=== PATIENT | female | born 1955 | race Caucasian/White ===

== ENCOUNTER → 2017-10-18 07:51 | Outpatient (CLI) | payer OTHER, SELFPAY ==
[2017-10-18 09:56] LABS: Alanine Aminotransferase 31 U/L (12-78); Albumin Level 3.7 gm/dL (3.4-5.0); Albumin/Globulin Ratio 0.9 (1.1-1.8); Alkaline Phosphatase 79 U/L (46-116); Anion Gap 13.5 mEq/L (5-15); Aspartate Amino Transferase 16 U/L (15-37); Bilirubin,Total 0.3 mg/dL (0.2-1.0); Blood Urea Nitrogen 16 mg/dL (7-18); Calcium 9.2 mg/dL (8.5-10.1); Carbon Dioxide 28 mmol/L (21.0-32.0); Chloride 106 mmol/L (98-107); Chol/HDL Ratio 2.2 (1-3.5); Cholesterol 178 mg/dL (140-200); Creatinine,Serum 0.69 mg/dL (0.55-1.02); Estimated Glomerular Filt Rate 86 ml/min (>60); GFR (African American) 104 ML/MIN (>60); Glucose 88 mg/dL (74-106); HDL Cholesterol 80 mg/dL (29-89); LDL Cholesterol 82 mg/dL (0-130); Potassium 4.5 mmoL/L (3.5-5.1); Sodium 143 mmol/L (136-145); Thyroid Stimulating Hormone 0.51 uIU/ml (0.358-3.740); Total Protein,Serum 7.7 gm/dL (6.4-8.2); Triglycerides 80 mg/dL (30-200); VLDL Cholesterol 16 mg/dL (0-40)
== END ==
PROVIDERS: Visit Provider Family Medicine
DX: E03.9 Hypothyroidism, unspecified (principal); E78.00 Pure hypercholesterolemia, unspecified
CPT/HCPCS: 36415; 80053; 80061; 84443

== ENCOUNTER → 2017-12-22 15:40 | Outpatient (CLI) | payer OTHER, SELFPAY ==
--- NOTE | 2017-12-22 15:44 | MM_ITS ---
. MM Dig screening mamm BI w/CAD CAD Screening ORDERING PHYSICIAN : Manuel Morales MD PATIENT AGE: 62 years GENDER: Female COMPARISON: Previous mammograms: October 2016, December 2012, December 2009 , INDICATION: Routine screening mammogram. No hormones no new complaints. Previous stereotactic biopsy both breast TECHNIQUE: Standard CC and MLO images were obtained. R2 CAD reviewed. FINDINGS: Moderate breast density with scattered fibroglandular elements bilaterally . Mildly inhomogeneous Overall stable architecture with no dominant mass nor suspicious calcifications RIGHT BREAST:2 small metallic marker is at the deep right breast-deep central and another at deep breast 12 o'clock position currently noted reflect previous stereotactic biopsy.. Moderately dense glandular elements throughout the deep breast appear similar with no significant change. Follow-up in one year the adequate LEFT BREAST:No new areas of significant concern. Minimal area nodularity medial inferior left breast probably a similar to studies dating back to 2012 and even 2009.. Favor stable feature. It follow-up in one year adequate IMPRESSION: 5... No new areas of significant concern. Bilateral follow-up in one year recommended and should be encouraged and emphasized. In this Moderate breast density . Suggest self breast examination well BI-RADS Category: 2 Benign Finding(s) RECOMMENDED FOLLOW-UP: 1YR - 1 YEAR FOLLOW-UP (A letter has been sent to the patient regarding results of the study.)
== END ==
PROVIDERS: PCP Family Medicine; Visit Provider Family Medicine
DX: Z12.31 Encounter for screening mammogram for malignant neoplasm of breast (principal)
CPT/HCPCS: 77067

== ENCOUNTER → 2018-10-26 08:28 | Outpatient (CLI) | payer OTHER, SELFPAY ==
[2018-10-26 10:36] LABS: Alanine Aminotransferase 38 U/L (12-78); Albumin Level 3.6 gm/dL (3.4-5.0); Alkaline Phosphatase 73 U/L (46-116); Aspartate Amino Transferase 23 U/L (15-37); Bilirubin,Total 0.4 mg/dL (0.2-1.0); Blood Urea Nitrogen 17 mg/dL (7-18); Calcium 9.2 mg/dL (8.5-10.1); Carbon Dioxide 27 mmol/L (21.0-32.0); Chloride 106 mmol/L (98-107); Chol/HDL Ratio 2.4 (1-3.5); Cholesterol 169 mg/dL (140-200); Creatinine,Serum 0.73 mg/dL (0.55-1.02); Estimated Glomerular Filt Rate 80 ml/min (>60); Free T4 (Free Thyroxine) 1.07 ng/dl (0.76-1.46); GFR (African American) 97 ML/MIN (>60); Globulin 3.6 gm/dl (1.3-3.2); Glucose 92 mg/dL (74-106); HDL Cholesterol 69 mg/dL (29-89); LDL Cholesterol 82 mg/dL (0-130); Sodium 143 mmol/L (136-145); Thyroid Stimulating Hormone 0.16 uIU/ml (0.358-3.740); Total Protein,Serum 7.2 gm/dL (6.4-8.2); Triglycerides 89 mg/dL (30-200); VLDL Cholesterol 18 mg/dL (0-40)
== END ==
PROVIDERS: Visit Provider Family Medicine
DX: E03.9 Hypothyroidism, unspecified (principal); E78.00 Pure hypercholesterolemia, unspecified
CPT/HCPCS: 36415; 80053; 80061; 84439; 84443

== ENCOUNTER → 2018-12-21 10:12 | Outpatient (CLI) | payer OTHER, SELFPAY ==
[2018-12-21 12:46] LABS: Free T4 (Free Thyroxine) 1.23 ng/dl (0.76-1.46); Thyroid Stimulating Hormone 0.88 uIU/ml (0.358-3.740)
== END ==
PROVIDERS: Visit Provider Family Medicine
DX: E03.9 Hypothyroidism, unspecified (principal); R79.89 Other specified abnormal findings of blood chemistry
CPT/HCPCS: 36415; 84439; 84443

== ENCOUNTER → 2019-01-17 08:44 | Outpatient (CLI) | payer OTHER, SELFPAY ==
--- NOTE | 2019-01-17 08:47 | MM_ITS ---
MM Dig screening mamm BI w/CAD ORDERING PHYSICIAN : Manuel Morales MD PATIENT AGE: 63 years GENDER: Female COMPARISON: December 2017; October 2016; December 2012 Film screen mammogram October 2009 INDICATION: Routine SCREENING mammogram. No hormones no new complaints. Previous benign stereotactic biopsy and benign excisional biopsy right breast 12:00 noted Noncontributory family history TECHNIQUE: Standard CC and MLO images were obtained. R2 CAD reviewed. FINDINGS: Moderate breast. Moderate fibroglandular elements bilaterally. Mild asymmetry which appears fairly stable overall compared to previous studies. No suspicious new dominant mass no suspicious calcifications. Actually the 2009 study is surprisingly helpful to shows similar fibroglandular pattern bilaterally RIGHT BREAST:No new areas of significant concern. Follow-up in one year. Stable tiny just over 4 mm nodular density at the lateral breast on cc view is a second smaller than 2013 mammogram Previous stereotactic biopsy with 2 metallic MicroMark at right breast. One at the 1 o'clock position and the other deep central breast at 12:00. LEFT BREAST:No new areas of significant concern. Follow-up in one year Area of density at the medial left breast and cc views it remains stable. The scattered patchy areas of density at the left breast appear similar to studies dating back to at least 2012 follow-up in one year adequate IMPRESSION: . No new areas of significant concern either breast. Bilateral follow-up mammogram 1 year recommended. Moderate breast density. BI-RADS Category: 2 Benign Finding(s) RECOMMENDED FOLLOW-UP: 1YR 1 YEAR FOLLOW-UP (A letter has been sent to the patient regarding results of the study.)
== END ==
PROVIDERS: PCP Family Medicine; Visit Provider Family Medicine
DX: Z12.31 Encounter for screening mammogram for malignant neoplasm of breast (principal)
CPT/HCPCS: 77067

== ENCOUNTER → 2019-12-07 08:02 | Outpatient (CLI) | payer MEDICARE, SELFPAY ==
[2019-12-07 09:44] LABS: Chloride 101 mmol/L (98-107); Potassium 4.2 mmoL/L (3.5-5.1); Sodium 137 mmol/L (136-145)
[2019-12-07 09:46] LABS: Alanine Aminotransferase 19 U/L (12-78); Aspartate Amino Transferase 30 U/L (14-36); Blood Urea Nitrogen 14 mg/dl (7-17); Estimated Glomerular Filt Rate 84 ml/min (>60); GFR (African American) 102 ML/MIN (>60)
[2019-12-07 09:47] LABS: Albumin Level 4.3 g/dl (3.5-5.0); Albumin/Globulin Ratio 1.5 (1.1-1.8); Alkaline Phosphatase 60 U/L (38-126); Anion Gap 11.2 mEq/L (5-15); Bilirubin,Total 0.4 mg/dl (0.2-1.3); Calcium 9.8 mg/dl (8.4-10.2); Carbon Dioxide 29 mmol/L (22.0-30.0); Chol/HDL Ratio 2.4 (1-3.5); Cholesterol 151 mg/dl (140-200); Globulin 2.8 g/dL (1.3-3.2); Glucose 85 mg/dl (74-100); HDL Cholesterol 63 mg/dl (40-60); Total Protein,Serum 7.1 g/dl (6.3-8.2); Triglycerides 108 mg/dl (30-150); VLDL Cholesterol 22 mg/dL (0-40)
[2019-12-07 09:58] LABS: Direct LDL Cholesterol 77.01 mg/dL (100-129)
[2019-12-07 10:03] LABS: Free T4 (Free Thyroxine) 1.31 ng/dl (0.78-2.19)
[2019-12-07 10:17] LABS: Thyroid Stimulating Hormone 2.31 uIU/mL (0.465-4.68)
[2019-12-08 04:07] LABS: Creatinine, Urine 47.5 mg/dL (Not Estab.); Microalbumin, Urine <3.0 ug/mL (Not Estab.)
== END ==
PROVIDERS: Visit Provider Family Medicine
DX: E03.9 Hypothyroidism, unspecified (principal); E78.00 Pure hypercholesterolemia, unspecified; I10 Essential (primary) hypertension
CPT/HCPCS: 36415; 80053; 80061; 82043; 82570; 84439; 84443

== ENCOUNTER → 2019-12-12 10:25 | Outpatient (CLI) | payer MEDICARE, SELFPAY ==
--- NOTE | 2019-12-12 10:30 | XR_ITS ---
PROCEDURE: XR LUMBAR SPINE MIN 4V CLINICAL INDICATION: RT HIP PAIN low back pain COMPARISON: No exams were available for comparison FINDINGS: There is lumbar curvature convex left in the upper lumbar spine and convex right in the lower lumbar spine. There is degenerative disc disease at T12-L1 L1-L2 L3-L4 L4-5 and L5-S1. Facet arthritic changes are present at L3-L4 and L5 and S1. There are mild degenerative changes of the SI joints and there is mild diffuse vascular calcification. No acute fracture or dislocation is evident.. There is 5 mm anterolisthesis of L4 on L5 IMPRESSION: Scoliosis with spondylosis of the lumbar spine with degenerative disc disease and facet arthritic change Dictated by: Van Mercado MD 12/12/2019 11:42 Electronically signed by Van Mercado MD in [place] 12/12/2019 11:42
--- NOTE | 2019-12-12 10:30 | XR_ITS ---
PROCEDURE: XR HIP RT 2-3V W/PELVIS CLINICAL INDICATION: RT HIP PAIN COMPARISON: No exams were available for comparison FINDINGS: There are minimal osteoarthritic changes of both hips as seen on the AP view of the pelvis with slight decrease in the joint space and minimal osteophyte formation along the inferior acetabulum. No fracture or dislocation. No lytic or blastic change. Are degenerative changes in the lumbar IMPRESSION: Mild osteoarthritis of the hips Dictated by: Van Mercado MD 12/12/2019 17:46 Electronically signed by Van Mercado MD in [place] 12/12/2019 17:46
== END ==
PROVIDERS: PCP Family Medicine; Visit Provider Family Medicine
DX: M25.551 Pain in right hip (principal); M54.5 Low back pain
CPT/HCPCS: 72110; 73502

== ENCOUNTER → 2020-05-10 08:16 | Outpatient (CLI) | payer MEDICARE, SELFPAY ==
--- NOTE | 2020-05-10 08:19 | MM_ITS ---
PROCEDURE: MM DIG SCREENING MAMM BI W/CAD Digital Breast Tomosynthesis Included CLINICAL INDICATION: SCREENING There is no personal or family history of breast cancer. COMPARISON: MG [facility]MSB DIG MAMM-SCREEN [facility] W/CAD from 11/17/2016 MG [facility] MM Dig screening mamm BI w/CAD from 12/22/2017 MG DIG MAMM-SCREEN [facility] from 01/17/2019 TECHNIQUE: Standard CC and MLO images and 3D Tomosynthesis was obtained. R2 CAD reviewed. FINDINGS: Moderate scattered fibroglandular densities are seen throughout both breasts. There are 2 biopsy clips right breast, there is a mole marker left breast. There is no suspicious lesion in either breast and no suspicious microcalcifications. IMPRESSION: Moderate diffuse breast density with no suspicious lesions seen BI-RAD Category: 2 Benign Finding(s) FOLLOW-UP: 1YR 1 Year Follow-up (A letter has been sent to the patient regarding results of the study.) Dictated by: Dr. Ramiro Tong MD 05/12/2020 15:23 Dr. Ramiro Tong MD in [place] 05/12/2020 15:23
== END ==
PROVIDERS: PCP Family Medicine; Visit Provider Family Medicine
DX: Z12.31 Encounter for screening mammogram for malignant neoplasm of breast (principal)
CPT/HCPCS: 77063; 77067

== ENCOUNTER 2020-11-05 13:28 | Emergency (ER) | payer MEDICARE, SELFPAY ==
[2020-11-05 13:40] VITALS: BP 160/74; PULSE 74; RESP 16; TEMP 36.9; O2SAT 95; BMI 32.8
--- NOTE | 2020-11-05 14:22 | HMH.EDUTC ---
[facility] [place] Clinical Impression: Sinusitis Qualifiers: Sinusitis location: unspecified location Chronicity: unspecified Qualified Code(s): J32.9 - Chronic sinusitis, unspecified Disposition: Home, Self-Care Condition on Discharge: Good Instructions: Sinusitis, Sinus Headache, DI for Sinusitis, Doxycycline, Methylprednisolone Additional Instructions: *Monitor Temp, Over the counter Motrin or Tylenol as directed/as needed Tylenol every 4 hours and Motrin every 6 hours (as long as your family doctor has told you that you can take it) for fever or pain. and straight to ER if unable to lower temp less than 101.0 after medication given *Warm salt water gargles may help to soothe the throat *Throat Lozenges *Warm fluids like tea with honey may help to soothe the throat *Sleep elevated *Humidifier/Vaporizer *Flonase 2 sprays in each nostril daily but be aware that it may take 2-3 days before you notice improvement *Take medication as prescribed Follow up IMMEDIATELY for new or worsening symptoms or no Noticeable improvement over the next 48-72 hours. 911 for difficulty breathing or swallowing You were tested for today for COVID19 your test result should be back in the next 24-48 hours, you may call to the [facility] to see if your test results are back in the next 48 hours [phone] [facility] hours are 9am-9pm You was given a handout with instructions for Self Quarantine and Self isolation for while you wait on test results and what to do if they are positive If you are positive the Health Dept will be contacting you also Prescriptions: Doxycycline Monohydrate [Doxycycline [place] 100mg Tab] 100 mg PO Q12 7 Days #14 tab Transmission Status: Received by [id number] methylPREDNISolone [Medrol 4mg tab] 4 mg PO DIRECTED #21 tab Transmission Status: Received by [id number] Referrals: Manuel Morales MD [Primary Care Provider] - As needed Time of Disposition: 14:40 Medical Decision Making - Cristopher Inquiry Pt receiving controlled substance: No Cristopher was queried for this patient: No Vital Signs: 11/05/20 13:40 11/05/20 14:41 Temperature 98.4 F 98.4 F Temperature Source Oral Pulse Rate 74 Pulse Rate [Right Brachial] 74 Respiratory Rate 16 16 Blood Pressure 160/74 H Blood Pressure [Right Arm] 160/74 H Blood Pressure Mean [Right Arm] 102 Blood Pressure Source [Right Arm] Automatic Cuff Blood Pressure Position [Right Arm] Sitting 02 Sat by Pulse Oximetry 95 Oxygen Delivery Method Room Air Orders (Tests/Meds): ORDERS Category Date Time Status Covid-19 Nasal PCR ([facility]) Routine Lab 11/05/20 14:30 Received Medical Decision Narrative: Patient state that she has taken Medrol dose pack in the past without reactions or complications [facility] [place] - General Stated complaint: headache Time Seen by Provider: 11/05/20 14:22 Mode of Arrival: Ambulatory Source of Information: Patient Limitations: No Limitations Description of Symptoms (Recalled from Triage Doc. by RN): PATIENT C/O CONSISTANT HEADACHE SINCE LAST WEDNESDAY AND LEFT EAR FEELING FULL HEENT Symptoms (Recalled from RN notes): Yes Resp Symptoms (Recalled from RN notes): No Skin Symptoms (Recalled from RN notes): No MS Symptoms (Recalled from RN notes): No Functional Status (Recalled from RN notes): WNL - History of Present Illness Provider Complaint: Patient state that she has been having a sinus headache and fullness feeling in her ears for about a week States that today it was hurting again and she took some Motrin around 1230 and it helped a little but feels like it does when she gets a sinus infection so she came in to get checked - Related Data Previous Rx's Medication Instructions Recorded Benzonatate [Tessalon Perle 100mg 100 mg PO TID #30 cap 09/06/18 Cap] levoFLOXacin [Levaquin 500mg 500 mg PO DAILY #7 tab 09/06/18 tab] predniSONE [Prednisone 20mg 20 mg PO BID #10 tab 09/06/18 Tab] Doxycycline Monohydra
[2020-11-05 14:41] VITALS: BP 160/74; PULSE 74; RESP 16; TEMP 36.9; O2SAT 95
== END 2020-11-05 14:45 | disposition home or self-care (01) ==
PROVIDERS: Emergency Provider Nurse Practitioner; PCP Family Medicine
DX: J32.9 Chronic sinusitis, unspecified (principal); Z20.822 Contact with and (suspected) exposure to COVID-19; Z88.0 Allergy status to penicillin
CPT/HCPCS: 99202; G0463; U0003

== ENCOUNTER → 2020-12-02 08:37 | Outpatient (CLI) | payer MEDICARE, SELFPAY ==
[2020-12-02 09:08] LABS: Creatinine,Urine Random 24 mg/dL (Not Estab.)
[2020-12-02 09:13] LABS: Microalbumin < 6.000 mg/L (0-16.7)
[2020-12-02 09:38] LABS: Alanine Aminotransferase 21 U/L (12-78); Albumin Level 4.4 g/dl (3.5-5.0); Albumin/Globulin Ratio 1.6 (1.1-1.8); Alkaline Phosphatase 70 U/L (38-126); Anion Gap 13.4 mEq/L (5-15); Aspartate Amino Transferase 32 U/L (14-36); Bilirubin,Total 0.4 mg/dl (0.2-1.3); Blood Urea Nitrogen 15 mg/dl (7-17); Calcium 9.8 mg/dl (8.4-10.2); Carbon Dioxide 25 mmol/L (22.0-30.0); Chloride 106 mmol/L (98-107); Chol/HDL Ratio 2.4 (1-3.5); Cholesterol 182 mg/dl (140-200); Estimated Glomerular Filt Rate 84 ml/min (>60); GFR (African American) 101 ML/MIN (>60); Globulin 2.7 g/dL (1.3-3.2); Glucose 94 mg/dl (74-100); HDL Cholesterol 75 mg/dl (40-60); Potassium 4.4 mmoL/L (3.5-5.1); Sodium 140 mmol/L (136-145); Total Protein,Serum 7.1 g/dl (6.3-8.2); Triglycerides 120 mg/dl (30-150); VLDL Cholesterol 24 mg/dL (0-40)
[2020-12-02 09:49] LABS: Direct LDL Cholesterol 69.03 mg/dL (100-129)
[2020-12-02 09:54] LABS: Free T4 (Free Thyroxine) 1.44 ng/dl (0.78-2.19)
[2020-12-02 10:09] LABS: Thyroid Stimulating Hormone 2.29 uIU/mL (0.465-4.68)
== END ==
PROVIDERS: Visit Provider Family Medicine
DX: E03.9 Hypothyroidism, unspecified (principal); E78.00 Pure hypercholesterolemia, unspecified; I10 Essential (primary) hypertension
CPT/HCPCS: 36415; 80053; 80061; 82043; 82570; 84439; 84443

== ENCOUNTER → 2021-03-04 10:31 | Outpatient (POV) | payer MEDICARE, SELFPAY | PROVIDERS: Visit Provider Dermatology | DX: Z00.00 Encounter for general adult medical examination without abnormal findings (principal) ==

== ENCOUNTER → 2021-05-16 09:33 | Outpatient (CLI) | payer MEDICARE, SELFPAY ==
--- NOTE | 2021-05-16 09:36 | MM_ITS ---
PROCEDURE: MM DIG SCREENING MAMM BI W/CAD Digital Breast Tomosynthesis Included CLINICAL INDICATION: SCREENING There is no personal or family history of breast cancer. There has been a previous biopsy right breast for disease. COMPARISON: MG [facility] MM Dig screening mamm BI w/CAD from 12/22/2017 MG DIG MAMM-SCREEN [facility] from 01/17/2019 MG MM DIG SCREENING MAMM BI W/CAD from 05/10/2020 TECHNIQUE: Standard CC and MLO images and 3D Tomosynthesis was obtained. R2 CAD reviewed. FINDINGS: Scattered fibroglandular densities are seen in the central portions of both breast and the findings are bilateral and symmetrical. There is a mole marker left breast. There are 2 biopsy clips right breast. There is no new or suspicious lesion in either breast and no suspicious microcalcifications. CAD markings in each breast were reviewed and they appear to be benign. IMPRESSION: Moderate breast density with no suspicious lesions seen BI-RAD Category: 2 Benign Finding(s) FOLLOW-UP: 1YR 1 Year Follow-up (A letter has been sent to the patient regarding results of the study.) Dictated by: Dr. Ramiro Tong MD 05/29/2021 13:12 Dr. Ramiro Tong MD in [place] 05/29/2021 13:12
== END ==
PROVIDERS: PCP Family Medicine; Visit Provider Family Medicine
DX: Z12.31 Encounter for screening mammogram for malignant neoplasm of breast (principal)
CPT/HCPCS: 77063; 77067

== ENCOUNTER 2021-10-21 09:00 | Outpatient (RCR) | payer MEDICARE, SELFPAY ==
--- NOTE | 2021-10-13 16:05 | HMH.PTOPEV ---
PT Outpatient Evaluation Rehab PT Outpatient Evaluation Start: 10/13/21 14:45 Freq: Status: Active Protocol: Document 10/13/21 14:46 RAQUELKIMBERLY (Rec: 10/13/21 16:04 TATIGRABIEL [id number]) Electronically Signed By Michael Rod, PT 10/13/21 14:46 Outpatient Therapy Subjective History Subjective History This is the initial Physical Therapy vestibular evaluation for Brigitte Ortega. Pt is a 66 y /o female referred to PT for c /o dizziness . Pt states she has had c/o vertigo before but they always passed in a few days. Pt states this bout began 10/06/21 insidiously. Pt states she has intermittant bouts where the world spins and intermittant bouts where she just feels off balance . Pt has noted that when she bends over she has bouts, and the morning feels worse. Chief Complaint Other Symptom Type Other Symptoms Relieved By Rest/Positioning Symptoms Aggravated By Bending/Stooping Prior Functional Limitations None Current Functional Limitations Housework,Sleeping,Recreation Activity,Bending/Stooping Symptom Description Intermittent Balance Eval Chief Complaint vertigo Yes Did you feel dizzy, unsteady or faint? Yes Activity at onset unknown Hx of Falls Hx Falls No Gait/Posture Asssessment General Gait Observation No Deviations/Normal Assistive Devices None / NA Level of Transfer Assist Independent Ankle/Foot Observation in Gait Swing No Deviation Nystagmus Nystagmus Presence None Oculomotor Gaze Oculomotor Gaze Nml: Vergence Smooth Pursuit Saccades VOR Cancellation Cover/Uncover Cross Cover Outpatient Therapy Assessment Impairments Problems/Impairmments Impaired Walking,Impaired Shower/Bathing,Impaired Household Care,Impaired Bending,Impaired Recreational Activities,Impaired Self Care/ Self Management Prognosis Rehab Potential Fair Clinical Impression Consistent with Diagnosis Yes Short
== END 2021-10-21 09:05 | disposition home or self-care (01) ==
LOC: PT 09:00
PROVIDERS: PCP Family Medicine; Visit Provider Family Medicine
DX: R42 Dizziness and giddiness (principal); H83.09 Labyrinthitis, unspecified ear
CPT/HCPCS: 97110; 97140; 97163; 97530; 97535

== ENCOUNTER → 2021-12-01 08:36 | Outpatient (CLI) | payer MEDICARE, SELFPAY ==
[2021-12-01 09:12] LABS: Basophils # 0.1 K/mm3 (0-0.2); Basophils % 1.1 % (0.1-2.0); Eosinophils # 0.1 K/mm3 (0.0-0.4); Eosinophils % 2.2 % (0.1-12.0); Hematocrit 43.4 % (37.0-47.0); Hemoglobin 14.1 g/dL (12.2-16.2); Lymphocytes # 1.8 K/mm3 (0.7-4.5); Lymphocytes % 30.2 % (10-50); Mean Corpuscular HGB Conc 32.5 g/dL (31.8-35.4); Mean Corpuscular Hemoglobin 28.3 pg (27.0-31.2); Mean Platelet Volume 8.7 fl (7.4-10.4); Monocytes # 0.4 K/mm3 (0.1-1.0); Monocytes % 6.2 % (1.7-9.3); Neutrophils # 3.6 K/mm3 (1.8-7.8); Neutrophils % 60.3 % (37.0-80.0); Platelet Count 326 K/mm3 (142-424); Red Blood Count 4.99 M/mm3 (4.20-5.40); Red Cell Distribution Width 13.4 % (11.5-17.5); White Blood Count 6.1 K/mm3 (4.8-10.8)
[2021-12-01 09:24] LABS: Chloride 103 mmol/L (98-107); Potassium 4.1 mmoL/L (3.5-5.1); Sodium 138 mmol/L (136-145)
[2021-12-01 09:26] LABS: Blood Urea Nitrogen 18 mg/dl (7-17); Estimated Glomerular Filt Rate 72 ml/min (>60); GFR (African American) 87 ML/MIN (>60)
[2021-12-01 09:27] LABS: Alanine Aminotransferase 24 U/L (12-78); Albumin Level 4.4 g/dl (3.5-5.0); Albumin/Globulin Ratio 1.5 (1.1-1.8); Alkaline Phosphatase 76 U/L (38-126); Anion Gap 11.1 mEq/L (5-15); Aspartate Amino Transferase 31 U/L (14-36); Bilirubin,Total 0.5 mg/dl (0.2-1.3); Calcium 9.1 mg/dl (8.4-10.2); Carbon Dioxide 28 mmol/L (22.0-30.0); Chol/HDL Ratio 2.7 (1-3.5); Cholesterol 205 mg/dl (140-200); Globulin 2.9 g/dL (1.3-3.2); Glucose 88 mg/dl (74-100); HDL Cholesterol 77 mg/dl (40-60); Total Protein,Serum 7.3 g/dl (6.3-8.2); Triglycerides 132 mg/dl (30-150); VLDL Cholesterol 26 mg/dL (0-40)
[2021-12-01 09:37] LABS: Creatinine,Urine Random 62 mg/dL (Not Estab.); Microalbumin < 6.000 mg/L (0-16.7)
[2021-12-01 09:38] LABS: Direct LDL Cholesterol 92.81 mg/dL (100-129)
[2021-12-01 09:44] LABS: Free T4 (Free Thyroxine) 1.41 ng/dl (0.78-2.19)
[2021-12-01 09:58] LABS: Thyroid Stimulating Hormone 4.66 uIU/mL (0.465-4.68)
== END ==
PROVIDERS: Visit Provider Family Medicine
DX: I10 Essential (primary) hypertension (principal); E78.00 Pure hypercholesterolemia, unspecified; E03.9 Hypothyroidism, unspecified
CPT/HCPCS: 36415; 80053; 80061; 82043; 82570; 84439; 84443; 85025

== ENCOUNTER 2022-01-09 19:41 | Emergency (ER) | payer MEDICARE, SELFPAY ==
[2022-01-09 19:50] VITALS: BP 169/82; PULSE 69; RESP 18; TEMP 36.9; O2SAT 94; BMI 32.8
--- NOTE | 2022-01-09 20:48 | HMH.EDUTC ---
[facility] [place] Clinical Impression: Bug bite with infection Qualifiers: Encounter type: initial encounter Qualified Code(s): W57.XXXA - Bitten or stung by nonvenomous insect and other nonvenomous arthropods, initial encounter Disposition: Home, Self-Care Condition on Discharge: Good Instructions: Mupirocin, DI for Skin Abscess Additional Instructions: *Apply antibiotic cream on area as directed *Monitor closely. Outlined redness so that you can monitor easier. Follow up immediately for new or worsening symptoms including but not limited to redness, swelling, streaking from site fever or chills. *Warm compress 15 minutes 3-4 times day *Never squeeze or pop these on your own. Seek immediate medical attention next time this occurs *Monitor Temp. Tylenol every 4 hours as needed and ibuprofen every 6 hours as needed (as long as your primary care doctor has told you that it is ok to take both. For fever, aches, pain. ER if no less that 101 despite Tylenol and ibuprofen Follow up with your family doctor/primary care physician in the next 48-72 hours if no improvement Prescriptions: Mupirocin Calcium [Mupirocin 2% Cream 15gm] 1 applicatio TP TID 10 Days #15 gm Transmission Status: Pending to [id number] Referrals: Manuel Morales MD [Primary Care Provider] - As needed Time of Disposition: 20:52 Medical Decision Making - Cristopher Inquiry Pt receiving controlled substance: No Cristopher was queried for this patient: No Vital Signs: 01/09/22 19:50 Temperature 98.4 F Temperature Source Oral Pulse Rate [Left Brachial] 69 Respiratory Rate 18 Blood Pressure [Left Arm] 169/82 H Blood Pressure Mean [Left Arm] 111 Blood Pressure Source [Left Arm] Automatic Cuff Blood Pressure Position [Left Arm] Sitting 02 Sat by Pulse Oximetry 94 L Oxygen Delivery Method Room Air [facility] [place] - General Stated complaint: Possible spider bite on L Leg Time Seen by Provider: 01/09/22 20:48 Mode of Arrival: Ambulatory Source of Information: Patient Limitations: No Limitations Description of Symptoms (Recalled from Triage Doc. by RN): PATIENT C/O INSECT BITE TO LEFT THIGH THAT SHE NOTICED WEDNESDAY MORNING HEENT Symptoms (Recalled from RN notes): No Resp Symptoms (Recalled from RN notes): No Skin Symptoms (Recalled from RN notes): Yes MS Symptoms (Recalled from RN notes): No Functional Status (Recalled from RN notes): WNL - History of Present Illness Provider Complaint: Patient states that she noticed a bite on her left upper thigh below buttock area on Wed States that she marked it because it looked different States that she thinks a spider bite her States that she has been watching it and it hasnt moved outside her shearer but hasnt got better either and was looking more red so she came in - Related Data Previous Rx's Medication Instructions Recorded Benzonatate [Tessalon Perle 100mg 100 mg PO TID #30 cap 09/06/18 Cap] levoFLOXacin [Levaquin 500mg 500 mg PO DAILY #7 tab 09/06/18 tab] predniSONE [Prednisone 20mg 20 mg PO BID #10 tab 09/06/18 Tab] Doxycycline Monohydrate 100 mg PO Q12 7 Days #14 tab 11/05/20 [Doxycycline [place] 100mg Tab] methylPREDNISolone [Medrol 4mg 4 mg PO DIRECTED #21 tab 11/05/20 tab] Mupirocin Calcium [Mupirocin 2% 1 applicatio TP TID 10 Days #15 gm 01/09/22 Cream 15gm] Allergies Allergy/AdvReac Type Severity Reaction Status Date / Time Penicillins [PENICILLINS] Allergy Unknown ITCHING Verified 09/06/18 00:08 - Worker's Comp Is this a Worker's Comp case?: No [facility] History - Hepatitis A Screen Attestation statement:: This patient has been screened for Hepatitis A risk factors. I have reviewed the patient's past medical history: Yes Medical History: Denies:: Diabetes Mellitus Type 1, Diabetes Mellitus Type 2 - Social History Alcohol Intake: never Occupational Status: other ROS Obtained: Yes All systems reviewed & no additional complaints, Yes Systems reviewed a
[2022-01-09 21:09] VITALS: BP 169/82; PULSE 69; RESP 18; TEMP 36.9; O2SAT 98
== END 2022-01-09 21:13 | disposition home or self-care (01) ==
PROVIDERS: Emergency Provider Nurse Practitioner; PCP Family Medicine
DX: S70.362A Insect bite (nonvenomous), left thigh, initial encounter (principal); W57.XXXA Bitten or stung by nonvenomous insect and other nonvenomous arthropods, initial encounter; Z88.0 Allergy status to penicillin
CPT/HCPCS: 99212; G0463

== ENCOUNTER → 2022-04-10 11:04 | Outpatient (CLI) | payer MEDICARE, SELFPAY ==
--- NOTE | 2022-04-10 11:07 | XR_ITS ---
FINAL REPORT CLINICAL HISTORY: hip pain COMPARISON: 12/12/2019 FINDINGS: Right hip Three views were obtained. There is no acute fracture or dislocation. There are mild degenerative changes of the right hip. Rightward curvature is identified. There is degenerative change in the lower lumbar spine. No soft tissue abnormality is identified. IMPRESSION: Degenerative change with no acute process. Reviewed, Interpreted and Dictated by Jeremias Metcalf III, MD Transcribed by Bee Arvizu Authenticated and [facility]
== END ==
PROVIDERS: PCP Family Medicine; Visit Provider Orthopaedic Surgery
DX: M25.551 Pain in right hip (principal)
CPT/HCPCS: 73502

== ENCOUNTER 2022-04-21 07:59 | Emergency (ER) | payer MEDICARE, SELFPAY ==
[2022-04-21 08:20] VITALS: BP 162/86; PULSE 70; RESP 20; TEMP 36.7; O2SAT 96; BMI 32.8
--- NOTE | 2022-04-21 08:43 | EXP.UTC ---
Discharge Plan Disposition Patient Disposition: Home, Self-Care Condition: Good Prescriptions Prescriptions: New nitrofurantoin monohyd/m-cryst [Macrobid] 100 mg capsule 100 mg PO BID 7 Days Qty: 14 0RF Rx Instructions: must administer with a meal/food No Action peg 3350-electrolytes [Golytely] 236-22.74-6.74 -5.86 gram recon soln 240 ml PO Q10M Qty: 4000 0RF Rx Instructions: until fecal effluent is clear prednisone 20 MG tablet 20 mg PO BID Qty: 10 0RF benzonatate [Tessalon Perles] 100 MG capsule 100 mg PO TID Qty: 30 0RF levofloxacin 500 MG tablet 500 mg PO DAILY Qty: 7 0RF methylprednisolone 4 MG tablet 4 mg PO DIRECTED Qty: 21 0RF Rx Instructions: Take as directed on package instructions doxycycline monohydrate 100 MG tablet 100 mg PO Q12 7 Days Qty: 14 0RF mupirocin calcium 15 GM cream 1 applicatio TP TID 10 Days Qty: 15 0RF Referrals Follow up/Referrals: Manuel Morales MD [Primary Care Provider] - See instructions Activity Restrictions/Add. Instructions Additional Instructions/Restrictions: *Increase fluids. Water not Soda or Tea *Start antibiotic immediately and be sure to take as ordered for the FULL length of time although you should start to see improvement over the next 48 hours *Pyridium as needed Remember this medication will turn your urine . This is normal but it will stain what ever it gets on *You should not use Pyridium for more than 48 hours. If so , follow up with your primary physician to review urine culture and ensure that antibiotic is adequate for infection *Be SURE to follow up anytime for new or worsening symptoms with your family doctor. AND in 48 hours for urine culture results with your family doctor, if you do not have a doctor then you may call back to the [facility] for urine culture results and further treatment. We do recommend that you choose and establish care with a Primary Care Physician. ?AND follow up with them ?in 10-14 days to repeat UA to ensure infection is resolved and blood no longer present *Be sure to let your PCP know that we sent urine cultures from the [facility] so they can follow up to ensure that you area the on the correct antibiotic Call your doctor office and make appointment for 48 hours (2 days from today) ?to follow up and get the results of your urine culture and further treatment Clinical Impressions Clinical Impression: UTI (urinary tract infection) Instructions Patient Instructions: DI for Urinary Tract Infection (UTI), Nitrofurantoin Discharge ED Provider: Lauren Haddad [facility] [place] General Stated complaint: possible uti Mode of Arrival: Ambulatory Source of Information: Patient Limitations: No Limitations Time Seen by Provider: 04/21/22 08:44 Description of Symptoms (Recalled from Triage Doc. by RN): PATIENT C/O PAIN WITH URINATION AND BLADDER PRESSURE SINCE YESTERDAY HEENT Symptoms (Recalled from RN notes): No Resp Symptoms (Recalled from RN notes): No Skin Symptoms (Recalled from RN notes): No MS Symptoms (Recalled from RN notes): No Functional Status (Recalled from RN notes): WNL History of Present Illness Provider Complaint: Patient states that for the last couple of days she has been having burning with urination and pressure like she gets when she gets a UTI States that today she was still having symptoms so she came in to get checked out Denies fever chills or body aches Related Data Previous Rx's Medication Instructions Recorded benzonatate 100 mg capsule 100 mg PO TID #30 caps 09/06/18 ([facility]) levofloxacin 500 mg tablet 500 mg PO DAILY #7 tabs 09/06/18 prednisone 20 mg tablet 20 mg PO BID #10 tabs 09/06/18 doxycycline monohydrate 100 mg 100 mg PO Q12 7 days #14 tabs 11/05/20 tablet methylprednisolone 4 mg tablet 4 mg PO DIRECTED #21 tabs 11/05/20 mupirocin calcium 2 % topical cream 1 applicatio topical TID 10 days 01/09/22 ##15 peg 3350-electrolytes 236 240 ml PO Q10M
[2022-04-21 08:49] LABS: Apearance,Urine Clear (Clear); Color,Urine Dark Yellow (Yellow); Glucose,Urine (UA) Negative (Negative); Ketones,Urine Negative (Negative); PH,Urine 5.5 (5.0-8.5); Protein,Urine Negative (Negative)
[2022-04-21 08:50] LABS: Bilirubin,Urine Negative (Negative); Blood, Urine 3+ (Negative); UTC Leukocyte Esterase,Urine 3+ (Negative); UTC Nitrate,Urine Negative (Negative); Urobilinogen,Urine 0.2 EU/dl (0.2)
[2022-04-21 08:56] VITALS: BP 162/86; PULSE 70; RESP 20; TEMP 36.7; O2SAT 96
== END 2022-04-21 09:00 | disposition home or self-care (01) ==
PROVIDERS: Emergency Provider Nurse Practitioner; PCP Family Medicine
DX: N39.0 Urinary tract infection, site not specified (principal); Z88.0 Allergy status to penicillin
CPT/HCPCS: 81003; 87086; 87088; 87186; 99212; G0463

== ENCOUNTER → 2022-05-20 11:21 | Outpatient (CLI) | payer MEDICARE, SELFPAY | PROVIDERS: PCP Family Medicine; Visit Provider Surgery | DX: Z01.812 Encounter for preprocedural laboratory examination (principal); Z20.822 Contact with and (suspected) exposure to COVID-19; Z12.11 Encounter for screening for malignant neoplasm of colon | CPT/HCPCS: C9803; U0003; U0005 ==

== ENCOUNTER 2022-05-22 08:24 | Day surgery (SDC) | payer MEDICARE, SELFPAY ==
[2022-05-22] VITALS (8 sets, daily range): BP systolic 118–156; BP diastolic 54–74; PULSE 52–68; RESP 14–17; TEMP 36.1–36.4; O2SAT 96–99; BMI 31.3
--- NOTE | 2022-05-22 10:08 | EXP.ANES.CKL ---
PFSH PFS Medical History (Updated 05/22/22 @ 08:46 by Valery Cerna, RN) Allergies Colonoscopy planned History of cataract History of COVID-19 Hyperlipidemia Hypertension Hyperthyroidism Overactive bladder Palpitations Urinary tract infection Surgical History (Updated 05/22/22 @ 08:46 by Valery Cerna, RN) History of cataract surgery Family History (Updated 05/22/22 @ 08:48 by Valery Cerna, RN) Grandfather Prostate cancer Grandmother Lung cancer Father Family history of myocardial infarction Sister Family history of diabetes mellitus type II Mother Family history of stroke Social History (Updated 05/22/22 @ 08:49 by Valery Cerna, RN) Smoking Status: Former smoker alcohol intake: never substance use type: denies use current occupational status: retired Travel in the last 8 weeks: Inside the [place] caffeine: No [facility] Anesthesia Checklist Patient Identification Patient Identification: Arm Band Structural Data Admitted From: Home Planned Operative Procedure/s: colonoscopy Consent for Planned Operative Procedure(s) Verified: Yes Verified Documents: Surgical Consent and History and Physical NPO Status Verified Time NPO: 00:00 Additional verifications Anesthesia Reactions: No Airway Assessment C-Spine Mobility Assessed: Yes TMJ Mobility Assessed: Yes Dentition: Partials Neurological Assessment Level of Consciousness: Awake and Alert Anesthesia Plan Anesthesia Risk discussed: Yes Anesthesia Plan: Verified ASA Class: II Anesthesia Type: MAC
--- NOTE | 2022-05-22 10:46 | HMH.SCOPE ---
Procedure: Date: 05/22/22 Patient Date of :: 1955 Procedure Performed:: Total colonoscopy to terminal ileum with polypectomy by snare and biopsy Indications:: 67-year-old female. Primary care provider Manuel Morales, she has previously had a colonoscopy about 12 years ago, results unknown. Dr. Segundo Hines had performed colonoscopy on 12/07/2016 and she had an ascending colon tubular adenoma removed. 5-year follow-up colonoscopy was recommended. Performing Provider:: Jeremias Lopez MD Referring Provider:: Manuel Morales MD Sedation:: MAC sedation Procedure:: Patient history was obtained and appropriate physical examination was performed. Informed consent was obtained after explaining the benefits, alternatives, and risks of the procedure including, but not limited to, bleeding, perforation, missed lesions, and adverse reaction to anesthesia medications. Patient was informed of post-sedation precautions. The patient desired to proceed. Patient was transported to endoscopy procedure room. Patient was connected to monitoring devices. Patient was positioned in lateral decubitus position. Digital anorectal exam was performed. Variable stiffness Olympus colonoscope was inserted and advanced under direct visualization to the cecum. Adequacy of the colonic preparation was noted. The colonoscope was advanced a short distance into the terminal ileum. The colonoscope was then slowly withdrawn while carefully examining the color, texture, anatomy, and integrity of the mucosoa circumferentially. Within the rectum retroflexion was performed. Colonoscope was then withdrawn. Findings:: Colonic preparation was good She had some angulation at the rectosigmoid Terminal ileum appeared normal She had polyp in the ascending colon and at the hepatic flexure removed with cold snare There was minor mucosal prominence and possible lymphoid nodule in the ascending colon and this was biopsied In the descending colon there was a hyperplastic appearing polyp removed with biopsy Rectosigmoid region revealed several hyperplastic appearing polyps removed with biopsy forceps In the rectum there were several hyperplastic appearing polyps removed with biopsy forceps Retroflexion revealed internal anal papillae Recommendations:: Follow-up colonoscopy pending pathology. Likely 5 years Complications:: None immediately apparent Estimated blood obtained (mL): 2
== END 2022-05-22 11:50 | disposition home or self-care (01) ==
PROVIDERS: PCP Family Medicine; Visit Provider Surgery
PROC: 0DJD8ZZ Inspection of Lower Intestinal Tract, Via Natural or Artificial Opening Endoscopic (ICD-10-PCS; principal; 2022-05-22 09:30)
DX: Z12.11 Encounter for screening for malignant neoplasm of colon (principal); K63.5 Polyp of colon; Z86.010 Personal history of colon polyps
CPT/HCPCS: 45380; 45385; 88305; J2704

== ENCOUNTER → 2022-05-25 08:16 | Outpatient (CLI) | payer MEDICARE, SELFPAY ==
--- NOTE | 2022-05-25 08:19 | MM_ITS ---
PROCEDURE INFORMATION: Exam: MG Bilateral Screening 3D Mammography Exam date and time: 05/25/2022 8:33 AM Age: 67 years old Clinical indication: Screening examination TECHNIQUE: Imaging protocol: Bilateral Screening tomosynthesis and 2D mammography including computer-aided detection (CAD) when performed. COMPARISON: 1. MG MM DIG SCREENING MAMM BI W/CAD 05/16/2021 9:44 AM 2. MG MM DIG SCREENING MAMM BI W/CAD 05/10/2020 8:39 AM 3. MG DIG MAMM-SCREEN [place] 01/17/2019 9:02 AM 4. MG SCBI MM Dig screening mamm BI w/CAD 12/22/2017 4:00 PM FINDINGS: MAMMOGRAPHY: Breast composition: There are scattered areas of fibroglandular density. Mass: Stable benign-appearing subcentimeter nodules are present in the bilateral breasts. No new or morphologically suspicious nodule has developed to suggest malignancy. Architectural distortion: No new or suspicious architectural distortion. Calcifications: No new or suspicious calcifications are present Asymmetric density: No new or suspicious asymmetric density is present Skin thickening: None. Axillary adenopathy: None. IMPRESSION: No mammographic evidence of malignancy. Recommend annual screening mammography unless otherwise clinically indicated. ASSESSMENT: BI-RADS category 2: Benign
== END ==
PROVIDERS: PCP Family Medicine; Visit Provider Family Medicine
DX: Z12.31 Encounter for screening mammogram for malignant neoplasm of breast (principal)
CPT/HCPCS: 77063; 77067

== ENCOUNTER 2022-05-29 09:00 | Outpatient (RCR) | payer MEDICARE, SELFPAY ==
--- NOTE | 2022-05-20 08:29 | HMH.RHREAS ---
Rehab Reassessment Rehab OP Re-assessment Start: 05/20/22 08:05 Freq: Status: Active Protocol: Document 05/20/22 08:21 NICOHLAS (Rec: 05/20/22 08:28 NICHOLAS [id number]) E-signed By Ruslan Gross, PT Rehab Re-assessment Subjective Subjective Pt reports 0/10 right hip pain on VAS this am, and 'I'm getting my pants on easier now , walking more without issues, stuff like that.' Objective Objective Notes MMT: RIGHT HIP ABD 4-4+/5 W/O PAIN, R HIP ADD 4/5, R HIP EXT 5/5, R HIP FLX 5/5 TTP: RIGHT TFL 0/4, GRT TRO. 0 /4 AROM: R HIP FLX KNEE EXT 0-85, R HIP IR 0-45, R HIP ER 0-50 Assessment Progress Assessment Progressing as Expected Assessment Notes SIGNIFICANT IMPROVEMENTS IN ROM, STRENGTH, AND TTP Patient goals met STG'S 5/5 LTG'S /6 Goals Not Met LTG'S 2/6 Plan Plan Pt to continue w/skilled P.T. to make further improvements in strength AND ROM to allow for optimal function Frequency of Therapy 1-2X/WK Duration of therapy 1-3WKS Time and Billing Re-Eval Time 12 Re-Eval Billing Units 1 PHYSICIAN CERTIFICATION: I certify the specified therapy services for Brigitte Ortega are required, authorized, and reviewed every 30 days.
== END 2022-05-29 09:05 | disposition home or self-care (01) ==
LOC: PT 09:00
PROVIDERS: PCP Family Medicine; Visit Provider Orthopaedic Surgery
DX: M70.61 Trochanteric bursitis, right hip (principal)
CPT/HCPCS: 97010; 97014; 97035; 97110; 97163; 97164; G0283

== ENCOUNTER → 2022-06-02 08:49 | Outpatient (CLI) | payer MEDICARE, SELFPAY ==
[2022-06-02 10:25] LABS: Chol/HDL Ratio 2.7 (1-3.5); Cholesterol 196 mg/dl (140-200); HDL Cholesterol 73 mg/dl (40-60); Triglycerides 119 mg/dl (30-150); VLDL Cholesterol 24 mg/dL (0-40)
[2022-06-02 10:36] LABS: Direct LDL Cholesterol 92.35 mg/dL (100-129)
[2022-06-02 10:57] LABS: Thyroid Stimulating Hormone 3.14 uIU/mL (0.465-4.68)
== END ==
PROVIDERS: PCP Family Medicine; Visit Provider Family Medicine
DX: E78.00 Pure hypercholesterolemia, unspecified (principal); E03.9 Hypothyroidism, unspecified
CPT/HCPCS: 36415; 80061; 84439; 84443

== ENCOUNTER → 2022-08-10 15:09 | Outpatient (CLI) | payer MEDICARE, SELFPAY ==
--- NOTE | 2022-08-10 15:17 | XR_ITS ---
FINAL REPORT CLINICAL HISTORY: PAIN FINDINGS: RIGHT SHOULDER: 3 views of the right shoulder were obtained. There is no acute fracture or dislocation. There is mild AC joint degenerative change. There is no soft tissue abnormality. IMPRESSION: Mild AC joint degenerative change. Reviewed, Interpreted and Dictated by Jeremias Metcalf III, MD Transcribed by Gabriel Arellano Authenticated and [facility]
== END ==
PROVIDERS: PCP Family Medicine; Visit Provider Family Medicine
DX: M25.511 Pain in right shoulder (principal)
CPT/HCPCS: 73030

== ENCOUNTER → 2022-09-08 16:37 | Outpatient (CLI) | payer MEDICARE, SELFPAY ==
--- NOTE | 2022-09-08 16:38 | MR_ITS ---
PROCEDURE INFORMATION: Exam: MR Right Upper Extremity Joint Without Contrast; Shoulder Exam date and time: 09/08/2022 6:13 PM Age: 67 years old Clinical indication: Pain; Shoulder; Right; Additional info: Shoulder pain TECHNIQUE: Imaging protocol: Magnetic resonance imaging of the Right upper extremity without contrast. Exam focused on the shoulder. COMPARISON: CR XR SHOULDER RT MIN 2V 08/10/2022 3:32 PM FINDINGS: Limitations: Motion artifact. Bones and cartilage: The acromion is laterally downsloping, which can contribute to rotator cuff impingement. There is no acute fracture or dislocation. No aggressive bone lesions are present. Benign subchondral cysts involve the humeral head. Mild enthesopathic changes involve the undersurface of the acromion. Joint spaces: A mild effusion involves the glenohumeral joint. Joint fluid extends through the full thickness rotator cuff tear into the subacromial-subdeltoid bursa. There is moderate primary osteoarthritis of the acromioclavicular joint. Hypertrophic bone at the acromioclavicular joint abuts the supraspinatus musculotendinous junction. Glenoid labrum: Intermediate signal between the anterosuperior labrum and the glenoid rim is consistent with a sublabral foramen anatomic variant. Supraspinatus tendon: A focal full-thickness tear involves the supraspinatus tendon at the posterior insertion. The tear measures approximately 1 cm anterior to posterior with 0.6 cm retraction (series 5/images 16-18). Severe tendinosis involves adjacent intact fibers of the supraspinatus tendon. Infraspinatus tendon: Mild tendinosis involves the infraspinatus tendon. Subscapularis tendon: Very low-grade partial-thickness tearing involves the articular surface of the subscapularis tendon. Mild tendinosis involves the remainder of the subscapularis tendon. Teres minor tendon: No tear or significant tendinosis involves the teres minor tendon. Tendon of biceps brachii: Moderate tendinosis involves the intra-articular portion of the long head of the biceps tendon. Glenohumeral ligaments: Unremarkable as visualized. Muscles: The rotator cuff musculature demonstrates no significant edema or atrophy. Soft tissues: No focal fluid collection or suspicious mass. IMPRESSION: 1. Full-thickness supraspinatus tendon tear measuring approximately 1 cm anterior to posterior with 0.6 cm retraction and no significant muscle atrophy. 2. Very low-grade partial-thickness tearing of the subscapularis tendon articular surface, superimposed on mild tendinosis. 3. Moderate tendinosis of the long head of the biceps tendon. 4. Moderate primary osteoarthritis of the acromioclavicular joint with hypertrophic bone abutting the supraspinatus musculotendinous junction, laterally downsloping acromion, and small subacromial enthesophyte that may have contributed to impingement.
== END ==
PROVIDERS: PCP Family Medicine; Visit Provider Orthopaedic Surgery
DX: M75.01 Adhesive capsulitis of right shoulder (principal)
CPT/HCPCS: 73221

== ENCOUNTER → 2022-10-05 09:57 | Outpatient (CLI) | payer MEDICARE, SELFPAY ==
--- NOTE | 2022-10-05 10:24 | ECG_ITS ---
APPROVED REPORT Exam: Resting ECG HR:71 bpm ECG Measurements Heart Rate 71 AXES MS 175 P 67 QRSd 81 QRS 65 QT 370 T 76 QTc 393 Conclusion SINUS RHYTHM LOW QRS VOLTAGE IN PRECORDIAL LEADS [QRS DEFLECTION < 1.0 mV IN CHEST LEADS] BORDERLINE ECG UNCONFIRMED REPORT Electronically signed by : Natanael Keys MD 10/05/2022 19:45:41
--- NOTE | 2022-10-05 11:13 | XR_ITS ---
FINAL REPORT CLINICAL HISTORY: COUGH COMPARISON: 09/06/2018 FINDINGS: PA and lateral views of the chest are obtained. The cardiac and mediastinal silhouettes are within normal limits. The lungs are clear. There is no pleural effusion, pneumothorax, or acute osseous abnormality. IMPRESSION: No radiographic evidence of acute cardiac or pulmonary disease. Reviewed, Interpreted and Dictated by Dede Ortega MD Transcribed by Bee Arvizu Authenticated and [facility]
[2022-10-05 12:04] LABS: Basophils # 0.1 K/mm3 (0-0.2); Eosinophils # 0.2 K/mm3 (0.0-0.4); Eosinophils % 1.7 % (0.1-12.0); Hemoglobin 13.3 g/dL (12.2-16.2); Lymphocytes # 2.4 K/mm3 (0.7-4.5); Lymphocytes % 24.4 % (10-50); Mean Corpuscular HGB Conc 33.2 g/dL (31.8-35.4); Mean Corpuscular Hemoglobin 28.1 pg (27.0-31.2); Mean Corpuscular Volume 84.4 fl (81-99); Mean Platelet Volume 8.6 fl (7.4-10.4); Monocytes # 0.5 K/mm3 (0.1-1.0); Monocytes % 4.8 % (1.7-9.3); Neutrophils # 6.7 K/mm3 (1.8-7.8); Neutrophils % 68.2 % (37.0-80.0); Platelet Count 347 K/mm3 (142-424); Red Blood Count 4.74 M/mm3 (4.20-5.40); Red Cell Distribution Width 13.2 % (11.5-17.5); White Blood Count 9.8 K/mm3 (4.8-10.8)
[2022-10-05 12:35] LABS: Anion Gap 11.4 mEq/L (5-15); Blood Urea Nitrogen 16 mg/dl (7-17); Calcium 9.6 mg/dl (8.4-10.2); Carbon Dioxide 26 mmol/L (22.0-30.0); Chloride 105 mmol/L (98-107); Estimated Glomerular Filt Rate 71 ml/min (>60); GFR (African American) 86 ML/MIN (>60); Glucose 88 mg/dl (74-100); Potassium 4.4 mmoL/L (3.5-5.1); Sodium 138 mmol/L (136-145)
[2022-10-05 12:45] LABS: Hemoglobin A1C 5.5 % (4.0-6.0)
== END ==
PROVIDERS: PCP Family Medicine; Visit Provider Orthopaedic Surgery
DX: Z01.818 Encounter for other preprocedural examination (principal); R06.02 Shortness of breath; R73.09 Other abnormal glucose
CPT/HCPCS: 36415; 71046; 80048; 83036; 85025; 93005

== ENCOUNTER → 2022-12-02 07:34 | Outpatient (CLI) | payer MEDICARE, SELFPAY ==
[2022-12-02 08:14] LABS: Creatinine,Urine Random 58 mg/dL (Not Estab.)
[2022-12-02 08:21] LABS: Chloride 103 mmol/L (98-107); Sodium 139 mmol/L (136-145)
[2022-12-02 08:22] LABS: Microalbumin < 6.000 mg/L (0-16.7); Potassium 4.4 mmoL/L (3.5-5.1)
[2022-12-02 08:24] LABS: Alanine Aminotransferase 22 U/L (12-78); Albumin Level 4.2 g/dl (3.5-5.0); Albumin/Globulin Ratio 1.6 (1.1-1.8); Alkaline Phosphatase 77 U/L (38-126); Anion Gap 11.4 mEq/L (5-15); Aspartate Amino Transferase 28 U/L (14-36); Bilirubin,Total 0.4 mg/dl (0.2-1.3); Blood Urea Nitrogen 13 mg/dl (7-17); Carbon Dioxide 29 mmol/L (22.0-30.0); Cholesterol 192 mg/dl (140-200); Estimated Glomerular Filt Rate 83 ml/min (>60); GFR (African American) 101 ML/MIN (>60); Globulin 2.7 g/dL (1.3-3.2); Total Protein,Serum 6.9 g/dl (6.3-8.2); Triglycerides 156 mg/dl (30-150); VLDL Cholesterol 31 mg/dL (0-40)
[2022-12-02 08:25] LABS: Calcium 9.3 mg/dl (8.4-10.2); Glucose 91 mg/dl (74-100); HDL Cholesterol 64 mg/dl (40-60)
[2022-12-02 08:36] LABS: Direct LDL Cholesterol 88.44 mg/dL (100-129)
== END ==
PROVIDERS: PCP Family Medicine; Visit Provider Family Medicine
DX: E78.00 Pure hypercholesterolemia, unspecified (principal); I10 Essential (primary) hypertension
CPT/HCPCS: 36415; 80053; 80061; 82043; 82570

== ENCOUNTER → 2023-01-22 12:51 | Outpatient (CLI) | payer MEDICARE, SELFPAY ==
--- NOTE | 2023-01-22 13:01 | XR_ITS ---
FINAL REPORT CLINICAL HISTORY: RECURRENT SINUSITIS FINDINGS: SINUSES 3 views of the sinuses were performed. There is complete opacification of the left maxillary sinus probably due to chronic sinusitis. There are no air-fluid levels. There is no acute fracture. IMPRESSION: Chronic left maxillary sinusitis. Reviewed, Interpreted and Dictated by Dallas Cline MD Transcribed by Nasra Cantrell Authenticated and [facility]
== END ==
PROVIDERS: PCP Family Medicine; Visit Provider Family Medicine
DX: J01.01 Acute recurrent maxillary sinusitis (principal)
CPT/HCPCS: 70220

== ENCOUNTER 2023-04-01 10:00 | Outpatient (RCR) | payer MEDICARE, SELFPAY | END 2023-04-01 10:05 | disposition home or self-care (01) | LOC: OT 10:00 | PROVIDERS: PCP Family Medicine; Visit Provider Orthopaedic Surgery | DX: M75.01 Adhesive capsulitis of right shoulder (principal) | CPT/HCPCS: 97010; 97014; 97110; 97140; 97164; 97165; 97530; G0283 ==

== ENCOUNTER → 2023-04-13 13:16 | Outpatient (CLI) | payer MEDICARE, SELFPAY ==
--- NOTE | 2023-04-13 13:20 | US_ITS ---
PROCEDURE: US TRANSVAGINAL CLINICAL INDICATION: PELVIC PAIN COMPARISON: No exams were available for comparison FINDINGS: Transvaginal sonographic images of the pelvis were obtained. UTERUS: 5.7 cm x 2.1 cmx 3.7 cm with a combined endometrial thickness of 3.1mm. Degenerative changes noted at the fundus. LEFT OVARY: 1.8 cmx1.1 cmx1.2cm with a volume of 1.2ml. RIGHT OVARY: Was not visualized. Left ovary is seen and appears normal. Doppler flow to left ovary is seen. There is no fluid in the cul-de-sac. IMPRESSION: 1. Anteverted small, atrophic uterus. There is no fibroid visualized today. Thin endometrium. 2. There are degenerative changes at the fundus of the uterus. 3. The left ovary is small and atrophic. The right ovary is not visualized. 4. No fluid in the cul-de-sac. 5. Tech noted a lot of bowel seen with peristalsis. Dictated by: Boris Pemberton MD 04/13/2023 17:35 Boris Pemberton MD in OV 04/13/2023 17:35
== END ==
PROVIDERS: PCP Family Medicine; Visit Provider Family Medicine
DX: R10.2 Pelvic and perineal pain (principal)
CPT/HCPCS: 76830

== ENCOUNTER → 2023-05-28 09:49 | Outpatient (CLI) | payer MEDICARE, SELFPAY ==
--- NOTE | 2023-05-28 09:53 | MM_ITS ---
PROCEDURE INFORMATION: Exam: MG Bilateral Screening 3D Mammography Exam date and time: 05/28/2023 9:52 AM Age: 68 years old Clinical indication: Screening. No family history of breast cancer. TECHNIQUE: Imaging protocol: Bilateral Screening tomosynthesis and 2D mammography including computer-aided detection (CAD) when performed. COMPARISON: 1. MG MM DIG SCREENING MAMM BI W/CAD 05/25/2022 8:33 AM 2. MG MM DIG SCREENING MAMM BI W/CAD 05/16/2021 9:44 AM 3. MG MM DIG SCREENING MAMM BI W/CAD 05/10/2020 8:39 AM 4. MG DIG MAMM-SCREEN [place] 01/17/2019 9:02 AM FINDINGS: MAMMOGRAPHY: Breast composition: There are scattered areas of fibroglandular density. Mass: None. Architectural distortion: None. Calcifications: No suspicious calcifications. Asymmetric density: None. Skin thickening: None. Axillary adenopathy: None. Other: Right biopsy clips. IMPRESSION: No mammographic evidence of malignancy. Annual screening is recommended unless otherwise clinically indicated. ASSESSMENT: BI-RADS Category 2: Benign
== END ==
PROVIDERS: PCP Family Medicine; Visit Provider Family Medicine
DX: Z12.31 Encounter for screening mammogram for malignant neoplasm of breast (principal)
CPT/HCPCS: 77063; 77067

== ENCOUNTER → 2023-06-01 08:42 | Outpatient (CLI) | payer MEDICARE, SELFPAY ==
--- OUTSIDE RECORDS SUMMARY | 2023-06-01 08:45 | XMS_ITS | Continuity of Care Document ---
Author Name [facility] Address [address] [place] [address] Organization [facility] Address [address] [place] [address] Care Team Providers Care Nurse General Duty Name Role Phone Luanne Skelton Attending Physician PCP, None Primary Care Physician Unavailab le Allergies, Adverse Reactions, Alerts Allergen Type Severity Reaction Last Updated Verified Status No Known Allergies Allergy November 24, 2016 Y Active Medications Active Medications Medication Dose Units Route Sig Qty Days Start Date Discontinued Date Status Instructions Cephalexin Cap 500 MG By Mouth Q12H 14 November 24, 2016 Active Phenazopyridin e Hcl 100 MG By Mouth Three times a Day PRN For Dysuri a / Diffic ulty Urinat ing 20 November 24, 2016 Active Problem List Active Problems Medical Problem Onset Date Status UTI (urinary tract infection) Ac tive Procedures No known history of procedures. Relevant Diagnostic Tests and/or Laboratory Data Laboratory Results Test Date/Time Result Interp. Ref. Range Result Co mment Urine Collection Type November 24, 2016 12:26am [place] Urine Color November 24, 2016 12:26am [place]
--- OUTSIDE RECORDS SUMMARY | 2023-06-01 08:45 | XMS_ITS | Continuity of Care Document ---
Author Name [facility] Address [address] [place] [address] Organization [facility] Address [address] [place] [address] Care Team Providers Care Educational Administrator Name Role Phone Luanne Skelton Attending Physician [phone] PCP, None Primary Care Physician Unavailab le [...]
[2023-06-01 09:56] LABS: Chol/HDL Ratio 2.4 (1-3.5); Cholesterol 213 mg/dl (140-200); HDL Cholesterol 90 mg/dl (40-60); Triglycerides 116 mg/dl (30-150); VLDL Cholesterol 23 mg/dL (0-40)
[2023-06-01 10:08] LABS: Direct LDL Cholesterol 91.16 mg/dL (100-129)
[2023-06-01 10:14] LABS: T4 (Thyroxine) 10.2 ug/dl (5.53-11.0)
[2023-06-01 10:28] LABS: Thyroid Stimulating Hormone 4.63 uIU/mL (0.465-4.68)
== END ==
PROVIDERS: PCP Family Medicine; Visit Provider Family Medicine
DX: E03.9 Hypothyroidism, unspecified (principal); E78.1 Pure hyperglyceridemia
CPT/HCPCS: 36415; 80061; 84436; 84443

== ENCOUNTER 2023-07-01 08:51 | Emergency (ER) | payer MEDICARE, SELFPAY ==
[2023-07-01 09:00] VITALS: BP 185/71; PULSE 68; RESP 18; TEMP 36.5; O2SAT 96; BMI 33.0
--- NOTE | 2023-07-01 09:04 | EXP.UTC ---
Discharge Plan Disposition Patient Disposition: Home, Self-Care Condition: Good Prescriptions Prescriptions: New phenazopyridine [Pyridium] 200 mg tablet 200 mg PO Q8H 2 Days Qty: 6 0RF ciprofloxacin HCl [Cipro] 500 mg tablet 500 mg PO BID 7 Days Qty: 14 0RF ondansetron 4 mg Tablet,Disintegrating 4 mg PO Q8H PRN (Reason: Nausea) Qty: 12 0RF No Action levothyroxine 88 mcg tablet 88 mcg PO DAILY simvastatin 20 mg tablet 20 mg PO HS lisinopril 10 mg tablet 20 mg PO DAILY Referrals Follow up/Referrals: Manuel Morales MD [Primary Care Provider] - See instructions Activity Restrictions/Add. Instructions Additional Instructions/Restrictions: Drink plenty of fluids. Take tylenol or ibuprofen for pain or fever. Take the medications as directed. Follow up with your regular doctor. GO TO THE ER FOR ANY WORSENING SYMPTOMS The pyridium will make your urine turn orange, this is an expected side effect. It will stain your clothes if it comes into contact with them. We will culture the urine. That will tell what bacteria is causing your infection and which antibiotics will treat it best. Sometimes the first antibiotic we prescribe turns out to not work against different bacteria. So, make sure you follow up within 3 days if you are not getting better. Clinical Impressions Clinical Impression: UTI (urinary tract infection) Instructions Patient Instructions: Urinary Tract Infection, Urine Culture, DI for Urinary Tract Infection (UTI), Phenazopyridine Discharge ED Provider: Sudeep Tobias [facility] General Stated complaint: POSSIBLE UTI Time Seen by Provider: 07/01/23 09:04 History of Present Illness Provider Complaint: She states that for the past 2 days she has had urinary frequency and dysuria. Related Data Home Medications Medication Instructions Recorded Confirmed levothyroxine 88 mcg tablet 88 mcg PO DAILY hypothyroidism 05/22/22 07/01/23 lisinopril 10 mg tablet 20 mg PO DAILY High blood pressure 05/22/22 07/01/23 simvastatin 20 mg tablet 20 mg PO HS Cholesterol 05/22/22 07/01/23 Previous Rx's Medication Instructions Recorded ciprofloxacin HCl 500 mg tablet 500 mg PO BID 7 days #14 tabs 07/01/23 (Cipro) ondansetron 4 mg disintegrating 4 mg PO Q8H PRN Nausea #12 tabs 07/01/23 tablet phenazopyridine 200 mg tablet 200 mg PO Q8H 2 days #6 tabs 07/01/23 (Pyridium) Allergies Allergy/AdvReac Type Severity Reaction Status Date / Time Penicillins [PENICILLINS] Allergy Unknown ITCHING Verified 07/01/23 09:12 [facility] Disclaimer: The information contained in this section may have been updated after the patient was seen, as this information can be updated by other users. Medical History Allergies Colonoscopy planned History of cataract History of COVID-19 Hyperlipidemia Hypertension Hyperthyroidism Overactive bladder Palpitations Urinary tract infection Surgical History History of cataract surgery Family History Grandfather Prostate cancer Grandmother Lung cancer Father Family history of myocardial infarction Sister Family history of diabetes mellitus type II Mother Family history of stroke Social History Smoking Status: Former smoker alcohol intake: never substance use type: denies use current occupational status: retired Travel in the last 8 weeks: Inside the [place] caffeine: No ROS Obtained: Yes All systems reviewed & no additional complaints except as documented Constitutional Constitutional: Reports system reviewed and no additional complaints, except as documented, Denies chills and Denies fever(s) Eyes Eyes: Denies eye discharge ENT Ears, Nose, Mouth, and Throat: Denies dysphagia, Denies sor
[2023-07-01 09:09] LABS: Color,Urine Orange (Yellow)
[2023-07-01 09:10] LABS: Apearance,Urine Cloudy (Clear); Bilirubin,Urine 1+ (Negative); Blood, Urine 3+ (Negative); Glucose,Urine (UA) 1+ (Negative); Ketones,Urine TRACE (Negative); Protein,Urine 3+ (Negative); Specific Gravity, Urine 1.005 (1.005-1.030); UTC Leukocyte Esterase,Urine 3+ (Negative); UTC Nitrate,Urine Positive (Negative); Urobilinogen,Urine 2 EU/dl (0.2)
[2023-07-01 09:46] VITALS: BP 152/64; PULSE 68; RESP 18; TEMP 36.5; O2SAT 96
== END 2023-07-01 09:46 | disposition home or self-care (01) ==
PROVIDERS: Emergency Provider Nurse Practitioner Family; PCP Family Medicine
DX: N39.0 Urinary tract infection, site not specified (principal); B96.1 Klebsiella pneumoniae [K. pneumoniae] as the cause of diseases classified elsewhere; I10 Essential (primary) hypertension; E78.5 Hyperlipidemia, unspecified; E03.9 Hypothyroidism, unspecified; Z87.891 Personal history of nicotine dependence
CPT/HCPCS: 81003; 87086; 99212; 99214; G0463

== ENCOUNTER → 2023-08-03 15:11 | Outpatient (CLI) | payer MEDICARE, SELFPAY ==
--- NOTE | 2023-08-03 15:18 | ECG_ITS ---
APPROVED REPORT Exam: Resting ECG HR:73 bpm ECG Measurements Heart Rate 73 AXES OR 159 P 64 QRSd 84 QRS 91 QT 370 T 77 QTc 396 Conclusion SINUS RHYTHM BORDERLINE RIGHT AXIS DEVIATION [QRS AXIS > 90] LOW QRS VOLTAGE IN PRECORDIAL LEADS [QRS DEFLECTION < 1.0 mV IN CHEST LEADS] BORDERLINE ECG UNCONFIRMED REPORT Electronically signed by : Natanael Keys MD 08/03/2023 16:50:06
--- NOTE | 2023-08-03 15:37 | XR_ITS ---
FINAL REPORT TECHNIQUE: Chest PA & Lateral CLINICAL HISTORY: PRE-OP, having shoulder surgery FINDINGS: 2 views of the chest were performed. The heart size is normal. The mediastinum is within normal limits. There is no acute cardiopulmonary process. There are no pleural effusions. There is no pneumothorax. The bony thorax appears intact. IMPRESSION: No acute cardiopulmonary process. Reviewed, Interpreted and Dictated by Dallas Cline MD Transcribed by Gabriel Arellano Authenticated and [facility]
[2023-08-03 16:20] LABS: Basophils % 0.4 % (0.1-2.0); Eosinophils # 0.2 K/mm3 (0.0-0.4); Eosinophils % 2.1 % (0.1-12.0); Hemoglobin 14.1 g/dL (12.2-16.2); Lymphocytes # 2.4 K/mm3 (0.7-4.5); Lymphocytes % 30.8 % (10-50); Mean Corpuscular HGB Conc 34.3 g/dL (31.8-35.4); Mean Corpuscular Hemoglobin 28.8 pg (27.0-31.2); Mean Corpuscular Volume 83.8 fl (81-99); Mean Platelet Volume 8.9 fl (7.4-10.4); Monocytes # 0.5 K/mm3 (0.1-1.0); Monocytes % 6.3 % (1.7-9.3); Neutrophils # 4.8 K/mm3 (1.8-7.8); Neutrophils % 60.4 % (37.0-80.0); Platelet Count 297 K/mm3 (142-424); Red Blood Count 4.89 M/mm3 (4.20-5.40); Red Cell Distribution Width 13.4 % (11.5-17.5); White Blood Count 7.9 K/mm3 (4.8-10.8)
[2023-08-03 16:57] LABS: Blood Urea Nitrogen 14 mg/dl (7-17); Calcium 9.2 mg/dl (8.4-10.2); Carbon Dioxide 26 mmol/L (22.0-30.0); Chloride 103 mmol/L (98-107); Estimated Glomerular Filt Rate 62 ml/min (>60); GFR (African American) 75 ML/MIN (>60); Glucose 99 mg/dl (74-100); Sodium 136 mmol/L (136-145)
[2023-08-03 19:37] LABS: Hemoglobin A1C 5.3 % (4.0-6.0)
== END ==
LOC: LAB 15:12
PROVIDERS: PCP Family Medicine; Visit Provider Orthopaedic Surgery
DX: Z87.898 Personal history of other specified conditions (principal); R73.09 Other abnormal glucose; Z01.818 Encounter for other preprocedural examination
CPT/HCPCS: 36415; 71046; 80048; 83036; 85025; 93005

== ENCOUNTER → 2023-08-06 10:07 | Outpatient (CLI) | payer MEDICARE, SELFPAY ==
--- NOTE | 2023-08-06 | CA_ITS ---
APPROVED REPORT EXAM: Comprehensive 2D, Doppler, and color-flow Echocardiogram Substance Abuse Counselor: Gela Bean, ROSEMARY, RVS Ht: 5 ft 6 in Wt: 210lbs BSA: 2.04 BP: 140/80 mmHg Indications: SOB, HTN, Exsmoker,HLD 2D Dimensions IVSd 0.60 cm F: 0.6-1.0 LVEF (Visual) 37.30 % PWd 0.66 cm F: 0.6 - 1.0 LVDd 5.60 cm F: 3.9 - 5.3 LVDs 5.02 cm F: 2.2 - 3.5 Left Atrium 3.08 cm F: 2.7 - 3.8 M-Mode Dimensions RVDd 1.97 cm (0.9-2.6) LA Diam 3.70 cm (1.9-4.0) LVDd 5.74 cm (3.5-5.7) LVDs 4.48 cm (3.5-5.7) IVSd 1.00 cm (0.6-1.1) PWd 1.11 cm (0.6-1.1) EF (Teich) 46.00% EPSs 0.57 cm FS 23.00% EDV (Teich) 162.60 mL TAPSE 3.24 (<1.7) ESV (Teich) 91.50 mL LV Diastology E Decel Time 240 (160-240 msec) E/A Ratio 0.77 MED A' 13.40 cm/s LAT A' 14.60 cm/s Aortic Valve SIRISHA Index 1.16 cm2/m2 AoV Peak Erik. 129.0 (50-130 cm/s) AO Peak GR. 6.70 mmHg AO Mean GR. 3.30 (<5 mmHg) AO VTI 29.3 (18-25 cm) SIRISHA (VTI) 2.42 (2.5-4.5 cm2) Mitral Valve MV A Velocity 112.0 (40-130 cm/s) E/A Ratio 0.77 Pulmonary Valve TN End VMAX 88.0 cm/s Left Ventricle The left ventricle is normal size. The left ventricular systolic function is normal. The left ventricular ejection fraction is within the normal range. There is increased LV wall thickness. There is normal LV segmental wall motion. Transmitral Doppler flow pattern suggests impaired LV relaxation. LVEF is 55%. Right Ventricle The right ventricle is normal size. The right ventricular systolic function is normal. Atria The left atrium size is normal. The right atrium size is normal. There is no Doppler evidence of interatrial shunt. Aortic Valve The aortic valve is mildly thickened. There is no aortic valvular stenosis. Trace aortic regurgitation. Mitral Valve The mitral valve leaflets are mildly thickened. No evidence of mitral valve stenosis. Trace mitral regurgitation. Tricuspid Valve The tricuspid valve leaflets are thin and pliable. Trace tricuspid regurgitation. There is insufficient TR jet to estimate RVSP. Pulmonic Valve The pulmonary valve is normal in structure. Trace pulmonic regurgitation. Great Vessels The aortic root is normal in size. The ascending aorta is normal in size. IVC is normal in size and collapses >50% with inspiration. Pericardium There is no pericardial effusion. Other Information Study Quality: Fair Conclusion Normal biventricular systolic function. No significant valvular stenosis or regurgitation. Electronically signed by : Jennifer Hawk MD 08/15/2023 20:36:02
== END ==
PROVIDERS: PCP Family Medicine; Visit Provider Family Medicine
DX: R53.83 Other fatigue (principal); R06.02 Shortness of breath; I10 Essential (primary) hypertension; Z87.891 Personal history of nicotine dependence
CPT/HCPCS: 93306

== ENCOUNTER 2023-11-05 10:00 | Outpatient (RCR) | payer MEDICARE, SELFPAY | END 2023-11-05 11:30 | disposition home or self-care (01) | LOC: OT 10:00 | PROVIDERS: PCP Family Medicine; Visit Provider Orthopaedic Surgery | DX: M25.511 Pain in right shoulder (principal); M24.511 Contracture, right shoulder | CPT/HCPCS: 97010; 97014; 97110; 97140; 97164; 97166; G0283 ==

== ENCOUNTER 2024-02-12 16:52 | Emergency (ER) | payer MEDICARE, SELFPAY ==
[2024-02-12 16:54] VITALS: BP 174/97; PULSE 132; RESP 19; TEMP 36.4; O2SAT 94; BMI 32.8
--- NOTE | 2024-02-12 17:13 | XR_ITS ---
PROCEDURE INFORMATION: Exam: XR Chest Exam date and time: 02/12/2024 5:54 PM Age: 68 years old Clinical indication: Other: Palpitations TECHNIQUE: Imaging protocol: Radiologic exam of the chest. Views: 1 view. COMPARISON: CR XR CHEST 2V 08/03/2023 3:39 PM FINDINGS: Lungs: Unremarkable. No consolidation. Pleural spaces: Unremarkable. No pleural effusion. No pneumothorax. Heart/Mediastinum: Cardiomegaly. Bones/joints: Unremarkable. IMPRESSION: No acute findings.
--- NOTE | 2024-02-12 17:13 | ECG_ITS ---
APPROVED REPORT Exam: Resting ECG HR:128 bpm ECG Measurements Heart Rate 128 AXES CA 148 P 103 QRSd 76 QRS 72 QT 334 T 76 QTc 410 Conclusion SINUS TACHYCARDIA INDETERMINATE AXIS POSSIBLE ANTERIOR MYOCARDIAL INFARCTION , PROBABLY OLD [30 ms Q WAVE IN V3/V4, OR R < 0.2 mV IN V4] ABNORMAL RHYTHM ECG UNCONFIRMED REPORT Electronically signed by : EVETTE HEART, 02/13/2024 00:43:16
[2024-02-12 17:19] LABS: Basophils # 0.2 K/mm3 (0-0.2); Basophils % 1.5 % (0.1-2.0); Eosinophils # 0.1 K/mm3 (0.0-0.4); Eosinophils % 1.1 % (0.1-12.0); Hematocrit 48.6 % (37.0-47.0); Lymphocytes # 2.4 K/mm3 (0.7-4.5); Lymphocytes % 21.1 % (10-50); Mean Corpuscular Hemoglobin 27.4 pg (27.0-31.2); Mean Corpuscular Volume 88.4 fl (81-99); Mean Platelet Volume 8.3 fl (7.4-10.4); Monocytes # 0.7 K/mm3 (0.1-1.0); Monocytes % 5.9 % (1.7-9.3); Neutrophils # 7.8 K/mm3 (1.8-7.8); Neutrophils % 70.3 % (37.0-80.0); Platelet Count 338 K/mm3 (142-424); Red Blood Count 5.49 M/mm3 (4.20-5.40); Red Cell Distribution Width 13.9 % (11.5-17.5); White Blood Count 11.2 K/mm3 (4.8-10.8)
[2024-02-12 17:20] LABS: Chloride 103 mmol/L (98-107); Sodium 139 mmol/L (136-145)
[2024-02-12 17:21] LABS: Potassium 4.5 mmoL/L (3.5-5.1)
[2024-02-12 17:23] LABS: Alanine Aminotransferase 25 U/L (12-78); Alkaline Phosphatase 77 U/L (38-126); Aspartate Amino Transferase 39 U/L (14-36); Bilirubin,Total 0.4 mg/dl (0.2-1.3); Blood Urea Nitrogen 21 mg/dl (7-17); Creatinine Clearance Estimated 80 mL/min (50-200); Estimated Glomerular Filt Rate 62 ml/min (>60); GFR (African American) 75 ML/MIN (>60)
[2024-02-12 17:24] LABS: Albumin Level 4.9 g/dl (3.5-5.0); Albumin/Globulin Ratio 1.2 (1.1-1.8); Anion Gap 13.5 mEq/L (5-15); Calcium 10.3 mg/dl (8.4-10.2); Carbon Dioxide 27 mmol/L (22.0-30.0); Globulin 4.1 g/dL (1.3-3.2); Glucose 106 mg/dl (74-100)
[2024-02-12 17:30] VITALS: BP 137/67; RESP 16; O2SAT 100
[2024-02-12 17:36] LABS: Troponin I < 0.01 ng/ml (0.00-0.034)
--- NOTE | 2024-02-12 17:42 | ED_ITS ---
Discharge Plan Disposition Patient Disposition: Home, Self-Care Condition: Good Prescriptions Prescriptions: No Action levothyroxine 88 mcg tablet 88 mcg PO DAILY simvastatin 20 mg tablet 20 mg PO HS lisinopril 10 mg tablet 20 mg PO DAILY phenazopyridine [Pyridium] 200 mg tablet 200 mg PO Q8H 2 Days Qty: 6 0RF ciprofloxacin HCl [Cipro] 500 mg tablet 500 mg PO BID 7 Days Qty: 14 0RF ondansetron 4 mg Tablet,Disintegrating 4 mg PO Q8H PRN (Reason: Nausea) Qty: 12 0RF Referrals Follow up/Referrals: Manuel Morales MD [Primary Care Provider] - See instructions Activity Restrictions/Add. Instructions Additional Instructions/Restrictions: You have been evaluated in the ED for your complaints. You may follow-up with your PCP in the next 3 to 5 days. Please return to ED for any new or worsening symptoms. Clinical Impressions Clinical Impression: Palpitations Discharge ED Provider: Aashish Guzman Adult HPI General Chief complaint: Arrhythmia/Palpitations Stated complaint: Rapid heart rate Time Seen by Provider: 02/12/24 16:59 Mode of Arrival: Ambulatory Source of Information: Patient Limitations: No Limitations Description of Symptoms (Recalled from ER Triage Doc. by RN): pt presents to ED with c/o fast heart beat. pt reports symptoms ongoing for the past 5 hours. pt reports to a history of these episodes but they have never lasted this long History of Present Illness HPI narrative: 68-year-old female with past medical history significant for hypothyroidism, HTN, HLD, presents today for evaluation concerning palpitations onset around 1210 today after cleaning a house for about 3 hours. She states that it was very hot in the house while cleaning. States that she has not been drinking much fluids today but in previous days that she has. Denies having any fevers, chills, chest pain or shortness of breath. Denies any nausea, vomiting or significant fluid losses. She has no further complaints on assessment. Related Data Home Medications Medication Instructions Recorded Confirmed levothyroxine 88 mcg tablet 88 mcg PO DAILY hypothyroidism 05/22/22 07/01/23 lisinopril 10 mg tablet 20 mg PO DAILY High blood pressure 05/22/22 07/01/23 simvastatin 20 mg tablet 20 mg PO HS Cholesterol 05/22/22 07/01/23 Previous Rx's Medication Instructions Recorded ciprofloxacin HCl 500 mg tablet 500 mg PO BID 7 days #14 tabs 07/01/23 (Cipro) ondansetron 4 mg disintegrating 4 mg PO Q8H PRN Nausea #12 tabs 07/01/23 tablet phenazopyridine 200 mg tablet 200 mg PO Q8H 2 days #6 tabs 07/01/23 (Pyridium) Allergies Allergy/AdvReac Type Severity Reaction Status Date / Time Penicillins [PENICILLINS] Allergy Unknown ITCHING Verified 07/01/23 09:12 [facility] Disclaimer: The information contained in this section may have been updated after the patient was seen, as this information can be updated by other users. Medical History Allergies Colonoscopy planned History of cataract History of COVID-19 Hyperlipidemia Hypertension Hyperthyroidism Overactive bladder Palpitations Urinary tract infection Surgical History History of cataract surgery Family History Grandfather Prostate cancer Grandmother Lung cancer Father Family history of myocardial infarction Sister Family history of diabetes mellitus type II Mother Family history of stroke Social History Smoking Status: Never smoker alcohol intake: never substance use type: denies use current occupational status: retired Travel in the last 8 weeks: Inside the [place] caffeine: No ROS Obtained: Yes All systems reviewed & no additional complaints except as documented Physical Exam General General appearance: alert and in no apparent distress Head Head exam: atraumatic and normocephalic Eye Eye exam: Present normal appearance, PERRL and EOMI ENT ENT exam: Present normal oropharynx and mucous membranes moist Neck Neck exam: Present full ROM; Absent meningismus Respiratory Respiratory exam: Absent respiratory distress, wheezes, stridor or accessory muscle use Cardiovascular Cardiovascular exam: Present normal rhythm Abdominal Exam Abdominal exam: Present soft; Absent distention, tenderness, guarding, rebound or rigidity Neurological Exam Neurological exam: Present alert, oriented X3 and CN II-XII intact; Absent motor sensory deficit Psychiatric Psychiatric exam: Present normal affect and normal mood Skin Skin exam: Present warm and dry Medical Decision Making Medical Records Medical records reviewed: Yes I reviewed the patient's medical records. Cristopher Inquiry Pt receiving controlled substance: No Cristopher was queried for this patient: No Vital Signs: 02/12/24 16:54 02/12/24 17:30 02/12/24 18:30 Temperature 97.5 F L Temperature Source Oral Pulse Rate 63 Pulse Rate [Left Radial] 132 H Respiratory Rate 19 16 18 Blood Pressure 137/67 159/64 H Blood Pressure [Right Arm] 174/97 H Blood Pressure Mean [Right Arm] 122 02 Sat by Pulse Oximetry 94 L 100 93 L Oxygen Delivery Method Room Air 02/12/24 19:00 Temperature Temperature Source Pulse Rate 69 Pulse Rate [Left Radial] Respiratory Rate 17 Blood Pressure 156/77 H Blood Pressure [Right Arm] Blood Pressure Mean [Right Arm] 02 Sat by Pulse Oximetry 97 Oxygen Delivery Method Lab Data Lab Results 02/12/24 17:03: WBC 11.2 H, RBC 5.49 H, Hgb 15.0, Hct 48.6 H, MCV 88.4, MCH 27.4, MCHC 31.0 L, RDW 13.9, Plt Count 338, MPV 8.3, Neut % (Auto) 70.3, Lymph % (Auto) 21.1, [place] % (Auto) 5.9, Eos % (Auto) 1.1, Baso % (Auto) 1.5, Neut # (Auto) 7.8, Lymph # (Auto) 2.4, [place] # (Auto) 0.7, Eos # (Auto) 0.1, Baso # (Auto) 0.2, Sodium 139, Potassium 4.5, Chloride 103, Carbon Dioxide 27, Anion Gap 13.5, BUN 21 H, Creatinine 0.90, Estimated Creat Clear 80, Estimated GFR 62, Est GFR ( Amer) 75, Glucose 106 H, Calcium 10.3 H, Total Bilirubin 0.4, A ST 39 H, ALT 25, Alkaline Phosphatase 77, Troponin I < 0.01, Total Protein 9.0 H D, Albumin 4.9, Globulin 4.1 H, Albumin/Globulin Ratio 1.2 02/12/24 19:59: Troponin I < 0.01 02/12/24 17:03 02/12/24 17:03 Orders (Tests/Meds): ED MEDICATIONS Discontinued Medications Generic Name Dose Route Start Last Admin Trade Name Freq PRN Reason Stop Dose Admin Lactated Ringer's 500 mls @ 999 mls/hr 02/12/24 17:13 02/12/24 17:58 Lactated Ringer's 1000 Ml Bag IV 02/12/24 17:43 999 mls/hr .Q31M ONE Administration ORDERS Category Date Time Status CXR --portable [XR chest portable] Stat Exams 02/12/24 17:13 Completed CBC w/Auto Diff [Complete Blood Count Auto Diff] Stat Lab 02/12/24 17:03 Completed CMP [Comprehensive Metabolic Panel] Stat Lab 02/12/24 17:03 Completed Trop I [Troponin I] Stat Lab 02/12/24 17:03 Completed Troponin I Q3H Lab 02/12/24 19:59 Completed Troponin I Q3H Lab 02/12/24 23:15 Ordered HEART Score History (anamnesis): Slightly suspicious ECG: Normal Age: >65 years Risk factors: 1-2 risk factors Troponin: </= normal limit HEART Score: 3 Medical Decision Narrative: 68-year-old female with past medical history significant for hypothyroidism, HTN, HLD, presents today for evaluation concerning palpitations onset around 1210 today after cleaning a house for about 3 hours. She states that it was very hot in the house while cleaning. States that she has not been drinking much fluids today but in previous days that she has. On assessment she was medically stable and in no acute distress. Afebrile. Chest clear to station bilaterally abdomen soft nondistended and nontender to palpation. She was initially tachycardic but converted to the 70s. No peripheral edema noted. Otherwise exam vitals unremarkable differential diagnoses include but limited to ACS, dysrhythmia, atrial fibrillation, electrolyte disturbance, dehydration, among others. EKG was personally interpreted by me and was remarkable for sinus tachycardia with a rate of 128 bpm. No ischemic changes noted. Patient's chest did not show any acute cardiopulmonary disease processes on my informal interpretation. Radiology report confirmed. Labs remarkable WBC 11.2. Initial troponin less than 0.01. Second opponent less than 0.01. Other labs were nonactionable. On reassessment she remains medically stable in no acute distress. Has not had any other episodes of palpitations while in the ED. I discussed ED workup and results as well as current plan to discharge. She will call her medical records technician to schedule an appointment for follow-up. Provided with strict return ED precautions. Subsequent discharged hemodynamic stable in no distress. Critical Care Critical Care Time Critical Care Time: No
[2024-02-12] MEDS: LACTATED RINGERS 1000ML 500 ML 999 ML IV (17:58)
[2024-02-12 18:30] VITALS: BP 159/64; PULSE 63; RESP 18; O2SAT 93
[2024-02-12 19:00] VITALS: BP 156/77; PULSE 69; RESP 17; O2SAT 97
[2024-02-12 20:26] LABS: Troponin I < 0.01 ng/ml (0.00-0.034)
[2024-02-12 20:45] VITALS: BP 166/70; PULSE 61; RESP 16; TEMP 36.6; O2SAT 95
== END 2024-02-12 20:49 | disposition home or self-care (01) ==
PROVIDERS: Emergency Provider Emergency Medicine; PCP Family Medicine
DX: R00.2 Palpitations (principal); R00.0 Tachycardia, unspecified; E03.9 Hypothyroidism, unspecified; I10 Essential (primary) hypertension; E78.5 Hyperlipidemia, unspecified
CPT/HCPCS: 71045; 80053; 84484; 85025; 93005; 99284; J7120

== ENCOUNTER 2024-02-29 10:39 | Outpatient (CLI) | payer MEDICARE, SELFPAY | END 2024-02-29 23:59 | disposition home or self-care (01) | LOC: RT 10:40 | PROVIDERS: PCP Family Medicine; Visit Provider Physician Assistant | DX: R00.2 Palpitations (principal) | CPT/HCPCS: 93270; 93272 ==

== ENCOUNTER 2024-03-02 06:40 | Outpatient (CLI) | payer MEDICARE, SELFPAY ==
--- NOTE | 2024-03-02 06:45 | NM_ITS ---
APPROVED REPORT Exam: Nuclear Stress Test Indication: palpitations..fatigue Patient Location: Outpatient Stress Tech: Tiki HAMMER Tech:Marcella Hastings ELIASarah RT(R)(N) Ht: 5 ft 7 in Wt: 210 lbs Bra Size: 40b HR: 62 bpm BP: 134/62 mmHg BSA: 2.07 m2 TID: 1.09 BMI: 32.8 History: palpitations..fatigue Procedure: Patient received 0.4 mg of intravenous Lexiscan, resting heart rate 62 bpm, resting blood pressure 134/62 mmHg, with Lexiscan maximum heart rate achieved was 96 bpm which is 85 % of the maximum predicted heart rate and blood pressure was 131/57 mmHg. With Lexiscan, patient denied any complaint of chest pain. Cardiac Stress and Resting SPECT Images: Cardiac Stress and Resting SPECT images were obtained using technetium 99m Myoview 32.9 mCi stress and 10.33 mCi at rest. Resting and stress imaging in supine and prone positions demonstrate no evidence of fixed or reversible perfusion defects. Gated imaging demonstrates normal global and regional LV systolic function. LVEF is calculated at 63%. Conclusion: No evidence of fixed or reversible perfusion defects. Gated imaging demonstrates normal global and regional LV systolic function. LVEF is calculated at 63%. Electronically signed by : Jennifer Hawk MD 03/05/2024 12:22:17
[2024-03-02] MEDS: REGADENOSON 0.4MG/5ML SYRINGE 0.4 MG IV (09:26)
[2024-03-02] MEDS: ISOTOPE MYOVIEW (PER STUDY) 1 DOSE IV (09:26)
[2024-03-02] MEDS: SODIUM CHLORIDE 0.9% 10ML SYR (RAD ONLY) 10 ML IV ×2 (09:26)
== END 2024-03-02 23:59 | disposition home or self-care (01) ==
LOC: RAD 06:40
PROVIDERS: PCP Family Medicine; Visit Provider Physician Assistant
DX: R06.00 Dyspnea, unspecified (principal); R00.2 Palpitations; R53.83 Other fatigue; Z87.891 Personal history of nicotine dependence
CPT/HCPCS: 78452; 93017; 93018; A9502; J2785

== ENCOUNTER 2024-04-03 12:09 | Outpatient (CLI) | payer MEDICARE, SELFPAY ==
[2024-04-03 12:28] LABS: Basophils # 0.1 K/mm3 (0-0.2); Basophils % 0.8 % (0.1-2.0); Eosinophils # 0.2 K/mm3 (0.0-0.4); Hematocrit 42.9 % (37.0-47.0); Hemoglobin 13.3 g/dL (12.2-16.2); Lymphocytes # 1.9 K/mm3 (0.7-4.5); Lymphocytes % 23.2 % (10-50); Mean Corpuscular HGB Conc 31.1 g/dL (31.8-35.4); Mean Corpuscular Volume 90.2 fl (81-99); Mean Platelet Volume 8.4 fl (7.4-10.4); Monocytes # 0.5 K/mm3 (0.1-1.0); Monocytes % 5.6 % (1.7-9.3); Neutrophils # 5.6 K/mm3 (1.8-7.8); Neutrophils % 68.4 % (37.0-80.0); Platelet Count 354 K/mm3 (142-424); Red Blood Count 4.75 M/mm3 (4.20-5.40); Red Cell Distribution Width 13.9 % (11.5-17.5); White Blood Count 8.3 K/mm3 (4.8-10.8)
[2024-04-03 13:07] LABS: Albumin Level 4.4 g/dl (3.5-5.0); Chloride 105 mmol/L (98-107); Potassium 4.5 mmoL/L (3.5-5.1); Sodium 137 mmol/L (136-145)
[2024-04-03 13:09] LABS: Bilirubin,Unconjugated 0.2 mg/dL (0.0-1.1); Blood Urea Nitrogen 16 mg/dl (7-17); Estimated Glomerular Filt Rate 71 ml/min (>60); GFR (African American) 86 ML/MIN (>60)
[2024-04-03 13:10] LABS: Alanine Aminotransferase 21 U/L (12-78); Alkaline Phosphatase 73 U/L (38-126); Anion Gap 6.5 mEq/L (5-15); Aspartate Amino Transferase 32 U/L (14-36); Bilirubin,Direct 0.3 mg/dl (0.0-0.4); Bilirubin,Indirect 0.2 mg/dL (0.0-0.9); Bilirubin,Total 0.5 mg/dl (0.2-1.3); Calcium 9.7 mg/dl (8.4-10.2); Carbon Dioxide 30 mmol/L (22.0-30.0); Chol/HDL Ratio 2.7 (1-3.5); Cholesterol 210 mg/dl (140-200); Glucose 90 mg/dl (74-100); HDL Cholesterol 79 mg/dl (40-60); Magnesium 1.9 mg/dl (1.6-2.3); Total Protein,Serum 7.3 g/dl (6.3-8.2); Triglycerides 215 mg/dl (30-150); VLDL Cholesterol 43 mg/dL (0-40)
[2024-04-03 13:27] LABS: Direct LDL Cholesterol 82.93 mg/dL (100-129)
[2024-04-03 13:40] LABS: Thyroid Stimulating Hormone 5.97 uIU/mL (0.465-4.68)
[2024-04-03 17:00] LABS: Free T4 (Free Thyroxine) 1.38 ng/dl (0.78-2.19)
== END 2024-04-03 23:59 | disposition home or self-care (01) ==
LOC: LAB 12:10
PROVIDERS: PCP Family Medicine; Visit Provider Nurse Practitioner Family
DX: R06.09 Other forms of dyspnea (principal); Z87.891 Personal history of nicotine dependence; R53.83 Other fatigue; R00.2 Palpitations; E78.5 Hyperlipidemia, unspecified
CPT/HCPCS: 36415; 80048; 80061; 80076; 83735; 84439; 84443; 85025

== ENCOUNTER 2024-05-16 09:30 | Outpatient (CLI) | payer MEDICARE, SELFPAY ==
[2024-05-16 10:55] LABS: Free T4 (Free Thyroxine) 1.54 ng/dl (0.78-2.19)
[2024-05-16 11:10] LABS: Thyroid Stimulating Hormone 1.04 uIU/mL (0.465-4.68)
== END 2024-05-16 23:59 | disposition home or self-care (01) ==
LOC: LAB 09:31
PROVIDERS: PCP Family Medicine; Visit Provider Nurse Practitioner Family
DX: E03.9 Hypothyroidism, unspecified (principal)
CPT/HCPCS: 36415; 84439; 84443

== ENCOUNTER 2024-05-25 08:41 | Outpatient (CLI) | payer MEDICARE, SELFPAY ==
--- NOTE | 2024-05-25 | MR_ITS ---
FINAL REPORT CLINICAL HISTORY: RT HIP PAIN FINDINGS: Multiplanar MR imaging of the right hip was performed without contrast. There is significant narrowing of the hip joint spaces bilaterally. There is abnormal signal in the lateral right acetabulum measuring 1.4 cm in greatest dimension consistent with a degenerative subchondral cyst. Finding is best seen on image 23 of series 4. The acetabular labrum is flattened but intact. The abductor tendons are intact. There is no significant fluid collection. 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 Reviewed, Interpreted and Dictated by Dallas Cline MD Transcribed by Bee Arvizu Authenticated and [facility]
== END 2024-05-25 23:59 | disposition home or self-care (01) ==
LOC: RAD 08:44
PROVIDERS: PCP Family Medicine; Visit Provider Orthopaedic Surgery
DX: M70.71 Other bursitis of hip, right hip (principal); M25.561 Pain in right knee
CPT/HCPCS: 73721

== ENCOUNTER 2024-06-14 07:50 | Outpatient (CLI) | payer MEDICARE, SELFPAY ==
--- NOTE | 2024-06-14 07:52 | MM_ITS ---
PROCEDURE INFORMATION: Exam: MG Bilateral Screening 3D Mammography Exam date and time: 06/14/2024 7:49 AM Age: 69 years old Clinical indication: Screening examination TECHNIQUE: Imaging protocol: Bilateral Screening tomosynthesis and 2D mammography including computer-aided detection (CAD) when performed. COMPARISON: 1. MG MM DIG SCREENING MAMM BI W/CAD 05/28/2023 9:52 AM 2. MG MM DIG SCREENING MAMM BI W/CAD 05/25/2022 8:33 AM FINDINGS: MAMMOGRAPHY: Breast composition: There are scattered areas of fibroglandular density. Mass: No suspicious masses. Architectural distortion: None. Calcifications: No suspicious calcifications. Asymmetric density: None. Skin thickening: None. Axillary adenopathy: None. IMPRESSION: No mammographic evidence of malignancy. Annual screening is recommended unless otherwise clinically indicated. ASSESSMENT: BI-RADS Category 1: Negative.
== END 2024-06-14 23:59 | disposition home or self-care (01) ==
LOC: RAD 07:51
PROVIDERS: PCP Family Medicine; Visit Provider Family Medicine
DX: Z12.31 Encounter for screening mammogram for malignant neoplasm of breast (principal)
CPT/HCPCS: 77063; 77067

== ENCOUNTER 2024-08-01 10:33 | Emergency (ER) | payer MEDICARE, SELFPAY ==
[2024-08-01 10:40] VITALS: BP 142/62; PULSE 74; RESP 20; TEMP 36.6; O2SAT 98; BMI 33.6
--- NOTE | 2024-08-01 10:54 | ED_ITS ---
Discharge Plan Disposition Patient Disposition: Home, Self-Care Condition: Good Prescriptions Prescriptions: New phenazopyridine [Pyridium] 200 mg tablet 200 mg PO Q8H 2 Days Qty: 6 0RF ciprofloxacin HCl [Cipro] 500 mg tablet 500 mg PO BID 7 Days Qty: 14 0RF No Action azelastine 0.05 % drops 1 drp ophthalmic (eye) BID Patient Comments: INSTILL 1 DROP INTO AFFECTED EYE TWICE DAILY lisinopril 20 mg tablet 20 mg PO DAILY Patient Comments: TAKE 1 TABLET ONCE DAILY levothyroxine 100 mcg tablet 100 mcg PO DAILY Patient Comments: TAKE 1 TABLET ONCE DAILY simvastatin 20 mg tablet 20 mg PO HS Patient Comments: TAKE 1 TABLET ONCE DAILY ATBEDTIME metoprolol succinate 25 mg tablet extended release 24 hr 25 mg PO DAILY Patient Comments: TAKE 1 TABLET BY MOUTH ONCE DAILY Referrals Follow up/Referrals: Manuel Morales MD [Primary Care Provider] - See instructions Activity Restrictions/Add. Instructions Additional Instructions/Restrictions: Drink plenty of fluids. Take tylenol or ibuprofen for pain or fever. Take the medications as directed. Follow up with your regular doctor. GO TO THE ER FOR ANY WORSENING SYMPTOMS The pyridium will make your urine turn orange, this is an expected side effect. It will stain your clothes if it comes into contact with them. We will culture the urine. That will tell what bacteria is causing your infection and which antibiotics will treat it best.This test takes 3 days to complete. Clinical Impressions Clinical Impression: UTI (urinary tract infection) Instructions Patient Instructions: Urinary Tract Infection, Urine Culture, DI for Urinary Tract Infection (UTI), Phenazopyridine, Ciprofloxacin Print Language Print Language: Urdu Discharge ED Provider: Sudeep Tobias [facility] General Stated complaint: possible UTI Mode of Arrival: Ambulatory Source of Information: Patient Limitations: No Limitations Time Seen by Provider: 08/01/24 10:54 Description of Symptoms (Recalled from Triage Doc. by RN): PATIENT C/O PAIN AND URGENCY WITH URINATION AND STRONG ODOR TO URINE THAT STARTED THIS MORNING HEENT Symptoms (Recalled from RN notes): No Resp Symptoms (Recalled from RN notes): No Skin Symptoms (Recalled from RN notes): No MS Symptoms (Recalled from RN notes): No Functional Status (Recalled from RN notes): WNL Related Data Home Medications ?Medication ?Instructions ?Recorded ?Confirmed azelastine 0.05 % eye drops 1 drp ophthalmic (eye) BID 08/01/24 08/01/24 levothyroxine 100 mcg tablet 100 mcg PO DAILY 08/01/24 08/01/24 lisinopril 20 mg tablet 20 mg PO DAILY 08/01/24 08/01/24 metoprolol succinate 25 mg 25 mg PO DAILY 08/01/24 08/01/24 tablet,extended release 24 hr simvastatin 20 mg tablet 20 mg PO HS 08/01/24 08/01/24 Previous Rx's ?Medication ?Instructions ?Recorded ciprofloxacin HCl 500 mg tablet 500 mg PO BID 7 days #14 tabs 08/01/24 (Cipro) phenazopyridine 200 mg tablet 200 mg PO Q8H 2 days #6 tabs 08/01/24 (Pyridium) Allergies Allergy/AdvReac Type Severity Reaction Status Date / Time Penicillins (PENICILLINS) Allergy Unknown ITCHING Verified 06/15/24 13:34 Worker's Comp Is this a Worker's Comp case?: No [facility] Disclaimer: The information contained in this section may have been updated after the patient was seen, as this information can be updated by other users. Medical History SVT (supraventricular tachycardia) PVC (premature ventricular contraction) PAC (premature atrial contraction) Colonoscopy planned Overactive bladder Urinary tract infection History of COVID-19 Hyperthyroidism History of cataract Allergies Palpitations Hypertension Hyperlipidemia Surgical History History of cataract surgery Family History Grandfather Prostate cancer Grandmother Lung cancer Father Family history of myocardial infarction Sister Family history of diabetes mellitus type II Mother Family history of stroke Social History Smoking Status: Never smoker alcohol intake: never substance use type: denies use current occupational status: retired Travel in the last 8 weeks: Inside the [place] caffeine: No ROS Obtained: Yes All systems reviewed & no additional complaints except as documented Constitutional Constitutional: Reports system reviewed and no additional complaints, except as documented, Denies chills and Denies fever(s) Eyes Eyes: Denies eye discharge ENT Ears, Nose, Mouth, and Throat: Denies dysphagia, Denies sore throat and Denies throat swelling Cardiovascular Cardiovascular: Denies chest pain and Denies dyspnea Respiratory Respiratory: Denies chest congestion, Denies cough and Denies dyspnea Gastrointestinal Gastrointestingal: Denies abdominal pain, constipation, diarrhea, dysphagia, nausea or vomiting Genitourinary Female Genitourinary: Reports as per HPI, Reports dysuria, Reports urinary frequency, Denies urinary incontinence, Reports urinary hesitancy and Reports urinary urgency Musculoskeletal Musculoskeletal: Denies arthralgias and Reports back pain Integumentary/Breasts Skin/Breast: Denies rash Neurologic Neurologic: Denies paresthesias Allergic/Immunologic Allergic/Immunologic: Denies throat swelling Physical Exam General General appearance: alert and in no apparent distress Head Head exam: atraumatic and normocephalic Eye Eye exam: Present normal appearance, PERRL and EOMI ENT ENT exam: Present normal exam, mucous membranes moist, TM's normal bilaterally and normal external ear exam Neck Neck exam: Present normal inspection, full ROM and trachea midline; Absent tenderness, meningismus or lymphadenopathy Chest Chest inspection: Present normal inspection and symmetric chest wall rise; Absent tenderness Respiratory Respiratory exam: Present normal lung sounds bilaterally; Absent respiratory distress, wheezes or stridor Cardiovascular Cardiovascular exam: Present regular rate, normal rhythm and normal heart sounds Abdominal Exam Abdominal exam: Present soft and normal bowel sounds; Absent distention, tenderness, guarding, rebound, rigidity, incision, psoas sign, obturator sign, heel tap sign, Newberry's sign, Rovsing's sign or tenderness at McBurney's Point Extremities Exam Extremities exam: Present normal inspection, full ROM and normal capillary refill; Absent tenderness, edema, joint swelling, calf tenderness or cyanosis Back Exam Back exam: Present normal inspection and full ROM; Absent tenderness, CVA tenderness (R) or CVA tenderness (L) Neurological Exam Neurological exam: Present alert, oriented X3 and normal gait Psychiatric Psychiatric exam: Present normal affect and normal mood Skin Skin exam: Present warm, dry, intact and normal color Lymphatic Lymphatic Findings: no adenopathy Medical Decision Making Medical Records Medical records reviewed: No I reviewed the patient's medical records. Screening: Per USPSTF and CDC recommendations, given the prevalence of disease in our reg ion, it is our hospital?s policy to screen for HIV and viral Hepatitis for all patients aged 18 and over and those with ongoing risk factors. Cristopher Inquiry Pt receiving controlled substance: No Vital Signs: 08/01/24 10:40 Temperature 97.9 F Temperature Source Oral Pulse Rate [Left Brachial] 74 Respiratory Rate 20 Blood Pressure [Left Arm] 142/62 H Blood Pressure Mean [Left Arm] 88 Blood Pressure Source [Left Arm] Automatic Cuff Blood Pressure Position [Left Arm] Sitting 02 Sat by Pulse Oximetry 98 Oxygen Delivery Method Room Air Lab Data Lab results reviewed: Yes I reviewed the patient's lab results. Orders (Tests/Meds): ORDERS Category Date Time Status Urine Culture Stat Micro 08/01/24 10:40 Ordered
[2024-08-01 10:59] LABS: Apearance,Urine Clear (Clear); Color,Urine Orange (Yellow)
[2024-08-01 11:00] LABS: Bilirubin,Urine Negative (Negative); Blood, Urine 3+ (Negative); Glucose,Urine (UA) 100 (Negative); Ketones,Urine Negative (Negative); Protein,Urine Negative (Negative); UTC Leukocyte Esterase,Urine 1+ (Negative); UTC Nitrate,Urine Positive (Negative); Urobilinogen,Urine 0.2 EU/dl (0.2)
[2024-08-01 11:40] VITALS: BP 142/62; PULSE 74; RESP 20; TEMP 36.6; O2SAT 98
--- OUTSIDE RECORDS SUMMARY | 2024-08-01 23:04 | XMS_ITS ---
Author Organization [facility] Address [address] [facility] [address] [place] [id number] Care Team Providers Care Patient Flow Coordinator Name Role Phone Manuel Morales Primary Care Provider RESULTS Component Value Reference Range Notes P-Microalbumin/Creatinine, R andom Urine Sample Reviewed date:06/02/2024 02:16:46 PM Interpretation:Satisfactory Performing Lab: Notes/Report: Test performed by [facility] [address] [place] [address] , [address], [place] [address] Mandeep Abbott MD, Supervisor Taping CLIA: [id number] Albumin/Creatinine Ratio, Urine See Comment 0-30 ug/mg Unable to calculate Urine Albumin/Creatinine Ratio when urine creatinine or urine albumin fall outside established reportable range. Microalbumin, Urine, Random <0.3 Creatinine, Urine 41.4 Mammogram Reviewed date:06/19/2024 12:10:03 PM Interpretation:Negative, annual f/u Performing Lab: Notes/Report: Negative, annual f/u result Negative, annual f/u REASON FOR VISIT 6 months MEDICATIONS Medication SIG (Take, Route, Frequency, Duration) Notes Start Date End Date Status Lisinopril 20 MG 1 tab(s) orally once a day for 90 days Active Synthroid 100 MCG 1 tab(s) Orally once a day for 90 days Active ZyrTEC Allergy 10 MG 1/2 tab(s) orally o nce a day prn Active Simvastatin 20 MG 1 tab(s) orally once a day (at bedtime) for 90 days Active Azelastine HCl 0.05 % 1 drop into affect ed eye Ophthalmic Twice a day for 90 days 12/07/2023 Active Vitamin D3 25 MCG (1000 UT) 1 tab(s) ora lly once a day Active Nasonex 24HR 50 MCG/ACT 4 sprays (2 spra ys in each nostril) Nasally Once a day for 30 day(s) Active Metoprolol Succinate ER 25 MG 1 tablet Orally Once a day for 30 day(s) Active Centrum Adults - as directed Orally o nce a day Active IMMUNIZATIONS Vaccine Route Administration Date Status Comme nts Fluzone High Dose (65yr and older) IM Intramuscular 05/31/2024 Administered PNEUMOVAX 23 VACCINE IM Intramuscular 05/31/2024 Administe red VITAL SIGNS Weight 216 lbs 05/31/2024 Blood pressure systolic 130 mm Hg 05/31/20 24 Blood pressure diastolic 70 mm Hg 024 Heart Rate 72 /min 05/31/2024 Height 67 in 05/31/2024 BMI 33.83 kg/m2 05/31/2024 Encounters Encounter Location Date Provider Diagnosis [facility] [address] [facility] [address] [place], [place] [id number] 05/31/2024 Manuel Morales Essential hypertensi on I10 ; Other chronic allergic conjunctivitis H10.45 ; Gastroesophageal reflux disease, esophagitis presence not specified K21.9 ; Pure hypercholesterolemia E78.00 ; Acquired hypothyroidism E03.9 ; Breast cancer screening by mammogram Z12.31 and Encounter for immunization Z23 ASSESSMENTS Encounter Date Diagnosis Assessment Notes Treatment Notes Treatment Clinical Notes 05/31/2024 Essential hypertensi on (ICD-10 - I10) 05/31/2024 Other chronic allerg ic conjunctivitis (ICD-10 - H10.45) 05/31/2024 Gastroesophageal ref lux disease, esophagitis presence not specified (ICD-10 - K21.9) 05/31/2024 Pure hypercholestero lemia (ICD-10 - E78.00) 05/31/2024 Acquired hypothyroid ism (ICD-10 - E03.9) 05/31/2024 Breast cancer screen ing by mammogram (ICD-10 - Z12.31) 05/31/2024 Encounter for immuni zation (ICD-10 - Z23) PLAN OF TREATMENT Medication Medication Name Sig Start Date Stop Date Notes Lisinopril 20 MG 1 tab(s) orally once a day for 90 days Synthroid 100 MCG 1 tab(s) Orally once a day for 90 days Simvastatin 20 MG 1 tab(s) orally once a day (at bedtime) for 90 days Azelastine HCl 0.05 % 1 drop into affect ed eye Ophthalmic Twice a day for 90 days 12/07/2023 Next Appt Details Follow Up: 6 Months, Reason: Provider Name:Manuel bethea, 11/29/2024 09:30:00 AM, [address], [address], [place], [place], [id number], Progress Notes * Examination Category Sub-Category Detail Notes Endocrinology HEENT: bilateral inject ed conjunctiva, right more than left Heart: RSR Lungs: clear to auscultatio n Extremities: trace bilateral leg edema General Appearance: NAD Skin: normal, no rash History and Physical Notes * HPI (History of Present Illness) Category Sub-Category Detail Notes Endocrinology Hypothyroidism Pt here to f/u, Synthroid dose was changed by cardiology at [facility] due to elevated TSH 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
--- OUTSIDE RECORDS SUMMARY | 2024-08-01 23:04 | XMS_ITS | Clinical Summary ---
Author Organization [facility] , [facility] Address [address] [place] [address] Phone Care Team Providers Care Nurse Unit Manager Name Role Phone Александр JAQUEZ, Alvaro Sharp Unavailable [phone] KELECHI WOODSON Primary Care Provider [phone] Reason for Visit and Chief Complaint The Chief Complaint is: R hip pain Problems Includes: Problems addressed during this encounter and other active Problems Current Visit Onset Date Resolved Date Provider Liban avila Status Joint Pain in the Right Hip 06/12/2024 Alexander Tristan PA-C Active Last Documented On 4 8:52AM ; [facility] Plan of Treatment - Patient screened for future fall risk: documentation of any fall with injury in past year - Last Documented On 06/12/2024 9:27AM ; [facility] Instructions to patient Lose weight Last Documented On 4 8:55AM ; [facility], [facility] Assessments Includes: Assessments from this encounter Findings - Overweight - Last Documented On 06/12/2024 9:27AM ; [facility] Greater trochanteric bursitis of the right hip - Last Documented On 06/12/2024 9:27AM ; [facility] Osteoarthritis of the right hip - Last Documented On 06/12/2024 9:27AM ; [facility], [facility] Discussed options with the patient today. It does seem that she is having more symptoms today coming from the greater trochanteric region versus of the femoroacetabular joint. She did elect today to proceed with a repeat injection to her greater trochanteric bursa which tolerated very well and did experience relief of symptoms post injection. Advise to continue with her home exercise program. She will follow up in the office in 6 weeks for re-evaluation. Patient is agreeable with above plan. They are to call the office with any concerns. - Last Documented On 06/12/2024 9:27AM ; [facility], [facility] Instructions Includes: Instructions from this encounter Instructions to patient Lose weight Last Documented On 4 8:55AM ; [facility], [facility] Medical Equipment - Implanted Devices Includes: Current Devices No Medical Equipment Recorded Medications Includes: Medications discussed during this encounter and other current Medications Current Medications (continue as prescribed) Azelastine HCl 0.05% Ophthalmic Solution 06/02/2024 Provider: KELECHI WOODSON Diagnosis: Last Documented On 4 8:53AM By Sari Randall ; [facility], [facility] Lisinopril 20 MG Oral Tablet 05/31/2024 Provider: KELECHI WOODSON Diagnosis: Last Documented On 4 8:53AM By Sari Randall ; [facility], [facility] Simvastatin 20 MG Oral Tablet 05/31/2024 Provider: KELECHI WOODSON Diagnosis: Last Documented On 4 8:53AM By Sari Randall ; [facility] Metoprolol Succinate ER 25 M G Oral Tablet Extended Release 24 Hour 05/16/2024 Provider: Diagnosis: Last Documented On 4 8:53AM By Sari Randall ; [facility], [facility] Levothyroxine Sodium 100 MCG Oral Tablet 04/04/2024 Provider: Diagnosis: Last Documented On 4 8:53AM By Sari Randall ; [facility], [facility] Medications Administered Includes: Administered Medications from this encounter No Administered Medications Recorded Vital Signs Includes: Vital Signs from this encounter Vital Name 06/12/2024 08:55A Height (in) 67 Weight (lb) 216 Body Mass Index 33.8 Body Surface Area 2.1 Note: mgg Last Documented: On 06/12/2024 9:00AM ; [facility], [facility] Results Includes: Results discussed during this encounter No Results Recorded For Specified Dates History of Present Illness Includes: History of Present Illness from this encounter AYDEN Ortega is a 69 year old female. - Symptoms giving way better with sitting, ibuprofen worse with walking. - Allergy list reviewed. - Previous history of new onset pain Injury is not work related or an automotive accident. - Patient pain level from 1-10: 3 - Yes, previous treatment. Franchesca - History of Physical Therapy - History of Injections - - Review of medications documented Patient presents today for evaluation of pain her right hip. This has been ongoing now for many years. She has had sharp pain with in the groin now for quite some time. However today she reports majority of her pain is located in the lateral aspect and posterior aspects of the hip. Minimal radiation of pain distally. Pain is worse with increased weight-bearing activities primarily. Difficulty sleeping at night. She has had an injection to her right hip bursa in January which gave her minimal relief. She has tried physical therapy as well with minimal benefit. Occasional doses of anti-inflammatories. Social History Description Last Updated Caffeine use 06/12/2024 Last Documented On 4 9:27AM ; [facility], [facility] Exercising regularly 06/12/2024 Last Documented On 4 9:27AM ; [facility], [facility] No recent change in diet 06/12/2024 Last Documented On 4 9:27AM ; [facility], [facility] Not a current smoker. 06/12/2024 Last Documented On 4 9:27AM ; [facility], [facility] Not using alcohol 06/12/2024 Last Documented On 4 9:27AM ; [facility], [facility] Not using drugs 06/12/2024 Last Documented On 4 9:27AM ; [facility], [facility] Smoking Status Unknown Procedures and Surgical History Includes: Procedures from this encounter Procedures Code Diagnosis Performing Provider Service Location Service Date DRAIN/INJECT, JOINT/BURSA (RIGHT) Unilateral primary osteoarthritis, right hip, Trochanteric bursitis, right hip Alexander Tristan PA-C [facility] 06/12/2024 Last Documented On 4 4:23PM ; [facility], [facility] Inj, Methylprednisolone acetate, 1 mg [id number] Unilateral primary osteoarthritis, right hip, Trochanteric bursitis, right hip Alexander Tristan PA-C [facility] 06/12/2024 Last Documented On 4 4:23PM ; [facility] PELVIS w/ 2-3 VIEW HIP (RIGHT) 23915 Unilateral primary osteoarthritis, right hip, Trochanteric bursitis, right hip Alexander Tristan PA-C [facility] 06/12/2024 Last Documented On 4 4:23PM ; [facility] an X-ray was performed [id number] Last Documented On 4 8:54AM ; [facility] an MRI was performed [id number] Last Documented On 4 8:54AM ; [facility] Surgical History Last Updated History of shoulder arthroplasty 024 Last Documented On 4 9:27AM ; [facility] Medical History Includes: Medical History addressed during this encounter Description Last Updated History of Heartburn / Acid Reflux 06/12 Last Documented On 4 9:27AM ; [facility] History of Irregular Heartbeat 4 Last Documented On 4 9:27AM ; [facility] History of Thyroid Disease 06/12/2024 Last Documented On 4 9:27AM ; [facility] Family History Includes: Family History addressed during this encounter Description Last Updated Family history of heart disease 06/12/20 24 Last Documented On 4 9:27AM ; [facility] Family history of rheumatoid arthritis 1 Last Documented On 4 9:27AM ; [facility] Family history of systemic hypertension 06/12/2024 Last Documented On 4 9:27AM ; [facility] Review of Systems Includes: Review of Systems from this encounter Systemic: Not feeling tired and no recent weight loss. Recent weight gain. Head: Headache. No sinus pain. Eyes: No vision problems, no Cataracts, no Glasses/Contacts, and no Glaucoma. Otolaryngeal: No hearing loss and no tinnitus. Cardiovascular: No chest pain or discomfort and no palpitations. Hypertension and High Cholesterol. Pulmonary: No daytime asthma symptoms. Chronic cough. No wheezing. Gastrointestinal: No heartburn and no abdominal pain. Indigestion. No Peptic Ulcer, no GI Stomach Bleed, no Ulcers, and no Acid Reflux. Endocrine: No hot flashes, no muscle weakness, and no Diabetes. Hypothyroid. No Hyperthyroid. Hematologic: No easy bleeding, no tendency for easy bruising, and no Anemia. Musculoskeletal: No Arthritis. Lower back pain. No soft tissue swelling and no localized joint pain. Neurological: No dizziness, no convulsions, and no numbness. Psychological: Anxiety. No emotional lability, no depression, and no insomnia. Crying for no reason. Skin: No dry skin. No Ulcers. Scars. No rash. Allergic and Immunologic: Complaint of seasonal allergic reaction. Mental Status Includes: Mental Status from this encounter Description Anxiety Functional Status Includes: Functional Status from this encounter No Functional Status Recorded Physical Exam Includes: Physical Exam from this encounter Allergies Includes: Active Allergies Substance Type Reaction Onset Date Resolved Date Statu s Penicillin G Allergy 06/12/2024 Active Last Documented On 4 9:30AM ; [facility] Encounters Encounter Provider Location Date Check-In Time Check-Out Time Diagnosis Physician Specified Alexander Tristan PA-C [facility] 06/12/20 24 8:44AM 9:24AM Overweight Insurance Includes: Active Insurance Policies Plan Name Member ID Group # Subscriber Relationship Effect alida Dates 1 - Medicare Part B [facility] [id number] Brigitte Ortega Self 2 - [facility] [employer] [id number] Brigitte Ortega Self 3 - [facility] [id number] Brigitte Reid [facility] Clinical Notes Includes: Clinical Notes from this encounter * Progress note Date Encounter Last Documented by 06/12/2024 Physician Specified Last monseumemargarita antoinette on 06/12/2024; 9:27 AM, Alexander Tristan PA-C; [facility] Active Problems & Conditions - Joint Pain in the Right Hip Chief Complaint The Chief Complaint is: R hip pain. Referred Here Referred by. History of Present Illness Brigitte Ortega is a 69 year old female. - Symptoms giving way better with sitting, ibuprofen worse with walking. - Allergy list reviewed. - Previous history of new onset pain Injury is not work related or an automotive accident. - Patient pain level from 1-10: 3 - Yes, previous treatment. Franchesca - History of Physical Therapy - History of Injections - - Review of medications documented Patient presents today for evaluation of pain her right hip. This has been ongoing now for many years. She has had sharp pain with in the groin now for quite some time. However today she reports majority of her pain is located in the lateral aspect and posterior aspects of the hip. Minimal radiation of pain distally. Pain is worse with increased weight-bearing activities primarily. Difficulty sleeping at night. She has had an injection to her right hip bursa in January which gave her minimal relief. She has tried physical therapy as well with minimal benefit. Occasional doses of anti-inflammatories. Current Medication - Azelastine HCl 0.05% Ophthalmic Solution 45 days, 0 refills - Levothyroxine Sodium 100 MCG Oral Tablet 90 days, 0 refills - Lisinopril 20 MG Oral Tablet 90 days, 0 refills - Metoprolol Succinate ER 25 MG Oral Tablet Extended Release 24 Hour 30 days, 0 refills - Simvastatin 20 MG Oral Tablet 90 days, 0 refills Past Medical/Surgical History Diagnoses: Irregular Heartbeat Heartburn / Acid Reflux Thyroid Disease Surgical: - Shoulder arthroplasty Social History Not a current smoker. Current diet: No recent change in diet. Caffeine use: Caffeine use. Alcohol: Not using alcohol. Drug Use: Not using drugs. Habits: Exercising regularly. Allergies - Penicillin G Family History Heart disease Systemic hypertension Rheumatoid arthritis Review Of Systems Systemic: Not feeling tired and no recent weight loss. Recent weight gain. Head: Headache. No sinus pain. Eyes: No vision problems, no Cataracts, no Glasses/Contacts, and no Glaucoma. Otolaryngeal: No hearing loss and no tinnitus. Cardiovascular: No chest pain or discomfort and no palpitations. Hypertension and High Cholesterol. Pulmonary: No daytime asthma symptoms. Chronic cough. No wheezing. Gastrointestinal: No heartburn and no abdominal pain. Indigestion. No Peptic Ulcer, no GI Stomach Bleed, no Ulcers, and no Acid Reflux. Endocrine: No hot flashes, no muscle weakness, and no Diabetes. Hypothyroid. No Hyperthyroid. Hematologic: No easy bleeding, no tendency for easy bruising, and no Anemia. Musculoskeletal: No Arthritis. Lower back pain. No soft tissue swelling and no localized joint pain. Neurological: No dizziness, no convulsions, and no numbness. Psychological: Anxiety. No emotional lability, no depression, and no insomnia. Crying for no reason. Skin: No dry skin. No Ulcers. Scars. No rash. Allergic and Immunologic: Complaint of seasonal allergic reaction. Physical Findings - Vitals taken 06/12/2024 08:55 am mgg Height 67 in Weight 216 lbs Body Mass Index 33.8 kg/m2 Body Surface Area 2.1 m2 Right hip exam Patient walks with a slight antalgic gait Hip range of motion is flexion 120- internal rotation to 20 external rotation to 50 Tenderness to palpation of greater trochanter, none over the ASIS Pain with resisted hip abduction patient has negative Juan test negative Stinchfield and negative internal rotation flexion test No Tenderness to palpation about abdomen or pubic symphysis and no signs of hernia Anterior skin over hip is intact Negative straight leg raise Patient has 5 out of 5 motor strength in tib ant and gastroc sensory is intact to SPN TPN and tibial nerves there is a 2+ dorsalis pedis pulse Tests Reviewed x-rays with the patient's right hip with her today. AP and lateral views show mild degenerative changes in the hip. Appears to be some cystic changes of the knee lateral aspect of the acetabulum. No acute bony abnormalities or pathologic process. Reviewed outside MRI with the patient today as well. MRI does show some evidence of greater trochanteric bursitis with some partial-thickness tearing of the glute medius tendon. She does have osteochondral defect of the right acetabulum with some pronounced subcortical marrow edema in the acetabulum. Assessment - Overweight Previous Tests Imaging: X-Ray: An X-ray was performed. MRI Scan: An MRI was performed. Counseling/Education - Tobacco non-user - Use of tobacco assessment performed - Lose weight Plan - Patient screened for future fall risk: documentation of any fall with injury in past year User Defined 1 Right hip bursa injection: The risks of the procedure was explained to the patient and verbal consent was obtained. The patient was allowed to stand holding onto the exam table. The skin over the hip bursa region was prepped with Betadine solution. Using a 22-gauge spinal needle directing it at 90- toward the hip bursa, the hip bursa was injected with 40 mg Depo-Medrol and 4 cc's of 0.25% bupivacaine. Needle was withdrawn and Band- Aid was applied. The patient tolerated the procedure well User Defined 5 Fall Risk Assessment: This patient has been identified as a fall risk. Balance/gait along with postural blood pressure, vision and home fall hazards have been assessed. Medications have been reviewed, and recommendations made with regard to contributing factors for future falls. Plan of care: Consideration of vitamin D supplementation along with balance and strength training with consideration for formal physical therapy has been discussed with the patient. Greater trochanteric bursitis of the right hip Osteoarthritis of the right hip Discussed options with the patient today. It does seem that she is having more symptoms today coming from the greater trochanteric region versus of the femoroacetabular joint. She did elect today to proceed with a repeat injection to her greater trochanteric bursa which tolerated very well and did experience relief of symptoms post injection. Advise to continue with her home exercise program. She will follow up in the office in 6 weeks for re-evaluation. Patient is agreeable with above plan. They are to call the office with any concerns. Notes This dictation was done with voice recognition software and may contain errors and omissions. Care Team - KELECHI WOODSON - PATENT COUNSEL
--- OUTSIDE RECORDS SUMMARY | 2024-08-01 23:05 | XMS_ITS | Encounter Summary ---
[facility] Address [address] [place] [address] Care Team Providers Care Web Analyst Name Role Phone Manuel Morales MD Primary Care Provider + [phone] Reason for Visit * Auth/Cert Specialty Diagnoses / Procedures Referred By Yanick rider Referred To Contact Diagnoses Bilateral posterior capsular opacification Procedures MI DISCISSION,2ND CATARACT,LASER EYE CAPSULOTOMY WITH LASER LEFT Referral ID Status Reason Start Date Expiration Date Visits Re quested Visits Authorized [id number] 1 1 Encounter Details Date Type Department Care Team (Late st Contact Info) Description 04/15/2020 11:17 AM EDT - 04/15/2020 11:34 AM EDT Surgery [facility] OR [address] [place] [id number] Yulissa Guerra MD [address] [facility] [place] [address] EYE CAPSULOTOMY WITH LASER LEFT Social History Tobacco Use Types Packs/Day Years Used Date Smoking Tobacco: Former Cigarettes 1 30 1 974 - 2004 Smokeless Tobacco: Never Alcohol Use Standard Drinks/Week Comments Yes 1 (1 standard drink = 0.6 oz pure alcohol) Patient denied any Hx of ETOH abuse Comments No Sex and Gender Information Value Date Recorded Sex Assigned at Not on file Legal Sex Female 5:36 PM EDT Gender Identity Not on file Sexual Orientation Not on file documented as of this encounter Last Filed Vital Signs Vital Sign Reading Time Taken Comments Blood Pressure 127/53 04/15/2020 10:40 AM EDT Pulse 63 04/15/2020 10:40 AM EDT Temperature 36.7 ??C (98 ??F) 04/15/2020 9:28 AM EDT Respiratory Rate 18 04/15/2020 10:40 AM EDT Oxygen Saturation 96% 04/15/2020 10:40 AM EDT Inhaled Oxygen Concentration - - Weight 93 kg (205 lb) 04/11/2020 9:50 AM EDT Height 170.2 cm (5' 7 ) 04/11/2020 9:50 AM EDT Body Mass Index 32.11 04/11/2020 9:50 AM EDT documented in this encounter Discharge Instructions * Discharge Instructions* Yulissa Guerra MD - 04/15/2020 10:33 AM EDT Post Capsulotomy POST YAG LASER CAPSULOTOMY 1. ACTIVITY: No physical restrictions. 2. DIET: No dietary restrictions. 3. MEDICATIONS: A. Resume all the previous medications. B. One drop of Pred Forte 1% to operative eye 4 times a day for 5 days. Then twice a day for 5 days then stop. Start day of procedure as soon as you get home. 4. Special Instructions: A. Call the doctor if there is any sudden change in vision. It is normal to see new floaters or spot floating in your vision after the laser however, if there is any sudden changes in vision, please call the office during normal work day [phone] B. If unable to reach the doctor, come to the Emergency Room at the [facility]. If you have any concerning problems, call your doctor or the [facility] Emergency Dept at [phone]. documented in this encounter Medications at Time of Discharge cetirizine (zyrTEC) 10 MG tablet Take 10 mg by mouth Daily As Needed for Allergies or Rhinitis. cholecalciferol (VITAMIN D3) 1000 units tablet Take 1,000 Units by mouth Daily. guaiFENesin (MUCINEX) 600 MG 12 hr tablet Take 1,200 mg by mouth Daily As Needed for Cough or Congestion. levothyroxine (SYNTHROID, LEVOTHROID) 88 MCG tablet Take 88 mcg by mouth Daily. lisinopril (PRINIVIL,ZESTRI L) 10 MG tablet Take 10 mg by mouth Daily. simvastatin (ZOCOR) 20 MG tablet Take 20 mg by mouth Every Night. Multiple Vitamins-Mineral s (CENTRUM SILVER 50+WOMEN PO) Take 1 capsule by mouth Daily. 1 documented as of this encounter OR Notes * Op Note - Yulissa Guerra MD - 04/15/2020 10:26 AM EDT Pre-op Diagnosis: Posterior Capsular Opacification, Left eye Procedure: Nd: YAG Laser Capsulotomy, Left eye Post-op Diagnosis: Posterior Capsular Opacification, Left eye Indications: Brigitte Ortega is a 65 y.o. female with Posterior Capsular Opacification. It was recommended that the next step in her management be a Nd:YAG laser capsulotomy in the left eye. Procedure: The left eye was dilated prior to arrival in the laser suite. A drop of topical Tetracaine was instilled in the left conjunctival cul-de-sac and the patient was then positioned in front ofthe Nd:YAG laser. The correct eye was again confirmed verbally by both the patient and the surgeon.The laser contact lens was positioned on the left eye and the circular capsulotomy was carried out without difficulty using the following parameters: Laser: Nd:YAG Spot Size: Fixed Burst Mode: I Power Settin.7mJ/burst Number of shots: 40 Total energy delivered: 76 mJ Immediately following the procedure, the left eye was rinsed with BSS solution and a drop of prednisolone acetate 1% was applied. The patient tolerated the procedure without difficulty. No complications were encountered. The patient was discharged home with the appropriate instructions. Yulissa Guerra MD 04/15/2020 10:26 documented in this encounter Plan of Treatment Not on file documented as of this encounter Procedures Procedure Name Priority Date/Time Associated Diagnosis Comments EYE CAPSULOTOMY WITH LASER 04/15/2020 10:25 AM EDT Bilateral posterior capsular opacification Special Needs TOPICAL documented in this encounter Visit Diagnoses Diagnosis Bilateral posterior capsular opacification Unspecified after-cataract documented in this encounter Administered Medications Inactive Administered Medications - up to 3 most recent administrations Medication Order MAR Action Action Date Dose Rate Site balanced salt (BSS) IO solution As Needed, Starting on Wed04/15/20 at 1031 Given 04/15/2020 10:31 AM EDT 15 mL prednisoLONE acetate (PRED FORTE) 1 % ophthalmic suspension 1 drop 1 drop, Left Eye, See Admin Instructions, Starting on Wed04/15/20 at 0926, Shake well before use. Do not give preop. Send to OR with patient and send remainder home with patient along with post-op instructions. Caution: Look alike/sound alike drug alert., Indications: Post op InflammationIndications:Post op Inflammation prednisoLONE acetate (PRED FORTE) 1 % ophthalmic suspension As Needed, Starting on Wed04/15/20 at 1031 Given 04/15/2020 10:31 AM EDT 1 drop tetracaine (ALTACAINE) 0.5 % ophthalmic solution As Needed, Starting on Wed04/15/20 at 1026 Given 04/15/2020 10:26 AM EDT 2 drops documented in this encounter Active and Recently Administered Medications Times are shown in EDT. Scheduled Medication Order 04/13/2020 04/14/2020 04/15/2020 prednisoLONE acetate (PRED FORTE) 1 % ophthalmic suspension 1 drop 1 drop, Left Eye, See Admin Instructions, Starting on Wed04/15/20 at 0926, Shake well before use. Do not give preop. Send to OR with patient and send remainder home with patient along with post-op instructions. Caution: Look alike/sound alike drug alert., Indications: Post op Inflammation tetracaine (ALTACAINE) 0.5 % ophthalmic solution 1 drop 1 drop, Left Eye, Once, On Wed04/15/20 at 1015, For 1 dose, To operative eye(s). 1015 (Due) PRN Medication Order 04/13/2020 04/14/2020 04/15/2020 balanced salt (BSS) IO solution (CANCELED) As Needed, Starting on Wed04/15/20 at 1031 1031 (Given - Provid er: Yvonne Jerry RN) prednisoLONE acetate (PRED FORTE) 1 % ophthalmic suspension (CANCELED) As Needed, Starting on Wed04/15/20 at 1031 1031 (Given - Provid er: Yvonne Jerry RN) tetracaine (ALTACAINE) 0.5 % ophthalmic solution (CANCELED) As Needed, Starting on Wed04/15/20 at 1026 1026 (Given - Provid er: Yvonne Jerry RN) documented in this encounter Care Teams Web Analyst Relationship Specialty Start Date End Date Manuel Morales MD [address] [facility] [address] [facility] [address] [place] [address] PCP - General Family Medicine 05/01/19 documented as of this encounter
--- OUTSIDE RECORDS SUMMARY | 2024-08-01 23:05 | XMS_ITS | Encounter Summary ---
Author Organization [facility] Address [address] [place] [address] Care Team Providers Care Test Data Developer Name Role Phone Manuel Morales MD Primary Care Provider [phone] Encounter Details Date Type Department Care Team (Latest Contact Info) Description 05/14/2021 10:05 AM EDT Office Visit [facility] [address] [facility] [place] [address] Yulissa Guerra MD [address] [place] [address] PCO (posterior capsular opacification), bilateral (Primary Dx); H/O laser assisted in situ keratomileusis Social History Tobacco Use Types Packs/Day Years Used Date Smoking Tobacco: Never Comments Unknown Sex and Gender Information Value Date Recorded Sex Assigned at Female 03/04/2022 2:08 PM EDT Legal Sex Female 8:32 PM EDT Gender Identity Female 03/04/2022 2:08 PM EDT Sexual Orientation Straight 03/04/2022 2: 08 PM EDT COVID-19 Exposure Response Date Recorded In the last month, have you been in contact with someone who was confirmed or suspected to have Coronavirus / COVID-19? No / Unsure 05/14/2021 10:03 AM EDT documented as of this encounter Miscellaneous Notes * Progress Notes - Yulissa Guerra MD - 05/14/2021 10:05 AM EDT Subjective HPI 66 yo WF Here for CEE with dilation to check PCO. Pt c/o vision gotten a lot worse, thinks she's ready for YAG Laser right eye (OD). Last edited by Sofi Cardona on 05/14/2021 11:03 AM. (History) ROS Negative for: Constitutional, Gastrointestinal, Neurological, Skin, Genitourinary, Musculoskeletal,HENT, Endocrine, Cardiovascular, Eyes, Respiratory, Psychiatric, Allergic/Imm, Heme/Lymph Last edited by Sofi Cardona on 05/14/2021 11:03 AM. (History) Objective Base Eye Exam Visual Acuity (Snellen-Linear) Right Left Dist sc 20/200 20/60+2 Dist ph sc 20/60 20/30 Near cc J1+ J1+ Tonometry (Tonopen, 11:05 AM) Right Left Pressure 12 13 Pachymetry Right Left Thickness 500 485 Pupils Pupils Right PERRL Left PERRL Visual Awad Right Left Full Full Extraocular Movement Right Left Full, Ortho Full, Ortho Neuro/Psych Oriented x3: Yes Mood/Affect: Normal Dilation Both eyes: 1% Tropicamide, 2.5% Phenylephrine @ 11:05 AM Additional Tests Glare Testing Medium Right off chart Left 20/100 Slit Lamp and Fundus Exam External Exam Right Left External Normal Normal Slit Lamp Exam Right Left Lids/Lashes Normal for age Normal for age Conjunctiva/Sclera White White Cornea lasik flap scar with PEE lasik flap scar, tr PEE Anterior Chamber Deep and quiet Deep and quiet Iris Normal Normal Lens PC IOL, 2+ pco diffuse PC IOL stable along 115 axis, open PC Fundus Exam Right Left Posterior Vitreous posterior vitreous detachment posterior vitreous detachment Disc no edema, no vascularization, good color no edema, no vascularization, good color C/D Ratio .1 .1 Macula FLR - FLR - Vessels Normal Normal Periphery Normal Normal Refraction Wearing Rx Sphere Right +2.00 Left +2.00 Age: 1yr Type: OTCR Manifest Refraction Sphere Cylinder [place] Dist VA Right -2.00 Sphere 20/40 Left -1.25 +0.75 050 20/30 Assessment/Plan Diagnoses and all orders for this visit: PCO (posterior capsular opacification), bilateral H/O laser assisted in situ keratomileusis PCO (posterior capsular opacification), bilateral H26.493 improved VA s/p left yag and right PCO now ffecting ADL so pt would like to proceed with right YAG capsulotomy Visually significant posterior capsule opacity in the right eye affecting activities of daily living. Discussed with patient that after modern cataract with lens implant surgery, the membrane behind the cataract is left in place to support the lens implant. This membrane may become cloudy over time and cause blurred vision, and sometimes patients will see streaks or haloes around lights. These problems often worsen with time. Using YAG LASER to create an opening in this cloudy capsule can often improve the vision. Discussed Laser surgery is still surgery. Complications can occur. Some new floaters or spots may be seen. Retinal swelling or detachment can follow this type of surgery as well. The eye pressure may rise temporarily after the YAG laser treatment. Patient understands the risks including loss of vision, increase in floaters, retinal tears or detachments, elevated pressure and possible need for more surgery. After a discussion of the risks, benefits, and alternatives, the patient wishes to proceed with YAGcapsulotomy right eye on ? 06/16/21 F/U after surgery ?? H/O laser assisted in situ keratomileusis Z98.890 OU for myopia ?? f/u 1 year or sooner PRN documented in this encounter Plan of Treatment Upcoming Encounters Date Type Department Care Team (Late st Contact Info) Description 11/01/2024 9:00 AM EDT Office Visit [facility] - [address], [place] [address] Yulissa Guerra MD [address] [address] documented as of this encounter Visit Diagnoses Diagnosis PCO (posterior capsular opacification), bilateral- Primary Unspecified after-cataract H/O laser assisted in situ keratomileusis documented in this encounter Care Teams Test Data Developer Relationship Specialty Start Date End Date Manuel Morales MD [address] [facility] [address] [address] PCP - General 01/03/21 documented as of this encounter
--- OUTSIDE RECORDS SUMMARY | 2024-08-01 23:05 | XMS_ITS | Encounter Summary ---
[facility] Organization [facility] Address [address] [place] [address] Care Team Providers Care Generator Switchboard Operator Name Role Phone Manuel Morales MD Primary Care Provider + [phone] Reason for Visit * Auth/Cert Specialty Diagnoses / Procedures Referred By Yanick rider Referred To Contact Diagnoses Combined forms of age-related cataract of right eye Procedures CATARACT PHACO EXTRACTION WITH INTRAOCULAR LENS IMPLANT RIGHT Referral ID Status Reason Start Date Expiration Date Visits Re quested Visits Authorized [id number] 1 1 Encounter Details Date Type Department Care Team (Latest Contact Info) Description 06/19/2019 11:03 AM EDT - 06/19/2019 12:49 PM EDT Hospital Encounter [facility] OR [address] [place] [id number] Yulissa Guerra MD [address] [facility] [place] [address] Discharge Disposition: Home or Self Care Social History Tobacco Use Types Packs/Day Years Used Date Smoking Tobacco: Former Cigarettes Q uit: 1974 Smokeless Tobacco: Never Alcohol Use Standard Drinks/Week Comments Yes 1 (1 standard drink = 0.6 oz pur e alcohol) Comments No Sex and Gender Information Value Date Recorded Sex Assigned at Not on file Legal Sex Female 5:36 PM EDT Gender Identity Not on file Sexual Orientation Not on file documented as of this encounter Last Filed Vital Signs Vital Sign Reading Time Taken Comments Blood Pressure 139/66 06/19/2019 12:40 PM EDT Pulse 73 06/19/2019 12:40 PM EDT Temperature 36.7 ??C (98 ??F) 06/19/2019 12:19 PM EDT Respiratory Rate 16 06/19/2019 12:40 PM EDT Oxygen Saturation 98% 06/19/2019 12:40 PM EDT Inhaled Oxygen Concentration - - Weight 90.7 kg (200 lb) 06/16/2019 9:33 AM EDT Height 170.2 cm (5' 7 ) 06/16/2019 9:33 AM EDT Body Mass Index 31.32 06/16/2019 9:33 AM EDT documented in this encounter Discharge Instructions * Discharge Instructions* Violetta Lau, PADMA - 06/19/2019 12:30 PM EDT Please follow all post op instructions and follow up appointment time from your physician's office included in your discharge packet. . To assist you in voiding: Drink plenty of fluids Listen to running water while attempting to void. If you are unable to urinate and you have an uncomfortable urge to void or it has been 6 hours since you were discharged, return to the Emergency RoomNo pushing, pulling, tugging, heavy lifting, or strenuous activity. No major decision making, driving, or drinking alcoholic beverages for 24 hours. ( due to the medications you have received) Always use good hand hygiene/washing techniques. NO driving while taking pain medications. * if you have an incision: Check your incision area every day for signs of infection. Check for: * more redness, swelling, or pain *more fluid or blood *warmth *[place] [address] PH: FAX: Post - Operative Instructions for Dr. Guerra's Cataract Patients 1. Use your drops as prescribed, wait 5 minutes between each drop. 2. Securely tape the protective shield over the operated eye at bedtime for the FIRST week only. 3. Take your regular non-eye medications and continue any eye medications for the non-operative eye. 4. For the first week, avoid bending or stooping and lifting anything heavier than 5 pounds. Also, avoid any blow to the head or eye. Avoid getting dirty water in the eye. Avoid sleeping on the side of the operated eye or face. 5. No driving until you are told to by your physician. 6. If significant eye pain is not relieved by medication, or you have increased redness, swelling, pain or loss of vision or any symptoms you are unsure of call Dr. Guerra's office at [phone]. You should expect: Slight Discomfort Burning When Using Eye Drops Blurred Vision and Dilated Pupil Mild Redness You Will Not Be Able To Read Your Glasses May Not Work Start the following eyedrops today as soon as you are home: Pred Forte 1% instill one drop every 4 hours Polytrim instill one drop every 4 hours Wait 5 mins between drops. You may only remove the eye shield to administer eye medications (place shield back over eye after each medication administration); otherwise keep shield on at all times until office visit tomorrow. documented in this encounter Medications at Time [...] tablet Take 88 mcg by mouth Daily. simvastatin (ZOCOR) 20 MG tablet Take 20 mg by mouth Every Night. Multiple Vitamins-Mineral s (CENTRUM SILVER 50+WOMEN PO) Take 1 capsule by mouth Daily. 1 pseudoephedrine (SUDAFED) 30 MG tablet Take 60 mg by mouth Every 6 (Six) Hours As Needed. 0 documented as of this encounter H&P Notes * Yulissa Guerra MD - 06/19/2019 11:06 AM EDT H&P reviewed. The patient was examined and there are no changes to the H&P. Source Note - New Onbase, Okay - 06/15/2019 12:00 AM EDT documented in this encounter OR Notes * Op Note - Yulissa Guerra MD - 06/19/2019 11:54 AM EDT PROCEDURE NOTE Date of Procedure: 06/19/2019 Patient Name: Brigitte Ortega Date of : 1955 PREOPERATIVE DIAGNOSIS: Visually significant combined form of senile cataract of the Right eye interfering with activities of daily living. INDICATIONS FOR THE PROCEDURE: Visually significant combined form of senile cataract of the Right eye interfering with activities of daily living. POSTOPERATIVE DIAGNOSIS: Visually significant combined form of senile cataract of the Right eye interfering with activities of daily living. SURGEON: Yulissa Guerra M.D. NAME OF PROCEDURE: Right cataract extraction with posterior chamber intraocular lens implant. Lens used: +23.0D SN60WF CDE: 3.24 ANESTHESIA: Topical with MAC. COMPLICATIONS: None. DETAILS OF THE PROCEDURE: After receiving appropriate informed consent and confirming and marking the eye to be operated upon, the patient was wheeled into the operating room. After confirming adequate anesthesia, the patient was prepped and draped in a standard sterile ophthalmic fashion. A lid speculum was then placed in the eye. A 0.8 mm metal blade was then used to make two limbal paracenteses and the anterior chamber was reformed with Viscoat. A 2.4 mm metal keratome was then used to make a superonasal clear cornea tunneled incision. A cystotome was used to puncture the anterior capsule and initiate a capsular flap. Utrata forceps were used to complete a continuous curvilinear capsulorr hexis. BSS on a Vang hydrodissection cannula was then used to hydrodissect and hydrodelineate the nucleus. The nucleus was then phacoemulsified using a stop and chop technique. CDE was 3.24%. Remaining cortex was removed with bimanual I/A. Posterior capsular guinean was performed. The capsular bag was then reformed with Provisc and a +23.0 D SN60WF lens implant, was then placed in the bag withoutevent. The Provisc was then removed with bimanual irrigation and aspiration and the anterior chamber reformed with BSS. The wounds were hydrated as necessary to maintain a water tight anterior chamber. Intracameral Moxifloxacin 1mg/0.1ml was administered and 5% povidone iodine solution was placed on the ocular surface. At the conclusion of the procedure, the lid speculum was removed and the patient undraped. A drop of Polytrim and Pred Forte 1% and shield were placed over the eye. The patient left the room in good condition having tolerated the procedure well. Yulissa Guerra MD documented in this encounter Plan of Treatment Not on file documented as of this encounter Procedures Procedure Name Priority Date/Time Associated Diagnosis Comments CATARACT PHACO EXTRACTION WITH INTRAOCULAR LENS IMPLANT 06/19/2019 11:36 AM EDT Combined forms of age-related cataract of right eye Special Needs TOPMAC ([id number] documented in this encounter Visit Diagnoses Not on filedocumented in this encounter Administered Medications Inactive Administered Medications - up to 3 most recent administrations Medication Order MAR Action Action Date Dose Rate Site cyclopentolate (CYCLOGYL) 2 % ophthalmic solution 1 drop 1 drop, Right Eye, Every 5 Minutes, First dose on Wed06/19/19 at 1200, For 3 doses, Start one hour prior to surgery. Given 06/19/2019 11:24 AM EDT 1 drop Given 06/19/2019 11:19 AM EDT 1 drop Given 06/19/2019 11:14 AM EDT 1 drop lactated ringers infusion 1,000 mL 1,000 mL, Intravenous, at 25 mL/hr, Continuous, Starting on Wed06/19/19 at 1200 Currently Infusing 06/19/2019 11:46 AM EDT New Bag 06/19/2019 11:19 AM EDT 1,000 mL 25 mL/hr phenylephrine (KELLEN-SYNEPHRINE) 10 % ophthalmic solution 1 drop 1 drop, Right Eye, Every 5 Minutes, First dose on Wed06/19/19 at 1200, For 3 doses, Start one hour prior to surgery. Maximum dose of 3 drops per eye. Given 06/19/2019 11:24 AM EDT 1 drop Given 06/19/2019 11:19 AM EDT 1 drop Given 06/19/2019 11:14 AM EDT 1 drop prednisoLONE acetate (PRED FORTE) 1 % ophthalmic suspension 1 drop 1 drop, Right Eye, See Admin Instructions, Starting on Wed06/19/19 at 1105, Shake well before use. Do not give preop. Send to OR with patient and send remainder home with patient along with post-op instructions., Indications: post op inflammationIndications:post op inflammation sodium chloride 0.9 % flush 10 mL 10 mL, Intravenous, As Needed, Line Care, Starting on Wed06/19/19 at 1105 tetracaine (ALTACAINE) 0.5 % ophthalmic solution 1 drop 1 drop, Right Eye, See Admin Instructions, Starting on Wed06/19/19 at 1105, For 3 doses, To operative eye(s) every 1 minute up to 3 doses. Given 06/19/2019 11:13 AM EDT 1 drop Given 06/19/2019 11:12 AM EDT 1 drop Given 06/19/2019 11:11 AM EDT 1 drop documented in this encounter Active and Recently Administered Medications Times are shown in EDT. Scheduled Medication Order 06/17/2019 06/18/2019 06/19/2019 cyclopentolate (CYCLOGYL) 2 % ophthalmic solution 1 drop (COMPLETED) 1 drop, Right Eye, Every 5 Minutes, First dose on Wed06/19/19 at 1200, For 3 doses, Start one hour prior to surgery. 1114 (Given - Provid er: Nicci Hope RN)1119 (Given - Provider: Nicci Hope RN)1124 (Given - Provider: Nicci Hope RN) phenylephrine (KELLEN-SYNEPHRINE) 10 % ophthalmic solution 1 drop (COMPLETED) 1 drop, Right Eye, Every 5 Minutes, First dose on Wed06/19/19 at 1200, For 3 doses, Start one hour prior to surgery. Maximum dose of 3 drops per eye. 1114 (Given - Provid er: Nicci Hope RN)1119 (Given - Provider: Nicci Hope RN)1124 (Given - Provider: Nicci Hope RN) prednisoLONE acetate (PRED FORTE) 1 % ophthalmic suspension 1 drop 1 drop, Right Eye, See Admin Instructions, Starting on Wed06/19/19 at 1105, Shake well before use. Do not give preop. Send to OR with patient and send remainder home with patient along with post-op instructions., Indications: post op inflammation tetracaine (ALTACAINE) 0.5 % ophthalmic solution 1 drop (COMPLETED) 1 drop, Right Eye, See Admin Instructions, Starting on Wed06/19/19 at 1105, For 3 doses, To operative eye(s) every 1 minute up to 3 doses. 1111 (Given - Provid er: Nicci Hope RN)1112 (Given - Provider: Nicci Hope RN)1113 (Given - Provider: Nicci Hope RN) Continuous Medication Order 06/17/2019 06/18/2019 06/19/2019 lactated ringers infusion 1,000 mL 1,000 mL, Intravenous, at 25 mL/hr, Continuous, Starting on Wed06/19/19 at 1200 1119 (New Bag - Prov ider: Nicci Hope RN)1146 (Currently Infusing - Provider: Darrick Mireles CRNA)1228 (Stopped - Provider: Violetta Lau RN) PRN Medication Order 06/17/2019 06/18/2019 06/19/2019 balanced salt (BSS Plus) 500 mL with EPINEPHrine PF 0.5 mL mixture (CANCELED) As Needed, Starting on Wed06/19/19 at 1212 1212 (Given - Provid er: Yulissa Guerra MD) balanced salt (BSS Plus) ophthalmic solution (CANCELED) As Needed, Starting on Wed06/19/19 at 1212 1212 (Given - Provid er: Yulissa Guerra MD) moxifloxacin (VIGAMOX) 0.5 % ophthalmic solution (CANCELED) As Needed, Starting on Wed06/19/19 at 1212 1212 (Given - Provid er: Yulissa Guerra MD) povidone-iodine 5 % ophthalmic solution (CANCELED) As Needed, Starting on Wed06/19/19 at 1213 1213 (Given - Provid er: Miranda Velazco RN) prednisoLONE acetate (PRED FORTE) 1 % ophthalmic suspension (CANCELED) As Needed, Starting on Wed06/19/19 at 1213 1213 (Given - Provid er: Yulissa Guerra MD) sod hyaluronate-sod chondroitin-sod hyaluronate (DUOVISC) 0.55-0.5 ML intra-ocular kit (CANCELED) As Needed, Starting on Wed06/19/19 at 1213 1213 (Given - Provid er: Yulissa Guerra MD) sodium chloride 0.9 % flush 10 mL 10 mL, Intravenous, As Needed, Line Care, Starting on Wed06/19/19 at 1105 tetracaine (ALTACAINE) 0.5 % ophthalmic solution (CANCELED) As Needed, Starting on 06/19/19 at 1213 1213 (Given - Provid er: iMranda Velazco RN) trimethoprim-polymyxin b (POLYTRIM) 25075-4.1 UNIT/ML-% ophthalmic solution (CANCELED) As Needed, Starting on 06/19/19 at 1213 1213 (Given - Provid er: Miranda Velazco RN) documented in this encounter Care Teams Generator Switchboard Operator Relationship Specialty Start Date End Date Manuel Morales MD [address] [facility] [address] [facility] [address] [place] [address] PCP - General Family Medicine 05/01/19 documented as of this encounter
--- OUTSIDE RECORDS SUMMARY | 2024-08-01 23:05 | XMS_ITS | Encounter Summary ---
Author Organization Healthcare Address [address] [place] [address] Care Team Providers Care Materials Assistant Name Role Phone Manuel Morales MD Primary Care Provider + [phone] Encounter Details Date Type Department Care Team (Late st Contact Info) Description 05/12/2022 Abstract [facility] - [address], [place] [address] Yulissa Guerra MD [address] [place] [address] Social History Tobacco Use Types Packs/Day Years Used Date Smoking Tobacco: Never Smokeless Tobacco: Never Comments Unknown Sex and Gender Information Value Date Recorded Sex Assigned at Female 03/04/2022 2:08 PM EDT Legal Sex Female 8:32 PM EDT Gender Identity Female 03/04/2022 2:08 PM EDT Sexual Orientation Straight 03/04/2022 2: 08 PM EDT documented as of this encounter Plan of Treatment Upcoming Encounters Date Type Department Care Team (Late st Contact Info) Description 11/01/2024 9:00 AM EDT Office Visit [facility] [place] [id number] [facility], [place] [address] Yulissa Guerra MD [address] [place] [address] documented as of this encounter Visit Diagnoses Not on filedocumented in this encounter Additional Health Concerns Assessment Noted Time A fall risk assessment has been complete d for the patient 07/16/2021 1:17 PM EST documented as of this encounter Care Teams Materials Assistant Relationship Specialty Start Date End Date Manuel Morales MD [address] [place] [address] PCP - General 01/03/21 documented as of this encounter
--- OUTSIDE RECORDS SUMMARY | 2024-08-01 23:05 | XMS_ITS | Encounter Summary ---
Author Organization [facility] Address [address] [place] [address] Care Team Providers Care Fixture Builder Name Role Phone Manuel Morales MD Primary Care Provider + [phone] Reason for Visit * Auth/Cert Specialty Diagnoses / Procedures Referred By Yanick rider Referred To Contact Diagnoses Combined forms of age-related cataract of right eye Procedures CATARACT PHACO EXTRACTION WITH INTRAOCULAR LENS IMPLANT RIGHT Referral ID Status Reason Start Date Expiration Date Visits Re quested Visits Authorized [id number] 1 1 Encounter Details Date Type Department Care Team (Late st Contact Info) Description 06/19/2019 11:52 AM EDT Anesthesia Event [facility] OR [address] [place] [address] Darrick Mireles CRNA [address] [facility], [address] [address] Mick Mcmullen CRNA [address] [facility], [address] [address] Anesthesia Record Procedure Summary Procedure Name Responsible Anesthesiologist Anesthesia Start Time Anesthesia Stop Time CATARACT PHACO EXTRACTION WITH INTRAOCULAR LENS IMPLANT RIGHT (Right: Eye) Darrick Mireles CRNA 06/19/19 1152 06/19/19 1220 Events Date Time Event Comment 06/19/2019 1116 1132 AN Equip Check 1152 An Start 1152 An Start Data 1152 An Induction The patient was reevaluated immediately before moderate or deep sedation use and before anesthesia induction. 1152 Anesthesia Ready 1213 an stop data 1220 Handoff to RN The following has been completed: 1. Identification of Patient, baptiste family member(s) or patient surrogate 2. Identification of the responsible Practitioner (primary service) 3. Discussion of the pertinent/attainable medical history 4. Discussion of the surgical/procedure course (procedure, reason for surgery, procedure performed) 5. Intraoperative anesthetic management and issue/concerns to include things such as airway, hemodynamics, narcotic, sedation level and paralytic management and intravenous fluids/blood products and urine output during the procedure 6. Expectations/Plans for the early post-procedure period to include things such as anticipated course (anticipatory guidance), complications, need for laboratory or ECG and medication administration 7. Opportunity for questions and acknowledgment of understanding of report from the receiving PACU/ICU team 1220 An Stop Meds Name Total propofol (DIPRIVAN) 10 mg/ml 100 mg midazolam (VERSED) injection 2 mg/2 mL 2 mg ketamine injection 50 mg/mL 10 mg lactated ringers infusion 1,000 mL 0 mL * Agents Name O2 * Blood No blood administrations on file. Lines, Drains, and Airways Type Details Placement Removal Wound 06/19/19; 1210; Righ t; eye; Incision 06/19/19 1210 by Miranda Velazco, PADMA Peripheral IV Placement Date: 05/24 04/10; Placement Time: 1117; Change Due: 06/22/19; Catheter Size: 20 G; Orientation: Left; Location: Hand; Site Prep: Chlorhexidine; Local Anes: None; Inserted by: mm; Insertion Attempts: 1; Patient Tolerance: Tolerated well; Removal Date: 06/19/19; Removal Time: 1228 06/19/19 1117 by Nicci Hope, RN 06/19/19 1228 by Violetta Lau, PADMA documented in this encounter Social History Tobacco Use Types Packs/Day Years [...] on file documented as of this encounter OR Notes * Anesthesia Postprocedure Evaluation - Darrick Mireles CRNA - 06/19/2019 12:20 PM EDT Patient: Brigitte Ortega Procedure Summary Date: 06/19/19 Room / Location: [facility] 2 / [facility] OR Anesthesia Start: 1152 Anesthesia Stop: 1220 Procedure: CATARACT PHACO EXTRACTION WITH INTRAOCULAR LENS IMPLANT RIGHT (Right Eye) Diagnosis: Combined forms of age-related cataract of right eye (Combined forms of age-related cataract of right eye [H25.811]) Surgeon: Yulissa Guerra MD Provider: Darrick Mireles CRNA Anesthesia Type: MAC ASA Status: 2 Anesthesia Type: MAC Last vitals BP 105/60 (06/19/19 1219) Temp 98 ??F (36.7 ??C) (06/19/19 1219) Pulse 66 (06/19/19 1219) Resp 18 (06/19/19 1219) SpO2 98 % (06/19/19 1219) Anesthesia Post Evaluation * Anesthesia Preprocedure Evaluation - Mick Mcmullen CRNA - 06/19/2019 11:07 AM EDT Anesthesia Evaluation Patient summary reviewed and Nursing notes reviewed no history of anesthetic complications: NPO Solid Status: > 8 hours NPO Liquid Status: > 8 hours Airway Mallampati: II TM distance: >3 FB Neck ROM: full No difficulty expected Dental - normal exam Pulmonary - normal exam (+) a smoker Former, Cardiovascular - normal exam Exercise tolerance: good (4-7 METS) (+) hyperlipidemia, Neuro/Psych GI/Hepatic/Renal/Endo (+) GERD well controlled, hypothyroidism, Musculoskeletal Abdominal Substance History (+) 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 All patient questions answered. Will continue with POC.) intravenous induction Anesthetic plan, all risks, benefits, and alternatives have been provided, discussed and informed consent has been obtained with: patient. Plan discussed with SUPERVISOR FACEPIECE LINE. documented in this encounter Plan of Treatment Not on file documented as of this encounter Visit Diagnoses Not on filedocumented in this encounter Administered Medications Inactive Administered Medications - up to 3 most recent administrations Medication Order MAR Action Action Date Dose Rate Site ketamine (KETALAR) injection Intravenous, As Needed, Starting on Wed06/19/19 at 1140 Given 06/19/2019 11:40 AM EDT 10 mg lactated ringers infusion 1,000 mL 1,000 mL, Intravenous, at 25 mL/hr, Continuous, Starting on Wed06/19/19 at 1200 Currently Infusing 06/19/2019 11:46 AM EDT New Bag 06/19/2019 11:19 AM EDT 1,000 mL 25 mL/hr midazolam (VERSED) injection Intravenous, As Needed, Starting on Wed06/19/19 at 1140 Given 06/19/2019 11:40 AM EDT 2 mg Propofol (DIPRIVAN) injection Intravenous, As Needed, Starting on Wed06/19/19 at 1140 Given 06/19/2019 12:00 PM EDT 50 mg Given 06/19/2019 11:40 AM EDT 50 mg documented in this encounter Care Teams Fixture Builder Relationship Specialty Start Date End Date Manuel Moraels MD [address] [place] [address] [address] [facility] [address] [place] [address] PCP - General Family Medicine 05/01/19 documented as of this encounter
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
--- OUTSIDE RECORDS SUMMARY | 2024-08-01 23:05 | XMS_ITS | Encounter Summary ---
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 [H26.493] Procedures EYE CAPSULOTOMY WITH LASER Referral ID Status Reason Start Date Expiration Date Visits Re quested Visits Authorized [id number] 1 1 Encounter Details Date Type Department Care Team (Latest Contact Info) Description 06/16/2021 10:40 AM EDT - 06/16/2021 12:06 PM EDT Hospital Encounter [facility] OR [address] [place] [phone] Yulissa Guerra MD [address] [place] [address] Discharge Disposition: Home or Self [...] Sign Reading Time Taken Comments Blood Pressure 161/63 06/16/2021 12:01 PM EDT Pulse 64 06/16/2021 12:01 PM EDT Temperature 36.1 ??C (97 ??F) 06/16/2021 10:53 AM EDT Respiratory Rate 18 06/16/2021 12:01 PM EDT Oxygen Saturation 96% 06/16/2021 12:01 PM EDT Inhaled Oxygen Concentration - - Weight 95.3 kg (210 lb) 06/13/2021 1:40 PM EDT Height 170.2 cm (5' 7 ) 06/13/2021 1:40 PM EDT Body Mass Index 32.89 06/13/2021 1:40 PM EDT documented in this encounter Discharge Instructions * Discharge Instructions* Yulissa Guerra MD - 06/16/2021 11:50 AM EDT Post Capsulotomy POST YAG LASER [...] call the office during normal work day [phone] B. If unable to reach the doctor, come to the Emergency Room at the [facility]. If you have any concerning problems, call your doctor or the [facility] Emergency Dept at [phone]. documented in this encounter Medications at Time [...] tablet Take 10 mg by mouth Daily. Magnesium 100 MG tablet Take 1 tablet by mouth Daily. mometasone (NASONEX) 50 MCG/ACT nasal spray 2 sprays into the nostril(s) as directed by provider Daily As Needed. simvastatin (ZOCOR) 20 MG tablet Take 20 mg by mouth Every Night. documented as of this encounter OR Notes * Op Note - Yulissa Guerra MD - 06/16/2021 11:50 AM EDT Pre-op Diagnosis: Posterior Capsular Opacification, Right eye Procedure: Nd: YAG Laser Capsulotomy, Right eye Post-op Diagnosis: Posterior Capsular Opacification, Right eye Indications: Brigitte Ortega is a 66 y.o. female with Posterior Capsular Opacification. It was recommended that the next step in her management be a Nd:YAG laser capsulotomy in the right eye. Procedure: The right eye was dilated prior to arrival in the laser suite. A drop of topical Tetracaine was instilled in the right conjunctival cul-de-sac and the patient was then positioned in front of the Nd:YAG laser. The correct eye was again confirmed verbally by both the patient and the surgeon. The laser contact lens was positioned on the right eye and the circular capsulotomy was carried out without difficulty using the following parameters: Laser: Nd:YAG Spot Size: Fixed Burst Mode: I Power Settin.7 mJ/burst Number of shots: 79 Total energy delivered: 149 mJ Immediately following the procedure, the right eye was rinsed with BSS solution and a drop of prednisolone acetate 1% was applied. The patient tolerated the procedure without difficulty. No complications were encountered. The patient was discharged home with the appropriate instructions. Yulissa Guerra MD 06/16/2021 11:50 EDT * Pre-Procedure Instructions - Yvonne Glass RN - 06/13/2021 1:52 PM EDT PAT phone history completed for upcoming procedure with Dr. uGerra (capsulotomy) on 06/16/21. Instructions given: PLEASE BRING A PICTURE ID AND INSURANCE CARD THE DAY OF PROCEDURE. AVOID WEARING EYE MAKE-UP, AND COME IN YOUR NATURAL STATE. FOLLOW ANY PRE-OP INSTRUCTIONS GIVEN BY YOUR DOCTOR. documented in this encounter Plan of Treatment Not on file documented as of this encounter Procedures Procedure Name Priority Date/Time Associated Diagnosis Comments EYE CAPSULOTOMY WITH LASER 06/16/2021 11:52 AM EDT Bilateral posterior capsular opacification documented in this encounter Visit Diagnoses Diagnosis Bilateral posterior capsular opacification- Primary Unspecified after-cataract documented in this encounter Admitting Diagnoses Diagnosis Bilateral posterior capsular opacification Unspecified after-cataract documented in this encounter Administered Medications Inactive Administered Medications - up to 3 most recent administrations Medication Order MAR Action Action Date Dose Rate Site prednisoLONE acetate (PRED FORTE) 1 % ophthalmic suspension 1 drop 1 drop, Right Eye, See Admin Instructions, Starting on Wed06/16/21 at 1055, Shake well before use. Do not give preop. Send to OR with patient and send remainder home with patient along with post-op instructions. Caution: Look alike/sound alike drug alert., Indications: Post op InflammationIndications:Post op Inflammation documented in this encounter Active and Recently Administered Medications Times are shown in EDT. Scheduled Medication Order 06/14/2021 06/15/2021 06/16/2021 prednisoLONE acetate (PRED FORTE) 1 % ophthalmic suspension 1 drop 1 drop, Right Eye, See Admin Instructions, Starting on Wed06/16/21 at 1055, Shake well before use. Do not give preop. Send to OR with patient and send remainder home with patient along with post-op instructions. Caution: Look alike/sound alike drug alert., Indications: Post op Inflammation tetracaine (ALTACAINE) 0.5 % ophthalmic solution 1 drop 1 drop, Right Eye, Once, On Wed06/16/21 at 1145, For 1 dose, To operative eye(s). 1145 (Due) PRN Medication Order 06/14/2021 06/15/2021 06/16/2021 balanced salt (BSS) IO solution As Needed, Starting on Wed06/16/21 at 1155 1155 (Given - Provid er: Aleisha Cerna RN) prednisoLONE acetate (PRED FORTE) 1 % ophthalmic suspension As Needed, Starting on Wed06/16/21 at 1155 1155 (Given - Provid er: Aleisha Cerna RN) tetracaine (ALTACAINE) 0.5 % ophthalmic solution As Needed, Starting on Wed06/16/21 at 1155 1155 (Given - Provid er: Aleisha Cerna RN) documented in this encounter Care Teams Senior Structural Engineer Relationship Specialty Start Date End Date Manuel Morales MD [facility] [address] [facility] [address] [place] [address] PCP - General Family Medicine 05/01/19 documented as of this encounter
--- OUTSIDE RECORDS SUMMARY | 2024-08-01 23:05 | XMS_ITS | Encounter Summary ---
Author Organization Healthcare Address [address] [place] [address] Care Team Providers Care Supervisor Lending Activities Name Role Phone Manuel Morales MD Primary Care Provider + [phone] Encounter Details Date Type Department Care Team (Late st Contact Info) Description 06/27/2021 Abstract [facility] [address], [place] [address] Yulissa Guerra MD [address] [place] [address] Social History Tobacco Use Types [...] Description 11/01/2024 9:00 AM EDT Office Visit [facility] [place] [address] [facility], [place] [address] Yulissa Guerra MD [address] [place] [address] documented as of this encounter Visit Diagnoses Not on filedocumented in this encounter Care Teams Supervisor Lending Activities Relationship Specialty Start Date End Date Manuel Morales MD [address] [place] [address] PCP - General 01/03/21 documented as of this encounter
--- OUTSIDE RECORDS SUMMARY | 2024-08-01 23:05 | XMS_ITS | Encounter Summary ---
Author Organization [facility] Address [address] [place] [address] Care Team Providers Care Human Services Professional Name Role Phone Manuel Morales MD Primary Care Provider + [phone] Reason for Referral * Surgical (Routine) - Closed Specialty Diagnoses / Procedures Referred By Yanick rider Referred To Contact Diagnoses Bilateral posterior capsular opacification Procedures Case Request Yulissa Guerra MD [address] [place] [address] Phone: tel: fax: Referral ID Status Reason Start Date Expiration Date Visits Re quested Visits Authorized [id number] Closed 06/09/2021 06/09/2022 1 1 Encounter Details Date Type Department Care Team (Latest Contact Info) Description 06/09/2021 Prep for Surgery [facility] ORDERS ONLY [address] [place] [address] Yulissa Guerra MD [address] [place] [address] Bilateral posterior capsular opacification (Primary Dx) Social History Tobacco Use Types Packs/Day Years Used Date Smoking Tobacco: Former Cigarettes 1 30 1 974 - 2003 Smokeless Tobacco: Never Alcohol Use Standard Drinks/Week Comments Yes 1 (1 standard drink = 0.6 oz pure alcohol) Patient denied any Hx of ETOH abuse Comments No Sex and Gender Information Value Date Recorded Sex Assigned at Not on file Legal Sex Female 5:36 PM EDT Gender Identity Not on file Sexual Orientation Not on file documented as of this encounter Plan of Treatment Not on file documented as of this encounter Visit Diagnoses Diagnosis Bilateral posterior capsular opacification- Primary Unspecified after-cataract documented in this encounter Care Teams Human Services Professional Relationship Specialty Start Date End Date Manuel Morales MD [address] [facility] [address] [place] [address] PCP - General Family Medicine 05/01/19 documented as of this encounter
--- OUTSIDE RECORDS SUMMARY | 2024-08-01 23:05 | XMS_ITS | Encounter Summary ---
Author Organization Healthcare Address [address] [place] [address] Care Team Providers Care Waiter/Waitress Second Class Name Role Phone Manuel Morales MD Primary Care Provider + [phone] Encounter Details Date Type Department Care Team (Latest Contact Info) Description 07/16/2021 Travel Social History Tobacco Use Types Packs/Day Years [...] have Coronavirus / COVID-19? No / Unsure 07/16/2021 1:05 PM EST documented as of this encounter Plan of Treatment Upcoming Encounters Date Type Department Care Team (Late st Contact Info) Description 11/01/2024 9:00 AM EDT [facility] Visit [facility] [address] , [place] [address] Yulissa Guerra MD [address] [place] [address] documented as of this encounter Visit Diagnoses Not on filedocumented in this encounter Additional Health Concerns Assessment Noted Time A fall risk assessment has been complete d for the patient 07/16/2021 1:17 PM EST documented as of this encounter Care Teams Waiter/Waitress Second Class Relationship Specialty Start Date End Date Manuel Morales MD [address] [place] [address] PCP - General 01/03/21 documented as of this encounter
--- OUTSIDE RECORDS SUMMARY | 2024-08-01 23:05 | XMS_ITS | Encounter Summary ---
Author Organization Healthcare Address [address] [place] [address] Care Team Providers Care Field Traffic Investigator Name Role Phone Manuel Morales MD Primary Care Provider + [phone] Encounter Details Date Type Department Care Team (Latest Contact Info) Description 08/05/2022 Travel Social History Tobacco Use Types Packs/Day Years Used Date Smoking Tobacco: Never Smokeless Tobacco: Never Comments Unknown Sex and Gender Information Value Date Recorded Sex Assigned at Female 03/04/2022 2:08 PM EDT Legal Sex Female 8:32 PM EDT Gender Identity Female 03/04/2022 2:08 PM EDT Sexual Orientation Straight 03/04/2022 2: 08 PM EDT COVID-19 Exposure Response Date Recorded In the last 10 days, have yo u been in contact with someone who was confirmed or suspected to have Coronavirus/COVID-19? No / Unsure 08/05/2022 9:56 AM EST documented as of this encounter Plan of Treatment Upcoming Encounters Date Type Department Care Team (Late st Contact Info) Description 11/01/2024 9:00 AM EDT Office Visit [facility] [address] , [place] [address] Yulissa Guerra MD [address] [place] [address] documented as of this encounter Visit Diagnoses Not on filedocumented in this encounter Additional Health Concerns Assessment Noted Time A fall risk assessment has been complete d for the patient 07/16/2021 1:17 PM EST documented as of this encounter Care Teams Field Traffic Investigator Relationship Specialty Start Date End Date Manuel Morales MD [address] [place] [address] PCP - General 01/03/21 documented as of this encounter
--- OUTSIDE RECORDS SUMMARY | 2024-08-01 23:05 | XMS_ITS | Encounter Summary ---
Author Organization [facility] Address [address] [place] [address] Care Team Providers Care Shoe Treer Name Role Phone Manuel Morales MD Primary Care Provider [phone] Encounter Details Date Type Department Care Team (Latest Contact Info) Description 08/05/2022 10:00 AM EST Office Visit [facility] [place] [address] [facility], [place] [address] Yulissa Guerra MD [address] [place] [address] PCO (posterior capsular opacification), bilateral [...] AM EST documented as of this encounter Miscellaneous Notes * Progress Notes - Yulissa Guerra MD - 08/05/2022 10:00 AM EST Subjective HPI 67 yr old F presents to clinic for a yearly exam. Pt reports her vision is stable. She denies any floaters and has occasional dry eyes. Pt reports she is only wearing glasses when she drives. Last edited by Bianca Ho on 08/05/2022 10:23 AM. ROS Positive for: Eyes Negative for: Constitutional, Gastrointestinal, Neurological, Skin, Genitourinary, Musculoskeletal,HENT, Endocrine, Cardiovascular, Respiratory, Psychiatric, Allergic/Imm, Heme/Lymph Last edited by Bianca Ho on 08/05/2022 10:23 AM. Objective Base Eye Exam Visual Acuity (Snellen - Linear) Right Left Dist sc 20/50-1 20/40-1 Dist ph sc 20/30-1 20/25-1 Near sc J2 J1 Tonometry (Tonopen, 10:45 AM) Right Left Pressure 10 11 Pachymetry Right Left Thickness 500 485 Pupils Pupils Right PERRL Left PERRL Visual Awad Right Left Full Full Neuro/Psych Oriented x3: Yes Mood/Affect: Normal Dilation Both eyes: 1% Tropicamide, 2.5% Phenylephrine @ 10:45 AM Slit Lamp and Fundus Exam External Exam Right Left External Normal Normal Slit Lamp Exam Right Left Lids/Lashes Normal for age Normal for age Conjunctiva/Sclera White White Cornea lasik flap scar with PEE lasik flap scar, tr PEE Anterior Chamber Deep and quiet Deep and quiet Iris Normal Normal Lens PC IOL, open PC PC IOL stable along 115 axis, open PC Fundus Exam Right Left Vitreous posterior vitreous detachment posterior vitreous detachment Disc no edema, no vascularization, good color no edema, no vascularization, good color C/D Ratio .1 .1 Macula FLR - FLR - Vessels Normal Normal Periphery Normal, capsular fragments inf vitreous Normal Refraction Wearing Rx Add Right +1.50 Left +1.50 Type: otc readers Did not bring Manifest Refraction (Auto) Sphere Cylinder [place] Dist VA Add Near VA Right -0.75 +1.25 036 20/50-1 Left -1.50 +1.00 003 20/50 Manifest Refraction #2 Sphere Cylinder [place] Dist VA Add Near VA Right -1.50 +0.75 055 20/40 +2.50 J1+ Left -1.50 +1.00 010 20/25-2 +2.50 J1+ Final Rx Sphere Cylinder [place] Dist VA Add Near VA Right -1.50 +0.75 055 20/40 +2.50 J1+ Left -1.50 +1.00 010 20/25-2 +2.50 J1+ Type: PAL Expiration Date: 08/05/2023 Comments: Pseudophakic OU Assessment/Plan Diagnoses and all orders for this visit: PCO (posterior capsular opacification), bilateral H/O laser assisted in situ keratomileusis PCO (posterior capsular opacification), bilateral H26.493 Improved visual acuity (VA) status post (s/p) capsulotomy both eyes (OU) Given Mrx per pt request as never filled before H/O laser assisted in situ keratomileusis Z98.890 OU for myopia f/u 1 year or sooner PRN Tobacco Use: Low Risk Smoking Tobacco Use: Never Smokeless Tobacco Use: Never Passive Exposure: Not on file The patient has been counseled on tobacco cessation: Not Applicable documented in this encounter Plan of Treatment Upcoming Encounters Date Type Department Care Team (Late st Contact Info) Description 11/01/2024 9:00 AM EDT Office Visit [facility] [address], [place] [address] Yulissa Guerra MD [address] [address] documented as of this encounter Visit Diagnoses Diagnosis PCO (posterior capsular opacification), bilateral- Primary Unspecified after-cataract H/O laser assisted in situ keratomileusis documented in this encounter Additional Health Concerns Assessment Noted Time A fall risk assessment has been complete d for the patient 07/16/2021 1:17 PM EST documented as of this encounter Care Teams Shoe Treer Relationship Specialty Start Date End Date Manuel Morales MD [facility] [address] [address] PCP - General 01/03/21 documented as of this encounter
--- OUTSIDE RECORDS SUMMARY | 2024-08-01 23:05 | XMS_ITS | Encounter Summary ---
Author Organization [facility] Address [address] [place] [address] Care Team Providers Care Building Services Engineer Name Role Phone Manuel Morales MD Primary Care Provider [phone] Encounter Details Date Type Department Care Team (Latest Contact Info) Description 10/19/2023 Travel Social History Tobacco Use Types Packs/Day Years Used Date Smoking Tobacco: Never Passive Smoke Exposure: Never Smokeless Tobacco: Never Comments Unknown Sex [...] 9:00 AM EDT Office Visit [facility] - [address] [facility], [place] [address] Yulissa Guerra MD [address] [facility] [address] [place] [address] documented as of this encounter Visit Diagnoses Not on filedocumented in this encounter Additional Health Concerns Assessment Noted Time A fall risk assessment has been complete d for the patient 10/19/2023 9:43 AM EST A Body Mass Index follow-up plan has been documented for the patient 10/19/2023 10:14 AM EST documented as of this encounter Care Teams Building Services Engineer Relationship Specialty Start Date End Date Manuel Morales MD [address] [place] [address] PCP - General 01/03/21 documented as of this encounter
--- OUTSIDE RECORDS SUMMARY | 2024-08-01 23:05 | XMS_ITS | Encounter Summary ---
Author Organization [facility] Address [address] [place] [address] Care Team Providers Care Director Global Medical Affairs Name Role Phone Manuel Morales MD Primary Care Provider + [phone] Reason for Visit * Auth/Cert Specialty Diagnoses / Procedures Referred By Yanick rider Referred To Contact Diagnoses Bilateral posterior capsular opacification Procedures MD DISCISSION,2ND CATARACT,LASER EYE CAPSULOTOMY WITH LASER LEFT Referral ID Status Reason Start Date Expiration Date Visits Re quested Visits Authorized [id number] 1 1 Encounter Details Date Type Department Care Team (Latest Contact Info) Description 04/15/2020 9:13 AM EDT - 04/15/2020 10:45 AM EDT Hospital Encounter [facility] OR [address] [place] [address] Yulissa Guerra MD [address] [facility] [place] [address] Discharge Disposition: Home or Self [...] call the office during normal work day [phone] B. If unable to reach the doctor, come to the Emergency Room at the [facility]. If you have any concerning problems, call your doctor or the [facility] at [phone]. documented in this encounter Medications at Time [...] TOPICAL documented in this encounter Visit Diagnoses Not [...] RN) documented in this encounter Care Teams Director Global Medical Affairs Relationship Specialty Start Date End Date Manuel Morales MD [address] [facility] [address] [facility] [address] [place] [address] PCP - General Family Medicine 05/01/19 documented as of this encounter
--- OUTSIDE RECORDS SUMMARY | 2024-08-01 23:05 | XMS_ITS | Encounter Summary ---
Author Organization [facility] Address [address] [place] [address] Care Team Providers Care Chief Ophthalmic Technician Name Role Phone Manuel Morales MD Primary Care Provider + [phone] Reason for Visit * Auth/Cert Specialty Diagnoses / Procedures Referred By Yanick rider Referred To Contact Diagnoses Combined forms of age-related cataract of both eyes Procedures CATARACT PHACO EXTRACTION WITH INTRAOCULAR LENS IMPLANT LEFT Referral ID Status Reason Start Date Expiration Date Visits Re quested Visits Authorized [id number] 1 1 Encounter Details Date Type Department Care Team (Late st Contact Info) Description 05/01/2019 10:32 AM EDT Anesthesia Event [facility] OR [address] [place] [address] Kori Zapata CRNA [address] [address] Anesthesia Record Procedure Summary Procedure Name Responsible Anesthesiologist Anesthesia Start Time Anesthesia Stop Time CATARACT PHACO EXTRACTION WITH INTRAOCULAR LENS IMPLANT LEFT (Left: Eye) Kori Zapata CRNA 05/01/19 1032 05/01/19 1103 Events Date Time Event Comment 05/01/2019 0938 1023 AN Equip Check 1032 An Start 1034 An Start Data 1035 An Induction The patient was reevaluated immediately before moderate or deep sedation use and before anesthesia induction. 1035 Anesthesia Ready 1102 an stop data 1102 Handoff to RN The following has been [...] of report from the receiving PACU/ICU team 1103 An Stop Meds Name Total MIDAZOLAM HCL 1MG/ML 2MG VIAL 2 mg ketamine hcl 10 mg/mL 5 mL syringe 6 mg lactated ringers infusion 1,000 mL 300 m L * Agents Name O2 * Blood No blood administrations on file. Lines, Drains, and Airways Type Details Placement Removal Peripheral IV Placement Date: 05/01/19; Placement Time: 0949; Change Due: 05/04/19; Catheter Size: 22 G; Orientation: Right; Location: Hand; Site Prep: Chlorhexidine; Inserted by: Fe Marcano RN; Insertion Attempts: 1; Patient Tolerance: Tolerated well; Removal Date: 05/01/19; Removal Time: 1126 05/01/19 0949 by Nick Conde, PADMA 05/01/19 1126 by Apurva Brownlee APRN Wound 05/01/19; 1038; Left ; eye; Incision; 06/19/19; 1114 05/01/19 1038 by Miranda Velazco, PADMA 06/19/19 1114 by Nicci Hope RN documented in this encounter Social History Tobacco [...] OR Notes * Anesthesia Postprocedure Evaluation - Kori Zapata CRNA - 05/01/2019 11:06 AM EDT Patient: Brigitte Ortega Procedure Summary Date: 05/01/19 Room / Location: [facility] OR Anesthesia Start: 1032 Anesthesia Stop: 1103 Procedure: CATARACT PHACO EXTRACTION WITH INTRAOCULAR LENS IMPLANT LEFT (Left Eye) Diagnosis: Combined forms of age-related cataract of both eyes (Combined forms of age-related cataract of both eyes [H25.813]) Surgeon: Yulissa Guerra MD Provider: Kori Zapata CRNA Anesthesia Type: MAC ASA Status: 2 Anesthesia Type: MAC Last vitals BP 130/61 (05/01/191105) Temp 97.4 ??F (36.3 ??C) (05/01/19 110) Pulse 63 (05/01/191105) Resp 16 (05/01/191105) SpO2 97 % (05/01/191105) Post Anesthesia Care and Evaluation Patient location during evaluation: PHASE II Patient participation: complete - patient participated Level of consciousness: awake and alert Pain score: 0 Pain management: satisfactory to patient Airway patency: patent Anesthetic complications: No anesthetic complications PONV Status: none Cardiovascular status: acceptable and stable Respiratory status: acceptable Hydration status: acceptable * Anesthesia Preprocedure Evaluation - Kori Zapata CRNA - 05/01/2019 9:37 AM EDT Anesthesia Evaluation Patient summary reviewed [...] Musculoskeletal Abdominal Substance History (+) 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 All patient questions answered. Will continue with POC.) intravenous induction Anesthetic plan, all risks, benefits, and alternatives have been provided, discussed and informed consent has been obtained with: patient. Plan discussed with JACQUARD PLATE MAKER. documented in this encounter Plan of Treatment Not on file documented as of this encounter Visit Diagnoses Not on filedocumented in this encounter Administered Medications Inactive Administered Medications - up to 3 most recent administrations Medication Order MAR Action Action Date Dose Rate Site ketamine hcl syringe solution prefilled syringe As Needed, Starting on Wed05/01/19 at 1035 Given 05/01/2019 10:35 AM EDT 6 mg midazolam (VERSED) injection Intravenous, As Needed, Starting on Wed05/01/19 at 1035 Given 05/01/2019 10:35 AM EDT 2 mg documented in this encounter Care Teams Chief Ophthalmic Technician Relationship Specialty Start Date End Date Manuel Morales MD [address] [facility] [address] [place] [address] PCP - General Family Medicine 05/01/19 documented as of this encounter
--- OUTSIDE RECORDS SUMMARY | 2024-08-01 23:05 | XMS_ITS | Clinical Summary ---
Author Organization [facility] Address [address] [place] [address] Care Team Providers Care Tile Layer Helper Name Role Phone Manuel Morales MD Primary Care Provider + [phone] Allergies Active Allergy Reactions Criticality Noted Date Comments Penicillins Itching Low 04/27/2019 Medications simvastatin (ZOCOR) 20 MG tablet Take 20 mg by mouth Every Night. Active levothyroxine (SYNTHROID, LEVOTHROID) 88 MCG tablet Take 88 mcg by mouth Daily. Active guaiFENesin (MUCINEX) 600 MG 12 hr tablet Take 1,200 mg by mouth Daily As Needed for Cough or Congestion. Active cholecalciferol (VITAMIN D3) 1000 units tablet Take 1,000 Units by mouth Daily. Active cetirizine (zyrTEC) 10 MG tablet Take 10 mg by mouth Daily As Needed for Allergies or Rhinitis. Active lisinopril (PRINIVIL,ZESTR IL) 10 MG tablet Take 10 mg by mouth Daily. Active Magnesium 100 MG tablet Take 1 tablet by mouth Daily. Active mometasone (NASONEX) 50 MCG/ACT nasal spray 2 sprays into the nostril(s) as directed by provider Daily As Needed. Active docusate sodium (Colace) 100 MG capsule Take 1 capsule by mouth 2 (Two) Times a Day. 20 capsule 10/15/2022 8:30 AM EST 3 Active ondansetron (Zofran) 4 MG tablet Take 1 tablet by mouth Every 8 (Eight) Hours As Needed for Nausea or Vomiting. 12 tablet 10/15/2022 8:30 AM EST 3 Active oxyCODONE (ROXICODONE) 5 MG immediate release tabletIndicatio ns:Nontraumatic complete tear of right rotator cuff Take 1 tablet by mouth Every 4 (Four) Hours As Needed for Moderate Pain. 24 tablet 10/15/2022 8:30 AM EST 3 Active docusate sodium (Colace) 100 MG capsule Take 1 capsule by mouth 2 (Two) Times a Day. 20 capsule 3 Active HYDROcodone-lorri taminophen (NORCO) 7.5-325 MG per tabletIndicatio ns:Adhesive capsulitis of right shoulder Take 1 tablet by mouth Every 4 (Four) Hours As Needed for Mild or Moderate Pain. 24 tablet 3 Active ondansetron (Zofran) 4 MG tablet Take 1 tablet by mouth Every 8 (Eight) Hours As Needed for Nausea or Vomiting. 12 tablet 3 Active Active Problems Problem Noted Date Diagnosed Date Bilateral posterior capsular opacification 06/10 Overview (06/10/2021): Added automatically from request for surgery [id number] Social History Tobacco Use Types Packs/Day Years Used Date Smoking Tobacco: Former Cigarettes 974 - 2003 Smokeless Tobacco: Never Alcohol Use Standard Drinks/Week Comments Yes 1 (1 standard drink = 0.6 oz pure alcohol) Patient denied any Hx of ETOH abuse Abuse Screen Answer Date Recorded Unsafe at Home or Work/School Not on file Feels Threatened by Someone? Not on file 07/2023 Does Anyone Keep You from Co ntacting Others or Doint Things Outside the Home? Not on file 06/03/2023 Physical Sign of Abuse Present Not on file 1 Housing Stability Answer Date Recorded Current Living Arrangements Not on file 05/23 Potentially Unsafe Housing Conditions Not on karthik e 06/03/2023 Family and Community Support Answer Jeremias e Recorded Help with Day-to-Day Activities Not on file 06/03/2023 Lonely or Isolated Not on file 06/03/2023 Employment Answer Date Recorded Do you want help finding or keeping work or a waldo b? Not on file 06/03/2023 Disabilities Answer Date Recorded Concentrating, Remembering, or Making Decisions Difficulty Not on file 06/03/2023 Doing Errands Independently Difficulty Not on fi le 06/03/2023 Education Answer Date Recorded Help with school or training? Not on file Preferred Language Not on file 06/03/2023 Comments No Sex and Gender Information Value Date Recorded Sex Assigned at Not on file Legal Sex Female 5:36 PM EDT Gender Identity Not on file Sexual Orientation Not on file Last Filed Vital Signs Vital Sign Reading [...] Mass Index 32.89 06/13/2021 1:40 PM EDT Plan of Treatment Health Maintenance Due Date Last Done Comments ANNUAL WELLNESS VISIT 1954 COLOGUARD 1954 COLON CANCER SCREENING 5 YEA R SIGMOIDOSCOPY 1954 COLONOSCOPY 1954 [address] CANCER SCREENING 1954 CT COLONOGRAPHY 1954 DXA SCAN 1954 FECAL OCCULT BLOOD TEST 1954 FIT Testing (1 year) 1954 HEPATITIS C SCREENING 1954 MAMMOGRAM 1994 ZOSTER VACCINE (2 of 3) 06/02/2016 04/07/2016 Pneumococcal Vaccine 65+ (1 of 1 - PCV) 2019 INFLUENZA VACCINE 02/21/2024 05/23/2021 COVID-19 Vaccine (3 - 2023- season) 04/23/202410/2020, 08/28/2020 TDAP/TD VACCINES (2 - Td or Tdap) 07/21/2026 016 Medical Devices Implanted Type Area Systems Navigator Device Identifier Shelf Expiration Date Model / Serial / Lot Lens Acrysof Iq Toric Sn6at4 23.0 - [id number] - [id number] Implanted:Qty : 1 on 05/01/2019 by Yulissa Guerra MD at [facility] Implant Left: Posterior Chamber LUIS 12/21/2023 [id number] / [id number] / Lens Acrysof Iq 6x13mm Sn60wf 23.0 - [id number] - [id number] Implanted:Qty : 1 on 06/19/2019 by Yulissa Guerra MD at [facility] Implant Right: Posterior Chamber LUIS 02/19/2023 [id number] / [id number] / Insurance MEDICARE A & B Member Subscriber Plan / Payer (Ef fective 2019-Present) Name:Brigitte Ortega Member ID:[id number] Relation to Subscriber:Self Name:Brigitte Ortega Subscriber ID:[id number] Payer ID:[id number] Group ID:Not on file Type:Not on file Address: [address] [place] [id number] [facility] Advance Directives Documents on File Type Date Recorded Patient Forestry Extension Specialist Expl anation LIVING WILL - SCAN 05/01/2019 9:36 AM 2011 Care Teams Tile Layer Helper Relationship Specialty Start Date End Date Manuel Morales MD [address] [facility] [address] [place] [address] PCP - General Family Medicine 05/01/19
--- OUTSIDE RECORDS SUMMARY | 2024-08-01 23:05 | XMS_ITS | Encounter Summary ---
Author Organization Healthcare Address [address] [place] [address] Care Team Providers Care Binding Machine Operator Name Role Phone Manuel Morales MD Primary Care Provider [phone] Reason for Visit * Reason Comments Eye Exam Encounter Details Date Type Department Care Team (Latest Contact Info) Description 10/19/2023 9:45 AM EST Office Visit [facility] [address] [facility], [place] [address] Yulissa Guerra MD [address] [place] [address] After cataract not obscuring vision, bilateral (Primary Dx); H/O laser assisted in situ keratomileusis Social History Tobacco Use Types Packs/Day Years Used Date Smoking Tobacco: Never Passive Smoke Exposure: Never Smokeless Tobacco: Never Tobacco Cessation:Counseling Given: Not Answered Comments Unknown Sex and Gender Information Value Date Recorded Sex Assigned at Female 03/04/2022 2:08 PM EDT Legal Sex Female 8:32 PM EDT Gender Identity Female 03/04/2022 2:08 PM EDT Sexual Orientation Straight 03/04/2022 2: 08 PM EDT documented as of this encounter Miscellaneous Notes * Progress Notes - Yulissa Guerra MD - 10/19/2023 9:45 AM EST Subjective HPI Eye Exam In both eyes. Comments 68 year old female presents for yearly eye exam for PCO OU and history of LASIK. She states using over the counter eye drops for allergies and dry eyes. No new visual complaints at this time. Last edited by Alicia Ortiz on 10/19/2023 9:41 AM. ROS Negative for: Constitutional, Gastrointestinal, Neurological, Skin, Genitourinary, Musculoskeletal,HENT, Endocrine, Cardiovascular, Eyes, Respiratory, Psychiatric, Allergic/Imm, Heme/Lymph Last edited by Alicia Ortiz on 10/19/2023 9:41 AM. Objective Base Eye Exam Visual Acuity Right Left Dist cc 20/40 +1 20/25 +1 Dist ph cc 20/30 +2 Correction: Glasses Tonometry (Tonopen, 9:59 AM) Right Left Pressure 10 10 Pachymetry Right Left Thickness 500 485 Pupils Pupils APD Right PERRL None Left PERRL None Visual Awad (Counting fingers) Right Left Full Full Extraocular Movement Right Left Full, Ortho Full, Ortho Neuro/Psych Oriented x3: Yes Mood/Affect: Normal Dilation Both eyes: 1% Tropicamide @ 9:59 AM Slit Lamp and Fundus Exam External Exam Right Left External Normal Normal Slit Lamp Exam Right Left Lids/Lashes Normal for age Normal for age Conjunctiva/Sclera White White Cornea lasik flap scar with PEE lasik flap scar, tr PEE Anterior Chamber Deep and quiet Deep and quiet Iris Normal Normal Lens PC IOL, open PC, glistenings PC IOL stable along 115 axis, open PC, glistenings Fundus Exam Right Left Vitreous posterior vitreous detachment posterior vitreous detachment Disc no edema, no vascularization, good color no edema, no vascularization, good color C/D Ratio .1 .1 Macula FLR - FLR - Vessels Normal Normal Periphery Normal, capsular fragments inf vitreous Normal Refraction Wearing Rx Sphere Cylinder [place] Right -1.50 +0.75 055 Left -1.50 +1.00 010 Age: 1+ yrs Type: SVL Manifest Refraction Sphere Cylinder [place] Dist VA Near VA Right -1.00 +0.75 060 20/30-1 Left -1.50 +1.00 015 20/25+1 Manifest Refraction #2 (Auto) Sphere Cylinder [place] Dist VA Near VA Right -1.00 +1.00 055 J1+ Left -1.00 +1.00 010 J1+ Final Rx Sphere Cylinder [place] Dist VA Right -1.00 +0.75 060 20/30-1 Left -1.50 +1.00 015 20/25+1 Type: Expiration Date: 10/19/2024 Assessment/Plan Diagnoses and all orders for this visit: After cataract not obscuring vision, bilateral H/O laser assisted in situ keratomileusis Open PC OUbilateral H26.493 Improved visual acuity (VA) status post (s/p) capsulotomy both eyes (OU) Given Mrx per pt request as not happy with current gls H/O laser assisted in situ keratomileusis Z98.890 OU for myopia f/u 1 year or sooner PRN Tobacco Use: Low Risk (10/19/2023) Patient History Smoking Tobacco Use: Never Smokeless Tobacco Use: Never Passive Exposure: Never The patient has been counseled on tobacco cessation: Not Applicable documented in this encounter Plan of Treatment Upcoming Encounters Date Type Department Care Team (Late st Contact Info) Description 11/01/2024 9:00 AM EDT [facility] Visit [facility] - [address], [place] [address] Yulissa Guerra MD [address] [address] documented as of this encounter Visit Diagnoses Diagnosis After cataract not obscuring vision, bilateral- Primary H/O laser assisted in situ keratomileusis documented in this encounter Additional Health Concerns Assessment Noted Time A fall risk assessment has been complete d for the patient 10/19/2023 9:43 AM EST A Body Mass Index follow-up plan has been documented for the patient 10/19/2023 10:14 AM EST documented as of this encounter Care Teams Binding Machine Operator Relationship Specialty Start Date End Date Manuel Morales MD [facility] [address] PCP - General 01/03/21 documented as of this encounter
--- OUTSIDE RECORDS SUMMARY | 2024-08-01 23:05 | XMS_ITS | Clinical Summary ---
Author Organization Healthcare Address [address] [place] [address] Care Team Providers Care Space Systems Operations Manager Name Role Phone Manuel Morales MD Primary Care Provider + [phone] Allergies Active Allergy Reactions Criticality Noted Date Comments Penicillins Itching,Unknown - Pa consuelo states they do not know rxn details Medium 02/18/2016 Medications MULTIPLE VITAMINS-MINERA LS ER PO Take 1 capsule by mouth 1 (one) time each day. Active cetirizine (ZyrTEC) 10 MG tablet Take 10 mg by mouth. Active cholecalciferol (Vitamin D-3) 25 MCG (1000 UT) tablet Take 1,000 Units by mouth 1 (one) time each day. Active levothyroxine (Synthroid, Levoxyl) 88 MCG tablet Take 88 mcg by mouth 1 (one) time each day. Active guaiFENesin (Mucinex) 600 MG 12 hr tablet Take 1,200 mg by mouth. Active lisinopril 20 MG tablet 20 mg. 0 Active simvastatin (Zocor) 20 MG tablet 6 Active hydrocortisone 2.5 % ointment APPLY A SMALL AMOUNT TO SKIN TWICE A DAY 1 Active mometasone (Nasonex) 50 MCG/ACT nasal spray Administer 2 sprays into affected nostril(s). Active Active Problems Problem Noted Date Diagnosed Date PCO (posterior capsular opacification), bilatera l 05/14/2021 H/O laser assisted in situ keratomileusis 2020 Status post extracapsular cataract extraction of left eye 05/02/2019 Hypothyroidism 02/18/2016 Rheumatoid arthritis 02/18/2016 Family History Medical History Relation Name Comments Cardiac disorder Father Cardiac disorder Mother Diabetes Sister Relation Name Status Comments Father Mother Sister Social History Tobacco Use Types Packs/Day Years Used Date Smoking Tobacco: Never Passive Smoke Exposure: Never Smokeless Tobacco: Never Tobacco Cessation:Counseling Given: Not Answered Comments Unknown Sex and Gender Information Value Date Recorded Sex Assigned at Female 03/04/2022 2:08 PM EDT Legal Sex Female 8:32 PM EDT Gender Identity Female 03/04/2022 2:08 PM EDT Sexual Orientation Straight 03/04/2022 2: 08 PM EDT Plan of Treatment Upcoming Encounters Date Type Department Care Team (Late st Contact Info) Description 11/01/2024 9:00 AM EDT Office Visit [facility] - [address], [place] [address] Yulissa Guerra MD [address] [address] Health Maintenance Due Date Last Done Comments [facility]-Bone Density Scan 1955 [facility]-Depression Screening 1955 [facility]-Hepatitis C Screening 1955 [facility]Medic[facility] Annual Wellness (AWV) 1955 [facility]-/Child/Adol SDOH Screenings 1955 [facility]- SDOH Screenings 02/15/1972 [facility]-Adult SDOH Screenings 02/15/1972 CT Colonography 1999 Colonoscopy 1999 FIT-DNA 1999 FIT 1999 FOBT 1999 Sigmoidoscopy 1999 [facility]-Colorectal Cancer Screening 1999 [facility]-Breast Cancer Screening 02/15/2004 [facility]-Zoster Vaccines (2 of 3) 06/02/2016 04/07/2016 [id number] Vaccine ( season) 2024 06/15/2023, 09/09/2022, 04/20/2022, Additional history exists [facility]-Influenza Vaccine (#1) 04/23/202405/28, 05/23/2021, 05/18/2018, Additional history exists [facility]-DTaP,Tdap,and Td Vaccines (2 - Td or Tdap) 07/21/2026 07/21/2016 [facility]-RSV Vaccine: 60+ Years or (1 - 1-dose 75+ series) 2029 [facility]-Pneumococcal Vaccine: 65+ Years Completed 06/09/2021, 06/11/2020 [facility]-HIB Vaccines Aged Out No longer e ligible based on patient's age to complete this topic [facility]-HPV Vaccines Aged Out No longer e ligible based on patient's age to complete this topic [facility]-Hepatitis A Vaccines Aged Out No longer eligible based on patient's age to complete this topic [facility]-IPV Vaccines Aged Out No longer e ligible based on patient's age to complete this topic [facility]-Rotavirus Vaccines Aged Out No lo nger eligible based on patient's age to complete this [place] [address] [facility] Care Teams Space Systems Operations Manager Relationship Specialty Start Date End Date Manuel Morales MD [address] [place] [address] PCP - General 01/03/21
--- OUTSIDE RECORDS SUMMARY | 2024-08-01 23:05 | XMS_ITS | Encounter Summary ---
Author Organization Healthcare Address [address] [place] [address] Care Team Providers Care Manager Consumer Name Role Phone Manuel Morales MD Primary Care Provider + [phone] Encounter Details Date Type Department Care Team (Latest Contact Info) Description 07/30/2022 Travel Social History Tobacco Use Types Packs/Day [...] suspected to have Coronavirus/COVID-19? No / Unsure 07/30/2022 8:17 PM EST documented as of this encounter Plan of Treatment Upcoming Encounters Date Type Department Care Team (Late st Contact Info) Description 11/01/2024 9:00 AM EDT Office Visit [facility] [address] , [place] [address] Yulissa Guerra MD [address] [place] [address] documented as of this encounter Visit Diagnoses Not on filedocumented in this encounter Additional Health Concerns Assessment Noted Time A fall risk assessment has been complete d for the patient 07/16/2021 1:17 PM EST documented as of this encounter Care Teams Manager Consumer Relationship Specialty Start Date End Date Manuel Morales MD [address] [place] [address] PCP - General 01/03/21 documented as of this encounter
--- OUTSIDE RECORDS SUMMARY | 2024-08-01 23:05 | XMS_ITS | Encounter Summary ---
Author Organization Healthcare Address [address] [place] [address] Care Team Providers Care President And Chief Executive Officer Name Role Phone Manuel Morales MD Primary Care Provider [phone] Encounter Details Date Type Department Care Team (Latest Contact Info) Description 05/14/2021 Travel Social History Tobacco Use Types Packs/Day [...] AM EDT documented as of this encounter Plan of Treatment Upcoming Encounters Date Type Department Care Team (Late st Contact Info) Description 11/01/2024 9:00 AM EDT [facility] Visit [facility] [address] , [place] [address] Yulissa Guerra MD [address] [place] [address] documented as of this encounter Visit Diagnoses Not on filedocumented in this encounter Care Teams President And Chief Executive Officer Relationship Specialty Start Date End Date Manuel Morales MD [address] [place] [facility] [place] PCP - General 01/03/21 documented as of this encounter
--- OUTSIDE RECORDS SUMMARY | 2024-08-01 23:05 | XMS_ITS | Encounter Summary ---
[facility] [address] [place] [address] Care Team Providers Care Door Installer Name Role Phone Manuel Morales MD Primary Care Provider + [phone] Reason for Visit * Auth/Cert Specialty Diagnoses / Procedures Referred By Yanick rider Referred To Contact Diagnoses Combined forms of age-related cataract of both eyes Procedures CATARACT PHACO EXTRACTION WITH INTRAOCULAR LENS IMPLANT LEFT Referral ID Status Reason Start Date Expiration Date Visits Re quested Visits Authorized [id number] 1 1 Encounter Details Date Type Department Care Team (Latest Contact Info) Description 05/01/2019 9:20 AM EDT - 05/01/2019 11:38 AM EDT Hospital Encounter [facility] OR [address] [place] [address] Yulissa Guerra MD [address] [facility] [place] [address] Combined form of age-related cataract, left eye (Primary Dx) Discharge Disposition: Home or Self [...] Sign Reading Time Taken Comments Blood Pressure 132/63 05/01/2019 11:26 AM EDT Pulse 72 05/01/2019 11:26 AM EDT Temperature 36.3 ??C (97.4 ??F) 05/01/2019 11:06 AM E DT Respiratory Rate 16 05/01/2019 11:26 AM EDT Oxygen Saturation 98% 05/01/2019 11:26 AM EDT Inhaled Oxygen Concentration - - Weight 90.7 kg (200 lb) 04/27/2019 4:30 PM EDT Height 170.2 cm (5' 7 ) 04/27/2019 4:30 PM EDT Body Mass Index 31.32 04/27/2019 4:30 PM EDT documented in this encounter Discharge Instructions * Discharge Instructions* Yulissa Guerra MD - 05/01/2019 11:12 [place] [address] PH: FAX: Post - Operative Instructions for [...] unsure of call Dr. Guerra's office at [phone]. You should expect: Slight Discomfort Burning When [...] at all times until office visit tomorrow. * Attachments The following attachments cannot be sent through Care Everywhere. * Cataract Surgery Care After (Serbian) documented in this encounter Medications at Time [...] Take 20 mg by mouth Every Night. Ketotifen Fumarate (ALLERGY EYE DROPS OP) 1 drop Daily. 9 Multiple Vitamins-Mineral s (CENTRUM SILVER 50+WOMEN PO) Take 1 capsule by mouth Daily. 1 pseudoephedrine (SUDAFED) 30 MG tablet Take 60 mg by mouth Every 6 (Six) Hours As Needed. 0 documented as of this encounter H&P Notes * Yulissa Guerra MD - 05/01/2019 9:47 AM EDT H&P reviewed. The patient was examined and there are no changes to the H&P. Source Note - [employer], [place] - 04/27/2019 12:00 AM EDT documented in this encounter OR Notes * Op Note - Yulissa Guerra MD - 05/01/2019 10:39 AM EDT PROCEDURE NOTE Date of Procedure: 05/01/2019 Patient Name: Brigitte Ortega Date of : 1955 PREOPERATIVE DIAGNOSIS: Visually significant combined form of senile cataract of the Left eye interfering with activities of daily living. POSTOPERATIVE DIAGNOSIS: Visually significant combined form of senile cataract of the Left eye interfering with activities of daily living. INDICATIONS FOR THE PROCEDURE: Visually significant combined form of senile cataract of the Left eye interfering with activities of daily living. SURGEON: Yulissa Guerra M.D. NAME OF PROCEDURE: Left cataract extraction with posterior chamber intraocular lens implant. (TORIC) +23.0D SN6AT4 CDE: 4.91 ANESTHESIA: Topical with MAC. COMPLICATIONS: None. DETAILS OF THE PROCEDURE: After receiving appropriate informed consent and confirming adequate anaesthesia and marking the eye to be operated upon, the patient was sat in the upright position and gyk542 degree axis was marked at the corneal limbus with the patient looking straight ahead. The patient was then wheeled into the operating room. After confirming adequate anesthesia, the patient was prepped and draped in a standard sterile ophthalmic fashion. A lid speculum was then placed in the Left eye. A Portillo ring was used to mercedes the desired axis at the limbus. A 0.8 mm metal blade was thenused to make two limbal paracenteses and the anterior chamber was reformed with Viscoat. A 2.4mm metal keratome was then used to make a clear cornea tunneled incision along the steep corneal axis. A cystotome was used to puncture the anterior capsule and initiate a capsular flap. Utrata forceps were used to complete a continuous curvilinear capsulorrhexis. BSS on a Vang hydrodissection cannula was then used to hydrodissect and hydrodelineate the nucleus. The nucleus was then phacoemulsified using a stop and chop technique. CDE was 4.91%. Remaining cortex was removed with bimanual I/A. Posterior capsular irish was performed. The capsular bag was then reformed with Healon-GV. A +23.0D SN6AT4 lens implant was then aligned with the steep axis shearer in the bag without event. The Healon-GV was then removed with bimanual irrigation and aspiration and the anterior chamber reformed with BSS. The wounds were hydrated as necessary to maintain a water tight anterior chamber. Intracameral Moxifloxacin 1mg/0.1ml was administered and 5% povidone iodine solution was placed on the ocular surface. A t the conclusion of the procedure, the lid speculum was removed and the patient undraped. A drop ofPolytrim, Pred Forte 1% and shield were placed over the Left eye. [facility]. Yulissa Guerra MD documented in this encounter Plan of Treatment Not on file documented as of this encounter Procedures Procedure Name Priority Date/Time Associated Diagnosis Comments CATARACT PHACO EXTRACTION WITH INTRAOCULAR LENS IMPLANT 05/01/2019 10:21 AM EDT Combined forms of age-related cataract of both eyes Special Needs TOPMAC (SX9BV4-67.0D) documented in this encounter Visit Diagnoses Diagnosis Combined form of age-related cataract, left eye- Primary documented in this encounter Administered Medications Inactive Administered Medications - up to 3 most recent administrations Medication Order MAR Action Action Date Dose Rate Site cyclopentolate (CYCLOGYL) 2 % ophthalmic solution 1 drop 1 drop, Left Eye, Every 5 Minutes, First dose on Wed05/01/19 at 1030, For 3 doses, Start one hour prior to surgery. Given 05/01/2019 9:55 AM EDT 1 drop Given 05/01/2019 9:50 AM EDT 1 drop Given 05/01/2019 9:45 AM EDT 1 drop lactated ringers infusion 1,000 mL 1,000 mL, Intravenous, at 25 mL/hr, Continuous, Starting on Wed05/01/19 at 1030 New Bag 05/01/2019 9:51 AM EDT 1,000 mL 25 mL/hr phenylephrine (KELLEN-SYNEPHRINE) 10 % ophthalmic solution 1 drop 1 drop, Left Eye, Every 5 Minutes, First dose on Wed05/01/19 at 1030, For 3 doses, Start one hour prior to surgery. Maximum dose of 3 drops per eye. Given 05/01/2019 9:55 AM EDT 1 drop Given 05/01/2019 9:50 AM EDT 1 drop Given 05/01/2019 9:45 AM EDT 1 drop prednisoLONE acetate (PRED FORTE) 1 % ophthalmic suspension 1 drop 1 drop, Left Eye, See Admin Instructions, Starting on Wed05/01/19 at 0933, Shake well before use. Do not give preop. Send to OR with patient and send remainder home with patient along with post-op instructions., Indications: post op inflammationIndications:post op inflammation sodium chloride 0.9 % flush 10 mL 10 mL, Intravenous, As Needed, Line Care, Starting on Wed05/01/19 at 0933 tetracaine (ALTACAINE) 0.5 % ophthalmic solution 1 drop 1 drop, Left Eye, See Admin Instructions, Starting on Wed05/01/19 at 0933, For 3 doses, To operative eye(s) every 1 minute up to 3 doses. Given 05/01/2019 9:44 AM EDT 1 drop Given 05/01/2019 9:43 AM EDT 1 drop Given 05/01/2019 9:42 AM EDT 1 drop trimethoprim-polymyxin b (POLYTRIM) 74898-3.1 UNIT/ML-% ophthalmic solution 1 drop 1 drop, Left Eye, See Admin Instructions, Starting on Wed05/01/19 at 0933, For 7 days, Do not give preop. Send to OR with patient and send remainder home with patient along with post-op instructions., Indications: prevent bacterial infectionIndications:prevent bacterial infection documented in this encounter Active and Recently Administered Medications Times are shown in EDT. Scheduled Medication Order 04/29/2019 04/30/2019 05/01/2019 cyclopentolate (CYCLOGYL) 2 % ophthalmic solution 1 drop (COMPLETED) 1 drop, Left Eye, Every 5 Minutes, First dose on Wed05/01/19 at 1030, For 3 doses, Start one hour prior to surgery. 0945 (Given - Provid er: Nick Conde RN)0950 (Given - Provider: Nick Conde RN)0955 (Given - Provider: Nick Conde RN) phenylephrine (KELLEN-SYNEPHRINE) 10 % ophthalmic solution 1 drop (COMPLETED) 1 drop, Left Eye, Every 5 Minutes, First dose on Wed05/01/19 at 1030, For 3 doses, Start one hour prior to surgery. Maximum dose of 3 drops per eye. 0945 (Given - Provid er: Nick Conde RN)0950 (Given - Provider: Nick Conde RN)0955 (Given - Provider: Nick Conde RN) prednisoLONE acetate (PRED FORTE) 1 % ophthalmic suspension 1 drop 1 drop, Left Eye, See Admin Instructions, Starting on Wed05/01/19 at 0933, Shake well before use. Do not give preop. Send to OR with patient and send remainder home with patient along with post-op instructions., Indications: post op inflammation tetracaine (ALTACAINE) 0.5 % ophthalmic solution 1 drop (COMPLETED) 1 drop, Left Eye, See Admin Instructions, Starting on Wed05/01/19 at 0933, For 3 doses, To operative eye(s) every 1 minute up to 3 doses. 0942 (Given - Provid er: Nick Conde RN)0943 (Given - Provider: Nick Conde RN)0944 (Given - Provider: Nick Conde RN) trimethoprim-polymyxin b (POLYTRIM) 47463-2.1 UNIT/ML-% ophthalmic solution 1 drop 1 drop, Left Eye, See Admin Instructions, Starting on Wed05/01/19 at 0933, For 7 days, Do not give preop. Send to OR with patient and send remainder home with patient along with post-op instructions., Indications: prevent bacterial infection Continuous Medication Order 04/29/2019 04/30/2019 05/01/2019 lactated ringers infusion 1,000 mL 1,000 mL, Intravenous, at 25 mL/hr, Continuous, Starting on Wed05/01/19 at 1030 0951 (New Bag - Prov ider: Nick Conde RN)1058 (Anesthesia Volume Adjustment - Provider: Kori Zapata CRNA)1114 (Stopped - Provider: Apurva Macias RN) PRN Medication Order 04/29/2019 04/30/2019 05/01/2019 balanced salt (BSS Plus) (BSS Plus) 500 mL with EPINEPHrine PF (ADRENALIN) 0.5 mL irrigation (CANCELED) As Needed, Starting on Wed05/01/19 at 1045 1045 (Given - Provid er: Yulissa Guerra MD) balanced salt (BSS Plus) ophthalmic solution (CANCELED) As Needed, Starting on Wed05/01/19 at 1044 1044 (Given - Provid er: Yulissa Guerra MD) chondroitin-sodium hyaluronate (VISCOAT) intra-ocular injection (CANCELED) As Needed, Starting on Wed05/01/19 at 1045 1045 (Given - Provid er: Yulissa Guerra MD) moxifloxacin (VIGAMOX) 0.5 % ophthalmic solution (CANCELED) As Needed, Starting on Wed05/01/19 at 1045 1045 (Given - Provid er: Yulissa Guerra MD) prednisoLONE acetate (PRED FORTE) 1 % ophthalmic suspension (CANCELED) As Needed, Starting on Wed05/01/19 at 1045 1045 (Given - Provid er: Yulissa Guerra MD) sodium chloride 0.9 % flush 10 mL 10 mL, Intravenous, As Needed, Line Care, Starting on Wed05/01/19 at 0933 sodium hyaluronate (HEALON GV) intraocular injection (CANCELED) As Needed, Starting on Wed05/01/19 at 1045 1045 (Given - Provid er: Yulissa Guerra MD) tetracaine (ALTACAINE) 0.5 % ophthalmic solution (CANCELED) As Needed, Starting on Wed05/01/19 at 1045 1045 (Given - Provid er: Yulissa Guerra MD) trimethoprim-polymyxin b (POLYTRIM) 66160-3.1 UNIT/ML-% ophthalmic solution (CANCELED) As Needed, Starting on Wed05/01/19 at 1046 1046 (Given - Provid er: Yulissa Guerra MD) documented in this encounter Care Teams Door Installer Relationship Specialty Start Date End Date Manuel Morales MD [address] [facility] [address] [facility] [address] [place] [address] PCP - General Family Medicine 05/01/19 documented as of this encounter
--- OUTSIDE RECORDS SUMMARY | 2024-08-01 23:05 | XMS_ITS | Encounter Summary ---
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 If unable to reach the doctor, come to the Emergency Room at the [facility]. If you have any concerning problems, call your doctor or the [facility] Emergency Dept at [phone]. documented in this encounter Medications at Time [...] history completed for upcoming procedure with Dr. Guerra (capsulotomy) on 06/16/21. Instructions given: PLEASE BRING [...] Bilateral posterior capsular opacification- Primary Unspecified after-cataract Bilateral posterior capsular opacification Unspecified after-cataract documented in this encounter Admitting Diagnoses Diagnosis Bilateral posterior capsular opacification Unspecified after-cataract documented in this encounter Administered Medications Inactive Administered Medications - up to 3 most recent administrations Medication Order MAR Action Action Date Dose Rate Site balanced salt (BSS) IO solution As Needed, Starting on 06/16/21 at 1155 Given 06/16/2021 11:55 AM EDT 15 mL prednisoLONE acetate (PRED [...] % ophthalmic suspension As Needed, Starting on 06/16/21 at 1155 Given 06/16/2021 11:55 AM EDT 1 drop tetracaine (ALTACAINE) 0.5 % ophthalmic solution As Needed, Starting on 06/16/21 at 1155 Given 06/16/2021 11:55 AM EDT 1 drop documented in this [...] RN) documented in this encounter Care Teams Blueberry Grower Relationship Specialty Start Date End Date Manuel Morales MD Formerly [facility], [facility] [address] [place] [address] PCP - General Family Medicine 05/01/19 documented as of this encounter
--- OUTSIDE RECORDS SUMMARY | 2024-08-01 23:05 | XMS_ITS | Encounter Summary ---
Author Organization [facility] Address [address] [place] [address] Care Team Providers Care Judicial Assistant Name Role Phone Manuel Morales MD Primary Care Provider + [phone] Reason for Visit * Auth/Cert Specialty Diagnoses / Procedures Referred By Yanick rider Referred To Contact Diagnoses Combined forms of age-related cataract of both eyes Procedures CATARACT PHACO EXTRACTION WITH INTRAOCULAR LENS IMPLANT LEFT Referral ID Status Reason Start Date Expiration Date Visits Re quested Visits Authorized [id number] 1 1 Encounter Details Date Type Department Care Team (Late st Contact Info) Description 05/01/2019 10:25 AM EDT - 05/01/2019 11:10 AM EDT Surgery [facility] OR [address] [place] [phone] Yulissa Guerra MD [address] [facility] [place] [address] CATARACT PHACO EXTRACTION WITH INTRAOCULAR LENS IMPLANT LEFT Social History Tobacco Use Types Packs/Day [...] Sign Reading Time Taken Comments Blood Pressure 130/61 05/01/2019 11:06 AM EDT Pulse 63 05/01/2019 11:06 AM EDT Temperature 36.3 ??C (97.4 ??F) 05/01/2019 11:06 AM E DT Respiratory Rate 16 05/01/2019 11:06 AM EDT Oxygen Saturation 97% 05/01/2019 11:06 AM EDT Inhaled Oxygen Concentration - - Weight 90.7 kg (200 lb) 04/27/2019 4:30 PM EDT Height 170.2 cm (5' 7 ) 04/27/2019 4:30 PM EDT Body Mass Index 31.32 04/27/2019 4:30 PM EDT documented in this encounter Discharge Instructions * Discharge Instructions* Yulissa Guerra MD - 05/01/2019 11:12 [place] [address] PH: FAX: Post - Operative Instructions for [...] unsure of call Dr. Guerra's office at [phone]. You should expect: Slight Discomfort Burning When [...] Care Everywhere. * Cataract Surgery Care After ([place]) documented in this encounter Medications at Time [...] the H&P. Source Note - New Onbase, [place] - 04/27/2019 12:00 AM EDT documented in [...] was sat in the upright position and [id number] degree axis was marked at the corneal [...] was removed with bimanual I/A. Posterior capsular english was performed. The capsular bag was then [...] eye. The patient left the room in goodcondition having tolerated the procedure well. Yulissa Guerra MD documented in this encounter Plan of Treatment Not on file documented as of this encounter Procedures Procedure Name Priority Date/Time Associated Diagnosis Comments CATARACT PHACO EXTRACTION WITH INTRAOCULAR LENS IMPLANT 05/01/2019 10:21 AM EDT Combined forms of age-related cataract of both eyes Special Needs TOPMAC ([id number]) documented in this encounter Visit Diagnoses Diagnosis Combined form of age-related cataract, left eye- Primary Combined forms of age-related cataract of both eyes documented in this encounter Administered Medications Inactive Administered Medications - up to 3 most recent administrations Medication Order MAR Action Action Date Dose Rate Site balanced salt (BSS Plus) (BSS Plus) 500 mL with EPINEPHrine PF (ADRENALIN) 0.5 mL irrigation As Needed, Starting on Wed05/01/19 at 1045 Given 05/01/2019 10:45 AM EDT 500 mL Ey e Left balanced salt (BSS Plus) ophthalmic solution As Needed, Starting on Wed05/01/19 at 1044 Given 05/01/2019 10:44 AM EDT 15 mL Ey e Left chondroitin-sodium hyaluronate (VISCOAT) intra-ocular injection As Needed, Starting on Wed05/01/19 at 1045 Given 05/01/2019 10:45 AM EDT 0.5 mL Ey e Left cyclopentolate (CYCLOGYL) 2 % ophthalmic solution 1 [...] 9:51 AM EDT 1,000 mL 25 mL/hr moxifloxacin (VIGAMOX) 0.5 % ophthalmic solution As Needed, Starting on Wed05/01/19 at 1045 Given 05/01/2019 10:45 AM EDT 1 drop phenylephrine (KELLEN-SYNEPHRINE) 10 % ophthalmic solution 1 [...] instructions., Indications: post op inflammationIndications:post op inflammation prednisoLONE acetate (PRED FORTE) 1 % ophthalmic suspension As Needed, Starting on Wed05/01/19 at 1045 Given 05/01/2019 10:45 AM EDT 1 drop sodium chloride 0.9 % flush 10 mL 10 mL, Intravenous, As Needed, Line Care, Starting on Wed05/01/19 at 0933 sodium hyaluronate (HEALON GV) intraocular injection As Needed, Starting on Wed05/01/19 at 1045 Given 05/01/2019 10:45 AM EDT 0.85 mL Eye Left tetracaine (ALTACAINE) 0.5 % ophthalmic solution 1 drop 1 drop, Left Eye, See Admin Instructions, Starting on Wed05/01/19 at 0933, For 3 doses, To operative eye(s) every 1 minute up to 3 doses. Given 05/01/2019 9:44 AM EDT 1 drop Given 05/01/2019 9:43 AM EDT 1 drop Given 05/01/2019 9:42 AM EDT 1 drop tetracaine (ALTACAINE) 0.5 % ophthalmic solution As Needed, Starting on Wed05/01/19 at 1045 Given 05/01/2019 10:45 AM ED T 2 drops trimethoprim-polymyxin b (POLYTRIM) 06984-2.1 UNIT/ML-% ophthalmic solution 1 drop 1 drop, Left Eye, See Admin Instructions, Starting on Wed05/01/19 at 0933, For 7 days, Do not give preop. Send to OR with patient and send remainder home with patient along with post-op instructions., Indications: prevent bacterial infectionIndications:prevent bacterial infection trimethoprim-polymyxin b (POLYTRIM) 69675-7.1 UNIT/ML-% ophthalmic solution As Needed, Starting on Wed05/01/19 at 1046 Given 05/01/2019 10:46 AM EDT 1 drop documented in this [...] Provider: Nick Conde RN) trimethoprim-polymyxin b (POLYTRIM) 25897-4.1 UNIT/ML-% ophthalmic solution 1 drop 1 drop, [...] er: Yulissa Guerra MD) trimethoprim-polymyxin b (POLYTRIM) 86878-3.1 UNIT/ML-% ophthalmic solution (CANCELED) As Needed, Starting on Wed05/01/19 at 1046 1046 (Given - Provid er: Yulissa Guerra MD) documented in this encounter Care Teams Judicial Assistant Relationship Specialty Start Date End Date Manuel Morales MD [facility]0 [address] [address] PCP - General Family Medicine 05/01/19 documented as of this encounter
--- OUTSIDE RECORDS SUMMARY | 2024-08-01 23:05 | XMS_ITS ---
Author Organization [facility] Address [address] [facility] [address] [place] [id number] Care Team Providers Care Press Pipe Inspector Name Role Phone Carmen Manuel Primary Care Provider REASON FOR VISIT F/U [facility] ER MEDICATIONS Medication SIG (Take, Route, Frequency, Duration) [...] 88 MCG 1 tab(s) orally once a day for 90 days Active Simvastatin 20 MG 1 tab(s) orally once a day (at bedtime) for 90 days Active Nasonex 24HR 50 MCG/ACT 4 sprays (2 spra ys in each nostril) Nasally Once a day for 30 day(s) Active Azelastine HCl 0.05 % 1 drop into affect ed eye Ophthalmic Twice a day 12/07/2023 Active VITAL SIGNS Weight 210.4 lbs 02/19/2024 Blood pressure systolic 130 mm Hg 02/19/20 24 Blood pressure diastolic 70 mm Hg 024 Heart Rate 80 /min 02/19/2024 Height 67 in 02/19/2024 BMI 32.95 kg/m2 02/19/2024 Encounters Encounter Location Date Provider Diagnosis [place] [address] [facility] [address] [place] [phone] 02/19/2024 Manuel Morales Palpitations R00.2 a nd Other chronic allergic conjunctivitis H10.45 ASSESSMENTS Encounter Date Diagnosis Assessment Notes Treatment Notes Treatment Clinical Notes 02/19/2024 Palpitations (ICD-10 - R00.2) Patient already has appointment with cardiology at [facility] in 10 days 02/19/2024 Other chronic allergic conjunctivitis (ICD-10 - H10.45) PLAN OF TREATMENT Medication Medication Name Sig Start Date Stop Date Notes Azelastine HCl 0.05 % 1 drop into affect ed eye Ophthalmic Twice a day 12/07/2023 Treatment Notes Assessment Notes Palpitations Patient already has appointment with cardiology at [facility] in 10 days Next Appt Details Follow Up: via phone to repo rt progress, Reason: Provider Name:Manuel Pena ry, 11/29/2024 09:30:00 AM, [address] [facility] 36 [facility], [address], [place], [phone], Progress Notes * Examination Category Sub-Category Detail Notes General Examination Heart: RSR Lungs: clear to auscultatio n General Appearance: NAD History and Physical Notes * HPI (History of Present Illness) Category Sub-Category Detail Notes HPI Here for follow up on: 4 [facility] ER visit, see printed and pt docs. Pt went to er for fast heart rate after cleaning house. Pt states she is feeling better and has not had any tachycardia since d/c. Pt states she has had palpitations off and on for about 4 years and was advised to see Cardiology
--- OUTSIDE RECORDS SUMMARY | 2024-08-01 23:05 | XMS_ITS | Encounter Summary ---
Author Organization [facility] Address [address] [place] [address] Care Team Providers Care Certified Orthotist/Pedorthist Name Role Phone Manuel Morales MD Primary Care Provider + [phone] Reason for Visit * Auth/Cert Specialty Diagnoses / Procedures Referred By Yanick rider Referred To Contact Diagnoses Combined forms of age-related cataract of right eye Procedures CATARACT PHACO EXTRACTION WITH INTRAOCULAR LENS IMPLANT RIGHT Referral ID Status Reason Start Date Expiration Date Visits Re quested Visits Authorized [id number] 1 1 Encounter Details Date Type Department Care Team (Late st Contact Info) Description 06/19/2019 11:37 AM EDT - 06/19/2019 12:19 PM EDT Surgery [facility] OR [address] [place] [phone] Yulissa Guerra MD [address] [facility] [place] [address] CATARACT PHACO EXTRACTION WITH INTRAOCULAR LENS IMPLANT RIGHT Social History Tobacco Use Types Packs/Day Years [...] Sign Reading Time Taken Comments Blood Pressure 105/60 06/19/2019 12:19 PM EDT Pulse 66 06/19/2019 12:19 PM EDT Temperature 36.7 ??C (98 ??F) 06/19/2019 12:19 PM EDT Respiratory Rate 18 06/19/2019 12:19 PM EDT Oxygen Saturation 98% 06/19/2019 12:19 PM EDT Inhaled Oxygen Concentration - - [...] or blood *warmth *[place] [address] PH: FAX: Post - Operative Instructions for Dr. uGerra's Cataract Patients 1. Use your drops as [...] unsure of call Dr. Guerra's office at [phone]. You should expect: Slight Discomfort Burning When [...] the H&P. Source Note - New Onbase, [place] - 06/15/2019 12:00 AM EDT documented in [...] was removed with bimanual I/A. Posterior capsular syrian was performed. The capsular bag was then [...] cataract of right eye Special Needs TOPMAC (TR08VT-26.0D documented in this encounter Visit Diagnoses Diagnosis Combined forms of age-related cataract of right eye documented in this encounter Administered Medications Inactive Administered Medications - up to 3 most recent administrations Medication Order MAR Action Action Date Dose Rate Site balanced salt (BSS Plus) 500 mL with EPINEPHrine PF 0.5 mL mixture As Needed, Starting on Wed06/19/19 at 1212 Given 06/19/2019 12:12 PM EDT Eye Right balanced salt (BSS Plus) ophthalmic solution As Needed, Starting on Wed06/19/19 at 1212 Given 06/19/2019 12:12 PM EDT 15 mL Eye Right cyclopentolate (CYCLOGYL) 2 % ophthalmic solution 1 [...] 11:19 AM EDT 1,000 mL 25 mL/hr moxifloxacin (VIGAMOX) 0.5 % ophthalmic solution As Needed, Starting on Wed06/19/19 at 1212 Given 06/19/2019 12:12 PM EDT 1 drop phenylephrine (KELLEN-SYNEPHRINE) 10 % ophthalmic solution 1 drop 1 drop, Right Eye, Every 5 Minutes, First dose on Wed06/19/19 at 1200, For 3 doses, Start one hour prior to surgery. Maximum dose of 3 drops per eye. Given 06/19/2019 11:24 AM EDT 1 drop Given 06/19/2019 11:19 AM EDT 1 drop Given 06/19/2019 11:14 AM EDT 1 drop povidone-iodine 5 % ophthalmic solution As Needed, Starting on Wed06/19/19 at 1213 Given 06/19/2019 12:13 PM EDT 1 drop prednisoLONE acetate (PRED FORTE) [...] % ophthalmic suspension As Needed, Starting on Wed06/19/19 at 1213 Given 06/19/2019 12:13 PM EDT 1 drop sod hyaluronate-sod chondroitin-sod hyaluronate (DUOVISC) 0.55-0.5 ML intra-ocular kit As Needed, Starting on Wed06/19/19 at 1213 Given 06/19/2019 12:13 PM EDT 0.5 mL Eye Right sodium chloride 0.9 % flush 10 mL [...] Given 06/19/2019 11:11 AM EDT 1 drop tetracaine (ALTACAINE) 0.5 % ophthalmic solution As Needed, Starting on Wed06/19/19 at 1213 Given 06/19/2019 12:13 PM EDT 2 drops trimethoprim-polymyxin b (POLYTRIM) 02486-3.1 UNIT/ML-% ophthalmic solution As Needed, Starting on Wed06/19/19 at 1213 Given 06/19/2019 12:13 PM EDT 1 drop documented in this encounter [...] Darrick Mireles CRNA)[id number] (Stopped - Provider: Violetta Lau, PADMA) PRN Medication Order 06/17/2019 06/18/2019 06/19/2019 balanced [...] (Given - Provid er: Miranda Velazco RN) trimethoprim-polymyxin b (POLYTRIM) 46908-8.1 UNIT/ML-% ophthalmic solution (CANCELED) As Needed, Starting on Wed06/19/19 at 1213 1213 (Given - Provid er: Miranda Velazco RN) documented in this encounter Care Teams Certified Orthotist/Pedorthist Relationship Specialty Start Date End Date Manuel Morales MD [address] [place] [address] [facility] [address] [place] [address] PCP - General Family Medicine 05/01/19 documented as of this encounter
--- OUTSIDE RECORDS SUMMARY | 2024-08-01 23:05 | XMS_ITS ---
Author Organization [facility] Address [address] [facility] [address] [place] [phone] Care Team Providers Care Fish Inspector Name Role Phone Rosaura Moralesian Primary Care Provider [phone] REASON FOR VISIT 6 mo ck MEDICATIONS Medication SIG (Take, Route, Frequency, Duration) Notes Start Date End Date Status Simvastatin 20 MG 1 tab(s) orally once a day (at bedtime) for 90 days Active Azelastine HCl 0.05 % 1 drop into affect ed eye Ophthalmic Twice a day 12/07/2023 Active Synthroid 88 MCG 1 tab(s) orally once a day for 90 days Active Meclizine HCl 25 MG 1 or 2 tab(s) orally 3 times a day as needed 10/07/2021 Not-Taking Nasonex 24HR 50 MCG/ACT 4 sprays (2 spra ys in each nostril) Nasally Once a day for 30 day(s) Active Centrum Adults - as directed Orally o nce a day Active Lisinopril 20 MG 1 tab(s) orally once a day for 90 days Active Vitamin D3 25 MCG (1000 UT) 1 tab(s) orally once a day Active ZyrTEC Allergy 10 MG 1/2 tab(s) orally o nce a day prn Active VITAL SIGNS Weight 214 lbs 12/07/2023 Blood pressure systolic 150 mm Hg 12/07/19 24 Blood pressure diastolic 84 mm Hg 024 Heart Rate 88 /min 12/07/2023 Height 67 in 12/07/2023 BMI 33.51 kg/m2 12/07/2023 Encounters Encounter Location Date Provider Diagnosis [facility] [address] [facility] [address] [facility] [address] [place] [id number] 12/07/2023 Manuelvernon HernandezRuthven Essential hypertensi on I10 ; Pure hypercholesterolemia E78.00 ; Acquired hypothyroidism E03.9 and Allergic conjunctivitis, bilateral H10.13 ASSESSMENTS Encounter Date Diagnosis Assessment Notes Treatment Notes Treatment Clinical Notes 12/07/2023 Essential hypertensi on (ICD-10 - I10) 12/07/2023 Pure hypercholestero lemia (ICD-10 - E78.00) 12/07/2023 Acquired hypothyroid ism (ICD-10 - E03.9) 12/07/2023 Allergic conjunctivi tis, bilateral (ICD-10 - H10.13) PLAN OF TREATMENT Medication Medication Name Sig Start Date Stop Date Notes Simvastatin 20 MG 1 tab(s) orally once a day (at bedtime) for 90 days Azelastine HCl 0.05 % 1 drop into affect ed eye Ophthalmic Twice a day 12/07/2023 Synthroid 88 MCG 1 tab(s) orally once a day for 90 days Lisinopril 20 MG 1 tab(s) orally once a day for 90 days Next Appt Details Follow Up: 6 Months, Reason: Provider Name:Manuel bethea, 11/29/2024 09:30:00 AM, [address] [facility] 36 [facility], [address], [place], [phone], Progress Notes * Examination Category Sub-Category Detail Notes Endocrinology HEENT: bilateral inject ed conjunctiva Heart: RSR Lungs: clear to auscultatio n Extremities: trace bilateral leg edema General Appearance: NAD Skin: normal, no rash History and Physical Notes * HPI (History of Present Illness) Category Sub-Category Detail Notes Endocrinology Hypothyroidism Cardiology Blood Pressure Elevated Pt here for 6 mo f/u on hypertension, states she is doing well and does not have any concerns Hyperlipidemia pt is not fasting to day
--- OUTSIDE RECORDS SUMMARY | 2024-08-01 23:05 | XMS_ITS | Encounter Summary ---
Author Organization [facility] Address [address] [place] [address] Care Team Providers Care Board Design Engineer Name Role Phone Manuel Morales MD Primary Care Provider + [phone] Encounter Details Date Type Department Care Team (Latest Contact Info) Description 08/04/2022 Travel Social History Tobacco Use Types Packs/Day [...] EDT Office Visit [facility] [address] , [place] [address] Yulissa Guerra MD [address] [place] [address] documented as of this encounter Visit Diagnoses Not on filedocumented in this encounter Additional Health Concerns Assessment Noted Time A fall risk assessment has been complete d for the patient 07/16/2021 1:17 PM EST documented as of this encounter Care Teams Board Design Engineer Relationship Specialty Start Date End Date Manuel Morales MD [address] [place] [address] PCP - General 01/03/21 documented as of this encounter
--- OUTSIDE RECORDS SUMMARY | 2024-08-01 23:05 | XMS_ITS | Encounter Summary ---
Author Organization [facility] Address [address] [place] [address] Care Team Providers Care Construction Inspector Name Role Phone Manuel Morales MD Primary Care Provider [phone] Reason for Visit * Reason Comments Post-op Encounter Details Date Type Department Care Team (Latest Contact Info) Description 07/16/2021 1:05 PM EST Office Visit [facility] [address] [facility], [place] [address] Yulissa Guerra MD [address] [place] [address] PCO (posterior capsular opacification), bilateral [...] PM EST documented as of this encounter Miscellaneous Notes * Progress Notes - Yulissa Guerra MD - 07/16/2021 1:05 PM EST Subjective HPI Post-op Post-Op Follow-Up 1 month. In right eye. Comments 66 year old female presents for 1 month post op status post YAG right eye 06/16/21. Patient states that vision is better in right eye since laser, but she is noticing a lot more floaters right eye. More than she had noticed with left eye. Patient denies any flashes, shadows, curtains or veils. Last edited by Bianca Wooten on 07/16/2021 1:22 PM. (History) ROS Positive for: Eyes Negative for: Constitutional, Gastrointestinal, Neurological, Skin, Genitourinary, Musculoskeletal,HENT, Endocrine, Cardiovascular, Respiratory, Psychiatric, Allergic/Imm, Heme/Lymph Last edited by Bianca Wooten on 07/16/2021 1:22 PM. (History) Objective Base Eye Exam Visual Acuity (Snellen-Linear) Right Left Dist sc 20/50 20/40 -1 Dist ph sc 20/40 -1 20/30 Tonometry (Tonopen, 1:35 PM) Right Left Pressure 15 17 Pachymetry Right Left Thickness 500 485 Pupils Pupils APD Right PERRL None Left PERRL None Extraocular Movement Right Left Full Full Neuro/Psych Oriented x3: Yes Mood/Affect: Normal Dilation Right eye: 1% Tropicamide, 2.5% Phenylephrine @ 1:35 PM Slit Lamp and Fundus Exam External Exam [...] fragments inf vitreous Normal Refraction Wearing Rx None Manifest Refraction (Auto) Sphere Cylinder [place] Dist [place] Add Right -1.00 +0.25 025 20/40-1 Left -1.25 +0.75 042 20/40+2 Manifest Refraction #2 Sphere Cylinder [place] Dist VA Add Right -0.75 +1.00 055 20/40 +2.50 Left -1.50 +1.00 010 20/30-1 +2.50 Manifest Refraction Comments Refracted both eyes as she felt glasses may be beneficial. Final Rx Sphere Cylinder [place] Dist VA Add Right -0.75 +1.00 055 20/40 +2.50 Left -1.50 +1.00 010 20/30-1 +2.50 Expiration Date: 07/17/2022 Assessment/Plan Diagnoses and all orders for this visit: PCO (posterior capsular opacification), bilateral H/O laser assisted in situ keratomileusis PCO (posterior capsular opacification), bilateral H26.493 Improved visual acuity (VA) status post (s/p) capsulotomy both eyes (OU) Given MRx H/O laser assisted in situ keratomileusis Z98.890 OU for myopia ?? f/u 1 year or sooner PRN documented in this encounter Plan of Treatment Upcoming Encounters Date Type Department Care Team (Late st Contact Info) Description 11/01/2024 9:00 AM EDT Office Visit [facility] - [address], [place] [address] Yulissa Guerra MD [address] [address] documented as of this encounter Visit Diagnoses Diagnosis PCO (posterior capsular opacification), bilateral- Primary Unspecified after-cataract H/O laser assisted in situ keratomileusis documented in this encounter Additional Health Concerns Assessment Noted Time A fall risk assessment has been complete d for the patient 07/16/2021 1:17 PM EST documented as of this encounter Care Teams Construction Inspector Relationship Specialty Start Date End Date Manuel Morales MD [address] [id number] PCP - General 01/03/21 documented as of this encounter
--- OUTSIDE RECORDS SUMMARY | 2024-08-01 23:06 | XMS_ITS | Encounter Summary ---
Author Organization Healthcare Address [address] [place] [address] Care Team Providers Care Septic Pump Truck Driver Name Role Phone Manuel Morales MD Primary Care Provider + [phone] Encounter Details Date Type Department Care Team (Latest Contact Info) Description 03/25/2021 Travel Social History Tobacco Use Types Packs/Day [...] have Coronavirus / COVID-19? No / Unsure 03/25/2021 3:58 PM EDT documented as of this encounter Plan of Treatment Upcoming Encounters Date Type Department Care Team (Late st Contact Info) Description 11/01/2024 9:00 AM EDT Office Visit [facility] [address] , [place] [address] Yulissa Guerra MD [address] [place] [address] documented as of this encounter Visit Diagnoses Not on filedocumented in this encounter Care Teams Septic Pump Truck Driver Relationship Specialty Start Date End Date Manuel Morales MD [address] [place] [facility] PCP - General 01/03/21 documented as of this encounter
--- OUTSIDE RECORDS SUMMARY | 2024-08-01 23:06 | XMS_ITS | Encounter Summary ---
Author Organization Healthcare Address [address] [place] [address] Care Team Providers Care Pricing Lead Name Role Phone Manuel Morales MD Primary Care Provider [phone] Encounter Details Date Type Department Care Team (Late st Contact Info) Description 04/21/2021 Abstract [facility] [address] [place] [address] Yulissa Guerra MD [address] [address] Social History Tobacco Use Types Packs/Day [...] encounter Miscellaneous Notes * Progress Notes - Clementina Salvador - 04/21/2021 9:13 AM EDT Subjective Objective Not recorded Assessment/Plan documented in this encounter Plan of Treatment Upcoming Encounters Date Type Department Care Team (Late st Contact Info) Description 11/01/2024 9:00 AM EDT Office [facility] [address], [place] [address] Yulissa Guerra MD 110 [facility] [address] [place] [address] documented as of this encounter Visit Diagnoses Not on filedocumented in this encounter Care Teams Pricing Lead Relationship Specialty Start Date End Date Manuel Morales MD [address] [facility] [address] [place] [address] PCP - General 01/03/21 documented as of this encounter
--- OUTSIDE RECORDS SUMMARY | 2024-08-01 23:06 | XMS_ITS | Encounter Summary ---
Author Organization Healthcare Address [address] [place] [address] Care Team Providers Care Grappler Name Role Phone Unavailable Primary Care Provider Unavailabl e Encounter Details Date Type Department Care Team (Late st Contact Info) Description 03/16/2018 [facility] Encounter HISTORICAL OPHTHALMOLOGY [address] [place] [address] Yulissa Guerra MD [address] [place] [address] Social History Tobacco Use Types Packs/Day Years Used Date Smoking Tobacco: Never Assessed Comments Unknown Sex and Gender Information Value [...] 9:00 AM EDT Office Visit [facility] [place] [address] [address] [facility], [place] [address] Yulissa Guerra MD [address] [place] [address] documented as of this encounter Visit Diagnoses Not on filedocumented in this encounter
--- OUTSIDE RECORDS SUMMARY | 2024-08-01 23:06 | XMS_ITS | Encounter Summary ---
Author Organization Healthcare Address [address] [place] [address] Care Team Providers Care Media Buyer Name Role Phone Unavailable Primary Care Provider Unavailabl e Encounter Details Date Type Department Care Team (Late st Contact Info) Description 06/28/2019 [facility] Encounter HISTORICAL OPHTHALMOLOGY [address] [place] [address] Yulissa Guerra MD [address] [place] [address] Social History Tobacco Use Types [...] 9:00 AM EDT Office Visit [facility] [place] [address] [address] [facility], [place] [address] Yulissa Guerra MD [address] [place] [address] documented as of this encounter Visit Diagnoses Not on filedocumented in this encounter
--- OUTSIDE RECORDS SUMMARY | 2024-08-01 23:06 | XMS_ITS | Encounter Summary ---
Author Organization Healthcare Address [address] [place] [address] Care Team Providers Care Halfway House Counselor Name Role Phone Unavailable Primary Care Provider Unavailabl e Encounter Details Date Type Department Care Team (Late st Contact Info) Description 04/24/2020 [facility] Encounter HISTORICAL OPHTHALMOLOGY [address] [place] [address] Yulissa Guerra MD [address] [place] [address] Social History Tobacco Use Types [...] [facility] [place] [address] [address] [facility] [place] [address] Yulissa Guerra MD [address] [place] [address] documented as of this encounter Visit Diagnoses Not on filedocumented in this encounter
--- OUTSIDE RECORDS SUMMARY | 2024-08-01 23:06 | XMS_ITS | Encounter Summary ---
Author Organization Healthcare Address [address] [place] [address] Care Team Providers Care Upholsterer Apprentice Name Role Phone Unavailable Primary Care Provider Unavailabl e Encounter Details Date Type Department Care Team (Late st Contact Info) Description 04/26/2019 [facility] Encounter HISTORICAL OPHTHALMOLOGY [address] [place] [address] Yulissa Guerra MD [address] [place] [address] Social History Tobacco Use Types [...] [facility] [place] [address] [address] [facility] [place] [address] Yulissa Guerra MD [address] [place] [address] documented as of this encounter Visit Diagnoses Not on filedocumented in this encounter
--- OUTSIDE RECORDS SUMMARY | 2024-08-01 23:06 | XMS_ITS | Encounter Summary ---
Author Organization Healthcare Address [address] [place] [address] Care Team Providers Care Art Sales Consultant Name Role Phone Unavailable Primary Care Provider Unavailabl e Encounter Details Date Type Department Care Team (Late st Contact Info) Description 04/02/2020 [facility] Encounter HISTORICAL OPHTHALMOLOGY [address] [place] [address] Yulissa Guerra MD [address] [place] [address] Social History Tobacco Use Types [...] 9:00 AM EDT Office Visit [facility] [place] [address] [address] [facility], [place] [address] Yulissa Guerra MD [address] [place] [address] documented as of this encounter Visit Diagnoses Not on filedocumented in this encounter
--- OUTSIDE RECORDS SUMMARY | 2024-08-01 23:06 | XMS_ITS | Encounter Summary ---
Author Organization Healthcare Address [address] [place] [address] Care Team Providers Care Fuselage Framer Name Role Phone Unavailable Primary Care Provider Unavailabl e Encounter Details Date Type Department Care Team (Late st Contact Info) Description 04/14/2019 [facility] Encounter HISTORICAL OPHTHALMOLOGY [address] [place] [address] Yulissa Guerra MD [address] [place] [address] Social History Tobacco Use Types [...] EDT Office Visit [facility] [place] [address] [address] [facility] [place] [address] Yulissa Guerra MD [address] [place] [address] documented as of this encounter Visit Diagnoses Not on filedocumented in this encounter
--- OUTSIDE RECORDS SUMMARY | 2024-08-01 23:06 | XMS_ITS | Encounter Summary ---
Author Organization Healthcare Address [address] [place] [address] Care Team Providers Care Autocutter Name Role Phone Unavailable Primary Care Provider Unavailabl e Encounter Details Date Type Department Care Team (Late st Contact Info) Description 08/01/2019 [facility] Encounter HISTORICAL OPHTHALMOLOGY [address] [place] [address] Yulissa Guerra MD [address] [place] [address] Social History Tobacco Use Types [...] 9:00 AM EDT Office Visit [facility] [place] [address] [address] [facility], [place] [address] Yulissa Guerra MD [address] [place] [address] documented as of this encounter Visit Diagnoses Not on filedocumented in this encounter
--- OUTSIDE RECORDS SUMMARY | 2024-08-01 23:06 | XMS_ITS | Encounter Summary ---
Author Organization Healthcare Address [address] [place] [address] Care Team Providers Care [place]andra Architect Name Role Phone Unavailable Primary Care Provider Unavailabl e Encounter Details Date Type Department Care Team (Late st Contact Info) Description 06/20/2019 [facility] Encounter HISTORICAL OPHTHALMOLOGY [address] [place] [address] Yulissa Guerra MD [address] [place] [address] Social History Tobacco Use Types [...] 9:00 AM EDT Office Visit [facility] [place] [address] [address] [facility], [place] [address] Yulissa Guerra MD [address] [place] [address] documented as of this encounter Visit Diagnoses Not on filedocumented in this encounter
--- OUTSIDE RECORDS SUMMARY | 2024-08-01 23:06 | XMS_ITS | Encounter Summary ---
Author Organization Healthcare Address [address] [place] [address] Care Team Providers Care Lumber Puller Name Role Phone Unavailable Primary Care Provider Unavailabl e Encounter Details Date Type Department Care Team (Late st Contact Info) Description 06/14/2019 [facility] Encounter HISTORICAL OPHTHALMOLOGY [address] [place] [address] Yulissa Guerra MD [address] [place] [address] Social History Tobacco Use Types [...] AM EDT Office Visit [facility] [place] [address] [address] [facility] [place] [address] Yulissa Guerra MD [address] [place] [address] documented as of this encounter Visit Diagnoses Not on filedocumented in this encounter
--- OUTSIDE RECORDS SUMMARY | 2024-08-01 23:06 | XMS_ITS | Encounter Summary ---
Author Organization Healthcare Address [address] [place] [address] Care Team Providers Care Custom Decorating Consultant Name Role Phone Unavailable Primary Care Provider Unavailabl e Encounter Details Date Type Department Care Team (Late st Contact Info) Description 01/31/2020 [facility] Encounter HISTORICAL OPHTHALMOLOGY [address] [place] [address] Yulissa Guerra MD [address] [place] [address] Social History Tobacco Use Types [...] AM EDT Office Visit [facility] [place] [address] [address] [facility], [place] [address] Yulissa Guerra MD [address] [place] [address] documented as of this encounter Visit Diagnoses Not on filedocumented in this encounter
--- OUTSIDE RECORDS SUMMARY | 2024-08-01 23:06 | XMS_ITS | Encounter Summary ---
Author Organization Healthcare Address [address] [place] [address] Care Team Providers Care Granulator Name Role Phone Unavailable Primary Care Provider Unavailabl e Encounter Details Date Type Department Care Team (Late st Contact Info) Description 10/13/2019 [facility] Encounter HISTORICAL OPHTHALMOLOGY [address] [place] [address] Yulissa Guerra MD [address] [place] [address] Social History Tobacco Use Types [...] 9:00 AM EDT Office Visit [facility] [place] [address] [facility], [place] [address] Yulissa Guerra MD [address] [place] [address] documented as of this encounter Visit Diagnoses Not on filedocumented in this encounter
--- OUTSIDE RECORDS SUMMARY | 2024-08-01 23:06 | XMS_ITS | Encounter Summary ---
Author Organization Healthcare Address [address] [place] [address] Care Team Providers Care Watermelon Harvesting Supervisor Name Role Phone Unavailable Primary Care Provider Unavailabl e Encounter Details Date Type Department Care Team (Late st Contact Info) Description 05/10/2019 [facility] Encounter HISTORICAL OPHTHALMOLOGY [address] [place] [address] Yulissa Guerra MD [address] [place] [address] Social History Tobacco Use Types [...] 9:00 AM EDT Office Visit [facility] [place] [address] [address] [facility], [place] [address] Yulissa Guerra MD [address] [place] [address] documented as of this encounter Visit Diagnoses Not on filedocumented in this encounter
--- OUTSIDE RECORDS SUMMARY | 2024-08-01 23:06 | XMS_ITS | Encounter Summary ---
Author Organization Healthcare Address [address] [place] [address] Care Team Providers Care Checker/Stocker Name Role Phone Unavailable Primary Care Provider Unavailabl e Encounter Details Date Type Department Care Team (Late st Contact Info) Description 05/02/2019 [facility] Encounter HISTORICAL OPHTHALMOLOGY [address] [place] [address] Yulissa Guerra MD [address] [place] [address] Social History Tobacco Use Types [...] 9:00 AM EDT Office Visit [facility] [place] [address] [address] [facility], [place] [address] Yulissa Guerra MD [address] [place] [address] documented as of this encounter Visit Diagnoses Not on filedocumented in this encounter
--- OUTSIDE RECORDS SUMMARY | 2024-08-01 23:06 | XMS_ITS | Encounter Summary ---
Author Organization Healthcare Address [address] [place] [address] Care Team Providers Care Patient Portal Representative Name Role Phone Unavailable Primary Care Provider Unavailabl e Encounter Details Date Type Department Care Team (Late st Contact Info) Description 04/04/2019 [facility] Encounter HISTORICAL OPHTHALMOLOGY [address] [place] [address] Yulissa Guerra MD [address] [place] [address] Social History Tobacco Use Types [...] 9:00 AM EDT Office Visit [facility] [place] [address] [address] [facility], [place] [address] Yulissa Guerra MD [address] [place] [address] documented as of this encounter Visit Diagnoses Not on filedocumented in this encounter
--- OUTSIDE RECORDS SUMMARY | 2024-08-01 23:06 | XMS_ITS | Encounter Summary ---
Author Organization Healthcare Address [address] [place] [address] Care Team Providers Care Computer Clerk Name Role Phone Manuel Morales MD Primary Care Provider + [phone] Encounter Details Date Type Department Care Team (Late st Contact Info) Description 04/28/2021 Abstract [facility] [address], [place] [address] Yulissa Guerra MD [address] [place] [address] Social History Tobacco Use Types [...] Description 11/01/2024 9:00 AM EDT Office Visit [facility] [place] [address] [facility], [place] [address] Yulissa Guerra MD [address] [place] [address] documented as of this encounter Visit Diagnoses Not on filedocumented in this encounter Care Teams Computer Clerk Relationship Specialty Start Date End Date Manuel Morales MD [address] [place] [address] PCP - General 01/03/21 documented as of this encounter
--- NOTE | 2024-08-03 10:58 | PC.NURSE ---
URINE CULTURE REVIEWED BY Oc LEE APRN. PATIENT'S CURRENT ANTIBIOTIC SWITCHED TO MACROBID AND PATIENT NOTIFIED OF CHANGE BY Oc LEE APRN AT THIS TIME
== END 2024-08-01 11:43 | disposition home or self-care (01) ==
PROVIDERS: Emergency Provider Nurse Practitioner Family; PCP Family Medicine
DX: N39.0 Urinary tract infection, site not specified (principal)
CPT/HCPCS: 81003; 87086; 87088; 87186; 99213; G0381

== ENCOUNTER 2025-03-19 11:21 | Outpatient (CLI) | payer MEDICARE, SELFPAY ==
--- OUTSIDE RECORDS SUMMARY | 2025-03-19 11:33 | XMS_ITS | Clinical Summary ---
Author Organization [facility] Address [address] [place] [address] Care Team Providers Care Sas Etl Developer Name Role Phone Manuel Morales MD Primary Care Provider + [phone] Allergies Active Allergy Reactions Criticality Noted Date Comments Penicillins Itching,Unknown - Pa tient states they do not know rxn details [...] Administer 2 sprays into affected nostril(s). Active levothyroxine (Synthroid, Levoxyl) 100 MCG tablet Take 1 tablet (100 mcg) by mouth daily. 5 Active metoprolol succinate XL (Toprol-XL) 25 MG 24 hr tablet Take 1 tablet (25 mg) by mouth Daily. Active doxycycline (Periostat) 20 MG tablet Take 1 tablet (20 mg) by mouth in the morning and 1 tablet (20 mg) before bedtime. 5 Active azelastine (Optivar) 0.05 % ophthalmic solution Administer 1 drop into both eyes daily. Active neomycin-polymy aubree-dexamethame thasone (Polydex) 3.5-47052-2.1 ointment ophthalmic ointment Apply 0.25 inches to both eyes nightly. 3.5 g 5 5 Active Active Problems Problem Noted Date Diagnosed Date Tachycardia 11/01/2024 PCO (posterior capsular opacification), esperanza l 05/14/2021 H/O laser assisted in situ keratomileusis 2020 Bilateral posterior capsular opacification 04/02 Overview (11/01/2024): Added automatically from request for surgery [id number] After cataract of both eyes not obscuring vision 01/31/2020 Status post extracapsular cataract extraction of left eye 05/02/2019 Combined form of age-related cataract, both eyes 03/03/2017 Hypothyroidism 02/18/2016 Rheumatoid arthritis 02/18/2016 Family History Medical History Relation Name Comments Cardiac disorder Father Cardiac disorder Mother Diabetes Sister Indy Thyroid disease Sister Indy Relation Name Status Comments Father Mother Sister Indy Social History Tobacco Use Types Packs/Day Years Used Date Smoking Tobacco: Former Cigarettes 1 30.8 0 12/21/1972 - 10/22/2003 Passive Smoke Exposure: Never Smokeless Tobacco: Never [...] Care Team (Late st Contact Info) Description 05/02/2025 10:00 AM EDT Office Visit [facility] - [address], [place] [address] Yulissa Guerra MD [address] [address] Health Maintenance Due Date Last Done Comments [facility]-Bone Density Scan 1955 [facility]-Depression Screening 1955 [facility]-Hepatitis C Screening 1955 [facility]-Medicare Annual Wellness (AWV) 1955 [facility]-/Child/Adol SDOH Screenings 1955 [facility]- SDOH Screenings 02/15/1972 [facility]-Adult SDOH Screenings 02/15/1972 CT Colonography 1999 Colonoscopy 1999 FIT-DNA 1999 FIT 1999 FOBT 1999 Sigmoidoscopy 1999 [facility]-Colorectal Cancer Screening 1999 [facility]-Breast Cancer Screening 02/15/2004 [facility]-RSV Vaccine: 60+ Years or (1 - Risk 60-74 years 1-dose series) 2014 [facility]-Zoster Vaccines (2 of 3) 06/02/2016 04/07/2016 WIF-YSPSY-02 Vaccine (8 - Moderna risk 2023- season) 2025 08/25/2024, 06/15/2023, 09/09/2022, Additional history exists [facility]-Influenza Vaccine (#1) 04/23/202505/28, 05/23/2021, 05/18/2018, Additional history exists [facility]-DTaP,Tdap,and Td Vaccines (2 - Td or Tdap) 07/21/2026 07/21/2016 [facility]-Pneumococcal Vaccine: 50+ Years Completed 05/31/2024, 06/09/2021, 06/11/2020 HPV Vaccines Aged Out No longer eligi ble based on patient's age to complete this topic [facility]-HIB Vaccines Aged Out No longer e [...] age to complete this [place] [address] [facility] Care Teams Sas Etl Developer Relationship Specialty Start Date End Date Manuel Morales MD [address] [place] [address] PCP - General 01/03/21
--- OUTSIDE RECORDS SUMMARY | 2025-03-19 11:33 | XMS_ITS | Clinical Summary ---
Author Organization [facility] Address [address] [place] [address] Care Team Providers Care Career Development Consultant Name Role Phone Manuel Morales MD Primary Care Provider + [phone] Allergies Active Allergy Reactions Criticality Noted Date [...] (06/10/2021): Added automatically from request for surgery [id number] Social History Tobacco Use Types Packs/Day Years [...] 64 06/16/2021 12:01 PM EDT Temperature 36.1 C (97 F) 06/16/2021 10:53 AM EDT Respiratory Rate 18 06/16/2021 12:01 PM EDT Oxygen Saturation 96% 06/16/2021 12:01 PM EDT Inhaled Oxygen Concentration - - Weight 95.3 kg (210 lb) 06/13/2021 1:40 PM EDT Height 170.2 cm (5' 7 ) 06/13/2021 1:40 PM EDT Body Mass Index 32.89 06/13/2021 1:40 PM EDT Plan of Treatment Health Maintenance Due Date Last Done Comments ANNUAL PHYSICAL 1955 DXA SCAN 1955 HEPATITIS C SCREENING 1955 MAMMOGRAM 1994 COLOGUARD 1999 COLON CANCER SCREENING 5 YEA R SIGMOIDOSCOPY 1999 COLONOSCOPY 1999 COLORECTAL CANCER SCREENING 1999 CT COLONOGRAPHY 1999 FECAL OCCULT BLOOD TEST 1999 FIT Testing (1 year) 1999 ZOSTER VACCINE (2 of 3) 06/02/2016 04/07/2016 COVID-19 Vaccine (3 - season) 04/23/202410/2020, 08/28/2020 INFLUENZA VACCINE 05/23/2025 05/23/2021 TDAP/TD VACCINES (2 - Td or Tdap) 07/21/2026 016 Pneumococcal Vaccine 50+ Completed 06/09/2021, 05/24 Medical Devices Implanted Type Area Escalator Constructor Device Identifier Shelf Expiration Date Model / Serial / Lot Lens AcrysFlurry Iq Toric Sn6at4 23.0 - [id number] - [id number] Implanted:Qty : 1 on 05/01/2019 by Yulissa Guerra MD at [facility] Implant Left: Posterior Chamber LUIS 12/21/2023 [id number] / [id number] / Lens Acrysof Iq 6x13mm Sn60wf 23.0 - [id number] - [id number] Implanted:Qty : 1 on 06/19/2019 by Yulissa Guerra MD at [facility] Implant Right: Posterior Chamber LUIS 02/19/2023 [id number] / [id number] / Insurance MEDICARE A & B Member Subscriber Plan / Payer (Ef fective 2019-Present) Name:Brigitte Ortega Member ID:[id number] Relation to Subscriber:Self Name:Brigitte Ortega Subscriber ID:[id number] Payer ID:[id number] Group ID:Not on file Type:Not on file Address: [address] [place] [phone] [facility] Advance Directives Documents on File Type Date Recorded Patient Side Laster Tack Expl anation LIVING WILL - SCAN 05/01/2019 9:36 AM 2011 Care Teams Career Development Consultant Relationship Specialty Start Date End Date Manuel Morales MD [address] [place] [facility] [address] [place] [address] PCP - General Family Medicine 05/01/19
[2025-03-19 11:41] LABS: Hematocrit 41.6 % (37.0-47.0); Hemoglobin 13.4 g/dL (12.2-16.2); Immature Granulocytes % 0.2 %; Mean Corpuscular HGB Conc 32.2 g/dL (31.8-35.4); Mean Corpuscular Hemoglobin 27.5 pg (27.0-31.2); Mean Corpuscular Volume 85.4 fl (81-99); Nucleated Red Blood Cells % 0 %; Platelet Count 317 K/mm3 (142-424); Red Blood Count 4.87 M/mm3 (4.20-5.40); Red Cell Distribution Width-SD 41.1 fL; White Blood Count 9.4 K/mm3 (4.8-10.8)
[2025-03-19 12:08] LABS: Alanine Aminotransferase 16 U/L (12-78); Albumin Level 4.2 g/dl (3.5-5.0); Alkaline Phosphatase 83 U/L (38-126); Anion Gap 11.2 mEq/L (5-15); Aspartate Amino Transferase 27 U/L (14-36); Bilirubin,Direct 0.1 mg/dl (0.0-0.4); Bilirubin,Indirect 0.3 mg/dL (0.0-0.9); Bilirubin,Total 0.4 mg/dl (0.2-1.3); Bilirubin,Unconjugated 0.3 mg/dL (0.0-1.1); Blood Urea Nitrogen 17 mg/dl (7-17); Calcium 10.0 mg/dl (8.4-10.2); Carbon Dioxide 24 mmol/L (22.0-30.0); Chloride 104 mmol/L (98-107); Cholesterol 183 mg/dl (140-200); Creatinine,Serum 0.80 mg/dl (0.52-1.04); Estimated Glomerular Filt Rate 71 ml/min (>60); GFR (African American) 86 ML/MIN (>60); Glucose 99 mg/dl (74-100); HDL Cholesterol 77 mg/dl (40-60); Magnesium 1.8 mg/dl (1.6-2.3); Potassium 4.2 mmoL/L (3.5-5.1); Sodium 135 mmol/L (136-145); Total Protein,Serum 6.8 g/dl (6.3-8.2); Triglycerides 145 mg/dl (30-150)
[2025-03-19 12:25] LABS: Free T4 (Free Thyroxine) 1.56 ng/dl (0.78-2.19)
[2025-03-19 12:38] LABS: Thyroid Stimulating Hormone 3.28 uIU/mL (0.465-4.68)
== END 2025-03-19 23:59 | disposition home or self-care (01) ==
LOC: LAB 11:22
PROVIDERS: PCP Family Medicine; Visit Provider Nurse Practitioner Family
DX: E78.2 Mixed hyperlipidemia (principal); I10 Essential (primary) hypertension
CPT/HCPCS: 36415; 80048; 80061; 80076; 83735; 84439; 84443; 85025

== ENCOUNTER 2025-04-11 11:10 | Outpatient (CLI) | payer MEDICARE, SELFPAY ==
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
--- OUTSIDE RECORDS SUMMARY | 2025-04-16 11:55 | XMS_ITS | Clinical Summary ---
Author Organization [facility] Address [address] [place] [address] Care Team Providers Care Oriental Medicine Practitioner Name Role Phone Manuel Morales MD Primary Care Provider + [phone] Allergies Active Allergy Reactions Criticality Noted Date [...] eyes daily. Active neomycin-polymy aubree-dexamethame thasone (Polydex) 3.5-65556-5.1 ointment ophthalmic ointment Apply 0.25 inches to both eyes nightly. 3.5 g 5 5 Active Active Problems Problem Noted Date Diagnosed Date Tachycardia 11/01/2024 PCO (posterior capsular opacification), esperanza l 05/14/2021 H/O laser assisted in situ keratomileusis 2020 Bilateral posterior capsular opacification 04/02 Overview (11/01/2024): Added automatically from request for surgery [id number] After cataract of both eyes not obscuring [...] EDT Office Visit [facility] - [address], [place] [address] Yulissa Guerra MD [address] [address] Health Maintenance Due Date Last [...] UKY-Zoster Vaccines (2 of 3) 06/02/2016 04/07/2016 [id number] Vaccine (8 - Moderna risk 2023- season) [...] age to complete this [place] [address] [facility] Care Teams Oriental Medicine Practitioner Relationship Specialty Start Date End Date Manuel Morales MD [address] [place] [address] PCP - General 01/03/21
--- OUTSIDE RECORDS SUMMARY | 2025-04-16 11:55 | XMS_ITS | Clinical Summary ---
Author Organization [facility] Address [address] [place] [address] Care Team Providers Care Fisheries Inspector Name Role Phone Manuel Morales MD Primary Care Provider + [phone] Allergies Active Allergy Reactions Criticality Noted Date [...] (06/10/2021): Added automatically from request for surgery [id number] Social History Tobacco Use Types Packs/Day Years [...] 06/09/2021, 05/24 Medical Devices Implanted Type Area Roofing Layer Device Identifier Shelf Expiration Date Model / Serial / Lot Lens AcrysZebra Digital Assets Iq Toric Sn6at4 23.0 - [id number] - [id number] Implanted:Qty : 1 on 05/01/2019 by Yulissa Guerra MD at [facility] Implant Left: Posterior Chamber LUIS 12/21/2023 [id number] / [id number] / Lens Acrysof Iq 6x13mm Sn60wf 23.0 - [id number] - [id number] Implanted:Qty : 1 on 06/19/2019 by Yulissa Guerra MD at [facility] Implant Right: Posterior Chamber LUIS 02/19/2023 [id number] / [id number] / Insurance MEDICARE A & B Member Subscriber Plan / Payer (Ef fective 2019-Present) Name:Brigitte Ortega Member ID:[id number] Relation to Subscriber:Self Name:Brigitte Ortega Subscriber ID:[id number] Payer ID:[id number] Group ID:Not on file Type:Not on file Address: [address] [place] [id number] [facility] [employer] [employer] Advance Directives Documents on File Type Date Recorded Patient Process Machine Operator Expl anation LIVING WILL - SCAN 05/01/2019 9:36 AM 2011 Care Teams Fisheries Inspector Relationship Specialty Start Date End Date Manuel Morales MD [address] [place] [facility] [address] [place] [address] PCP - General Family Medicine 05/01/19
== END 2025-04-11 23:59 ==
LOC: LAB.DROPOF 04-16 11:11
PROVIDERS: PCP Nurse Practitioner Family; Visit Provider Nurse Practitioner Family
DX: R30.9 Painful micturition, unspecified (principal)
CPT/HCPCS: 87086; 87088; 87186

== ENCOUNTER 2025-07-06 10:24 | Outpatient (CLI) | payer MEDICARE, SELFPAY ==
--- OUTSIDE RECORDS SUMMARY | 2025-05-16 09:30 | XMS_ITS | Encounter Summary ---
Author Organization [facility] Address [address] [place] [address] Care Team Providers Care Websphere Consultant Name Role Phone Manuel Morales MD Primary Care Provider Reason for Visit * Reason Comments Follow-up Encounter Details Date Type Department Care Team (Late st Contact Info) Description 05/16/2025 10:30 AM EDT Office Visit [facility] [address] [facility], [place] [address] Yulissa Guerra MD [address] [place] [address] Meibomian gland dysfunction (MGD) 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 (Primary Dx); H/O laser assisted in situ keratomileusis; History of YAG laser capsulotomy of lens, unspecified laterality Social History Tobacco Use Types Packs/Day Years Used Date Smoking Tobacco: Former Cigarettes 1 30.8 0 12/21/1972 - 10/22/2003 Passive Smoke Exposure: Past Smokeless Tobacco: Never Tobacco Cessation:Counseling Given: Not Answered Comments Unknown Sex and Gender Information Value Date Recorded Sex Assigned at Female 03/04/2022 2:08 PM EDT Legal Sex Female 8:32 PM EDT Gender Identity Female 03/04/2022 2:08 PM EDT Sexual Orientation Straight 03/04/2022 2: 08 PM EDT documented as of this encounter Miscellaneous Notes * Progress Notes - Yulissa Guerra MD - 05/16/2025 10:30 AM EDT Subjective HPI 6 mth follow up Patient states that she has not had any vision issues or changes both eyes (OU) since last visit. Patient occasionally has floaters in left eye (OS) but not a new issue. Patient uses allergy eye drops NEEDED, Systane NEEDED, Genteal once at night alternating withneomycin/Rudolph. Both eyes (OU) Last edited by Valery Covarrubias on 05/16/2025 10:28 AM. ROS Negative for: Constitutional, Gastrointestinal, Neurological, Skin, Genitourinary, Musculoskeletal,HENT, Endocrine, Cardiovascular, Eyes, Respiratory, Psychiatric, Allergic/Imm, Heme/Lymph Last edited by Valery Covarrubias on 05/16/2025 10:28 AM. Objective Base Eye Exam Visual Acuity (Snellen - Linear) Right Left Both Dist sc 20/50 -2 20/30 -2 Dist ph sc 20/25 -1 Near cc 20/20 Patient did not bring glasses Tonometry (Tonopen, 10:56 AM) Right Left Pressure 11 13 Pachymetry Right Left Thickness 500 485 Pupils Pupils Right PERRL Left PERRL Visual Awad (Counting fingers) Right Left Full Full Extraocular Movement Right Left Full, Ortho Full, Ortho Neuro/Psych Oriented x3: Yes Mood/Affect: Normal Slit Lamp and Fundus Exam External Exam Right Left External mild rosacea facies mild rosacea facies Slit Lamp Exam Right Left Lids/Lashes min MGD min MGD Conjunctiva/Sclera White White Cornea lasik flap scar with tr PEE lasik flap scar, tr PEE Anterior Chamber Deep and quiet Deep and quiet Iris Normal Normal Lens PC IOL, open PC, glistenings PC IOL stable along 115 axis, open PC, glistenings Refraction Wearing Rx Sphere Cylinder [place] Add Right -1.00 +1.00 057 +2.50 Left -1.25 +1.25 010 +2.50 Age: 1yrs Type: PAL Manifest Refraction Sphere Cylinder [place] Dist VA Add Near VA Right -1.50 +0.50 030 20/20 +2.50 20/20- Left -1.50 +1.25 010 20/25+1-2 +2.50 Final Rx Sphere Cylinder [place] Dist VA Add Near VA Right -1.50 +0.50 030 20/20 +2.50 20/20- Left -1.50 +1.25 010 20/25+1-2 +2.50 Expiration Date: 05/16/2026 Assessment/Plan Diagnoses and all orders for this visit: Meibomian gland dysfunction (MGD) 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 H/O laser assisted in situ keratomileusis History of YAG laser capsulotomy of lens, unspecified laterality Here for rpt Mrx today Meibomian gland dysfunction (MGD)/Rosacea Doing much better On po doxy 20mg BID-discussed possibly increasing to 100 mg BID if needed in future cont warm compresses BID and neopolydex drops at bedtime (qhs) to manage flare ups Open PC both eyes (OU) bilateral H26.493 Improved visual acuity (VA) status post (s/p) capsulotomy both eyes (OU) Given MRx H/O laser assisted in situ keratomileusis Z98.890 OU for myopia Explained the diagnoses, plan, and follow up with the patient and they expressed understanding. Patient expressed understanding of the importance of proper follow up care. Follow up in about 1 year (around 05/16/2026) for Comprehensive Exam. Tobacco Use: Medium Risk (05/16/2025) Patient History Smoking Tobacco Use: Former Smokeless Tobacco Use: Never Passive Exposure: Past The patient has been counseled on tobacco cessation: Not Applicable documented in this encounter Plan of Treatment Upcoming Encounters Date Type Department Care Team (Late st Contact Info) Description 06/18/2026 2:45 PM EDT Office Visit [facility] - [address], [place] [address] Yulissa Guerra MD [address] [address] documented as of this encounter Visit Diagnoses Diagnosis Meibomian gland dysfunction (MGD) 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- Primary H/O laser assisted in situ keratomileusis History of YAG laser capsulotomy of lens, unspecified laterality documented in this encounter Additional Health Concerns Assessment Noted Time A fall risk assessment has been complete d for the patient 11/01/2024 9:00 AM EDT A Body Mass Index follow-up plan has been documented for the patient 05/16/2025 11:26 AM EDT documented as of this encounter Care Teams Websphere Consultant Relationship Specialty Start Date End Date Manuel Morales MD [address] [place] [address] PCP - General 01/03/21 documented as of this encounter
--- NOTE | 2025-07-06 10:27 | MM_ITS ---
PROCEDURE INFORMATION: Exam: MG Bilateral Screening 3D Mammography Exam date and time: 07/06/2025 10:27 AM Age: 70 years old Clinical indication: Screening examination TECHNIQUE: Imaging protocol: Bilateral Screening tomosynthesis and 2D mammography including computer-aided detection (CAD) when performed. COMPARISON: 1. MG MM DIG SCREENING MAMM BI W/CAD 06/14/2024 7:49 AM 2. MG MM DIG SCREENING MAMM BI W/CAD 05/28/2023 9:52 AM FINDINGS: MAMMOGRAPHY: Breast composition: There are scattered areas of fibroglandular density. Mass: None. Architectural distortion: None. Calcifications: No suspicious calcifications. Asymmetric density: None. Skin thickening: None. Axillary adenopathy: None. IMPRESSION: No mammographic evidence of malignancy. Annual screening is recommended unless otherwise clinically indicated. ASSESSMENT: BI-RADS Category 1: Negative.
--- OUTSIDE RECORDS SUMMARY | 2025-07-06 10:28 | XMS_ITS | Encounter Summary ---
Author Organization Healthcare Address [address] [place] [address] Care Team Providers Care Ross Furnace Operator Name Role Phone Manuel Morales MD Primary Care Provider [phone] Encounter Details Date Type Department Care Team (Latest Contact Info) Description 05/16/2025 Travel Social History Tobacco Use Types Packs/Day Years Used Date Smoking Tobacco: Former Cigarettes 1 30.8 0 12/21/1972 - 10/22/2003 Passive Smoke Exposure: Past Smokeless Tobacco: Never Comments Unknown Sex and [...] Description 06/18/2026 2:45 PM EDT Office Visit [facility] [address] [facility], [place] [address] Yulissa Guerra MD [address] [place] [address] documented as of this encounter Visit Diagnoses Not on filedocumented in this encounter Additional Health Concerns Assessment Noted Time A fall risk assessment has been complete d for the patient 11/01/2024 9:00 AM EDT A Body Mass Index follow-up plan has been documented for the patient 05/16/2025 11:26 AM EDT documented as of this encounter Care Teams Ross Furnace Operator Relationship Specialty Start Date End Date Manuel Morales MD [address] [place] [address] PCP - General 01/03/21 documented as of this encounter
--- OUTSIDE RECORDS SUMMARY | 2025-07-06 10:28 | XMS_ITS | Clinical Summary ---
Author Organization Healthcare Address [address] [place] [address] Care Team Providers Care Sanipractic Physician Name Role Phone Manuel Morales MD Primary Care Provider [phone] Allergies Active Allergy Reactions Criticality Noted Date Comments Penicillins Itching,Unknown - Guillermo cordero states they do not know rxn details [...] eyes daily. Active neomycin-polymy aubree-dexamethame thasone (Polydex) 3.5-42730-8.1 ointment ophthalmic ointment Apply 0.25 inches to both eyes nightly. 3.5 g 5 5 Active Active Problems Problem Noted Date Diagnosed Date Tachycardia 11/01/2024 PCO (posterior capsular opacification), bilatera l 05/14/2021 Bilateral posterior capsular opacification 04/02 Overview (11/01/2024): Added automatically from request for surgery [id number] After cataract of both eyes not obscuring vision 01/31/2020 Status post extracapsular cataract extraction of left eye 05/02/2019 Combined form of age-related cataract, both eyes 03/03/2017 Hypothyroidism 02/18/2016 Rheumatoid arthritis 02/18/2016 Resolved Problems Problem Noted Date Diagnosed Date Resolved Date H/O laser assisted in situ keratomileusis 05/14/2021 05/13/2025 Encounters Date Type Department Care Team Description 05/16/2025 10:30 AM EDT Office Visit [facility] [address], [place] [address] Yulissa Guerra MD Meibomian gland dysfunction (MGD) 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 (Primary Dx); H/O laser assisted in situ keratomileusis; History of YAG laser capsulotomy of lens, unspecified laterality 05/16/2025 Travel 05/09/2025 Travel from Last 3 Months Family History Medical History Relation Name Comments Cardiac disorder Father Cardiac disorder Mother Diabetes Sister Indy Hypertension Sister Indy Thyroid disease Sister Indy Relation [...] 2:45 PM EDT Office Visit [facility] - [address], [place] [address] Yulissa Guerra MD [address] [place] [address] Health Maintenance Due Date Last Done [...] [facility]-Zoster Vaccines (2 of 3) 06/02/2016 04/07/2016 [id number] Vaccine ( - season) 2025 08/25/2024, 06/15/2023, 09/09/2022, Additional history exists [facility]-DTaP,Tdap,and Td Vaccines (3 - Td or Tdap) 07/21/2026 07/21/2016, 10/21/2009 [facility]-Pneumococcal Vaccine: 50+ Years Completed 05/31/2024, 06/09/2021, 06/11/2020 [facility]-Influenza Vaccine Completed 04/30/2025 , 05/28/2022, 05/23/2021, Additional history exists HPV Vaccines Aged Out No longer eligi [...] age to complete this topic Insurance MEDICARE [facility] Care Teams Sanipractic Physician Relationship Specialty Start Date End Date Manuel Morales MD [address] [facility] [address] [place] [address] PCP - General 01/03/21
--- OUTSIDE RECORDS SUMMARY | 2025-07-06 10:28 | XMS_ITS ---
Author Organization [facility] Address [address] [place] [address] Phone Care Team Providers Care Hand Folder Name Role Phone Александр JAQUEZ, Alvaro Sharp Unavailable [phone] KELECHI WOODSON Primary Care Provider [phone] Problems Includes: Active, inactive, and resolved Problems All Visits Onset Date Resolved Date Provider Condition S tatus Joint Pain Hip Right 06/12/2024 Alexander Tristan PA-C Active Last Documented On 4 8:52AM ; [facility] Plan of Treatment Findings Encounter Date Patient screened for future fall risk: documentation of any fall with injury in past year Follow Up with Alexander Tristan PA-C 07/24/2024 Last Documented On 4 9:41AM ; [facility] Patient screened for future fall risk: documentation of any fall with injury in past year Physician Specified with Alexander Tristan PA-C 06/12/2024 Last Documented On 4 9:27AM ; [facility] Instructions to patient Lose weight Last Documented On 5 1:42PM ; [facility] Lose weight Last Documented On 4 9:30AM ; [facility], [facility] Lose weight Last Documented On 4 8:55AM ; [facility], [facility] Assessments Includes: Assessments for all patient encounters Findings Encounter Date Overweight Follow Up with Alexander Hou 07/24/2024 Last Documented On 4 9:41AM ; [facility] Overweight Physician Specified with Alexander Tristan PA-C 06/12/2024 Last Documented On 4 9:27AM ; [facility] Instructions Includes: Instructions for all patient encounters Instructions to patient Lose weight Last Documented On 5 1:42PM ; [facility] Lose weight Last Documented On 4 9:30AM ; [facility] Lose weight Last Documented On 4 8:55AM ; [facility] Medical Equipment - Implanted Devices Includes: Current and historical Devices No Medical Equipment Recorded Medications Includes: Current and historical Medications Current Medications (continue as prescribed) Doxycycline Hyclate 20 MG Oral Tablet 02/23/2025 Pro vider: Diagnosis: Last Documented On 1:41PM By Sari Randall ; [facility], [facility] Levothyroxine Sodium 100 MCG Oral Tablet 02/06/2025 Provider: KELECHI WOODSON Diagnosis: Last Documented On 1:41PM By Sari Randall ; [facility], [facility] Metoprolol Succinate ER 25 M G Oral Tablet Extended Release 24 Hour 02/03/2025 Provider: Diagnosis: Last Documented On 5 1:41PM By Sari Randall ; [facility], [facility] Fexofenadine HCl 180 MG Oral Tablet 01/24/2025 Provi milton: Diagnosis: Last Documented On 5 1:41PM By Sari Randall ; [facility], [facility] Wtgxinlm-Uqmvcxtdx-Fdwcagcq 3.5-57851-6.1 Ophtha lmic Ointment 01/17/2025 Provider: Diagnosis: Last Documented On 5 1:41PM By Sari Randall ; [facility], [facility] Past Medications on file Azelastine HCl 0.05% Ophthal haris Solution 06/02/2024 - 02/27/2025 Provider: KELECHI WOODSON Diagnosis: Last Documented On 5 1:40PM By Sari Randall ; [facility], [facility] Lisinopril 20 MG Oral Tablet 05/31/2024 - 02/27/2025 P altonder: KELECHI WOODSON Diagnosis: Last Documented On 5 1:40PM By Sari Randall ; [facility], [facility] Simvastatin 20 MG Oral Tablet 05/31/2024 - 02/27/2025 Provider: KELECHI WOODSON Diagnosis: Last Documented On 1:40PM By Sari Randall ; [facility] Metoprolol Succinate ER 25 M G Oral Tablet Extended Release 24 Hour 05/16/2024 - 02/27/2025 Provider: Diagnosis: Last Documented On 1:41PM By Sari Randall ; [facility] Levothyroxine Sodium 100 MCG Oral Tablet 04/04/2024 - 02/27/2025 Provider: Diagnosis: Last Documented On 1:41PM By Sari Randall ; [facility] Medications Administered Includes: Administered Medications in patient's chart No Administered Medications Recorded Vital Signs Includes: Vital Signs from 07/06/2024 through 07/06/2025 Vital Name 02/27/2025 01:42P 07/24/2024 09: 31A Height (in) 67 67 Weight (lb) 217 217 Body Mass Index 34 34 Body Surface Area 2.1 2.1 Note: mgg mgg Last Documented: On 02/27/2025 1:42PM ; [facility] On 07/24/2024 9:31AM ; [facility], [facility] Results Includes: Results from 07/06/2024 through 07/06/2025 No Results Recorded For Specified Dates History of Present Illness History of Present Illness not supported for this document type No History of Present Illness Recorded Social History Description Last Updated Caffeine use 02/27/2025 Last Documented On 2:08PM ; [facility] Exercising regularly 02/27/2025 Last Documented On 5 2:08PM ; [facility] No recent change in diet 02/27/2025 Last Documented On 5 2:08PM ; [facility] Not a current smoker. 02/27/2025 Last Documented On 5 2:08PM ; [facility] Not using alcohol 02/27/2025 Last Documented On 5 2:08PM ; [facility] Not using drugs 02/27/2025 Last Documented On 5 2:08PM ; [facility] Smoking Status Unknown Procedures and Surgical History Includes: Procedures from 07/06/2024 through 07/06/2025 Procedures Code Diagnosis Performing Provider Service Location Service Date DRAIN/INJECT, JOINT/BURSA (RIGHT) Trochanteric bursitis, right hip Alexander Tristan PA-C [facility] 02/27/2025 Last Documented On 5 11:38AM ; [facility] Triamcinolone/Kenalog, 10mg per cc [id number] Trochanteric bursitis, right hip Alexander Tristan PA-C [facility] 02/27/2025 Last Documented On 5 11:38AM ; [facility] Surgical History Last Updated History of shoulder arthroplasty 025 Last Documented On 5 2:08PM ; [facility] Medical History Includes: Medical History in patient's chart Description Last Updated History of Heartburn / Acid Reflux 02/27 Last Documented On 5 2:08PM ; [facility] History of Irregular Heartbeat 5 Last Documented On 5 2:08PM ; [facility] History of Thyroid Disease 02/27/2025 Last Documented On 5 2:08PM ; [facility] Family History Includes: Family History in patient's chart Description Last Updated Family history of heart disease 02/28/20 25 Last Documented On 5 2:08PM ; [facility] Family history of rheumatoid arthritis 0 02/27/2025 Last Documented On 5 2:08PM ; [facility] Family history of systemic hypertension 02/27/2025 Last Documented On 5 2:08PM ; [facility] Review of Systems Review of Systems not supported for this document type No Review of Systems Recorded Mental Status Description Anxiety Functional Status No Functional Status Recorded Physical Exam Physical Exam not supported for this document type No Physical Exam Recorded Allergies Includes: Active, inactive, and resolved Allergies Substance Type Reaction Onset Date Resolved Date Statu s Penicillin G Allergy 06/12/2024 Active Last Documented On 5 1:41PM ; [facility] Encounters Includes: Encounters from 07/06/2024 through 07/06/2025 Encounter Provider Location Date Check-In Time Check-Out Time Diagnosis Follow Up Alexander Tristan [facility]C [facility] 5 1:32PM 1:59PM Follow Up Alexander Tristan PA-C [facility] 4 8:35AM 9:29AM Overweight Insurance Includes: Active Insurance Policies Plan Name Member ID Group # Subscriber Relationship Effect alida Dates 1 - Medicare Part B [facility] [id number] Brigitte Ortega Self 2 - [facility] [employer] [id number] Brigitte Ortega Self Clinical Notes Includes: Signed Clinical Notes starting from 08/06/2022 * Progress note Date Encounter Last Documented by 02/27/2025 Follow Up Last documented on 02/27/2025; 2:08 PM, Alexander Rahman; [facility], [facility] Active Problems & Conditions - Joint Pain in the Right Hip Chief Complaint The Chief Complaint is: R hip pain. Referred Here Referred by. History of Present Illness Brigitte Ortega is a 70 year old female. - Allergy list reviewed - Problem list reviewed - Medication list reviewed Patient presents today for re-evaluation of pain her right hip. She has known history of greater trochanteric bursitis of the right hip. She last received an injection on 06/19/2024 which gave her significant relief of symptoms. Has been having increasing lateral hip pain over the past several months intermittently. No pain radiating distally down the leg. No numbness or tingling. No recent injuries or trauma. Current Medication - Doxycycline Hyclate 20 MG Oral Tablet 30 days, 0 refills - Fexofenadine HCl 180 MG Oral Tablet 30 days, 0 refills - Levothyroxine Sodium 100 MCG Oral Tablet 90 days, 0 refills - Metoprolol Succinate ER 25 MG Oral Tablet Extended Release 24 Hour 90 days, 0 refills - Jnqzbmol-Mdhrosmgn-Ivnurmlp 3.5-37482-1.1 Ophthalmic Ointment 3.5-30878-6.1 10 days, 0 refills Past Medical/Surgical History Diagnoses: Irregular Heartbeat Heartburn / Acid Reflux Thyroid Disease Surgical: - Shoulder arthroplasty Social History Not a current smoker. Current diet: No recent change in diet. Caffeine: Caffeine use. Alcohol: Not using alcohol. Drug [...] allergic reaction. Physical Findings - Vitals taken 02/27/2025 01:42 pm mgg Height 67 in Weight 217 lbs Body Mass Index 34 kg/m2 Body Surface Area 2.1 m2 Right hip exam Patient walks with a slight antalgic gait Hip range of motion is flexion 120- internal rotation to 20 external rotation to 50 Minimal tenderness to palpation of greater trochanter, none over the ASIS No pain with resisted hip abduction patient has negative [...] there is a 2+ dorsalis pedis pulse Previous Tests Imaging: X-Ray: X-ray. MRI Scan: An MRI was performed. Counseling/Education Tobacco non-user. use of tobacco assessment performed. - Lose weight User Defined 1 Right hip bursa injection: [...] Greater trochanteric bursitis of the right hip Discussed options with the patient today moving forward. She elected to proceed with greater trochanteric bursal steroid injection which she tolerated very well. Continue activities as able. Follow up in the office as needed. Patient is agreeable with above plan. They are to call the office with any concerns. Notes This dictation was done with voice recognition software and may contain errors and omissions. Care Team - KELECHI WOODSON - POLYMER ENGINEER * Progress note Date Encounter Last Documented by 07/24/2024 Follow Up Last documented on 07/24/2024; 9:41 AM, Alexander Rahman; [facility], [facility] Active Problems & Conditions - Joint Pain in the Right Hip Chief Complaint The Chief Complaint is: R hip pain. Referred Here Referred by. History of Present Illness Brigitte Ortega is a 69 year old female. - Allergy list reviewed - Problem list reviewed - Medication list reviewed - - Review of medications documented Patient presents today for re-evaluation of pain in her right hip. She was seen by myself on 06/12/2024. Found that she had some moderate osteoarthritic changes within her right hip. She was having primarily lateral hip pain and received a greater trochanteric bursal injection which he states gave her significant relief her symptoms. She states that today the right hip is very functional for her and she is having minimal pain. She is continuing to do her home exercise program which she also feels like is helping. Current Medication - Azelastine HCl 0.05% Ophthalmic [...] allergic reaction. Physical Findings - Vitals taken 07/24/2024 09:31 am mgg Height 67 in Weight 217 lbs Body Mass Index 34 kg/m2 Body Surface Area 2.1 m2 Right hip exam Patient walks with a slight antalgic gait Hip range of motion is flexion 120- internal rotation to 20 external rotation to 50 Minimal tenderness to palpation of greater trochanter, none over the ASIS No pain with resisted hip abduction patient has negative [...] there is a 2+ dorsalis pedis pulse Assessment - Overweight Previous Tests Imaging: X-Ray: An X-ray was performed. MRI Scan: An MRI was performed. Counseling/Education - Tobacco non-user - Use of tobacco assessment performed - Lose weight Plan - Patient screened for future fall risk: documentation of any fall with injury in past year User Defined 5 Fall Risk Assessment: This [...] the right hip Osteoarthritis of the right knee Patient much improved compared to her last visit. She seemed to get good relief with greater trochanteric bursal injection at last visit. She can continue activities as tolerated. Can repeat injection in the future if needed. she can follow up as needed. Patient is agreeable with above plan. They are to call the office with any concerns. Notes This dictation was done with voice recognition software and may contain errors and omissions. Care Team - KELECHI WOODSON - POLYMER ENGINEER
--- OUTSIDE RECORDS SUMMARY | 2025-07-06 10:28 | XMS_ITS | Clinical Summary ---
Author Organization [facility] , [facility] Address [address] [place] [address] Phone Care Team Providers Care Commercial Driver'S License Driver Name Role Phone Александр JAQUEZ, Alvaro Sharp Unavailable [phone] KELECHI WOODSON Primary Care Provider [phone] Reason for Visit and Chief Complaint The Chief Complaint is: R hip pain Problems Includes: Problems addressed during this encounter and other active Problems Current Visit Onset Date Resolved Date Provider Liban avila Status Joint Pain Hip Right 06/12/2024 Alexander Tristan PA-C Active Last Documented On 4 8:52AM ; [facility], [facility] Plan of Treatment - Patient screened for future fall risk: documentation of any fall with injury in past year - Last Documented On 06/12/2024 9:27AM ; [facility], [facility] Instructions to patient Lose weight Last Documented On 4 8:55AM ; [facility], [facility] Assessments Includes: Assessments from this encounter Findings - Overweight - Last Documented On 06/12/2024 9:27AM ; [facility], [facility] Greater trochanteric bursitis of the right hip - Last Documented On 06/12/2024 9:27AM ; [facility], [facility] Osteoarthritis of the right hip - Last Documented On 06/12/2024 9:27AM ; [facility], [facility] Discussed options with the patient today. [...] - Last Documented On 06/12/2024 9:27AM ; [facility], [facility] Instructions Includes: Instructions from this encounter Instructions to patient Lose weight Last Documented On 8:55AM ; [facility] Medical Equipment - Implanted Devices Includes: Current Devices No Medical Equipment Recorded Medications Includes: Medications discussed during this encounter and other current Medications Current Medications (continue as prescribed) Doxycycline Hyclate 20 MG Oral Tablet 02/23/2025 Pro vider: Diagnosis: Last Documented On 1:41PM By Sari Randall ; [facility], [facility] Levothyroxine Sodium 100 MCG Oral Tablet 02/06/2025 Provider: KELECHI WOODSON Diagnosis: Last Documented On 1:41PM By Sari Randall ; [facility], [facility] Metoprolol Succinate ER 25 M G Oral Tablet Extended Release 24 Hour 02/03/2025 Provider: Diagnosis: Last Documented On 1:41PM By Sari Rnadall ; [facility], [facility] Fexofenadine HCl 180 MG Oral Tablet 01/24/2025 Provi milton: Diagnosis: Last Documented On 1:41PM By Sari Randall ; [facility], [facility] Wgewnlns-Ccfztvqyr-Rdwxplju 3.5-91177-7.1 Ophtha lmic Ointment 01/17/2025 Provider: Diagnosis: Last Documented On 1:41PM By Sari Randall ; [facility], [facility] Medications Administered Includes: Administered Medications from this encounter No Administered Medications Recorded Vital Signs Includes: Vital Signs from this encounter Vital Name 06/12/2024 08:55A Height (in) 67 Weight (lb) 216 Body Mass Index 33.8 Body Surface Area 2.1 Note: mgg Last Documented: On 06/12/2024 9:00AM ; [facility] Results Includes: Results discussed during this [...] 06/12/2024 Last Documented On 4 9:27AM ; [facility] Exercising regularly 06/12/2024 Last Documented On 4 9:27AM ; [facility] No recent change in diet 06/12/2024 Last Documented On 4 9:27AM ; [facility] Not a current smoker. 06/12/2024 Last Documented On 4 9:27AM ; [facility] Not using alcohol 06/12/2024 Last Documented On 4 9:27AM ; [facility] Not using drugs 06/12/2024 Last Documented On 4 9:27AM ; [facility] Smoking Status Unknown Procedures and Surgical History Includes: Procedures from this encounter Procedures Code Diagnosis Performing Provider Service L ocation Service Date an X-ray was performed 50129 Last Documented On 4 8:54AM ; [facility] an MRI was performed [id number] Last Documented On 4 8:54AM ; [facility] Surgical History Last Updated History of shoulder arthroplasty 024 Last Documented On 4 9:27AM ; [facility] Medical History Includes: Medical History addressed during this encounter Description Last Updated History of Heartburn / Acid Reflux 06/12 Last Documented On 4 9:27AM ; [facility] History of Irregular Heartbeat 4 Last Documented On 4 9:27AM ; [facility] History of Thyroid Disease 06/12/2024 Last Documented On 4 9:27AM ; [facility] Family History Includes: Family History addressed during this encounter Description Last Updated Family history of heart disease 06/12/20 24 Last Documented On 4 9:27AM ; [facility] Family history of rheumatoid arthritis 1 Last Documented On 4 9:27AM ; [facility] Family history of systemic hypertension 06/12/2024 Last Documented On 4 9:27AM ; [facility] Review of Systems Includes: Review of Systems [...] Active Last Documented On 5 1:41PM ; [facility], [facility] Encounters Encounter Provider Location Date Check-In Time Check-Out Time Diagnosis Physician Specified Alexander Tristan PA-C [facility] 06/12/20 24 8:44AM 9:24AM Overweight Insurance Includes: Active Insurance Policies Plan Name Member ID Group # Subscriber Relationship Effect alida Dates 1 - Medicare Part B [facility] [id number] Brigitte Ortega Self 2 - [facility] [employer] [id number] Brigitte Ortega Self Clinical Notes Includes: Clinical Notes from this encounter * Progress note Date Encounter Last Documented by 06/12/2024 Physician Specified Last documen antoinette on 06/12/2024; 9:27 AM, Alexander Tristan PA-C; [facility], [facility] Active Problems & Conditions - Joint [...] omissions. Care Team - KELECHI WOODSON - UNION ORGANIZER
--- OUTSIDE RECORDS SUMMARY | 2025-07-06 10:28 | XMS_ITS | Clinical Summary ---
Author Organization [facility] , [facility] Address [address] [place] [address] Phone Care Team Providers Care Cnc Operator Name Role Phone Александр JAQUEZ, Alvaroelena Garibaying Unavailable [phone] KELECHI WOODSON Primary Care Provider [phone] Reason for Visit and Chief Complaint The Chief Complaint is: R hip pain Problems Includes: Problems addressed during this encounter and other active Problems All Visits Onset Date Resolved Date Provider Condition S tatus Joint Pain Hip Right 06/12/2024 Alexander Tristan PA-C Active Last Documented On 8:52AM ; [facility], [facility] Plan of Treatment - Patient screened for future fall risk: documentation of any fall with injury in past year - Last Documented On 07/24/2024 9:41AM ; [facility], [facility] Instructions to patient Lose weight Last Documented On 9:30AM ; [facility], [facility] Assessments Includes: Assessments from this encounter Findings - Overweight - Last Documented On 07/24/2024 9:41AM ; [facility], [facility] Greater trochanteric bursitis of the right hip - Last Documented On 07/24/2024 9:41AM ; [facility], [facility] Osteoarthritis of the right knee - Last Documented On 07/24/2024 9:41AM ; [facility], [facility] Patient much improved compared to her last visit. She seemed to get good relief with greater trochanteric bursal injection at last visit. She can continue activities as tolerated. Can repeat injection in the future if needed. she can follow up as needed. Patient is agreeable with above plan. They are to call the office with any concerns. - Last Documented On 07/24/2024 9:41AM ; [facility], [facility] Instructions Includes: Instructions from this encounter Instructions to patient Lose weight Last Documented On 9:30AM ; [facility] Medical Equipment - Implanted Devices Includes: Current Devices No Medical Equipment Recorded Medications Includes: Medications discussed during this encounter and other current Medications Current Medications (continue as prescribed) Doxycycline Hyclate 20 MG Oral Tablet 02/23/2025 Pro vider: Diagnosis: Last Documented On 1:41PM By Sari Randall ; [facility] Levothyroxine Sodium 100 MCG Oral Tablet 02/06/2025 Provider: KELECHI WOODSON Diagnosis: Last Documented On 1:41PM By Sari Randall ; [facility] Metoprolol Succinate ER 25 M G Oral Tablet Extended Release 24 Hour 02/03/2025 Provider: Diagnosis: Last Documented On 1:41PM By Sari Randall ; [facility] Fexofenadine HCl 180 MG Oral Tablet 01/24/2025 Provi milton: Diagnosis: Last Documented On 1:41PM By Sari Randall ; [facility] Ozgrktoj-Kkwpyfqrz-Kgkbavbh 3.5-06164-8.1 Ophtha lmic Ointment 01/17/2025 Provider: Diagnosis: Last Documented On 1:41PM By Sari Randall ; [facility] Medications Administered Includes: Administered Medications from this encounter No Administered Medications Recorded Vital Signs Includes: Vital Signs from this encounter Vital Name 07/24/2024 09:31A Height (in) 67 Weight (lb) 217 Body Mass Index 34 Body Surface Area 2.1 Note: mgg Last Documented: On 07/24/2024 9:31AM ; [facility] Results Includes: Results discussed during this [...] which she also feels like is helping. Social History Description Last Updated Caffeine use 07/24/2024 Last Documented On 4 9:41AM ; [facility], [facility] Exercising regularly 07/24/2024 Last Documented On 4 9:41AM ; [facility] No recent change in diet 07/24/2024 Last Documented On 4 9:41AM ; [facility] Not a current smoker. 07/24/2024 Last Documented On 4 9:41AM ; [facility] Not using alcohol 07/24/2024 Last Documented On 4 9:41AM ; [facility] Not using drugs 07/24/2024 Last Documented On 4 9:41AM ; [facility] Smoking Status Unknown Procedures and Surgical History Includes: Procedures from this encounter Procedures Code Diagnosis Performing Provider Service L ocation Service Date an X-ray was performed 11842 Last Documented On 4 9:30AM ; [facility] an MRI was performed [id number] Last Documented On 4 9:30AM ; [facility] Surgical History Last Updated History of shoulder arthroplasty 024 Last Documented On 4 9:41AM ; [facility] Medical History Includes: Medical History addressed during this encounter Description Last Updated History of Heartburn / Acid Reflux 07/24 Last Documented On 4 9:41AM ; [facility] History of Irregular Heartbeat 4 Last Documented On 4 9:41AM ; [facility] History of Thyroid Disease 07/24/2024 Last Documented On 4 9:41AM ; [facility] Family History Includes: Family History addressed during this encounter Description Last Updated Family history of heart disease 07/24/20 24 Last Documented On 4 9:41AM ; [facility] Family history of rheumatoid arthritis 1 09/24/2023 Last Documented On 4 9:41AM ; [facility] Family history of systemic hypertension 07/24/2024 Last Documented On 4 9:41AM ; [facility] Review of Systems Includes: [...] Active Last Documented On 5 1:41PM ; [facility] Encounters Encounter Provider Location Date Check-In Time Check-Out Time Diagnosis Follow Up Alexander Tristan PA-C [facility] 4 8:35AM 9:29AM Overweight Insurance Includes: Active Insurance Policies Plan Name Member ID Group # Subscriber Relationship Effect alida Dates 1 - Medicare Part B [facility] [id number] Brigitte Celaya 2 - [facility]S [employer]ISION [id number] Brigitte Ortega Self Clinical Notes Includes: Clinical Notes from this encounter * Progress note Date Encounter Last Documented by 07/24/2024 Follow Up Last documented on 07/24/2024; 9:41 AM, Alexander Rahman; [facility], [facility] Active Problems & Conditions - Joint [...] omissions. Care Team - KELECHI WOODSON - PRESERVATIONIST
--- OUTSIDE RECORDS SUMMARY | 2025-07-06 10:28 | XMS_ITS | Clinical Summary ---
Author Organization [facility] Address [address] [place] [address] Care Team Providers Care Aquatics Manager Name Role Phone Manuel Morales MD Primary Care Provider [phone] Allergies Active Allergy Reactions Criticality Noted Date [...] (06/10/2021): Added automatically from request for surgery [id number] Social History Tobacco Use Types Packs/Day Years [...] ZOSTER VACCINE (2 of 3) 06/02/2016 04/07/2016 INFLUENZA VACCINE 03/23/2025 05/23/2021 COVID-19 Vaccine (3 - season) 04/23/202510/2020, 08/28/2020 TDAP/TD VACCINES (2 - Td or Tdap) 07/21/2026 016 Pneumococcal Vaccine 50+ Completed 06/09/2021, 05/24 Medical Devices Implanted Type Area Licensing Representative Device Identifier Shelf Expiration Date Model / Serial / Lot Lens AcrysComply7 Iq Toric Sn6at4 23.0 - [id number] - [id number] Implanted:Qty : 1 on 05/01/2019 by Yulissa Guerra MD at [facility] Implant Left: Posterior Chamber LUIS 12/21/2023 [id number] / [id number] / Lens Acrysof Iq 6x13mm Sn60wf 23.0 - [id number] - [id number] Implanted:Qty : 1 on 06/19/2019 by Yulissa Guerra MD at [facility] Implant Right: Posterior Chamber LUIS 02/19/2023 [id number] / [id number] / Insurance MEDICARE A & B Member Subscriber Plan / Payer (Ef fective 2019-Present) Name:Brigitte Ortega Member ID:[id number] Relation to Subscriber:Self Name:Brigitte Ortega Subscriber ID:[id number] Payer ID:[id number] Group ID:Not on file Type:Not on file Address: [address] [employer] Advance Directives Documents on File Type Date Recorded Patient Relief Pilot Expl anation LIVING WILL - SCAN 05/01/2019 9:36 AM 2011 Care Teams Aquatics Manager Relationship Specialty Start Date End Date Manuel Morales MD [address] [facility] [address] [place] [address] PCP - General Family Medicine 05/01/19
--- OUTSIDE RECORDS SUMMARY | 2025-07-06 10:29 | XMS_ITS ---
Care Plan - [facility], [facility] Created on: July 06, 2025 Brigitte Ortega : 1955 Sex: Female Author Organization [facility] , [facility] Address [address] [place] [address] Phone Care Team Providers Care Furnace Checker Name Role Phone Александр JAQUEZ, lAvaro Sharp Unavailable [phone] KELECHI WOODSON Primary Care Provider [phone]
--- OUTSIDE RECORDS SUMMARY | 2025-07-06 10:29 | XMS_ITS | Clinical Summary ---
Author Organization [facility], [facility] Address [address] [place] [address] Phone Care Team Providers Care Bilingual Call Center Representative Name Role Phone Александр JAQUEZ, Alvaro Garibaying Unavailable [phone] KELECHI WOODSON Primary Care Provider [phone] Reason for Visit and Chief Complaint The Chief Complaint is: R hip pain Problems Includes: Problems addressed during this encounter and other active Problems All Visits Onset Date Resolved Date Provider Condition S tatus Joint Pain Hip Right 06/12/2024 Alexander Tristan PA-C Active Last Documented On 4 8:52AM ; [facility], [facility] Plan of Treatment Right hip bursa injection: The risks of the procedure was explained to the patient and verbal consent was obtained. The patient was allowed to stand holding onto the exam table. The skin over the hip bursa region was prepped with Betadine solution. Using a 22-gauge spinal needle directing it at 90? toward the hip bursa, the hip bursa was injected with 40 mg Depo-Medrol and 4 cc's of 0.25% bupivacaine. Needle was withdrawn and Band- Aid was applied. The patient tolerated the procedure well - Last Documented On 02/27/2025 2:08PM ; [facility], [facility] Instructions to patient Lose weight Last Documented On 5 1:42PM ; [facility], [facility] Assessments Includes: Assessments from this encounter Findings Fall Risk Assessment: - Last Documented On 02/27/2025 2:08PM ; [facility], [facility] This patient has been identified as a fall risk. Balance/gait along with postural blood pressure, vision and home fall hazards have been assessed. Medications have been reviewed, and recommendations made with regard to contributing factors for future falls. - Last Documented On 02/27/2025 2:08PM ; [facility] Plan of care: Consideration of vitamin D supplementation along with balance and strength training with consideration for formal physical therapy has been discussed with the patient. - Last Documented On 02/27/2025 2:08PM ; [facility] Greater trochanteric bursitis of the right hip - Last Documented On 02/27/2025 2:08PM ; [facility] Discussed options with the patient today moving forward. She elected to proceed with greater trochanteric bursal steroid injection which she tolerated very well. Continue activities as able. Follow up in the office as needed. Patient is agreeable with above plan. They are to call the office with any concerns. - Last Documented On 02/27/2025 2:08PM ; [facility], [facility] Instructions Includes: Instructions from this encounter Instructions to patient Lose weight Last Documented On 1:42PM ; [facility], [facility] Medical Equipment - Implanted Devices Includes: Current Devices No Medical Equipment Recorded Medications Includes: Medications discussed during this encounter and other current Medications Discontinued / Stopped on this date KELECHI WOODSON on 06/02/2024 Azelastine HCl 0.05% Ophthalmic Solution Provider: KELECHI WOODSON Diagnosis: Last Documented On 1:40PM By Sari [facility], [facility] Lisinopril 20 MG Oral Tablet Provider: KELECHI WOODSON Diagnosis: Last Documented On 1:40PM By Sari [facility], [facility] Simvastatin 20 MG Oral Tablet Provider: EKLECHI WOODSON Diagnosis: Last Documented On 1:40PM [facility] Metoprolol Succinate ER 25 M G Oral Tablet Extended Release 24 Hour Provider: Diagnosis: Last Documented On 1:41PM By Sari [facility], [facility] Levothyroxine Sodium 100 MCG Oral Tablet Provider: Diagnosis: Last Documented On 1:41PM By Sari [facility], [facility] Current Medications (continue as prescribed) Doxycycline Hyclate 20 MG Oral Tablet 02/23/2025 Pro vider: Diagnosis: Last Documented On 1:41PM By Sari Randall ; [facility], [facility] Levothyroxine Sodium 100 MCG Oral Tablet 02/06/2025 Provider: KELECHI WOODSON Diagnosis: Last Documented On 1:41PM By Sari Randall ; [facility], [facility] Metoprolol Succinate ER 25 M G Oral Tablet Extended Release 24 Hour 02/03/2025 Provider: Diagnosis: Last Documented On 1:41PM By Sari Rnadall ; [facility], [facility] Fexofenadine HCl 180 MG Oral Tablet 01/24/2025 Provi milton: Diagnosis: Last Documented On 1:41PM By Sari Randall ; [facility], [facility] Kzgcswvi-Gweakspln-Iqxtasgs 3.5-86133-2.1 Ophtha lmic Ointment 01/17/2025 Provider: Diagnosis: Last Documented On 1:41PM By Sari Randall ; [facility], [facility] Medications Administered Includes: Administered Medications from this encounter No Administered Medications Recorded Vital Signs Includes: Vital Signs from this encounter Vital Name 02/27/2025 01:42P Height (in) 67 Weight (lb) 217 Body Mass Index 34 Body Surface Area 2.1 Note: mgg Last Documented: On 02/27/2025 1:42PM ; [facility], [facility] Results Includes: Results discussed during this encounter No Results Recorded For Specified Dates History of Present Illness Includes: History of Present Illness from this encounter AYDEN Ortega is a 70 year old female. [...] or tingling. No recent injuries or trauma. Social History Description Last Updated Caffeine use 02/27/2025 Last Documented On 2:08PM ; [facility], [facility] Exercising regularly 02/27/2025 Last Documented On 2:08PM ; [facility], [facility] No recent change in diet 02/27/2025 Last Documented On 5 2:08PM ; [facility] Not a current smoker. 02/27/2025 Last Documented On 5 2:08PM ; [facility] Not using alcohol 02/27/2025 Last Documented On 5 2:08PM ; [facility] Not using drugs 02/27/2025 Last Documented On 5 2:08PM ; [facility] Smoking Status Unknown Procedures and Surgical History Includes: Procedures from this encounter Procedures Code Diagnosis Performing Provider Service Location Service Date DRAIN/INJECT, JOINT/BURSA (RIGHT) Trochanteric bursitis, right hip Alexander Tristan PA-C [facility] 02/27/2025 Last Documented On 5 11:38AM ; [facility] Triamcinolone/Kenalog, 10mg per cc [id number] Trochanteric bursitis, right hip Alexander Tristan PA-C [facility] 02/27/2025 Last Documented On 5 11:38AM ; [facility] an X-ray was performed 22081 Last Documented On 5 1:42PM ; [facility] an MRI was performed [id number] Last Documented On 5 1:42PM ; [facility] Surgical History Last Updated History of shoulder arthroplasty Last Documented On 5 2:08PM ; [facility] Medical History Includes: Medical History addressed during this encounter Description Last Updated History of Heartburn / Acid Reflux 02/27 Last Documented On 5 2:08PM ; [facility] History of Irregular Heartbeat Last Documented On 5 2:08PM ; [facility] History of Thyroid Disease 02/27/2025 Last Documented On 5 2:08PM ; [facility] Family History Includes: Family History addressed during this encounter Description Last Updated Family history of heart disease 02/28/20 Last Documented On 5 2:08PM ; [facility] Family history of rheumatoid arthritis 0 02/27/2025 Last Documented On 5 2:08PM ; [facility] Family history of systemic hypertension 02/27/2025 Last Documented On 5 2:08PM ; [facility] Review of [...] Active Last Documented On 5 1:41PM ; [facility] Encounters Encounter Provider Location Date Check-In Time Check- Out Time Diagnosis Follow Up Alexander Tristan PA-C [facility] 5 1:32PM 1:59PM Insurance Includes: Active Insurance Policies Plan Name Member ID Group # Subscriber Relationship Effect alida Dates 1 - Medicare Part B [facility] [id number] Brigitte Celaya - [facility] [employer] [id number] Brigitte Celaya Clinical Notes Includes: Clinical Notes from this encounter * Progress note Date Encounter Last Documented by 02/27/2025 Follow Up Last documented on 02/27/2025; 2:08 PM, Alexander Rahman; [facility], [facility] Active Problems & Conditions - Joint [...] 24 Hour 90 days, 0 refills - Kxcxpvkk-Qwyzzqzhv-Swbpszvq 3.5-68663-0.1 Ophthalmic Ointment 3.5-40576-2.1 10 days, 0 refills Past Medical/Surgical History [...] omissions. Care Team - KELECHI WOODSON - LAP POLISHER
--- OUTSIDE RECORDS SUMMARY | 2025-07-06 10:29 | XMS_ITS | Encounter Summary ---
Author Organization Healthcare Address [address] [place] [address] Care Team Providers Care Dual Rate Supervisor Name Role Phone Manuel Morales MD Primary Care Provider [phone] Encounter Details Date Type Department Care Team (Latest Contact Info) Description 05/09/2025 Travel Social History Tobacco Use Types Packs/Day [...] 2:45 PM EDT Office Visit [facility] [address] [facility] [address], [place] [address] Yulissa Guerra MD [address] [place] [address] documented as of this encounter Visit Diagnoses Not on filedocumented in this encounter Additional Health Concerns Assessment Noted Time A fall risk assessment has been complete d for the patient 11/01/2024 9:00 AM EDT A Body Mass Index follow-up plan has been documented for the patient 11/01/2024 9:49 AM EDT documented as of this encounter Care Teams Dual Rate Supervisor Relationship Specialty Start Date End Date Manuel Morales MD [address] [place] [address] PCP - General 01/03/21 documented as of this encounter
== END 2025-07-06 23:59 | disposition home or self-care (01) ==
LOC: RAD 10:26
PROVIDERS: PCP Family Medicine; Visit Provider Family Medicine
DX: Z12.31 Encounter for screening mammogram for malignant neoplasm of breast (principal); R92.323 Mammographic fibroglandular density, bilateral breasts
CPT/HCPCS: 77063; 77067

== ENCOUNTER 2025-08-09 08:27 | Outpatient (CLI) | payer MEDICARE, SELFPAY ==
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
--- OUTSIDE RECORDS SUMMARY | 2025-08-10 10:20 | XMS_ITS | Patient Health Record ---
Author Organization [facility] Address [address] [place] [id number] Care Team Providers Care Police Surgeon Name Role Phone Manuel Morales Primary Care Provider [phone] Leona Gaspar Unavailable [phone] Allergies Allergen (clinical drug ingredient) Drug/Non Drug Allergy documented on EMR Reaction Allergy Type Onset Date Status Substance with penicillin structure and antibacterial mechanism of action (substance) Penicillins Unknown Drug Allergy 10/31/2018 Active Results Component Value Reference Range Notes P-TSH Reviewed date:11/30/2024 11:45:02 AM Interpretation:Normal Performing Lab: Notes/Report: Test performed by [employer] [employer] [address] [place], [place] [address] [place] [address] Mandeep Abbott MD, Retail Planner CLIA: [id number] TSH 3.19 0.43-5.25 mU/L P-T4 Free (thyroxine) Reviewed date:11/30/2024 11:45:02 AM Interpretation:Normal Performing Lab: Notes/Report: Test performed by [employer] [address] [place] [address] [place] [address] Mandeep Abbott MD, Retail Planner CLIA: [id number] Thyroxine Free (free T4) 1.39 0.86-1.76 ng/dL P-Culture, Urine Reviewed date:05/02/2025 02:01:49 PM Interpretation:No growth Performing Lab: Notes/Report: Test performed by [employer] [address] [place] [address] Je[place], [place] [address] Mandeep Abbott MD, Retail Planner CLIA: [id number] Specimen Source Urine - Void Culture, Urine See Below Final Report : No growth Urinalysis - Inhouse Reviewed date:04/30/2025 05:05:30 PM Interpretation: Performing Lab: Notes/Report: Color/Clarity yellow Leuk Trace Nitrite Neg Urobili 3.2 Protein Neg pH 6.0 Blood Trace-intact Sp. Gr. 1.015 Ketone Neg Bili Neg Gluc Neg P-Microalbumin/Creatinine, R andom Urine Sample Reviewed date:06/14/2025 02:55:12 PM Interpretation:Normal Performing Lab: Notes/Report: Test performed by [employer] [address] , [place] [address] Mandeep Abbott MD, Retail Planner CLIA: [id number] Albumin/Creatinine Ratio, Urine <6.74 0-30 ug/m g Microalbumin, Urine, Random <0.3 Creatinine, Urine 44.5 Mammogram Reviewed date:07/11/2025 03:44:40 PM Interpretation:Negative Performing Lab: Notes/Report: Negative result Negative CBC Fingerstick (in house) Reviewed date:07/09/2025 04:56:33 [...] - 38 plat 143 100 - 400 Reason For Referral No Information Medications Medication SIG (Take, Route, Frequency, Duration) Notes Start Date End Date Status Doxycycline Hyclate 20 MG 1 tablet 1 hour before breakfast and 1 hour before the evening meal Orally Twice a day Active Nystatin 989894 UNIT/GM 1 application Ex ternally 3 times a day 07/06/2025 Active Lisinopril 20 MG 1 tab(s) orally once a day; Duration: 90 days Active Nasonex 24HR 50 MCG/ACT 4 sprays (2 spra ys in each nostril) Nasally Once a day; Duration: 30 day(s) Active Synthroid 100 MCG 1 tab(s) Orally once a day; Duration: 90 days Active Metoprolol Succinate ER 25 MG 1 tablet Orally Once a day; Duration: 90 days Active oxyBUTYnin Chloride ER 10 MG 1 tablet Orally Once a day; Duration: 30 days 06/13/2025 Not-Takin g Simvastatin 20 MG 1 tablet in the even ing Orally Once a day; Duration: 90 days Active Mucinex 600 MG 1 tablet as needed Orally every 12 hrs Not-Taking Hceayecl-Lubqjknnb-Mxswa eth 3.5-75544-8.1 1 application into the lower eyelid of affected eye Ophthalmic Three times a day Not-Taking Immunizations Vaccine Route Administration Date Status Comme nts COVID 19 Moderna Unknown 08/28/2020 Administered COVID 19 Moderna Unknown 09/25/2020 Administered COVID 19 Moderna Unknown 06/27/2021 Administered COVID 19 Moderna Unknown 04/20/2022 Administered Fluzone High Dose (65yr and older) IM Intramuscular 06/04/2020 Administered Fluzone High Dose (65yr and older) Unknown 05/28/2022 Administered Fluzone High Dose (65yr and older) IM Intramuscular 05/31/2024 Administered Fluzone High Dose (65yr and older) IM Intramuscular 04/30/2025 Administered Fluzone Quad (6months&older) Unknown 05/26/2017 Administered [...] W/U Status Risk Notes Problem Essential hypertension (99052819) Essential hypertension (I10) Active confirmed Problem Hypertriglyceridemia (368094932) Hypertriglyceridemia (E78.1) Active confirmed Problem Constipation (40656053) Constipation (K59.00) Active confirmed Problem Overactive urinary bladder (disorder) (867120036) OAB (overactive bladder) (N32.81) Active confirmed Problem Chronic allergic conjunctivitis (35431601) Other chronic allergic conjunctivitis (H10.45) Active confirmed Problem Acute maxillary sinusitis (69311932) Acute recurrent maxillary sinusitis (J01.01) Active confirmed Problem Urge incontinence of urine (74226322) Urge incontinence (N39.41) Active confirmed Problem Acquired hypothyroidism (622676727) Acquired hypothyroidism (E03.9) Active confirmed Problem Gastroesophageal reflux disease (463100960) Gastroesophageal reflux disease, esophagitis presence not specified (K21.9) Active confirmed Problem Allergic rhinitis (68028305) Allergic rhinitis (J30.9) Active confirmed Problem Body mass index 30.0 0 to 34.99 (802689741826996) BMI 34.0-34.9,adult (Z68.34) Active confirmed Problem Pure hypercholesterolemia (080524308) Pure hypercholesterolemia (E78.00) Active confirmed Problem Obesity (012719293) Non morbid o besity (E66.9) Active confirmed Vital Signs Heart Rate 61 /min 07/06/2025 Blood pressure diastolic 80 mm Hg 07/06/2025 Height 67 in 07/06/2025 Blood pressure systolic 140 mm Hg 07/06/2025 Weight 219.6 lbs 07/06/2025 BMI 34.39 kg/m2 07/06/2025 Encounters Encounter Location Date Provider Diagnosis [facility] [address] [place], [place] [id number] 11/29/2024 Manuel Linwood Pure hypercholestero lemia E78.00 ; Essential hypertension I10 ; Acquired hypothyroidism E03.9 ; Obesity (BMI 30-39.9) E66.9 and BMI 34.0-34.9,adult Z68.34 [facility] [address] [place], [place] [id number] 04/30/2025 Manuel Linwood Acute UTI N39.0 and Encounter for immunization Z23 [facility] [address] [place], [place] [id number] 06/13/2025 Manuel Linwood Essential hypertensi on I10 ; Pure hypercholesterolemia E78.00 ; Acquired hypothyroidism E03.9 ; Breast cancer screening by mammogram Z12.31 and Urge incontinence N39.41 [facility] [address] [facility] [address] [place], [place] [id number] 07/06/2025 Leona Crowdy Constipation K59.00 and Yeast infection B37.9 [facility] [address] [id number] 09/04/2024 Manuel Linwood Acquired hypothyroid ism E03.9 ; Pure hypercholesterolemia E78.00 and Essential hypertension I10 Assessments Encounter Date Diagnosis (ICD Code) Assessment Notes Treatment Notes Treatment Clinical Notes Section Notes 09/04/2024 Acquired hypothyroid ism (ICD-10 - E03.9) 11/29/2024 Essential hypertensi on (ICD-10 - I10) 11/29/2024 Pure hypercholesterolemia (ICD-10 - E78.00) 04/30/2025 Encounter for immunization (ICD-10 - Z23) 04/30/2025 Acute UTI (ICD-10 - N39.0) 06/13/2025 Essential hypertensi on (ICD-10 - I10) 06/13/2025 Pure hypercholesterolemia (ICD-10 - E78.00) 07/06/2025 Constipation (ICD-10 - K59.00) Discussed fiber, probiotics, and miralax. 07/06/2025 Yeast infection (ICD -10 - B37.9) 06/13/2025 Acquired hypothyroid ism (ICD-10 - E03.9) 11/29/2024 Acquired hypothyroid ism (ICD-10 - E03.9) 09/04/2024 Pure hypercholesterolemia (ICD-10 - E78.00) 09/04/2024 Essential hypertensi on (ICD-10 - I10) 11/29/2024 Obesity (BMI 30-39.9 ) (ICD-10 - E66.9) 06/13/2025 Breast cancer screen ing by mammogram (ICD-10 - Z12.31) 11/29/2024 BMI 34.0-34.9,adult (ICD-10 - Z68.34) 06/13/2025 Urge incontinence (ICD-10 - N39.41) Plan Of Treatment Next Appt Details Provider Name:Manuel Smith Jean ry, 12/12/2025 10:00:00 AM, [address], [address], [place], [id number], Insurance Providers Payer Name Payer Address Payer Phone Subscriber Number Group Number Insured Name Patient Relationship to Insured Coverage Start Date Coverage End Date MEDICARE PART B [address] [address] [place] [id number] [id number] MILLICENT KEYS Self - patient is the insured [facility] OPTIONS [address] [place] [id number] MILLICENT KEYS Self - patient is the [...] Repair 10/15/2022 Hospitalization History Reason Date(Month/Year) [facility] 05[facility]2019 [place] 11/24/2016 UTI- [facility] ER 10/11/2012 Broken Vertebrae
--- OUTSIDE RECORDS SUMMARY | 2025-08-10 10:20 | XMS_ITS | Clinical Summary ---
Author Organization [facility] Address [address] [place] [address] Care Team Providers Care Junior Loan Processor Name Role Phone Manuel Morales MD Primary Care Provider [phone] Allergies Active Allergy Reactions Criticality Noted Date [...] (06/10/2021): Added automatically from request for surgery [id number] Social History Tobacco Use Types Packs/Day Years [...] 06/09/2021, 05/24 Medical Devices Implanted Type Area Paralegal Assistant Device Identifier Shelf Expiration Date Model / Serial / Lot Lens AcrysaDealio Iq Toric Sn6at4 23.0 - [id number] - [id number] Implanted:Qty : 1 on 05/01/2019 by Yulissa Guerra MD at [facility] Implant Left: Posterior Chamber LUIS 12/21/2023 [id number] / [id number] / Lens Acrysof Iq 6x13mm Sn60wf 23.0 - [id number] - [id number] Implanted:Qty : 1 on 06/19/2019 by Yulissa Guerra MD at [facility] Implant Right: Posterior Chamber ULIS 02/19/2023 [id number] / [id number] / Insurance MEDICARE A & B Member Subscriber Plan / Payer (Ef fective 2019-Present) Name:Brigitte Ortega Member ID:[id number] Relation to Subscriber:Self Name:Brigitte Ortega Subscriber ID:[id number] Payer ID:[id number] Group ID:Not on file Type:Not on file Address: [id number] HEALTH CARE OPTIONS Advance Directives Documents on File Type Date Recorded Patient Wire Wrapping Machine Operator Expl anation LIVING WILL - SCAN 05/01/2019 9:36 AM 2011 Care Teams Junior Loan Processor Relationship Specialty Start Date End Date Manuel Morales MD [address] [facility] [address] [place] [address] PCP - General Family Medicine 05/01/19
--- OUTSIDE RECORDS SUMMARY | 2025-08-10 10:21 | XMS_ITS | Clinical Summary ---
Author Organization [facility] Address [address] [place] [address] Care Team Providers Care C D Area Supervisor Name Role Phone Manuel Morales MD Primary Care Provider [phone] Allergies Active Allergy Reactions Criticality Noted Date [...] eyes daily. Active neomycin-polymy aubree-dexamethame thasone (Polydex) 3.5-06202-6.1 ointment ophthalmic ointment Apply 0.25 inches to both eyes nightly. 3.5 g 5 5 Active Active Problems Problem Noted Date Diagnosed Date Tachycardia 11/01/2024 PCO (posterior capsular opacification), bilatera l 05/14/2021 Bilateral posterior capsular opacification 04/02 Overview (11/01/2024): Added automatically from request for surgery [id number] After cataract of both eyes not obscuring [...] EDT Office Visit [facility] [address], [place] [address] Yulissa Guerra MD Meibomian gland dysfunction (MGD) 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 (Primary Dx); H/O laser assisted in situ keratomileusis; History of YAG laser capsulotomy of lens, unspecified laterality 05/16/2025 Travel from Last 3 Months Family History [...] EDT Office Visit [facility] - [address], [place] [address] Yulissa Guerra MD [address] [address] Health Maintenance Due Date Last Done Comments [facility]-Bone Density Scan 1954 [facility]-Depression Screening 1954 [facility]-Hepatitis C Screening 1954 [facility]-Medicare Annual Wellness (AWV) 1954 [facility]-Infant/Child/Adol SDOH Screenings 1954 [facility]- SDOH Screenings 02/15/1972 [facility]-Adult SDOH Screenings 02/15/1972 CT Colonography 1999 Colonoscopy 1999 FIT-DNA 1999 FIT 1999 FOBT 1999 Sigmoidoscopy 1999 [facility]-Colorectal Cancer Screening 1999 [facility]-Breast Cancer Screening 02/15/2004 [facility]-RSV Vaccine: 60+ Years or (1 - Risk 50-74 years 1-dose series) 02/15/2004 [facility]-Zoster Vaccines (2 of 3) 06/02/2016 04/07/2016 [id number] Vaccine ( - 2024- season) 2025 08/25/2024, 06/15/2023, 09/09/2022, Additional history exists [facility]-DTaP,Tdap,and Td Vaccines (3 - Td or Tdap) 07/21/2026 07/21/2016, 10/21/2009 [facility]-Pneumococcal Vaccine: 50+ Years Completed 05/31/2024, 06/09/2021, 06/11/2020 [facility]-Influenza Vaccine Completed 04/30/2025 , 05/28/2022, 05/23/2021, Additional history exists HPV Vaccines (No Doses Required) Completed [facility]-HIB Vaccines Aged Out No longer e [...] age to complete this topic Insurance MEDICARE [facility] Care Teams C D Area Supervisor Relationship Specialty Start Date End Date Manuel Morales MD [address] [facility] [address] [place] [address] [facility] - General 01/03/21
== END 2025-08-09 23:59 | disposition home or self-care (01) ==
LOC: LAB.DROPOF 08-10 10:18
PROVIDERS: PCP Family Medicine; Visit Provider Student in an Organized Health Care Education/Training Program
DX: N39.0 Urinary tract infection, site not specified (principal)
CPT/HCPCS: 87086

== ENCOUNTER 2025-08-20 12:00 | Outpatient (CLI) | payer MEDICARE, SELFPAY ==
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
--- OUTSIDE RECORDS SUMMARY | 2025-08-21 10:18 | XMS_ITS | Patient Health Record ---
Author Organization [facility] Address [address] [place] [phone] Care Team Providers Care Enterprise Resource Analyst Name Role Phone Manuel Morales Primary Care Provider Leona Gaspar Unavailable [phone] Allergies Allergen (clinical drug ingredient) Drug/Non Drug [...] - 38 plat 143 100 - 400 P-Culture, Urine Reviewed date:05/02/2025 02:01:49 PM Interpretation:No growth Performing Lab: Notes/Report: CLIA: [id number] Mandeep Abbott MD, Podiatric Medicine Professor [address] [place] [address] , [address], [place] [address] Test performed by [employer] Specimen Source Urine - Void Culture, Urine See Below Final Report : No growth Urinalysis - Inhouse Reviewed date:04/30/2025 05:05:30 PM Interpretation: Performing Lab: Notes/Report: Color/Clarity yellow Leuk Trace Nitrite Neg Urobili 3.2 Protein Neg pH 6.0 Blood Trace-intact Sp. Gr. 1.015 Ketone Neg Bili Neg Gluc Neg P-TSH Reviewed date:11/30/2024 11:45:02 AM Interpretation:Normal Performing Lab: Notes/Report: Test performed by [facility] [address] , [place] [address] Mandeep Abbott MD, Podiatric Medicine Professor CLIA: [id number] TSH 3.19 0.43-5.25 mU/L P-T4 Free (thyroxine) Reviewed date:11/30/2024 11:45:02 AM Interpretation:Normal Performing Lab: Notes/Report: Test performed by [facility] [address] , [place] [address] Mandeep Abbott MD, Podiatric Medicine Professor CLIA: [id number] Thyroxine Free (free T4) 1.39 0.86-1.76 ng/dL P-Microalbumin/Creatinine, R andom Urine Sample Reviewed date:06/14/2025 02:55:12 PM Interpretation:Normal Performing Lab: Notes/Report: CLIA: [id number] Mandeep Abbott MD, Podiatric Medicine Professor [address] [place] [address] , [place] [address] Test performed by [facility] Albumin/Creatinine Ratio, Urine <6.74 0-30 ug/m g Microalbumin, Urine, Random <0.3 Creatinine, Urine 44.5 Mammogram Reviewed date:07/11/2025 03:44:40 PM Interpretation:Negative Performing Lab: Notes/Report: Negative result Negative Reason For Referral No Information Medications Medication SIG (Take, Route, Frequency, Duration) Notes Start Date End Date Status Doxycycline Hyclate 20 MG 1 tablet 1 hour before breakfast and 1 hour before the evening meal Orally Twice a day Active Nystatin 248260 UNIT/GM 1 application Ex ternally 3 times [...] as needed Orally every 12 hrs Not-Taking Jliclapx-Yxleteffr-Phkkp eth 3.5-88335-1.1 1 application into the lower eyelid of [...] (65yr and older) IM Intramuscular 04/30/2025 Administered COVID 19 Moderna Unknown 08/28/2020 Administered COVID 19 Moderna Unknown 09/25/2020 Administered COVID 19 Moderna Unknown 06/27/2021 Administered COVID 19 Moderna Unknown 04/20/2022 Administered Problems Problem Type SNOMED Code ICD Code Onset Dates Problem Status W/U Status Risk Notes Problem Essential hypertension (66044208) Essential hypertension (I10) Active confirmed Problem Hypertriglyceridemia (297501563) Hypertriglyceridemia (E78.1) Active confirmed Problem Constipation (95250281) Constipation (K59.00) Active confirmed Problem Overactive urinary bladder (disorder) (132393178) OAB (overactive bladder) (N32.81) Active confirmed Problem Chronic allergic conjunctivitis (35247404) Other chronic allergic conjunctivitis (H10.45) Active confirmed Problem Acute maxillary sinusitis (87561917) Acute recurrent maxillary sinusitis (J01.01) Active confirmed Problem Urge incontinence of urine (26803478) Urge incontinence (N39.41) Active confirmed Problem Acquired hypothyroidism (076207946) Acquired hypothyroidism (E03.9) Active confirmed Problem Gastroesophageal reflux disease (093032815) Gastroesophageal reflux disease, esophagitis presence not specified (K21.9) Active confirmed Problem Allergic rhinitis (75951491) Allergic rhinitis (J30.9) Active confirmed Problem Body mass index 30.0 0 to 34.99 (095161606524214) BMI 34.0-34.9,adult (Z68.34) Active confirmed Problem Pure hypercholesterolemia (860638679) Pure hypercholesterolemia (E78.00) Active confirmed Problem Obesity (851729933) Non morbid o besity (E66.9) Active confirmed Vital Signs Heart Rate 61 /min 07/06/2025 Blood pressure diastolic 80 mm Hg 07/06/2025 Height 67 in 07/06/2025 Blood pressure systolic 140 mm Hg 07/06/2025 Weight 219.6 lbs 07/06/2025 BMI 34.39 kg/m2 07/06/2025 Encounters Encounter Location Date Provider Diagnosis [facility] [address] [place], [place] [phone] 11/29/2024 Manuel Fairfax Pure hypercholestero lemia E78.00 ; Essential hypertension I10 ; Acquired hypothyroidism E03.9 ; Obesity (BMI 30-39.9) E66.9 and BMI 34.0-34.9,adult Z68.34 [facility] [address] [place], [place] [phone] 04/30/2025 Manuel Fairfax Acute UTI N39.0 and Encounter for immunization Z23 [facility] [address] [place], [place] [id number] 06/13/2025 Manuel Fairfax Essential hypertensi on I10 ; Pure hypercholesterolemia E78.00 ; Acquired hypothyroidism E03.9 ; Breast cancer screening by mammogram Z12.31 and Urge incontinence N39.41 [facility] [address] [facility] [address] [facility] [address] [place], [place] [phone] 07/06/2025 Leona Crowdy Constipation K59.00 and Yeast infection B37.9 [facility] [address] [facility] [address] [place], [place] [phone] 09/04/2024 Manuel Fairfax Acquired hypothyroid ism E03.9 ; Pure hypercholesterolemia E78.00 and Essential hypertension I10 Assessments Encounter Date Diagnosis (ICD Code) Assessment Notes Treatment Notes Treatment Clinical Notes Section Notes 09/04/2024 Acquired hypothyroid ism (ICD-10 - E03.9) 11/29/2024 Essential hypertensi on (ICD-10 - I10) 11/29/2024 Pure hypercholesterolemia (ICD-10 - E78.00) 04/30/2025 Encounter for immunization (ICD-10 - Z23) 04/30/2025 Acute UTI (ICD-10 - N39.0) 07/06/2025 Constipation (ICD-10 - K59.00) Discussed fiber, probiotics, and miralax. 07/06/2025 Yeast infection (ICD -10 - B37.9) 06/13/2025 Essential hypertensi on (ICD-10 - I10) 06/13/2025 Pure hypercholesterolemia (ICD-10 - E78.00) 06/13/2025 Acquired hypothyroid ism (ICD-10 - E03.9) 11/29/2024 Acquired hypothyroid ism (ICD-10 - E03.9) 09/04/2024 Pure hypercholesterolemia (ICD-10 - E78.00) 11/29/2024 Obesity (BMI 30-39.9 ) (ICD-10 - E66.9) 09/04/2024 Essential hypertensi on (ICD-10 - I10) 06/13/2025 Breast cancer screen ing by mammogram (ICD-10 - Z12.31) 06/13/2025 Urge incontinence (ICD-10 - N39.41) 11/29/2024 BMI 34.0-34.9,adult (ICD-10 - Z68.34) Plan Of Treatment Next Appt Details Provider Name:Manuel Hernandeznel ry, 12/12/2025 10:00:00 AM, [address], [place], [id number], Insurance Providers Payer Name Payer Address Payer Phone Subscriber Number Group Number Insured Name Patient Relationship to Insured Coverage Start Date Coverage End Date MEDICARE PART B [address] [address] [place] [address] [id number] MILLICENT KEYS Self - patient is the insured [facility] OPTIONS [address] [place] [id number] MILLICENT KEYS Self - patient is the [...] Reason Date(Month/Year) [facility] [place] 11/24/2016 UTI- [facility] ER 10/11/2012 Broken Vertebrae
--- OUTSIDE RECORDS SUMMARY | 2025-08-21 10:18 | XMS_ITS | Clinical Summary ---
Author Organization [facility] Address [address] [place] [address] Phone Care Team Providers Care Paper Wood Cutter Name Role Phone Александр JAQUEZ, Alvaro Sharp Unavailable [phone] KELECHI WOODSON Primary Care Provider [phone] Reason for Visit and Chief Complaint The Chief Complaint is: R hip pain Problems Includes: Problems addressed during this encounter and other active Problems All Visits Onset Date Date of Diagnosis Resolved Date Provider Condition Status Joint Pain Hip Right 06/12/2024 06/12/2024 Alexander Tristan PA-C Active Last Documented On 1:42AM ; [facility], [facility] Plan of Treatment - Patient screened for future fall risk: documentation of any fall with injury in past year - Last Documented On 07/24/2024 9:41AM ; [facility], [facility] Instructions to patient Lose weight Last Documented On 9:30AM ; [facility], [facility] Assessments Includes: Assessments from this encounter Findings - Overweight - Last Documented On 07/24/2024 9:41AM ; [facility], [facility] Greater trochanteric bursitis of the right hip - Last Documented On 07/24/2024 9:41AM ; [facility], [facility] Osteoarthritis of the right knee - Last Documented On 07/24/2024 9:41AM ; [facility], [facility] Patient much improved compared to her [...] - Last Documented On 07/24/2024 9:41AM ; [facility], [facility] Instructions Includes: Instructions from this encounter Instructions to patient Lose weight Last Documented On 9:30AM ; [facility], [facility] Medical Equipment - Implanted Devices Includes: Current Devices No Medical Equipment Recorded Medications Includes: Medications discussed during this encounter and other current Medications Current Medications (continue as prescribed) Doxycycline Hyclate 20 MG Oral Tablet 02/23/2025 Pro vider: Diagnosis: Last Documented On 1:41PM By Sari Randall ; [facility], [facility] Levothyroxine Sodium 100 MCG Oral Tablet 02/06/2025 Provider: KELECHI WOODSON Diagnosis: Last Documented On 1:41PM By Sari Randall ; [facility], [facility] Metoprolol Succinate ER 25 M G Oral Tablet Extended Release 24 Hour 02/03/2025 Provider: Diagnosis: Last Documented On 1:41PM By Sari Randall ; [facility], [facility] Fexofenadine HCl 180 MG Oral Tablet 01/24/2025 Provi milton: Diagnosis: Last Documented On 1:41PM By Sari Randall ; [facility], [facility] Ltcnnsxt-Wjlawzjga-Cijjjony 3.5-02832-8.1 Ophtha lmic Ointment 01/17/2025 Provider: Diagnosis: Last Documented On 1:41PM By Sari Randall ; [facility], [facility] Medications Administered Includes: Administered Medications from this encounter No Administered Medications Recorded Vital Signs Includes: Vital Signs from this encounter Vital Name 07/24/2024 09:31A Height (in) 67 Weight (lb) 217 Body Mass Index 34 Body Surface Area 2.1 Note: mgg Last Documented: On 07/24/2024 9:31AM ; [facility], [facility] Results Includes: Results discussed during this [...] 07/24/2024 Last Documented On 4 9:41AM ; [facility], [facility] Exercising regularly 07/24/2024 Last Documented On 4 9:41AM ; [facility], [facility] No recent change in diet 07/24/2024 Last Documented On 4 9:41AM ; [facility], [facility] Not a current smoker. 07/24/2024 Last Documented On 4 9:41AM ; [facility] Not using alcohol 07/24/2024 Last Documented On 4 9:41AM ; [facility], [facility] Not using drugs 07/24/2024 Last Documented On 4 9:41AM ; [facility], [facility] Sex - Female 07/17/2025 Last Documented On 5 3:08PM ; [facility], [facility] Smoking Status Unknown Procedures and Surgical History Includes: Procedures from this encounter Procedures Code Diagnosis Performing Provider Service L ocation Service Date an X-ray was performed 24720 Last Documented On 4 9:30AM ; [facility] an MRI was performed [id number] Last Documented On 4 9:30AM ; [facility], [facility] Surgical History Last Updated History of shoulder arthroplasty 024 Last Documented On 4 9:41AM ; [facility], [facility] Medical History Includes: Medical History addressed during this encounter Description Last Updated History of Heartburn / Acid Reflux 07/24 Last Documented On 4 9:41AM ; [facility], [facility] History of Irregular Heartbeat 4 Last Documented On 4 9:41AM ; [facility] History of Thyroid Disease 07/24/2024 Last Documented On 4 9:41AM ; [facility] Family History Includes: Family History addressed during this encounter Description Last Updated Family history of heart disease 07/24/20 24 Last Documented On 4 9:41AM ; [facility] Family history of rheumatoid arthritis 1 09/24/2023 Last Documented On 4 9:41AM ; [facility] Family history of systemic hypertension 07/24/2024 Last Documented On 4 9:41AM ; [facility] Review of Systems Includes: Review of [...] Mental Status from this encounter Description Anxiety Last Documented On 4 9:30AM ; [facility] Physical Exam Includes: Physical Exam from this encounter Allergies Includes: Active Allergies Substance Type Reaction Onset Date Resolved Date Statu s Penicillin G Allergy 06/12/2024 Active Last Documented On 5 9:08AM ; [facility] Care Paper Wood Cutter Name (Identifier) Role/Relation Location/Telecom Last Documented By Alvaro Fountain MD ([id number]) Assigned practitioner (occupation) [address] [place], [place], [place], [address] tel:[phone] Last Documented On 07/17/2025 3:08PM ; [facility] KELECHI WOODSON ([id number]) Primary care physician (occupation) [address], [place], [place], [place], [address] tel:[phone] Last Documented On 07/17/2025 3:08PM ; [facility] Encounters Encounter Provider Location (Healthcare Service Location) Date Check-In Time Check-Out Time Diagnosis Encounter [facility] 8:35AM 9:29AM Overweight Payer Includes: Active Insurance Policies Plan Name (Payer ID) Coverage Type Member ID Group # Subscriber (ID) Relationship Effective Dates 1 - Medicare Part B [facility] ([id number]) [id number] Brigitte Pierson Jordan Self (Checked on 07/11/2025) Last Documented On 4 8:58AM ; [facility] 2 - [facility] ([id number]) [id number] Brigitte Pierson Jordan Self (Checked on 07/11/2025) Last Documented On 12:35PM ; [facility] Clinical Notes Includes: Clinical Notes from this encounter * Progress note Date Encounter Last Documented by 07/24/2024 Follow Up Last documented on 07/24/2024; 9:41 AM, Alexander Rahman; [facility] Active Problems & Conditions - Joint [...] omissions. Care Team - KELECHI WOODSON - GIS PROFESSOR
--- OUTSIDE RECORDS SUMMARY | 2025-08-21 10:18 | XMS_ITS | Clinical Summary ---
Author Organization [facility] Address [address] [place] [address] Care Team Providers Care Sales Engineering Manager Name Role Phone Manuel Morales MD Primary Care Provider [phone] Allergies Active Allergy Reactions Criticality Noted Date [...] (06/10/2021): Added automatically from request for surgery [id number] Social History Tobacco Use Types Packs/Day Years [...] 06/09/2021, 05/24 Medical Devices Implanted Type Area Moisture Meter Operator Device Identifier Shelf Expiration Date Model / Serial / Lot Lens AcrysCaseMetrix Iq Toric Sn6at4 23.0 - [id number] - [id number] Implanted:Qty : 1 on 05/01/2019 by Yulissa Guerra MD at [facility] Implant Left: Posterior Chamber LUIS 12/21/2023 [id number] / [id number] / Lens Acrysof Iq 6x13mm Sn60wf 23.0 - [id number] - [id number] Implanted:Qty : 1 on 06/19/2019 by Yulissa Guerra MD at [facility] Implant Right: Posterior Chamber LUIS 02/19/2023 [id number] / [id number] / Insurance MEDICARE A & B Member Subscriber Plan / Payer (Ef fective 2019-Present) Name:Brigitte Ortega Member ID:[id number] Relation to Subscriber:Self Name:Brigitte Ortega Subscriber ID:[id number] Payer ID:[id number] Group ID:Not on file Type:Not on file Address: [address] [employer] Advance Directives Documents on File Type Date Recorded 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
--- OUTSIDE RECORDS SUMMARY | 2025-08-21 10:19 | XMS_ITS | Clinical Summary ---
Author Organization [facility] Address [address] [place] [address] Phone Care Team Providers Care Stock Clipper Name Role Phone Аелксандр JAQUEZ, Alvaro Sharp Unavailable [phone] KELECHI WOODSON Primary Care Provider [phone] Reason for Visit and Chief Complaint The Chief Complaint is: R hip pain Problems Includes: Problems addressed during this encounter and other active Problems All Visits Onset Date Date of Diagnosis Resolved Date Provider Condition Status Joint Pain Hip Right 06/12/2024 06/12/2024 Alexander Tristan PA-C Active Last Documented On 1:42AM ; [facility] Plan of Treatment - Patient screened for future fall risk: documentation of any fall with injury in past year - Last Documented On 07/11/2025 9:34AM ; [facility] Instructions to patient Lose weight Last Documented On 9:20AM ; [facility] Assessments Includes: Assessments from this encounter Findings - Overweight - Last Documented On 07/11/2025 9:34AM ; [facility] Greater trochanteric bursitis of the hip - Last Documented On 07/11/2025 9:34AM ; [facility] Patient elect today proceed with the injection her right hip bursa which she tolerated very well and did experience some relief of symptoms post injection. She can continue activities as tolerated. She can follow up in the office PRN. Patient is agreeable with above plan and will call the office with any concerns in the meantime. - Last Documented On 07/11/2025 9:34AM ; [facility] Instructions Includes: Instructions from this encounter Instructions to patient Lose weight Last Documented On 9:20AM ; [facility] Medical Equipment - Implanted Devices Includes: Current Devices No Medical Equipment Recorded Medications Includes: Medications discussed during this encounter and other current Medications Current Medications (continue as prescribed) Doxycycline Hyclate 20 MG Oral Tablet 02/23/2025 Pro vider: Diagnosis: Last Documented On 1:41PM By Sari Randall ; [facility] Levothyroxine Sodium 100 MCG Oral Tablet 02/06/2025 Provider: KELECHI WOODSON Diagnosis: Last Documented On 1:41PM By Sari Randall ; [facility] Metoprolol Succinate ER 25 M G Oral Tablet Extended Release 24 Hour 02/03/2025 Provider: Diagnosis: Last Documented On 1:41PM By Sari Randall ; [facility] Fexofenadine HCl 180 MG Oral Tablet 01/24/2025 Provi milton: Diagnosis: Last Documented On 1:41PM By Sari Randall ; [facility] Ccopnqju-Pqailuozi-Miiujxjr 3.5-30152-1.1 Ophtha lmic Ointment 01/17/2025 Provider: Diagnosis: Last Documented On 1:41PM By Sari Randall ; [facility] Medications Administered Includes: Administered Medications from this encounter No Administered Medications Recorded Vital Signs Includes: Vital Signs from this encounter Vital Name 07/11/2025 09:08A Height (in) 67 Weight (lb) 217 Body Mass Index 34 Body Surface Area 2.1 Note: mgg Last Documented: On 07/11/2025 9:08AM ; [facility] Results Includes: Results discussed during this encounter No Results Recorded For Specified Dates History of Present Illness Includes: History of Present Illness from this encounter AYDEN Ortega is a 70 year old female. - Allergy list reviewed - Problem list reviewed - Medication list reviewed - - Review of medications documented Patient presents today for re-evaluation of right hip pain. She has a longstanding history of greater trochanteric bursitis of her right hip. Was last seen by myself on 02/27/2025 states injection at that visit gave her significant relief of symptoms up until the past several weeks. No new injuries or trauma. Most pain over the lateral hip today. Social History Description Last Updated Caffeine use 07/11/2025 Last Documented On 5 9:34AM ; [facility] Exercising regularly 07/11/2025 Last Documented On 5 9:34AM ; [facility] No recent change in diet 07/11/2025 Last Documented On 5 9:34AM ; [facility] Not a current smoker. 07/11/2025 Last Documented On 5 9:34AM ; [facility] Not using alcohol 07/11/2025 Last Documented On 5 9:34AM ; [facility] Not using drugs 07/11/2025 Last Documented On 5 9:34AM ; [facility] Sex - Female 07/17/2025 Last Documented On 3:08PM ; [facility] Smoking Status Unknown Procedures and Surgical History Includes: Procedures from this encounter Procedures Code Diagnosis Performing Provider Service Location Service Date DRAIN/INJECT, JOINT/BURSA (RIGHT) Trochanteric bursitis, right hip Alexander Tristan PA-C [facility] 07/11/2025 Last Documented On 5 3:08PM ; [facility] Injection, betamethasone acetate 6mg per cc and betamethason [id number] Trochanteric bursitis, right hip Alexander Tristan PA-C [facility] 07/11/2025 Last Documented On 5 3:08PM ; [facility] Surgical History Last Updated History of shoulder arthroplasty 025 Last Documented On 5 9:34AM ; [facility] Medical History Includes: Medical History addressed during this encounter Description Last Updated History of Heartburn / Acid Reflux 07/11 Last Documented On 5 9:34AM ; [facility] History of Irregular Heartbeat 5 Last Documented On 5 9:34AM ; [facility] History of Thyroid Disease 07/11/2025 Last Documented On 5 9:34AM ; [facility] Family History Includes: Family History addressed during this encounter Description Last Updated Family history of heart disease 07/11/20 25 Last Documented On 5 9:34AM ; [facility] Family history of rheumatoid arthritis 1 09/10/2024 Last Documented On 5 9:34AM ; [facility] Family history of systemic hypertension 07/11/2025 Last Documented On 5 9:34AM ; [facility] Review of Systems Includes: Review of [...] this encounter Description Anxiety Last Documented On 5 9:08AM ; [facility] Physical Exam Includes: Physical Exam from this encounter Allergies Includes: Active Allergies Substance Type Reaction Onset Date Resolved Date Statu s Penicillin G Allergy 06/12/2024 Active Last Documented On 5 9:08AM ; [facility] Care Stock Clipper Name (Identifier) Role/Relation Location/Telecom Last Documented By Alvaro Fountain MD ([id number]) Assigned practitioner (occupation) [address] [place], [place], [place], [address] tel:[phone] Last Documented On 07/17/2025 3:08PM ; [facility] KELECHI WOODSON ([id number]) Primary care physician (occupation) [address], [place], [place], [place], [address] tel:[phone] Last Documented On 07/17/2025 3:08PM ; [facility] Encounters Encounter Provider Location (Healthcare Service Location) Date Check-In Time Check-Out Time Diagnosis Encounter Disposition Follow Up Alexander Tristan PA-C [facility] 2024 9:02AM 9:31AM Overweight Payer Includes: Active Insurance Policies Plan Name (Payer ID) Coverage Type Member ID Group # Subscriber (ID) Relationship Effective Dates 1 - Medicare Part B [facility] ([id number]) [id number] Brigitte Pierson Jordan Self (Checked on 07/11/2025) Last Documented On 4 8:58AM ; [facility] 2 - [facility] ([id number]) [id number] Brigitte Pierson Jordan Self (Checked on 07/11/2025) Last Documented On 4 12:35PM ; [facility] Clinical Notes Includes: Clinical Notes from this encounter * Progress note Date Encounter Last Documented by 07/11/2025 Follow Up Last documented on 07/11/2025; 9:34 AM, Alexander Rahman; [facility] Active Problems & Conditions - Joint Pain Hip Right Chief Complaint - R hip pain Referred Here Referred by. History of Present Illness Brigitte Ortega is a 70 year old female. - Allergy list reviewed - Problem list reviewed - Medication list reviewed - - Review of medications documented Patient presents today for re-evaluation of right hip pain. She has a longstanding history of greater trochanteric bursitis of her right hip. Was last seen by myself on 02/27/2025 states injection at that visit gave her significant relief of symptoms up until the past several weeks. No new injuries or trauma. Most pain over the lateral hip today. Current Medication - Doxycycline Hyclate 20 MG Oral Tablet 30 days, 0 refills - Fexofenadine HCl 180 MG Oral Tablet 30 days, 0 refills - Levothyroxine Sodium 100 MCG Oral Tablet 90 days, 0 refills - Metoprolol Succinate ER 25 MG Oral Tablet Extended Release 24 Hour 90 days, 0 refills - Iqgiyxdc-Bbdtebgvv-Vrmlfyxl 3.5-56310-3.1 Ophthalmic Ointment 3.5-31168-9.1 10 days, 0 refills Past Medical/Surgical History [...] allergic reaction. Physical Findings - Vitals taken 07/11/2025 09:08 am mgg Height 67 in Weight 217 [...] 2+ dorsalis pedis pulse Assessment - Overweight Counseling/Education - Tobacco non-user - Use of [...] bursa, the hip bursa was injected with 6 mg of betamethasone and 4 cc's of 0.25% bupivacaine. Needle [...] the patient. Greater trochanteric bursitis of the hip Patient elect today proceed with the injection her right hip bursa which she tolerated very well and did experience some relief of symptoms post injection. She can continue activities as tolerated. She can follow up in the office PRN. Patient is agreeable with above plan and will call the office with any concerns in the meantime. Notes This dictation was done with voice recognition software and may contain errors and omissions. Care Team - KELECHI WOODSON - SCREEN MAKER
--- OUTSIDE RECORDS SUMMARY | 2025-08-21 10:19 | XMS_ITS | Clinical Summary ---
Author Organization [facility] Address [address] [place] [address] Phone Care Team Providers Care Diver Helper Name Role Phone Александр JAQUEZ, Alvaro Sharp Unavailable [phone] KELECHI WOODSON Primary Care Provider [phone] Reason for Visit and Chief Complaint The Chief Complaint is: R hip pain Problems Includes: Problems addressed during this encounter and other active Problems Current Visit Onset Date Date of Diagnosis Resolved Date Provider Condition Status Joint Pain Hip Right 06/12/2024 06/12/2024 Alexander Tristan PA-C Active Last Documented On 1:42AM ; [facility], [facility] Plan of Treatment - Patient screened for future fall risk: documentation of any fall with injury in past year - Last Documented On 06/12/2024 9:27AM ; [facility] Instructions to patient Lose weight Last Documented On 8:55AM ; [facility], [facility] Assessments Includes: Assessments from this encounter Findings - Overweight - Last Documented On 06/12/2024 9:27AM ; [facility] Greater trochanteric bursitis of the right hip - Last Documented On 06/12/2024 9:27AM ; [facility] Osteoarthritis of the right hip - Last Documented On 06/12/2024 9:27AM ; [facility], [facility] Discussed options with the patient today. [...] Last Documented On 06/12/2024 9:27AM ; [facility] Instructions Includes: Instructions from this encounter Instructions to patient Lose weight Last Documented On 8:55AM ; [facility], [facility] Medical Equipment - Implanted Devices Includes: Current Devices No Medical Equipment Recorded Medications Includes: Medications discussed during this encounter and other current Medications Current Medications (continue as prescribed) Doxycycline Hyclate 20 MG Oral Tablet 02/23/2025 Pro vider: Diagnosis: Last Documented On 1:41PM By Sari Randall ; [facility] Levothyroxine Sodium 100 MCG Oral Tablet 02/06/2025 Provider: KELECHI WOODSON Diagnosis: Last Documented On 1:41PM By Sari Randall ; [facility], [facility] Metoprolol Succinate ER 25 M G Oral Tablet Extended Release 24 Hour 02/03/2025 Provider: Diagnosis: Last Documented On 1:41PM By Sari Randall ; [facility], [facility] Fexofenadine HCl 180 MG Oral Tablet 01/24/2025 Provi milton: Diagnosis: Last Documented On 1:41PM By Sari Randall ; [facility] Wmlzqjxl-Hrbepqdtz-Obmjgqiu 3.5-28057-6.1 Ophtha lmic Ointment 01/17/2025 Provider: Diagnosis: Last Documented On 1:41PM By Sari Randall ; [facility] Medications Administered Includes: Administered Medications from this encounter No Administered Medications Recorded Vital Signs Includes: Vital Signs from this encounter Vital Name 06/12/2024 08:55A Height (in) 67 Weight (lb) 216 Body Mass Index 33.8 Body Surface Area 2.1 Note: mgg Last Documented: On 06/12/2024 9:00AM ; [facility] Results Includes: Results discussed during this encounter No Results Recorded For Specified Dates History of Present Illness Includes: History of Present Illness from this encounter HPI Brigitte Ortega is a 69 year old [...] 06/12/2024 Last Documented On 4 9:27AM ; [facility], [facility] Exercising regularly 06/12/2024 Last Documented On 4 9:27AM ; [facility], [facility] No recent change in diet 06/12/2024 Last Documented On 4 9:27AM ; [facility], [facility] Not a current smoker. 06/12/2024 Last Documented On 4 9:27AM ; [facility], [facility] Not using alcohol 06/12/2024 Last Documented On 4 9:27AM ; [facility], [facility] Not using drugs 06/12/2024 Last Documented On 4 9:27AM ; [facility], [facility] Sex - Female 07/17/2025 Last Documented On 5 3:08PM ; [facility], [facility] Smoking Status Unknown Procedures and Surgical History Includes: Procedures from this encounter Procedures Code Diagnosis Performing Provider Service L ocation Service Date an X-ray was performed 98073 Last Documented On 4 8:54AM ; [facility], [facility] an MRI was performed [id number] Last Documented On 4 8:54AM ; [facility], [facility] Surgical History Last Updated History of shoulder arthroplasty 024 Last Documented On 4 9:27AM ; [facility] Medical History Includes: Medical History addressed during this encounter Description Last Updated History of Heartburn / Acid Reflux 06/12 Last Documented On 4 9:27AM ; [facility] History of Irregular Heartbeat 4 Last Documented On 4 9:27AM ; [facility] History of Thyroid Disease 06/12/2024 Last Documented On 4 9:27AM ; [facility] Family History Includes: Family History addressed during this encounter Description Last Updated Family history of heart disease 06/12/20 24 Last Documented On 4 9:27AM ; [facility] Family history of rheumatoid arthritis 1 Last Documented On 4 9:27AM ; [facility] Family history of systemic hypertension 06/12/2024 Last Documented On 4 9:27AM ; [facility] Review of Systems Includes: Review [...] encounter Description Anxiety Last Documented On 4 8:55AM ; [facility], [facility] Physical Exam Includes: Physical Exam from this encounter Allergies Includes: Active Allergies Substance Type Reaction Onset Date Resolved Date Statu s Penicillin G Allergy 06/12/2024 Active Last Documented On 5 9:08AM ; [facility] Care Diver Helper Name (Identifier) Role/Relation Location/Telecom Last Documented By Alvaro Fountain MD ([id number]) Assigned practitioner (occupation) [address] [place] [address], [place], [address] tel:[phone] Last Documented On 07/17/2025 3:08PM ; [facility] KELECHI WOODSON ([id number]) Primary care physician (occupation) [address] [place] [address], , [address] tel:[phone] Last Documented On 07/17/2025 3:08PM ; [facility] Encounters Encounter Provider Location (Healthcare Service Location) Date Check-In Time Check-Out Time Diagnosis Encounter Disposition Physician Specified Alexander [facility] 2023 8:44AM 9:24AM Overweight Payer Includes: Active Insurance Policies Plan Name (Payer ID) Coverage Type Member ID Group # Subscriber (ID) Relationship Effective Dates 1 - Medicare Part B [facility] ([id number]) [id number] Brigitte Ortega Self (Checked on 07/11/2025) Last Documented On 4 8:58AM ; [facility], [facility] 2 - [facility] ([id number]) [id number] Brigitte Ortega Self (Checked on 07/11/2025) Last Documented On 4 12:35PM ; [facility] Clinical Notes Includes: Clinical Notes from this encounter * Progress note Date Encounter Last Documented by 06/12/2024 Physician Specified Last kerrie curry on 06/12/2024; 9:27 AM, Alexander Tristan PA-C; [facility], [facility] Active Problems & Conditions [...] omissions. Care Team - KELECHI WOODSON - CANDLE MAKER
--- OUTSIDE RECORDS SUMMARY | 2025-08-21 10:19 | XMS_ITS ---
Author Organization [facility] Address [address] [place] [address] Phone Care Team Providers Care Stringer Up Soldering Machine Name Role Phone Александр JAQUEZ, Alvaro Sharp Unavailable [phone] KELECHI WOODSON Primary Care Provider [phone] Problems Includes: Active, inactive, and resolved Problems All Visits Onset Date Date of Diagnosis Resolved Date Provider Condition Status Joint Pain Hip Right 06/12/2024 06/12/2024 Alexander Tristan PA-C Active Last Documented On 5 1:42AM ; [facility], [facility] Plan of Treatment Findings Encounter Date Patient screened for future fall risk: documentation of any fall with injury in past year Follow Up with Alexander Tristan PA-C 07/11/2025 Last Documented On 5 9:20AM ; [facility] Patient screened for future fall risk: documentation of any fall with injury in past year Follow Up with Alexander Tristan PA-C 07/24/2024 Last Documented On 4 9:32AM ; [facility] Patient screened for future fall risk: documentation of any fall with injury in past year Physician Specified with Alexander Tristan PA-C 06/12/2024 Last Documented On 4 8:55AM ; [facility] Instructions to patient Lose weight Last Documented On 5 9:20AM ; [facility] Lose weight Last Documented On 5 1:42PM ; [facility], [facility] Lose weight Last Documented On 4 9:30AM ; [facility], [facility] Lose weight Last Documented On 4 8:55AM ; [facility], [facility] Assessments Includes: Assessments for all patient encounters Findings Encounter Date Overweight Follow Up with Alexander Hou 07/11/2025 Last Documented On 5 9:20AM ; [facility], [facility] Overweight Follow Up with Alexander Hou 07/24/2024 Last Documented On 4 9:32AM ; [facility], [facility] Overweight Physician Specified with Alexander Tristan PA-C 06/12/2024 Last Documented On 4 8:55AM ; [facility], [facility] Instructions Includes: Instructions for all patient encounters Instructions to patient Lose weight Last Documented On 5 9:20AM ; [facility], [facility] Lose weight Last Documented On 5 1:42PM ; [facility], [facility] Lose weight Last Documented On 4 9:30AM ; [facility] Lose weight Last Documented On 4 8:55AM ; [facility], [facility] Medical Equipment - Implanted Devices Includes: Current and historical Devices No Medical Equipment Recorded Medications Includes: Current and historical Medications Current Medications (continue as prescribed) Doxycycline Hyclate 20 MG Oral Tablet 02/23/2025 Pro vider: Diagnosis: Last Documented On 5 1:41PM By Sari Randall ; [facility], [facility] Levothyroxine Sodium 100 MCG Oral Tablet 02/06/2025 Provider: KELECHI WOODSON Diagnosis: Last Documented On 5 1:41PM By Sari Randall ; [facility], [facility] Metoprolol Succinate ER 25 M G Oral Tablet Extended Release 24 Hour 02/03/2025 Provider: Diagnosis: Last Documented On 5 1:41PM By Sari Randall ; [facility], [facility] Fexofenadine HCl 180 MG Oral Tablet 01/24/2025 Provi milton: Diagnosis: Last Documented On 5 1:41PM By Sari Randall ; [facility], [facility] Knysycez-Ipgnrincj-Sypceuqk 3.5-90380-3.1 Ophtha lmic Ointment 01/17/2025 Provider: Diagnosis: Last Documented On 1:41PM By Sari Randall ; [facility] Past Medications on file Azelastine HCl 0.05% Ophthal haris Solution 06/02/2024 - 02/27/2025 Provider: KELECHI WOODSON Diagnosis: Last Documented On 1:40PM By Sari Randall ; [facility] Lisinopril 20 MG Oral Tablet 05/31/2024 - 02/27/2025 P altonder: KELECHI WOODSON Diagnosis: Last Documented On 1:40PM By Sari Randall ; [facility] Simvastatin 20 MG Oral Tablet 05/31/2024 - 02/27/2025 Provider: KELECHI WOODSON Diagnosis: Last Documented On 1:40PM By Sari Randall ; [facility] Metoprolol Succinate ER 25 M G Oral Tablet Extended Release 24 Hour 05/16/2024 - 02/27/2025 Provider: Diagnosis: Last Documented On 1:41PM By Sari Randall ; [facility] Levothyroxine Sodium 100 MCG Oral Tablet 04/04/2024 - 02/27/2025 Provider: Diagnosis: Last Documented On 1:41PM By Sari Randall ; [facility] Medications Administered Includes: Administered Medications in patient's chart No Administered Medications Recorded Vital Signs Includes: Vital Signs from 08/21/2024 through 08/21/2025 Vital Name 07/11/2025 09:08A 02/27/2025 01: 42P Height (in) 67 67 Weight (lb) 217 217 Body Mass Index 34 34 Body Surface Area 2.1 2.1 Note: mgg mgg Last Documented: On 07/11/2025 9:08AM ; [facility] On 02/27/2025 1:42PM ; [facility] Results Includes: Results from 08/21/2024 through 08/21/2025 No Results Recorded For Specified Dates Social History Description Last Updated Caffeine use 07/11/2025 Last Documented On 9:34AM ; [facility] Exercising regularly 07/11/2025 Last Documented On 5 9:34AM ; [facility] No recent change in diet 07/11/2025 Last Documented On 5 9:34AM ; [facility] Not a current smoker. 07/11/2025 Last Documented On 5 9:34AM ; [facility] Not using alcohol 07/11/2025 Last Documented On 5 9:34AM ; [facility] Not using drugs 07/11/2025 Last Documented On 5 9:34AM ; [facility] Sex - Female 07/17/2025 Last Documented On 3:08PM ; [facility] Smoking Status Unknown Procedures and Surgical History Includes: Procedures from 08/21/2024 through 08/21/2025 Procedures Code Diagnosis Performing Provider Service Location Service Date DRAIN/INJECT, JOINT/BURSA (RIGHT) Trochanteric bursitis, right hip Alexander Tristan PA-C [facility] 07/11/2025 Last Documented On 5 3:08PM ; [facility] Injection, betamethasone acetate 6mg per cc and betamethason J0702 Trochanteric bursitis, right hip Alexander Tristan PA-C [facility] 07/11/2025 Last Documented On 5 3:08PM ; [facility] DRAIN/INJECT, JOINT/BURSA (RIGHT) Trochanteric bursitis, right hip Alexander Tristan PA-C [facility] 02/27/2025 Last Documented On 5 11:38AM ; [facility] Triamcinolone/Kenalog, 10mg per cc J3301 Trochanteric bursitis, right hip Alexander Tristan PA-C [facility] 02/27/2025 Last Documented On 5 11:38AM ; [facility] Surgical History Last Updated History of shoulder arthroplasty 025 Last Documented On 5 9:34AM ; [facility] Medical History Includes: Medical History in patient's chart Description Last Updated History of Heartburn / Acid Reflux 07/11 Last Documented On 5 9:34AM ; [facility] History of Irregular Heartbeat 5 Last Documented On 5 9:34AM ; [facility] History of Thyroid Disease 07/11/2025 Last Documented On 5 9:34AM ; [facility] Family History Includes: Family History in patient's chart Description Last Updated Family history of heart disease 07/11/20 Last Documented On 5 9:34AM ; [facility] Family history of rheumatoid arthritis 1 09/10/2024 Last Documented On 5 9:34AM ; [facility] Family history of systemic hypertension 07/11/2025 Last Documented On 5 9:34AM ; [facility] Mental Status Description Anxiety Last Documented On 5 9:08AM ; [facility] Anxiety Last Documented On 5 1:42PM ; [facility] Anxiety Last Documented On 4 9:30AM ; [facility] Anxiety Last Documented On 4 8:55AM ; [facility] Allergies Includes: Active, inactive, and resolved Allergies Substance Type Reaction Onset Date Resolved Date Statu s Penicillin G Allergy 06/12/2024 Active Last Documented On 5 9:08AM ; [facility] Care Stringer Up Soldering Machine Name (Identifier) Role/Relation Location/Telecom Last Documented By Alvaro Fountain MD ([id number]) Assigned practitioner (occupation) [facility] [place], [place], [place], [address] tel:[phone] Last Documented On 07/17/2025 3:08PM ; [facility] KELECHI WOODSON ([id number]) Primary care physician (occupation) [facility] [address], , [address] tel:[phone] Last Documented On 07/17/2025 3:08PM ; [facility] Encounters Includes: Encounters from 08/21/2024 through 08/21/2025 Encounter Provider Location (Healthcare Service Location) Date Check-In Time Check-Out Time Diagnosis Encounter Disposition [facility] 2024 9:02AM 9:31AM Overweight Follow Up [facility] 2024 1:32PM 1:59PM Payer Includes: Active Insurance Policies Plan Name (Payer ID) Coverage Type Member ID Group # Subscriber (ID) Relationship Effective Dates 1 - Medicare Part B [facility] ([id number]) [id number] Brigitte Pierson Jordan Self (Checked on 07/11/2025) Last Documented On 4 8:58AM ; [facility], [facility] 2 - [facility] ([id number]) [id number] Brigitte Ortega Self (Checked on 07/11/2025) Last Documented On 4 12:35PM ; [facility], [facility] Clinical Notes Includes: Signed Clinical Notes starting from 08/06/2022 * Progress note Date Encounter Last Documented by 07/11/2025 Follow Up Last documented on 07/11/2025; 9:34 AM, Alexander Rahman; [facility] Active Problems & Conditions - [...] 24 Hour 90 days, 0 refills - Syuoeuku-Emaujqyva-Lkcxlogz 3.5-14206-3.1 Ophthalmic Ointment 3.5-77539-2.1 10 days, 0 refills Past Medical/Surgical History [...] omissions. Care Team - KELECHI WOODSON - CARE TAKER * Progress note Date Encounter Last Documented by 02/27/2025 Follow Up Last documented on 02/27/2025; 2:08 PM, Alexander Rahman; [facility] Active Problems & Conditions - [...] 24 Hour 90 days, 0 refills - Pfjeodmk-Dkwgnsnvh-Pwqisjkb 3.5-40064-1.1 Ophthalmic Ointment 3.5-83002-3.1 10 days, 0 refills Past Medical/Surgical History [...] omissions. Care Team - KELECHI WOODSON - [facility]
--- OUTSIDE RECORDS SUMMARY | 2025-08-21 10:19 | XMS_ITS ---
Care Plan - [facility] Created on: August 21, 2025 Brigitte Ortega : 1955 Sex: Female Author Organization [facility] Address [address] [place] [address] Phone Care Team Providers Care Credit Control Manager Name Role Phone Александр JAQUEZ, Alvaro Sharp Unavailable [phone] KELECHI WOODSON Primary Care Provider [phone]
--- OUTSIDE RECORDS SUMMARY | 2025-08-21 10:19 | XMS_ITS | Clinical Summary ---
Author Organization [facility] Address [address] [place] [address] Care Team Providers Care Cut Off Saw Operator Metal Name Role Phone Manuel Morales MD Primary Care Provider [phone] Allergies Active Allergy Reactions Criticality Noted Date [...] eyes daily. Active neomycin-polymy aubree-dexamethame thasone (Polydex) 3.5-31536-9.1 ointment ophthalmic ointment Apply 0.25 inches to both eyes nightly. 3.5 g 5 5 Active Active Problems Problem Noted Date Diagnosed Date Tachycardia 11/01/2024 PCO (posterior capsular opacification), bilatera l 05/14/2021 Bilateral posterior capsular opacification 04/02 Overview (11/01/2024): Added automatically from request for surgery [id number] After cataract of both eyes not obscuring vision 01/31/2020 Status post extracapsular cataract extraction of left eye 05/02/2019 Combined form of age-related cataract, both eyes 03/03/2017 Hypothyroidism 02/18/2016 Rheumatoid arthritis 02/18/2016 Resolved Problems Problem Noted Date Diagnosed Date Resolved Date H/O laser assisted in situ keratomileusis 05/14/2021 05/13/2025 Family History Medical History Relation Name Comments [...] Description 06/18/2026 2:45 PM EDT Office Visit [facility] [address], [place] [address] Yulissa Guerra MD [address] [facility] [address] [place] [address] Health Maintenance Due Date Last [...] UKY-Zoster Vaccines (2 of 3) 06/02/2016 04/07/2016 SQL-[id number] Vaccine (2024- season) 2025 08/25/2024, 06/15/2023, 09/09/2022, Additional history [...] age to complete this topic Insurance MEDICARE [facility] Care Teams Cut Off Saw Operator Metal Relationship Specialty [place] [id number] PCP - General 01/03/21
--- OUTSIDE RECORDS SUMMARY | 2025-08-21 10:20 | XMS_ITS | Clinical Summary ---
Author Organization [facility], [facility] Address [address] [place] [address] Phone Care Team Providers Care Inside Sales Associate Name Role Phone Александр JAQUEZ, Alvaro Sharp Unavailable [phone] KELECHI WOODSON Primary Care Provider [phone] Reason for Visit and Chief Complaint The Chief Complaint is: R hip pain Problems Includes: Problems addressed during this encounter and other active Problems All Visits Onset Date Date of Diagnosis Resolved Date Provider Condition Status Joint Pain Hip Right 06/12/2024 06/12/2024 Alexander Tristan PA-C Active Last Documented On 1:42AM ; [facility], [facility] Plan of Treatment Right hip bursa injection: [...] - Last Documented On 02/27/2025 2:08PM ; [facility], [facility] Instructions to patient Lose weight Last Documented On 1:42PM ; [facility], [facility] Assessments Includes: Assessments from this encounter Findings Fall Risk Assessment: - Last Documented On 02/27/2025 2:08PM ; [facility], [facility] This patient has been identified as a fall risk. Balance/gait along with postural blood pressure, vision and home fall hazards have been assessed. Medications have been reviewed, and recommendations made with regard to contributing factors for future falls. - Last Documented On 02/27/2025 2:08PM ; [facility], [facility] Plan of care: Consideration of vitamin D supplementation along with balance and strength training with consideration for formal physical therapy has been discussed with the patient. - Last Documented On 02/27/2025 2:08PM ; [facility], [facility] Greater trochanteric bursitis of the right hip - Last Documented On 02/27/2025 2:08PM ; [facility] Discussed options with the patient today moving forward. She elected to proceed with greater trochanteric bursal steroid injection which she tolerated very well. Continue activities as able. Follow up in the office as needed. Patient is agreeable with above plan. They are to call the office with any concerns. - Last Documented On 02/27/2025 2:08PM ; [facility], [facility] Instructions Includes: Instructions from this encounter Instructions to patient Lose weight Last Documented On 1:42PM ; [facility], [facility] Medical Equipment - Implanted Devices Includes: Current Devices No Medical Equipment Recorded Medications Includes: Medications discussed during this encounter and other current Medications Discontinued / Stopped on this date KELECHI WOODSON on 06/02/2024 Azelastine HCl 0.05% Ophthalmic Solution Provider: KELECHI WOODSON Diagnosis: Last Documented On 1:40PM By [facility], [facility] Lisinopril 20 MG Oral Tablet Provider: KELECHI WOODSON Diagnosis: Last Documented On 1:40PM By Sari [facility], [facility] Simvastatin 20 MG Oral Tablet Provider: KELECHI WOODSON Diagnosis: Last Documented On 1:40PM By Sari [facility], [facility] Metoprolol Succinate ER 25 M G Oral Tablet Extended Release 24 Hour Provider: Diagnosis: Last Documented On 1:41PM By Sari [facility], [facility] Levothyroxine Sodium 100 MCG Oral Tablet Provider: Diagnosis: Last Documented On 1:41PM By Sari [facility], [facility] Current Medications (continue as prescribed) Doxycycline Hyclate 20 MG Oral Tablet 02/23/2025 Pro vider: Diagnosis: Last Documented On 1:41PM By Sari Randall ; [facility] Levothyroxine Sodium 100 MCG Oral Tablet 02/06/2025 Provider: KELECHI WOODSON Diagnosis: Last Documented On 1:41PM By Sari Randall ; [facility], [facility] Metoprolol Succinate ER 25 M G Oral Tablet Extended Release 24 Hour 02/03/2025 Provider: Diagnosis: Last Documented On 1:41PM By Sari Randall ; [facility], [facility] Fexofenadine HCl 180 MG Oral Tablet 01/24/2025 Provi milton: Diagnosis: Last Documented On 1:41PM By Sari Randall ; [facility], [facility] Cugdmfzu-Owanrzpzg-Ddfellvv 3.5-41664-8.1 Ophtha lmic Ointment 01/17/2025 Provider: Diagnosis: Last Documented On 1:41PM By Sari Randall ; [facility] Medications Administered Includes: Administered Medications from this encounter No Administered Medications Recorded Vital Signs Includes: Vital Signs from this encounter Vital Name 02/27/2025 01:42P Height (in) 67 Weight (lb) 217 Body Mass Index 34 Body Surface Area 2.1 Note: mgg Last Documented: On 02/27/2025 1:42PM ; [facility], [facility] Results Includes: Results discussed during this encounter [...] 02/27/2025 Last Documented On 2:08PM ; [facility] Exercising regularly 02/27/2025 Last Documented On 5 2:08PM ; [facility] No recent change in diet 02/27/2025 Last Documented On 5 2:08PM ; [facility] Not a current smoker. 02/27/2025 Last Documented On 5 2:08PM ; [facility] Not using alcohol 02/27/2025 Last Documented On 5 2:08PM ; [facility] Not using drugs 02/27/2025 Last Documented On 2:08PM ; [facility] Sex - Female 07/17/2025 Last Documented On 3:08PM ; [facility] Smoking Status Unknown Procedures and Surgical History Includes: Procedures from this encounter Procedures Code Diagnosis Performing Provider Service Location Service Date DRAIN/INJECT, JOINT/BURSA (RIGHT) Trochanteric bursitis, right hip Alexander Tristan PA-C [facility] 02/27/2025 Last Documented On 11:38AM ; [facility] Triamcinolone/Kenalog, 10mg per cc [id number] Trochanteric bursitis, right hip Alexander Tristan PA-C [facility] 02/27/2025 Last Documented On 11:38AM ; [facility] an X-ray was performed [id number] Last Documented On 5 1:42PM ; [facility] an MRI was performed [id number] Last Documented On 1:42PM ; [facility] Surgical History Last Updated History of shoulder arthroplasty 025 Last Documented On 5 2:08PM ; [facility] Medical History Includes: Medical History addressed during this encounter Description Last Updated History of Heartburn / Acid Reflux 02/27 Last Documented On 5 2:08PM ; [facility] History of Irregular Heartbeat Last Documented On 5 2:08PM ; [facility] History of Thyroid Disease 02/27/2025 Last Documented On 2:08PM ; [facility] Family History Includes: Family History addressed during this encounter Description Last Updated Family history of heart disease 02/28/20 25 Last Documented On 5 2:08PM ; [facility] Family history of rheumatoid arthritis 0 02/27/2025 Last Documented On 5 2:08PM ; [facility] Family history of systemic hypertension 02/27/2025 Last Documented On 5 2:08PM ; [facility] Review of Systems Includes: Review of [...] encounter Description Anxiety Last Documented On 5 1:42PM ; [facility] Physical Exam Includes: Physical Exam from this encounter Allergies Includes: Active Allergies Substance Type Reaction Onset Date Resolved Date Statu s Penicillin G Allergy 06/12/2024 Active Last Documented On 5 9:08AM ; [facility] Care Inside Sales Associate Name (Identifier) Role/Relation Location/Telecom Last Documented By Alvaro Fountain MD ([id number]) Assigned practitioner (occupation) [address] [place] [address], [place], [address] tel: Last Documented On 07/17/2025 3:08PM ; [facility] KELECHI WOODSON ([id number]) Primary care physician (occupation) [address] [place], [place], , [address] tel: Last Documented On 07/17/2025 3:08PM ; [facility], [facility] Encounters Encounter Provider Location (Healthcare Service Location) Date Check-In Time Check-Out Time Diagnosis Encounter Disposition Follow Up Alexander Tristan PA-C [facility] 2024 1:32PM 1:59PM Payer Includes: Active Insurance Policies Plan Name (Payer ID) Coverage Type Member ID Group # Subscriber (ID) Relationship Effective Dates 1 - Medicare Part B [facility] ([id number]) [id number] Brigitte Pierson Jordan Self (Checked on 07/11/2025) Last Documented On 4 8:58AM ; [facility] 2 - [facility] ([id number]) [id number] Brigitte Pierson [place] Self (Checked on 07/11/2025) Last Documented On 4 12:35PM ; [facility] Clinical Notes Includes: Clinical Notes from this encounter * Progress note Date Encounter Last Documented by 02/27/2025 Follow Up Last documented on 02/27/2025; 2:08 PM, Alexander Rahman; [facility] Active Problems & Conditions - Joint [...] 24 Hour 90 days, 0 refills - Pljfemez-Rucnbhaga-Vqswpfpi 3.5-66933-0.1 Ophthalmic Ointment 3.5-82562-7.1 10 days, 0 refills Past Medical/Surgical History [...] omissions. Care Team - KELECHI WOODSON - NAIL MAKER
[2025-08-23 00:08] LABS: BVAB2 Low - 0 Score (.); Candida albicans NAA Negative (Negative); Candida glabrata Negative (Negative); HSV 1 NAA Negative (Negative); HSV 2 NAA Negative (Negative)
== END 2025-08-20 23:59 | disposition home or self-care (01) ==
LOC: LAB.DROPOF 08-21 10:01
PROVIDERS: PCP Family Medicine; Visit Provider Urology
DX: N39.0 Urinary tract infection, site not specified (principal); N89.8 Other specified noninflammatory disorders of vagina
CPT/HCPCS: 87086; 87491; 87529; 87591; 87661; 87798; 87801

== ENCOUNTER 2025-08-22 14:45 | Outpatient (CLI) | payer MEDICARE, SELFPAY ==
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
--- OUTSIDE RECORDS SUMMARY | 2025-08-22 14:51 | XMS_ITS | Clinical Summary ---
Author Organization [facility] Address [address] [place] [address] Phone Care Team Providers Care Java Developer With Security Clearance Name Role Phone Александр JAQUEZ, Alvaro Sharp Unavailable [phone] KELECHI WOODSON Primary Care Provider [phone] Reason for Visit and Chief Complaint The Chief Complaint is: R hip pain Problems Includes: Problems addressed during this encounter and other active Problems Current Visit Onset Date Date of Diagnosis Resolved Date Provider Condition Status Joint Pain Hip Right 06/12/2024 06/12/2024 Alexander Tristan PA-C Active Last Documented On 1:42AM ; [facility] Plan of Treatment - Patient screened for future fall risk: documentation of any fall with injury in past year - Last Documented On 06/12/2024 9:27AM ; [facility] Instructions to patient Lose weight Last Documented On 8:55AM ; [facility], [facility] Assessments Includes: Assessments from this encounter Findings - Overweight - Last Documented On 06/12/2024 9:27AM ; [facility] Greater trochanteric bursitis of the right hip - Last Documented On 06/12/2024 9:27AM ; [facility] Osteoarthritis of the right hip - Last Documented On 06/12/2024 9:27AM ; [facility], [facility] Discussed options with the patient today. [...] Last Documented On 06/12/2024 9:27AM ; [facility], [facility] Instructions Includes: Instructions from this encounter Instructions to patient Lose weight Last Documented On 8:55AM ; [facility], [facility] Medical Equipment - Implanted Devices Includes: Current Devices No Medical Equipment Recorded Medications Includes: Medications discussed during this encounter and other current Medications Current Medications (continue as prescribed) Doxycycline Hyclate 20 MG Oral Tablet 02/23/2025 Pro vider: Diagnosis: Last Documented On 1:41PM By Sari Randall ; [facility] Levothyroxine Sodium 100 MCG Oral Tablet 02/06/2025 Provider: KELECHI WOODSON Diagnosis: Last Documented On 1:41PM By Sari Randall ; [facility], [facility] Metoprolol Succinate ER 25 M G Oral Tablet Extended Release 24 Hour 02/03/2025 Provider: Diagnosis: Last Documented On 1:41PM By Sari Randall ; [facility] Fexofenadine HCl 180 MG Oral Tablet 01/24/2025 Provi milton: Diagnosis: Last Documented On 1:41PM By Sari Randall ; [facility] Blqlgnge-Uvzgmlain-Uqfzhnii 3.5-06491-7.1 Ophtha lmic Ointment 01/17/2025 Provider: Diagnosis: Last Documented On 1:41PM By Sari Randall ; [facility], [facility] Medications Administered Includes: Administered Medications from this encounter No Administered Medications Recorded Vital Signs Includes: Vital Signs from this encounter Vital Name 06/12/2024 08:55A Height (in) 67 Weight (lb) 216 Body Mass Index 33.8 Body Surface Area 2.1 Note: mgg Last Documented: On 06/12/2024 9:00AM ; [facility] Results Includes: Results discussed during this [...] 06/12/2024 Last Documented On 4 9:27AM ; [facility], [facility] Exercising regularly 06/12/2024 Last Documented On 4 9:27AM ; [facility], [facility] No recent change in diet 06/12/2024 Last Documented On 4 9:27AM ; [facility], [facility] Not a current smoker. 06/12/2024 Last Documented On 4 9:27AM ; [facility], [facility] Not using alcohol 06/12/2024 Last Documented On 4 9:27AM ; [facility], [facility] Not using drugs 06/12/2024 Last Documented On 4 9:27AM ; [facility], [facility] Sex - Female 07/17/2025 Last Documented On 5 3:08PM ; [facility], [facility] Smoking Status Unknown Procedures and Surgical History Includes: Procedures from this encounter Procedures Code Diagnosis Performing Provider Service L ocation Service Date an X-ray was performed 53308 Last Documented On 4 8:54AM ; [facility], [facility] an MRI was performed 90921 Last Documented On 4 8:54AM ; [facility], [facility] Surgical History Last Updated History of shoulder arthroplasty 024 Last Documented On 4 9:27AM ; [facility] Medical History Includes: Medical History addressed during this encounter Description Last Updated History of Heartburn / Acid Reflux 06/12 Last Documented On 4 9:27AM ; [facility] History of Irregular Heartbeat 4 Last Documented On 4 9:27AM ; [facility] History of Thyroid Disease 06/12/2024 Last Documented On 4 9:27AM ; [facility] Family History Includes: Family History addressed during this encounter Description Last Updated Family history of heart disease 06/12/20 24 Last Documented On 4 9:27AM ; [facility] Family history of rheumatoid arthritis 1 Last Documented On 4 9:27AM ; [facility] Family history of systemic hypertension 06/12/2024 Last Documented On 4 9:27AM ; [facility] Review of Systems Includes: Review [...] Anxiety Last Documented On 4 8:55AM ; [facility], [facility] Physical Exam Includes: Physical Exam from this encounter Allergies Includes: Active Allergies Substance Type Reaction Onset Date Resolved Date Statu s Penicillin G Allergy 06/12/2024 Active Last Documented On 5 9:08AM ; [facility] Care Java Developer With Security Clearance Name (Identifier) Role/Relation Location/Telecom Last Documented By Alvaro Fountain MD ([id number]) Assigned practitioner (occupation) [address] [place] [address], [place], [address] tel:[phone] Last Documented On 07/17/2025 3:08PM ; [facility], [facility] KELECHI WOODSON ([id number]) Primary care physician (occupation) [address] [place] [address], , [address] tel:[phone] Last Documented On 07/17/2025 3:08PM ; [facility] Encounters Encounter Provider Location (Healthcare Service Location) Date Check-In Time Check-Out Time Diagnosis Encounter Disposition Physician Specified Alexander [facility] 2023 8:44AM 9:24AM Overweight Payer Includes: Active Insurance Policies Plan Name (Payer ID) Coverage Type Member ID Group # Subscriber (ID) Relationship Effective Dates 1 - Medicare Part B [facility] ([id number]) [id number] Brigitte Ortega Self (Checked on 07/11/2025) Last Documented On 4 8:58AM ; [facility], [facility] 2 - [facility] CLAIMS DIVISION ([id number]) [id number] Brigitte Ortega Self (Checked on 07/11/2025) Last Documented On 4 12:35PM ; [facility] Clinical Notes Includes: Clinical Notes from this encounter * Progress note Date Encounter Last Documented by 06/12/2024 Physician Specified Last kerrie curry on 06/12/2024; 9:27 AM, Alexander Tristan PA-C; [facility], [facility] Active Problems & Conditions - Joint [...] omissions. Care Team - KELECHI WOODSON - RECORD SYSTEMS ANALYST
--- OUTSIDE RECORDS SUMMARY | 2025-08-22 14:51 | XMS_ITS | Clinical Summary ---
Author Organization [facility] , [facility] Address [address] [place] [address] Phone Care Team Providers Care Superintendent Name Role Phone Александр JAQUEZ, Alvaro Sharp Unavailable [phone] KELECHI WOODSON Primary Care Provider [phone] Reason for Visit and Chief Complaint The Chief Complaint is: R hip pain Problems Includes: Problems addressed during this encounter and other active Problems All Visits Onset Date Date of Diagnosis Resolved Date Provider Condition Status Joint Pain Hip Right 06/12/2024 06/12/2024 Alexander Tristan PA-C Active Last Documented On 1:42AM ; [facility], [facility] Plan of Treatment - Patient screened for future fall risk: documentation of any fall with injury in past year - Last Documented On 07/11/2025 9:34AM ; [facility], [facility] Instructions to patient Lose weight Last Documented On 9:20AM ; [facility], [facility] Assessments Includes: Assessments from this encounter Findings - Overweight - Last Documented On 07/11/2025 9:34AM ; [facility], [facility] Greater trochanteric bursitis of the hip - Last Documented On 07/11/2025 9:34AM ; [facility], [facility] Patient elect today proceed with the injection her right hip bursa which she tolerated very well and did experience some relief of symptoms post injection. She can continue activities as tolerated. She can follow up in the office PRN. Patient is agreeable with above plan and will call the office with any concerns in the meantime. - Last Documented On 07/11/2025 9:34AM ; [facility], [facility] Instructions Includes: Instructions from this encounter Instructions to patient Lose weight Last Documented On 9:20AM ; [facility], [facility] Medical Equipment - Implanted Devices Includes: Current Devices No Medical Equipment Recorded Medications Includes: Medications discussed during this encounter and other current Medications Current Medications (continue as prescribed) Doxycycline Hyclate 20 MG Oral Tablet 02/23/2025 Pro vider: Diagnosis: Last Documented On 1:41PM By Sari Randall ; [facility], [facility] Levothyroxine Sodium 100 MCG Oral Tablet 02/06/2025 Provider: KELECHI WOODSON Diagnosis: Last Documented On 1:41PM By Sari Randall ; [facility], [facility] Metoprolol Succinate ER 25 M G Oral Tablet Extended Release 24 Hour 02/03/2025 Provider: Diagnosis: Last Documented On 1:41PM By Sari Randall ; [facility] Fexofenadine HCl 180 MG Oral Tablet 01/24/2025 Provi milton: Diagnosis: Last Documented On 1:41PM By Sari Randall ; [facility], [facility] Uacmbujk-Qqmtzfsml-Hxyygxeg 3.5-73563-1.1 Ophtha lmic Ointment 01/17/2025 Provider: Diagnosis: Last Documented On 1:41PM By Sari Randall ; [facility], [facility] Medications Administered Includes: Administered Medications from this encounter No Administered Medications Recorded Vital Signs Includes: Vital Signs from this encounter Vital Name 07/11/2025 09:08A Height (in) 67 Weight (lb) 217 Body Mass Index 34 Body Surface Area 2.1 Note: mgg Last Documented: On 07/11/2025 9:08AM ; [facility], [facility] Results Includes: Results discussed during [...] 07/11/2025 Last Documented On 5 9:34AM ; [facility], [facility] Exercising regularly 07/11/2025 Last Documented On 5 9:34AM ; [facility], [facility] No recent change in diet 07/11/2025 Last Documented On 5 9:34AM ; [facility], [facility] Not a current smoker. 07/11/2025 Last Documented On 5 9:34AM ; [facility], [facility] Not using alcohol 07/11/2025 Last Documented On 5 9:34AM ; [facility] Not using drugs 07/11/2025 Last Documented On 5 9:34AM ; [facility] Sex - Female 07/17/2025 Last Documented On 3:08PM ; [facility] Smoking Status Unknown Procedures and Surgical History Includes: Procedures from this encounter Procedures Code Diagnosis Performing Provider Service Location Service Date DRAIN/INJECT, JOINT/BURSA (RIGHT) Trochanteric bursitis, right hip Alexander Tristan PA-C [facility] 07/11/2025 Last Documented On 5 3:08PM ; [facility] Injection, betamethasone acetate 6mg per cc and betamethason J0702 Trochanteric bursitis, right hip Alexander Tristan PA-C [facility] 07/11/2025 Last Documented On 5 3:08PM ; [facility] Surgical History Last Updated History of shoulder arthroplasty 025 Last Documented On 5 9:34AM ; [facility] Medical History Includes: Medical History addressed during this encounter Description Last Updated History of Heartburn / Acid Reflux 07/11 Last Documented On 5 9:34AM ; [facility], [facility] History of Irregular Heartbeat 5 Last Documented On 5 9:34AM ; [facility] History of Thyroid Disease 07/11/2025 Last Documented On 5 9:34AM ; [facility] Family History Includes: Family History addressed during this encounter Description Last Updated Family history of heart disease 07/11/20 25 Last Documented On 5 9:34AM ; [facility] Family history of rheumatoid arthritis 1 09/10/2024 Last Documented On 5 9:34AM ; [facility] Family history of systemic hypertension 07/11/2025 Last Documented On 5 9:34AM ; [facility] Review of Systems Includes: Review of [...] Anxiety Last Documented On 5 9:08AM ; [facility] Physical Exam Includes: Physical Exam from this encounter Allergies Includes: Active Allergies Substance Type Reaction Onset Date Resolved Date Statu s Penicillin G Allergy 06/12/2024 Active Last Documented On 5 9:08AM ; [facility] Care Superintendent Name (Identifier) Role/Relation Location/Telecom Last Documented By Alvaro Fountian MD ([id number]) Assigned practitioner (occupation) [address], [place], [place], [address] tel:[phone] Last Documented On 07/17/2025 3:08PM ; [facility] KELECHI WOODSON ([id number]) Primary care physician (occupation) [address], [place], [place], [place], [address] tel:[phone] Last Documented On 07/17/2025 3:08PM ; [facility] Encounters Encounter Provider Location (Healthcare Service Location) Date Check-In Time Check-Out Time Diagnosis Encounter Disposition Follow Up Alexander Tristan PA-C [facility] 2024 9:02AM 9:31AM Overweight Payer Includes: Active Insurance Policies Plan Name (Payer ID) Coverage Type Member ID Group # Subscriber (ID) Relationship Effective Dates 1 - Medicare Part B [facility] ([id number]) [id number] Brigitte Pierson Jordan Self (Checked on 07/11/2025) Last Documented On 4 8:58AM ; [facility] 2 - [facility] ([id number]) [id number] Brigitte Pierson Jordan Self (Checked on 07/11/2025) Last Documented On 4 12:35PM ; [facility] Clinical Notes Includes: Clinical Notes from this encounter * Progress note Date Encounter Last Documented by 07/11/2025 Follow Up Last documented on 07/11/2025; 9:34 AM, lAexander Rahman; [facility] Active Problems & Conditions - [...] 24 Hour 90 days, 0 refills - Zjdhyote-Wymfsuabz-Lmfgmlnp 3.5-41666-3.1 Ophthalmic Ointment 3.5-60633-2.1 10 days, 0 refills Past Medical/Surgical History [...] omissions. Care Team - KELECHI WOODSON - STAMP MAKER
--- OUTSIDE RECORDS SUMMARY | 2025-08-22 14:51 | XMS_ITS | Clinical Summary ---
Author Organization [facility] Address [address] [place] [address] Phone Care Team Providers Care Cdl Program Coordinator Name Role Phone Александр JAQUEZ, Alvaro Sharp Unavailable [phone] KELECHI WOODSON Primary Care Provider [phone] Reason for Visit and Chief Complaint The Chief Complaint is: R hip pain Problems Includes: Problems addressed during this encounter and other active Problems All Visits Onset Date Date of Diagnosis Resolved Date Provider Condition Status Joint Pain Hip Right 06/12/2024 06/12/2024 Alexander Tristan PA-C Active Last Documented On 1:42AM ; [facility], [facility] Plan of Treatment - Patient screened for future fall risk: documentation of any fall with injury in past year - Last Documented On 07/24/2024 9:41AM ; [facility], [facility] Instructions to patient Lose weight Last Documented On 9:30AM ; [facility], [facility] Assessments Includes: Assessments from this encounter Findings - Overweight - Last Documented On 07/24/2024 9:41AM ; [facility], [facility] Greater trochanteric bursitis of the right hip - Last Documented On 07/24/2024 9:41AM ; [facility], [facility] Osteoarthritis of the right knee - Last Documented On 07/24/2024 9:41AM ; [facility], [facility] Patient much improved compared to her [...] - Last Documented On 07/24/2024 9:41AM ; [facility], [facility] Instructions Includes: Instructions from this encounter Instructions to patient Lose weight Last Documented On 9:30AM ; [facility], [facility] Medical Equipment - Implanted Devices Includes: Current Devices No Medical Equipment Recorded Medications Includes: Medications discussed during this encounter and other current Medications Current Medications (continue as prescribed) Doxycycline Hyclate 20 MG Oral Tablet 02/23/2025 Pro vider: Diagnosis: Last Documented On 1:41PM By Sari Randall ; [facility], [facility] Levothyroxine Sodium 100 MCG Oral Tablet 02/06/2025 Provider: KELECHI WOODSON Diagnosis: Last Documented On 1:41PM By Sari Randall ; [facility], [facility] Metoprolol Succinate ER 25 M G Oral Tablet Extended Release 24 Hour 02/03/2025 Provider: Diagnosis: Last Documented On 1:41PM By Sari Randall ; [facility], [facility] Fexofenadine HCl 180 MG Oral Tablet 01/24/2025 Provi milton: Diagnosis: Last Documented On 1:41PM By aSri Randall ; [facility], [facility] Reylfhrr-Qhuawuuro-Zifaukyl 3.5-06669-9.1 Ophtha lmic Ointment 01/17/2025 Provider: Diagnosis: Last Documented On 1:41PM By Sari Randall ; [facility], [facility] Medications Administered Includes: Administered Medications from this encounter No Administered Medications Recorded Vital Signs Includes: Vital Signs from this encounter Vital Name 07/24/2024 09:31A Height (in) 67 Weight (lb) 217 Body Mass Index 34 Body Surface Area 2.1 Note: mgg Last Documented: On 07/24/2024 9:31AM ; [facility], [facility] Results Includes: Results discussed [...] 07/24/2024 Last Documented On 4 9:41AM ; [facility], [facility] Exercising regularly 07/24/2024 Last Documented On 4 9:41AM ; [facility], [facility] No recent change in diet 07/24/2024 Last Documented On 4 9:41AM ; [facility], [facility] Not a current smoker. 07/24/2024 Last Documented On 4 9:41AM ; [facility], [facility] Not using alcohol 07/24/2024 Last Documented On 4 9:41AM ; [facility], [facility] Not using drugs 07/24/2024 Last Documented On 4 9:41AM ; [facility], [facility] Sex - Female 07/17/2025 Last Documented On 5 3:08PM ; [facility], [facility] Smoking Status Unknown Procedures and Surgical History Includes: Procedures from this encounter Procedures Code Diagnosis Performing Provider Service L ocation Service Date an X-ray was performed 43203 Last Documented On 4 9:30AM ; [facility] an MRI was performed [id number] Last Documented On 4 9:30AM ; [facility], [facility] Surgical History Last Updated History of shoulder arthroplasty 024 Last Documented On 4 9:41AM ; [facility], [facility] Medical History Includes: Medical History addressed during this encounter Description Last Updated History of Heartburn / Acid Reflux 07/24 Last Documented On 4 9:41AM ; [facility], [facility] History of Irregular Heartbeat 4 Last Documented On 4 9:41AM ; [facility] History of Thyroid Disease 07/24/2024 Last Documented On 4 9:41AM ; [facility] Family History Includes: Family History addressed during this encounter Description Last Updated Family history of heart disease 07/24/20 24 Last Documented On 4 9:41AM ; [facility] Family history of rheumatoid arthritis 1 09/24/2023 Last Documented On 4 9:41AM ; [facility] Family history of systemic hypertension 07/24/2024 Last Documented On 4 9:41AM ; [facility] Review of Systems Includes: Review [...] Anxiety Last Documented On 4 9:30AM ; [facility] Physical Exam Includes: Physical Exam from this encounter Allergies Includes: Active Allergies Substance Type Reaction Onset Date Resolved Date Statu s Penicillin G Allergy 06/12/2024 Active Last Documented On 5 9:08AM ; [facility] Care Cdl Program Coordinator Name (Identifier) Role/Relation Location/Telecom Last Documented By Alvaro Fountain MD ([id number]) Assigned practitioner (occupation) [address] [place], [place], [place], [address] tel:[phone] Last Documented On 07/17/2025 3:08PM ; [facility] KELECHI WOODSON ([id number]) Primary care physician (occupation) [address], [place], [place], [place], [address] tel:[phone] Last Documented On 07/17/2025 3:08PM ; [facility] Encounters Encounter Provider Location (Healthcare Service Location) Date Check-In Time Check-Out Time Diagnosis Encounter [facility]:35[facility] 9:29AM Overweight Payer Includes: Active Insurance Policies Plan Name (Payer ID) Coverage Type Member ID Group # Subscriber (ID) Relationship Effective Dates 1 - Medicare Part B [facility] ([id number]) [id number] Brigitte Pierson Jordan Self (Checked on 07/11/2025) Last Documented On 4 8:58AM ; [facility] 2 - [facility] ([id number]) [id number] Brigitte Pierson Jordan Self (Checked on 07/11/2025) Last Documented On 12:35PM ; [facility] Clinical Notes Includes: Clinical Notes from this encounter * Progress note Date Encounter Last Documented by 07/24/2024 Follow Up Last documented on 07/24/2024; 9:41 AM, Alexander Rahman; [facility] Active Problems & Conditions - [...] omissions. Care Team - KELECHI WOODSON - [employer]KEHOUSE WORKER
--- OUTSIDE RECORDS SUMMARY | 2025-08-22 14:51 | XMS_ITS ---
Author Organization [facility] , [facility] Address [address] [place] [address] Phone Care Team Providers Care Study Abroad Advisor Name Role Phone Александр JAQUEZ, Alvaro Sharp Unavailable [phone] KELECHI WOODSON Primary Care Provider [phone] Problems Includes: Active, inactive, and resolved Problems All Visits Onset Date Date of Diagnosis Resolved Date Provider Condition Status Joint Pain Hip Right 06/12/2024 06/12/2024 Alexander Tristan PA-C Active Last Documented On 5 1:42AM ; [facility], [facility] Plan of Treatment Findings Encounter Date Patient screened for future fall risk: documentation of any fall with injury in past year Follow Up with Alexander Tristan PA-C 07/11/2025 Last Documented On 5 9:20AM ; [facility], [facility] Patient screened for future fall risk: documentation of any fall with injury in past year Follow Up with Alexander Tristan PA-C 07/24/2024 Last Documented On 4 9:32AM ; [facility] Patient screened for future fall risk: documentation of any fall with injury in past year Physician Specified with Alexander Tristan PA-C 06/12/2024 Last Documented On 4 8:55AM ; [facility], [facility] Instructions to patient Lose weight Last Documented On 5 9:20AM ; [facility], [facility] Lose weight Last Documented On 5 1:42PM ; [facility], [facility] Lose weight Last Documented On 4 9:30AM ; [facility], [facility] Lose weight Last Documented On 4 8:55AM ; [facility], [facility] Assessments Includes: Assessments for all patient encounters Findings Encounter Date Overweight Follow Up with Alexander Hou 07/11/2025 Last Documented On 5 9:20AM ; [facility], [facility] Overweight Follow Up with Alexander Hou 07/24/2024 Last Documented On 4 9:32AM ; [facility], [facility] Overweight Physician Specified with Alexander Tristan PA-C 06/12/2024 Last Documented On 4 8:55AM ; [facility], [facility] Instructions Includes: Instructions for all patient encounters Instructions to patient Lose weight Last Documented On 5 9:20AM ; [facility], [facility] Lose weight Last Documented On 5 1:42PM ; [facility], [facility] Lose weight Last Documented On 4 9:30AM ; [facility], [facility] Lose weight Last Documented On 4 8:55AM ; [facility], [facility] Medical Equipment - Implanted Devices Includes: Current and historical Devices No Medical Equipment Recorded Medications Includes: Current and historical Medications Current Medications (continue as prescribed) Doxycycline Hyclate 20 MG Oral Tablet 02/23/2025 Pro vider: Diagnosis: Last Documented On 5 1:41PM By Sari Randall ; [facility], [facility] Levothyroxine Sodium 100 MCG Oral Tablet 02/06/2025 Provider: KELECHI WOODSON Diagnosis: Last Documented On 5 1:41PM By Sari Randall ; [facility], [facility] Metoprolol Succinate ER 25 M G Oral Tablet Extended Release 24 Hour 02/03/2025 Provider: Diagnosis: Last Documented On 5 1:41PM By Sari Randall ; [facility], [facility] Fexofenadine HCl 180 MG Oral Tablet 01/24/2025 Provi milton: Diagnosis: Last Documented On 5 1:41PM By Sari Randall ; [facility], [facility] Jjwitftm-Cipmefaeb-Eeffztbt 3.5-04112-9.1 Ophtha lmic Ointment 01/17/2025 Provider: Diagnosis: Last Documented On 1:41PM By Sari Randall ; [facility] Past Medications on file Azelastine HCl 0.05% Ophthal haris Solution 06/02/2024 - 02/27/2025 Provider: KELECHI WOODSON Diagnosis: Last Documented On 1:40PM By Sari Randall ; [facility], [facility] Lisinopril 20 MG Oral Tablet 05/31/2024 - 02/27/2025 P altonder: KELECHI WOODSON Diagnosis: Last Documented On 1:40PM By Sari Randall ; [facility], [facility] Simvastatin 20 MG Oral Tablet 05/31/2024 - 02/27/2025 Provider: KELECHI WOODSON Diagnosis: Last Documented On 1:40PM By Sari Randall ; [facility], [facility] Metoprolol Succinate ER 25 M G Oral Tablet Extended Release 24 Hour 05/16/2024 - 02/27/2025 Provider: Diagnosis: Last Documented On 1:41PM By Sari Randall ; [facility], [facility] Levothyroxine Sodium 100 MCG Oral Tablet 04/04/2024 - 02/27/2025 Provider: Diagnosis: Last Documented On 1:41PM By Sari Randall ; [facility], [facility] Medications Administered Includes: Administered Medications in patient's chart No Administered Medications Recorded Vital Signs Includes: Vital Signs from 08/22/2024 through 08/22/2025 Vital Name 07/11/2025 09:08A 02/27/2025 01: 42P Height (in) 67 67 Weight (lb) 217 217 Body Mass Index 34 34 Body Surface Area 2.1 2.1 Note: mgg mgg Last Documented: On 07/11/2025 9:08AM ; [facility] On 02/27/2025 1:42PM ; [facility] Results Includes: Results from 08/22/2024 through 08/22/2025 No Results Recorded For Specified Dates Social History Description Last Updated Caffeine use 07/11/2025 Last Documented On 9:34AM ; [facility], [facility] Exercising regularly 07/11/2025 Last Documented On 5 9:34AM ; [facility] No recent change in diet 07/11/2025 Last Documented On 5 9:34AM ; [facility] Not a current smoker. 07/11/2025 Last Documented On 5 9:34AM ; [facility] Not using alcohol 07/11/2025 Last Documented On 5 9:34AM ; [facility] Not using drugs 07/11/2025 Last Documented On 5 9:34AM ; [facility] Sex - Female 07/17/2025 Last Documented On 3:08PM ; [facility] Smoking Status Unknown Procedures and Surgical History Includes: Procedures from 08/22/2024 through 08/22/2025 Procedures Code Diagnosis Performing Provider Service Location Service Date DRAIN/INJECT, JOINT/BURSA (RIGHT) Trochanteric bursitis, right hip Alexander Tristan PA-C [facility] 07/11/2025 Last Documented On 5 3:08PM ; [facility] Injection, betamethasone acetate 6mg per cc and betamethason J0702 Trochanteric bursitis, right hip Alexander Tristan PA-C [facility] 07/11/2025 Last Documented On 5 3:08PM ; [facility] DRAIN/INJECT, JOINT/BURSA (RIGHT) Trochanteric bursitis, right hip Alexander Tristan PA-C [facility] 02/27/2025 Last Documented On 5 11:38AM ; [facility] Triamcinolone/Kenalog, 10mg per cc J3301 Trochanteric bursitis, right hip Alexander Tristan PA-C [facility] 02/27/2025 Last Documented On 5 11:38AM ; [facility] Surgical History Last Updated History of shoulder arthroplasty 025 Last Documented On 5 9:34AM ; [facility] Medical History Includes: Medical History in patient's [...] Active Last Documented On 5 9:08AM ; [facility] Care Study Abroad Advisor Name (Identifier) Role/Relation Location/Telecom Last Documented By Alvaro Fountain MD ([id number]) Assigned practitioner (occupation) [facility] [place], [place], [place], [address] tel:[phone] Last Documented On 07/17/2025 3:08PM ; [facility], [facility] KELECHI WOODSON ([id number]) Primary care physician (occupation) [facility] [address], , [address] tel:[phone] Last Documented On 07/17/2025 3:08PM ; [facility] Encounters Includes: Encounters from 08/22/2024 through 08/22/2025 Encounter Provider Location (Healthcare Service Location) Date Check-In Time Check-Out Time Diagnosis Encounter Disposition [facility] 2024 9:02AM 9:31AM Overweight [facility] 2024 1:32PM 1:59PM Payer Includes: Active Insurance Policies Plan Name (Payer ID) Coverage Type Member ID Group # Subscriber (ID) Relationship Effective Dates 1 - Medicare Part B [facility] ([id number]) [id number] Brigitte Pierson Jordan Self (Checked on 07/11/2025) Last Documented On 4 8:58AM ; [facility], [facility] 2 - [facility] CLAIMS DIVISION ([id number]) [id number] Brigitte Ortega Self (Checked on 07/11/2025) Last Documented On 4 12:35PM ; [facility], [facility] Clinical Notes Includes: Signed Clinical Notes starting from 08/06/2022 * Progress note Date Encounter Last Documented by 07/11/2025 Follow Up Last documented on 07/11/2025; 9:34 AM, Alexander Rahman; [facility], [facility] Active Problems & Conditions - Joint [...] 24 Hour 90 days, 0 refills - Qybunbkk-Hromsqtrx-Eezcutxw 3.5-10841-8.1 Ophthalmic Ointment 3.5-42700-4.1 10 days, 0 refills Past Medical/Surgical History [...] omissions. Care Team - KELECHI WOODSON - TOBACCO FLAVORER * Progress note Date Encounter Last Documented by 02/27/2025 Follow Up Last documented on 02/27/2025; 2:08 PM, Alexander Rahman; [facility], [facility] Active Problems & Conditions - Joint [...] 24 Hour 90 days, 0 refills - Hpfigagd-Nclrjbvoi-Izmvswfy 3.5-84869-2.1 Ophthalmic Ointment 3.5-11334-3.1 10 days, 0 refills Past Medical/Surgical History [...] omissions. Care Team - KELECHI WOODSON - [facility]
--- OUTSIDE RECORDS SUMMARY | 2025-08-22 14:51 | XMS_ITS | Clinical Summary ---
Author Organization [facility] Address [address] [place] [address] Care Team Providers Care Hay Baler Name Role Phone Manuel Morales MD Primary Care Provider [phone] Allergies Active Allergy Reactions Criticality Noted Date [...] (06/10/2021): Added automatically from request for surgery [id number] Social History Tobacco Use Types Packs/Day Years [...] 06/09/2021, 05/24 Medical Devices Implanted Type Area Despatching And Receiving Clerk Device Identifier Shelf Expiration Date Model / Serial / Lot Lens AcrysEquallogic Iq Toric Sn6at4 23.0 - [id number] 002 - [id number] Implanted:Qty : 1 on 05/01/2019 by Yulissa Guerra MD at [facility] Implant Left: Posterior Chamber LUIS 12/21/2023 [id number] / [id number] 002 / Lens Acrysof Iq 6x13mm Sn60wf 23.0 - [id number] - [id number] Implanted:Qty : 1 on 06/19/2019 by Yulissa Guerra MD at [facility] Implant Right: Posterior Chamber LUIS 02/19/2023 [id number] / [id number] / Insurance MEDICARE A & B Member Subscriber Plan / Payer (Ef fective 2019-Present) Name:Brigitte Ortega Member ID:[id number] Relation to Subscriber:Self Name:Brigitte Ortega Subscriber ID:[id number] Payer ID:[id number] Group ID:Not on file Type:Not on file Address: [address] [employer] Advance Directives Documents on File Type Date Recorded 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
--- OUTSIDE RECORDS SUMMARY | 2025-08-22 14:51 | XMS_ITS | Clinical Summary ---
Author Organization [facility] Address [address] [place] [address] Care Team Providers Care Chlorobutadiene Scrubber Operator Name Role Phone Manuel Morales MD Primary Care Provider [phone] Allergies Active Allergy Reactions Criticality Noted Date [...] eyes daily. Active neomycin-polymy aubree-dexamethame thasone (Polydex) 3.5-93533-3.1 ointment ophthalmic ointment Apply 0.25 inches to both eyes nightly. 3.5 g 5 5 Active Active Problems Problem Noted Date Diagnosed Date Tachycardia 11/01/2024 PCO (posterior capsular opacification), bilatera l 05/14/2021 Bilateral posterior capsular opacification 04/02 Overview (11/01/2024): Added automatically from request for surgery [id number] After cataract of both eyes not obscuring [...] Description 06/18/2026 2:45 PM EDT Office Visit [facility] [facility] [place] [address], [place] [address] Yulissa Guerra MD [address] [facility] [address] [place] [address] Health Maintenance Due Date Last [...] UKY-Zoster Vaccines (2 of 3) 06/02/2016 04/07/2016 [id number] Vaccine (2024- season) 2025 08/25/2024, 06/15/2023, 09/09/2022, [...] age to complete this topic Insurance MEDICARE [facility] Care Teams Chlorobutadiene Scrubber Operator Relationship Specialty [place] [address] PCP - General 01/03/21
--- OUTSIDE RECORDS SUMMARY | 2025-08-22 14:52 | XMS_ITS | Clinical Summary ---
Author Organization [facility] Address [address] [place] [address] Phone Care Team Providers Care Rock Picker Name Role Phone Александр JAQUEZ, Alvaro Sharp Unavailable [phone] KELECHI WOODSON Primary Care Provider [phone] Reason for Visit and Chief Complaint The Chief Complaint is: R hip pain Problems Includes: Problems addressed during this encounter and other active Problems All Visits Onset Date Date of Diagnosis Resolved Date Provider Condition Status Joint Pain Hip Right 06/12/2024 06/12/2024 Aelxander Tristan PA-C Active Last Documented On 1:42AM ; [facility], [facility] Plan of Treatment Right hip bursa [...] - Last Documented On 02/27/2025 2:08PM ; [facility], [facility] Instructions to patient Lose weight Last Documented On 1:42PM ; [facility], [facility] Assessments Includes: Assessments from this encounter Findings Fall Risk Assessment: - Last Documented On 02/27/2025 2:08PM ; [facility], [facility] This patient has been identified as a fall risk. Balance/gait along with postural blood pressure, vision and home fall hazards have been assessed. Medications have been reviewed, and recommendations made with regard to contributing factors for future falls. - Last Documented On 02/27/2025 2:08PM ; [facility], [facility] Plan of care: Consideration of vitamin D supplementation along with balance and strength training with consideration for formal physical therapy has been discussed with the patient. - Last Documented On 02/27/2025 2:08PM ; [facility], [facility] Greater trochanteric bursitis of the right hip - Last Documented On 02/27/2025 2:08PM ; [facility] Discussed options with the patient today moving forward. She elected to proceed with greater trochanteric bursal steroid injection which she tolerated very well. Continue activities as able. Follow up in the office as needed. Patient is agreeable with above plan. They are to call the office with any concerns. - Last Documented On 02/27/2025 2:08PM ; [facility], [facility] Instructions Includes: Instructions from this encounter Instructions to patient Lose weight Last Documented On 1:42PM ; [facility], [facility] Medical Equipment - Implanted Devices Includes: Current Devices No Medical Equipment Recorded Medications Includes: Medications discussed during this encounter and other current Medications Discontinued / Stopped on this date KELECHI WOODSON on 06/02/2024 Azelastine HCl 0.05% Ophthalmic Solution Provider: KELECHI WOODSON Diagnosis: Last Documented On 1:40PM By Sari [facility], [facility] Lisinopril 20 MG Oral Tablet Provider: KELECHI WOODSON Diagnosis: Last Documented On 1:40PM By Sari [facility], [facility] Simvastatin 20 MG Oral Tablet Provider: KELECHI WOODSON Diagnosis: Last Documented On 1:40PM By Sari [facility], [facility] Metoprolol Succinate ER 25 M G Oral Tablet Extended Release 24 Hour Provider: Diagnosis: Last Documented On 1:41PM By Sari [facility], [facility] Levothyroxine Sodium 100 MCG Oral Tablet Provider: Diagnosis: Last Documented On 1:41PM By Sari [facility], [facility] Current Medications (continue as prescribed) Doxycycline Hyclate 20 MG Oral Tablet 02/23/2025 Pro vider: Diagnosis: Last Documented On 1:41PM By Sari Randall ; [facility] Levothyroxine Sodium 100 MCG Oral Tablet 02/06/2025 Provider: KELECHI WOODSON Diagnosis: Last Documented On 1:41PM By Sari Randall ; [facility] Metoprolol Succinate ER 25 M G Oral Tablet Extended Release 24 Hour 02/03/2025 Provider: Diagnosis: Last Documented On 1:41PM By Sari Randall ; [facility], [facility] Fexofenadine HCl 180 MG Oral Tablet 01/24/2025 Provi milton: Diagnosis: Last Documented On 1:41PM By Sari Randall ; [facility], [facility] Kgidgzvf-Vlthkthab-Eebnlvck 3.5-98814-2.1 Ophtha lmic Ointment 01/17/2025 Provider: Diagnosis: Last Documented On 1:41PM By Sari Randall ; [facility] Medications Administered Includes: Administered Medications from this encounter No Administered Medications Recorded Vital Signs Includes: Vital Signs from this encounter Vital Name 02/27/2025 01:42P Height (in) 67 Weight (lb) 217 Body Mass Index 34 Body Surface Area 2.1 Note: mgg Last Documented: On 02/27/2025 1:42PM ; [facility] Results Includes: Results discussed during this [...] 02/27/2025 Last Documented On 2:08PM ; [facility] Exercising regularly 02/27/2025 Last Documented On 5 2:08PM ; [facility] No recent change in diet 02/27/2025 Last Documented On 5 2:08PM ; [facility] Not a current smoker. 02/27/2025 Last Documented On 5 2:08PM ; [facility] Not using alcohol 02/27/2025 Last Documented On 5 2:08PM ; [facility] Not using drugs 02/27/2025 Last Documented On 2:08PM ; [facility] Sex - Female 07/17/2025 Last Documented On 3:08PM ; [facility] Smoking Status Unknown Procedures and Surgical History Includes: Procedures from this encounter Procedures Code Diagnosis Performing Provider Service Location Service Date DRAIN/INJECT, JOINT/BURSA (RIGHT) Trochanteric bursitis, right hip Alexander Tristan PA-C [facility] 02/27/2025 Last Documented On 11:38AM ; [facility] Triamcinolone/Kenalog, 10mg per cc J3301 Trochanteric bursitis, right hip Alexander Tristan PA-C [facility] 02/27/2025 Last Documented On 11:38AM ; [facility] an X-ray was performed [id number] Last Documented On 5 1:42PM ; [facility] an MRI was performed [id number] Last Documented On 1:42PM ; [facility] Surgical History Last Updated History of shoulder arthroplasty 025 Last Documented On 5 2:08PM ; [facility] Medical History Includes: Medical History addressed during this encounter Description Last Updated History of Heartburn / Acid Reflux 02/27 Last Documented On 5 2:08PM ; [facility] History of Irregular Heartbeat Last Documented On 5 2:08PM ; [facility] History of Thyroid Disease 02/27/2025 Last Documented On 2:08PM ; [facility] Family History Includes: Family History addressed during this encounter Description Last Updated Family history of heart disease 02/28/20 25 Last Documented On 5 2:08PM ; [facility] Family history of rheumatoid arthritis 0 02/27/2025 Last Documented On 5 2:08PM ; [facility] Family history of systemic hypertension 02/27/2025 Last Documented On 5 2:08PM ; [facility] Review of Systems Includes: Review [...] Anxiety Last Documented On 5 1:42PM ; [facility] Physical Exam Includes: Physical Exam from this encounter Allergies Includes: Active Allergies Substance Type Reaction Onset Date Resolved Date Statu s Penicillin G Allergy 06/12/2024 Active Last Documented On 5 9:08AM ; [facility] Care Rock Picker Name (Identifier) Role/Relation Location/Telecom Last Documented By Alvaro Fountain MD ([id number]) Assigned practitioner (occupation) [address] [place] [address], [place], [address] tel: Last Documented On 07/17/2025 3:08PM ; [facility] KELECHI WOODSON ([id number]) Primary care physician (occupation) [address] [place], , [address] tel: Last Documented On 07/17/2025 3:08PM ; [facility], [facility] Encounters Encounter Provider Location (Healthcare Service Location) Date Check-In Time Check-Out Time Diagnosis Encounter Disposition Follow Up Alexander Tristan PA-C [facility] 2024 1:32PM 1:59PM Payer Includes: Active Insurance Policies Plan Name (Payer ID) Coverage Type Member ID Group # Subscriber (ID) Relationship Effective Dates 1 - Medicare Part B [facility] ([id number]) [id number] Brigitte Pierson Jordan Self (Checked on 07/11/2025) Last Documented On 4 8:58AM ; [facility] 2 - [facility] CLAIMS [facility]ISION ([id number]) [id number] Brigitte Pierson Jordan Self (Checked on 07/11/2025) Last Documented On 4 12:35PM ; [facility] Clinical Notes Includes: Clinical Notes from this encounter * Progress note Date Encounter Last Documented by 02/27/2025 Follow Up Last documented on 02/27/2025; 2:08 PM, Alexander Rahman; [facility] Active Problems & Conditions - [...] 24 Hour 90 days, 0 refills - Lvjoulsn-Phukxjlde-Jmuglznp 3.5-29663-5.1 Ophthalmic Ointment 3.5-73267-4.1 10 days, 0 refills Past Medical/Surgical History [...] omissions. Care Team - KELECHI WOODSON - ARMATURE COIL WINDER
--- OUTSIDE RECORDS SUMMARY | 2025-08-22 14:52 | XMS_ITS ---
Care Plan - [facility] Created on: August 22, 2025 Brigitte Ortega : 1955 Sex: Female Author Organization [facility] Address [address] [place] [address] Phone Care Team Providers Care Senior Abap Developer Name Role Phone Александр JAQUEZ, Alvaro Sharp Unavailable [phone] KELECHI WOODSON Primary Care Provider [phone]
--- NOTE | 2025-08-22 15:00 | US_ITS ---
FINAL REPORT TECHNIQUE: Sonographic images of the kidneys and retroperitoneum were obtained in the longitudinal and transverse planes. CLINICAL HISTORY: utis FINDINGS: The right kidney measures 10.2 cm in vogw-ta-ziwx length. No hydronephrosis, mass, or stone. Cortical echogenicity and thickness are normal. The left kidney measures 11.0 cm in mcla-bw-pfbb length. No hydronephrosis, mass, or stone. Cortical echogenicity and thickness are normal. IMPRESSION: Morphologically normal kidneys bilaterally. Reviewed, Interpreted and Dictated by Dede Ortega MD Transcribed by Bee Arvizu Authenticated and [facility]
== END 2025-08-22 23:59 | disposition home or self-care (01) ==
LOC: RAD 14:47
PROVIDERS: PCP Family Medicine; Visit Provider Urology
DX: N30.01 Acute cystitis with hematuria (principal); N39.3 Stress incontinence (female) (male); N95.2 Postmenopausal atrophic vaginitis
CPT/HCPCS: 76770